=== PATIENT | male | born 1940 | race Caucasian/White ===

== ENCOUNTER 2016-03-06 11:02 | Observation (INO) | payer OTHER ==
[~2016-03-06] VITALS: Ht 193 cm; Wt 113.8 kg
[2016-03-06] VITALS (11 sets, daily range): BP systolic 66–171; BP diastolic 49–82; PULSE 57–63; TEMP 36.3–37; O2SAT 92–100; Ht 193 cm; Wt 113.8 kg
[2016-03-06] MEDS: CEFAZOLIN IV 1,000 MG in DEXTROSE 5% 50ML IV SCH ×2 (06:00→16:06)
[~2016-03-06 11:02] MED LIST: AMIO200T PO; ASPI1TAB83 PO; CARV12.52 PO; CRS10 PO; FURO40TA3 PO; INSDGIPEN SC; LACTATED RINGER'S 1000ML IV SCH; LOSA50TA54 PO; POTA10CA28 PO; SITA100T3 PO
[2016-03-06] MEDS ORDERED: NovoLIN-R INSULIN PER UNIT CHARGE ONE (12:09)
[2016-03-06] MEDS ORDERED: NURSING VERBAL MED ORDER ONE (12:15)
[2016-03-06] MEDS ORDERED: LIDOCAINE HCL 1% 20 ML VIAL ONE (12:35)
[2016-03-06] MEDS ORDERED: BACITRACIN 50000 UNIT VIAL ONE (12:35)
[2016-03-06] MEDS ORDERED: BACITRACIN OINT 0.9 GM PKT ONE (12:35)
[2016-03-06] MEDS ORDERED: FENTANYL CITRATE INJ 50 MCG/1 ML 2 ML VIAL ONE (12:56)
[2016-03-06] MEDS ORDERED: MIDAZOLAM HCL 5 MG/ML 1 ML VIAL ONE (12:57)
--- NOTE | 2016-03-06 13:32 | History & Physical Bridge Note ---
H&P Re-Evaluation Bridge Note: I have examined the patient, reviewed the History & Physical and in the interval since the performance of the History & Physical I have noted the following changes of clinical significance: No changes noted. I discussed the indications, procedure, risks and alternatives of ICD implantation with him and his and they understand and he agrees to proceed. Consent obtained.
--- NOTE | 2016-03-06 13:39 | Procedure Note ---
Pre-Mod Sedation Assessment General Date of Moderate Sedation: Mar 06, 2016. Vital Signs: Vital Signs Past 12 Hours Date Time Temp Pulse Resp B/P Pulse Ox O2 Delivery O2 Flow Rate FiO2 03/06/16 11:35 37 57 20 171/73 92 Room Air Review Cardiovascular: regular rate, rhythm Abdomen: normal bowel sounds Lungs: lungs clear Pre-Sedation Airway Assessment Oral Cavity: WNL Smoking Status: Never Smoker Procedure Planning Contraindications-for Mod Sed: None Yes Notes The planned sedation has been discussed with the patient and consent obtained. I have identified the patient, determined the appropriateness of sedation and have assessed the patient immediately prior to the procedure. All medicine(s) and interventions are by my order.
--- NOTE | 2016-03-06 15:43 | Procedure Note ---
Post-Mod Sedation Assessment General Date of Moderate Sedation Mar 06, 2016. Vital Signs: Vital Signs Past 12 Hours Date Time Temp Pulse Resp B/P Pulse Ox O2 Delivery O2 Flow Rate FiO2 03/06/16 11:35 37 57 20 171/73 92 Room Air Review - Discharge Criteria Vital Signs Stable: Yes Alert/Oriented/Conversant: Yes Returned to Baseline Mental St: Yes Nausea Absent/Minimal: Yes Pain/Discomfort/Absent/Minimal: Yes Normal/Baseline Respirations: Yes Active Bleeding?: No
--- NOTE | 2016-03-06 15:46 | Cardiology Procedure Brief Nt ---
Preliminary Cardiology Note Procedure Date Mar 06, 2016. Pre-Procedure Diagnosis ischemic cardiomyopathy Post-Procedure Diagnosis same Procedure(s) Performed Ventricular ICD lead implantation Atrial lead implantation Coronary sinus angiography Left ventricular lead implantation Biventricular ICD implantation Insurance Claims Examiner Dr. Valle [employer](s) none Estimated Blood Loss 50 cc Preliminary Findings Good lead position, excellent measurements Recommendations Monitor overnight Specimens None Anesthesia local with sedation Complication(s) None Disposition PCU
[2016-03-06] MEDS ORDERED: IV FLUIDS COMPLETED PRN (16:00)
[2016-03-06] MEDS ORDERED: ACETAMINOPHEN 325 MG TAB PO PRN (16:00)
[2016-03-06] MEDS ORDERED: KETOROLAC TROMETHAMINE 10 MG TAB PO PRN (16:00)
[2016-03-06] MEDS ORDERED: GLUCOSE 10 TABS/TUBE PO PRN (16:15)
[2016-03-06] MEDS ORDERED: DEXTROSE 50% 50 ML SYR IV PRN (16:15)
[2016-03-06] MEDS ORDERED: GLUCOSE 40% GEL 15 GM TUBE PO PRN (16:15)
[2016-03-06] MEDS ORDERED: GLUCAGON FOR INJ 1 MG VIAL SQ PRN (16:15)
[2016-03-06] MEDS: CEFAZOLIN IV 1,000 MG in DEXTROSE 5% 50ML 50 ML IV SCH (17:05)
--- NOTE | 2016-03-06 17:12 | OPERATIVE REPORT ---
DATE OF OPERATION: 03/06/2016 AMBULATORY OPERATIVE REPORT PREOPERATIVE DIAGNOSES: 1. Ischemic cardiomyopathy. 2. Congestive heart failure. 3. Left bundle branch block. POSTOPERATIVE DIAGNOSES: Same. PROCEDURES: 1. Atrial and ventricular ICD lead implantation. 2. Coronary sinus angiography. 3. Left ventricular lead implantation. 4. Biventricular ICD implantation. SURGEON: Saul Valle MD ANESTHESIA: Local with sedation. HISTORY: This is a 75-year-old male who has a history of coronary artery disease and cardiomyopathy. He has had an ejection fraction of 20%-25%, he has significant difficulty with exertion and has class 3 [place] [employer] heart failure symptoms. He also has a left bundle branch block with a QRS duration of around 200 milliseconds. He is on medical therapy, but has relative bradycardia, which might be contributing to his difficulty with exertion, but is on 12.5 mg b.i.d. of carvedilol. He is brought to the laboratory for ICD implantation for primary prevention of sudden cardiac as well as biventricular pacing to try to improve his functional status. DESCRIPTION OF PROCEDURE: After obtaining informed consent for the procedure, he was brought to the laboratory on the afternoon of 03/06/2016 being n.p.o. after midnight. He was identified in the laboratory, prepped and draped in standard sterile manner for a left-sided ICD implantation. The left prepectoral region was anesthetized with 1% lidocaine local anesthetic and left subclavian venipuncture was performed by percutaneous technique and a guidewire placed through the left subclavian vein into the superior vena cava. The area was further infiltrated with 1% lidocaine local anesthetic and a 6-cm incision was made parallel to the left clavicle and 3 cm below it and carried down to the anterior pectoralis fascia. An ICD pocket was formed by blunt dissection anterior to the pectoralis fascia and a bacitracin-soaked sponge (50,000 units in 50 mL normal saline solution) was placed in the pocket. A 10-1/2-Slovenian Medtronic lead introducer was placed over the guidewire into the left subclavian vein, the dilator and guidewire were removed and a bipolar active fixation steroid-tipped dual coil defibrillator lead was advanced through the introducer into the superior vena cava. The guidewire was placed through the introducer and introducer stripped away from lead and guidewire. An 8-Slovenian introducer was placed over the guidewire, the dilator and guidewire were removed and a bipolar active fixation steroid-tipped atrial lead was advanced through introducer into the superior vena cava. The guidewire was placed through the introducer and introducer stripped away from lead and guidewire. Using a curved stylette, the ventricular lead was advanced through the right ventricular outflow tract and then using a straight stylette, was positioned in the right ventricular apex. Once in position, the ventricular pacing threshold was evaluated in bipolar configuration at a pulse width of 0.5 milliseconds. Final ventricular pacing threshold was 0.5 volts with a current of 0.5 milliamp, 5-volt lead impedance was 703 ohms and R-waves were sensed at 3.2 millivolts. Diaphragmatic pacing was not present with a 10-volt bipolar output. The atrial lead was positioned in the region of the atrial appendage and a screw extended fixing the lead in position. Atrial pacing threshold was evaluated in bipolar configuration and a pulse width of 0.5 milliseconds. Final atrial pacing threshold was 0.8 volts with a current of 1.0 milliamp, 5-volt lead impedance was 777 ohms and P-waves were sensed at 1.2 millivolts. Diaphragmatic pacing was not present with a 10 volt bipolar output. Once leads were in position, they were attached to the anterior pectoralis fascia using 1 suture of 2-0 silk around each lead collar. The short guidewire was exchanged for a long wire using an 8-Slovenian dilator, a Scot coronary sinus sheath was advanced to position at the right atrium. This did not directly engage the coronary sinus os, therefore a right angle guiding sheath was advanced through the [place] catheter and using dye injection, the coronary sinus os was identified and a guidewire placed into the coronary sinus. The sheath system was advanced into the coronary sinus. Using the right angle guide, the coronary sinus branches were subselected and an angiography was performed in various projections. There were several good posterolateral vessels. One was chosen and a quadripolar left ventricular lead was advanced through the sheath into this vessel. Using a stylet, the lead could not be advanced into good distal position; therefore, the stylet was exchanged for a Whisper wire and the lead was positioned in good distal position. Once in position, the left ventricular pacing threshold was evaluated with the configuration of tip to L2 and in this configuration at a pulse width of 0.5 milliseconds, the threshold was 0.9 volts, current was 1.0 milliamp and 5-volt lead impedance was 982 ohms. R-waves were sensed at 7 millivolts. This is a good threshold and there was no diaphragmatic pacing with a 10-volt output. Once this lead was in position, it was attached to the anterior pectoralis fascia using 2 sutures of 2-0 silk around the lead collar. An additional suture of 2-0 silk was placed about on the atrial and ventricular lead collars. Hemostasis was obtained. The bacitracin-soaked sponge was removed from the pocket and the biventricular ICD was connected to the leads. The ICD was placed in the pocket with the leads coiled beneath it. The incision was closed with a running double subcutaneous closure of 3-0 Vicryl followed by running subcuticular skin closure of 4-0 Vicryl. Bacitracin ointment was placed on incision and a pressure dressing applied. The patient tolerated the procedure well, there were no complications and estimated blood loss was 50 mL. The patient was transferred to the telemetry unit for monitoring. The atrial lead is a Medtronic, model #5076, serial #[id number] and is a bipolar active fixation steroid-tipped MRI compatible lead. The right ventricular ICD lead is a Medtronic, model #6947M, serial #[id number] and is a dual-coil active fixation steroid-tipped lead. The left ventricular lead is a Medtronic, model #4598, serial #[id number] and is a quadripolar coronary sinus lead, MRI compatible. The ICD is a Medtronic, Amplia MRI Quad CRTD SureScan, model #KUAM7NL, serial #[id number]. The ICD was reprogrammed in the laboratory to final settings. [facility]
[2016-03-06] MEDS: CARVEDILOL 12.5 MG TAB PO SCH (20:12)
[2016-03-06] MEDS ORDERED: ROSUVASTATIN CALCIUM 20 MG TAB PO SCH (21:00)
[2016-03-07] VITALS: BP 118/67; PULSE 61; TEMP 36.5; O2SAT 96
[2016-03-07] MEDS: CEFAZOLIN IV 1,000 MG in DEXTROSE 5% 50ML 50 ML IV SCH ×2 (00:47→07:44)
[2016-03-07 03:52] VITALS: BP 135/86; PULSE 68; TEMP 36.7; O2SAT 98
[2016-03-07 04:00] VITALS: O2SAT 98
[2016-03-07 04:58] LABS: BUN/CREATININE RATIO 21.8 (10-20); CALCIUM 8.8 mg/dl (8.5-10.1); CREATININE 1.3 mg/dl (0.60-1.40); POTASSIUM 3.8 mmol/L (3.5-5.1)
--- NOTE | 2016-03-07 07:21 | DIAGNOSTIC IMAGING REPORT ---
TWO VIEW CHEST CLINICAL HISTORY: Pacemaker implantation. FINDINGS: PA and lateral chest radiographs are compared to study dated 02/07/2016. Correlation is made with PET/CT dated 06/05/2010. A 3-lead cardiac AICD has been placed. This partially obscures the left upper chest. Leads project over the right atrial appendage, the right ventricle, and the coronary sinus. The heart is enlarged and there is atherosclerotic calcification of the thoracic aorta. The pulmonary vasculature is noncongested. Chronic interstitial thickening is similar to previous. No airspace consolidation or pleural effusion is identified. There is no pneumothorax. The skeletal structures are osteopenic. Degenerative change is seen throughout the thoracic spine. IMPRESSION: 1. A 3-lead cardiac AICD has been placed as detailed above. No pneumothorax is identified post procedure. 2. Cardiomegaly without radiographic evidence of congestive failure. 3. No airspace consolidation or pleural effusion is identified. Electronically signed by: Taj Garcia M.D. 03/07/2016 7:19 AM Dictated Date/Time: 03/07/2016 7:17 AM
[2016-03-07 07:32] VITALS: BP 131/81; PULSE 62; TEMP 36.6; O2SAT 95
[2016-03-07] MEDS: CARVEDILOL 12.5 MG TAB PO SCH (07:46)
[2016-03-07 08:00] VITALS: BP 131/81; PULSE 62; TEMP 36.6; O2SAT 98
--- NOTE | 2016-03-07 08:51 | Discharge Instructions ---
Discharge Instructions Admission Ischemic cardiomyopathy Discharge Discharge Diagnosis / Problem: Status post biventricular ICD implantation Discharge Goals Goal(s): Improve disease control Activity Recommendations Activity Limitations: as noted below ACTIVITY RECOMMENDATIONS: * Do not raise affected arm over head for 2 weeks. SPECIAL CARE INSTRUCTIONS: * If bleeding occurs, apply direct pressure to area for 5 minutes. * Call your doctor if you have severe pain, fever, drainage or bleeding at site. * Keep dressing on and dry for 48 hours then remove. * Keep any scheduled doctor's appointment. * Implant Card - hand held device with website information given. SKIN IRRITATION: * You may experience some redness and/or swelling in the area where radiation was administered. If any skin irritation occurs, please contact your family physician. FOLLOW UP VISIT: 03/09/16 @ 9:00 am for incision check . Current Hospital Diet Patient's current hospital diet: AHA Diet (Heart Healthy), Diabetes Type 2 Diet Discharge Diet Recommended Diet: AHA Diet (Heart Healthy) Pending Studies Studies pending at discharge: no Laboratory Results Hemoglobin A1c Test 02/08/16 06:50 Range/Units Estimated Average Glucose 177 mg/dl Hemoglobin A1c 7.8 H 4.5-5.6 % Medical Emergencies . Who to Call and When: Medical Emergencies: If at any time you feel your situation is an emergency, please call 911 immediately. . Non-Emergent Contact Non-Emergency issues call your: Final Inspector . . "Provider Documentation" section prepared by Katlin Dean. VTE Core Measure Inpt VTE Proph given/why not?: Treatment not indicated
[2016-03-07] MEDS ORDERED: POTASSIUM CHLORIDE 10 MEQ TABCR PO SCH (09:00)
[2016-03-07] MEDS ORDERED: SITAGLIPTIN 100 MG TAB PO SCH (09:00)
[2016-03-07] MEDS ORDERED: INSULIN GLARGINE SOLOSTAR 100 UNITS/ML 3 ML PEN SC SCH (09:00)
[2016-03-07] MEDS ORDERED: AMIODARONE 200 MG TAB PO SCH (09:00)
[2016-03-07] MEDS ORDERED: FUROSEMIDE 40 MG TAB PO SCH (09:00)
[2016-03-07] MEDS ORDERED: LOSARTAN POTASSIUM 50 MG TAB PO SCH (09:00)
--- NOTE | 2016-03-07 09:18 | Cardiology Follow-Up ---
Subjective Date of Service: Mar 07, 2016. Pt evaluation today including: conversation w/ patient, physical exam, chart review, review of studies, review of inpatient medication list, conversation w/ attending History of Present Illness Patient currently resting comfortably in bed. He denies any chest pain, shortness of breath, palpitations, or lightheadedness. Social History Smoking Status: Never Smoker History of Alcohol Use: No Objective Vital Signs Past 12 Hours Date Time Temp Pulse Resp B/P Pulse Ox O2 Delivery O2 Flow Rate FiO2 03/07/16 08:00 98 Nasal Cannula 2.0 03/07/16 07:32 36.6 62 20 131/81 95 Room Air 03/07/16 04:00 98 Nasal Cannula 2.0 03/07/16 03:52 36.7 68 19 135/86 98 Nasal Cannula 2.0 03/07/16 00:00 36.5 61 19 118/67 96 Nasal Cannula 2.0 03/06/16 23:59 96 Nasal Cannula 2.0 Last Recorded Weight-Kilograms: 113.800 Intake & Output 8-Hour Column 03/06/16 03/07/16 03/07/16 16:00 00:00 08:00 Intake Total 400 ml 406 ml Output Total 300 ml Balance 100 ml 406 ml 24-Hour Column 03/07/16 08:00 Intake Total 806 ml Output Total 300 ml Balance 506 ml Physical Exam Constitutional: Level of Distress: NAD Lungs: Auscultation: breath sounds normal Cardiovascular: Heart Auscultation: RRR, normal S1, normal S2, no murmurs Extremities: no edema Data Laboratory Results: Last 24 Hours Test 03/06/16 11:33 03/06/16 12:53 03/06/16 16:31 03/06/16 20:27 Bedside Glucose 320 mg/dl 291 mg/dl 258 mg/dl 284 mg/dl Test 03/07/16 03:52 03/07/16 06:45 Sodium Level 137 mmol/L Potassium Level 3.8 mmol/L Chloride Level 99 mmol/L Carbon Dioxide Level 31 mmol/L Anion Gap 7.0 mmol/L Blood Urea Nitrogen 28 mg/dl Creatinine 1.30 mg/dl Est Creatinine Clear Calc Drug Dose 68.9 ml/min Estimated GFR () 62.3 Estimated GFR (Non- 53.8 BUN/Creatinine Ratio 21.8 Random Glucose 206 mg/dl Calcium Level 8.8 mg/dl Bedside Glucose 212 mg/dl CXR: 1. A 3-lead cardiac AICD has been placed as detailed above. No pneumothorax is identified post procedure. 2. Cardiomegaly without radiographic evidence of congestive failure. 3. No airspace consolidation or pleural effusion is identified. EKG: AV dual paced rhythm. 68 bpm. Assessment and Plan Patient feeling well post-op. Device check showed excellent sensing and pacing characteristics. He is stable for discharge home. He will have a follow-up appointment in 2 days for incision check and in 1 month for device check.
--- NOTE | 2016-03-07 09:24 | Discharge Summary ---
Discharge Summary Admission Date: Mar 06, 2016 at 15:53 Discharge Date: Mar 07, 2016 Discharge Disposition: Home Primary Diagnosis: Ischemic cardiomyopathy Secondary Diagnoses/Problems: Medical Problems: (1) COPD with acute exacerbation Status: Acute (2) Pneumonia Status: Acute (3) Respiratory failure Status: Acute Procedures: Ventricular ICD lead implantation Atrial lead implantation Coronary sinus angiography Left ventricular lead implantation Biventricular ICD implantation Discharge Instructions Last Recorded Wt (Kilograms): 113.800 Allergies: Coded Allergies: No Known Allergies (Verified , 03/06/16) Additional Instructions: ACTIVITY RECOMMENDATIONS: * Do not raise affected arm over head for 2 weeks. SPECIAL CARE INSTRUCTIONS: * If bleeding occurs, apply direct pressure to area for 5 minutes. * Call your doctor if you have severe pain, fever, drainage or bleeding at site. * Keep dressing on and dry for 48 hours then remove. * Keep any scheduled doctor's appointment. * Implant Card - hand held device with website information given. SKIN IRRITATION: * You may experience some redness and/or swelling in the area where radiation was administered. If any skin irritation occurs, please contact your family physician. FOLLOW UP VISIT: Keep any scheduled doctor appointments. Special Care: Call your doctor if: * Temperature above 101 degrees * Pain not relieved by pain medicine ordered * There is increased drainage or redness from any incision * You have any unanswered questions or concerns. Avoid all tobacco products. If you need help to stop smoking, call [place]'s FREE QUITLINE at . This is a free call. Admission HPI This is a 75-year-old male who has a history of coronary artery disease and cardiomyopathy. He has had an ejection fraction of 20%-25%, he has significant difficulty with exertion and has class 3 [place] [employer] heart failure symptoms. He also has a left bundle branch block with a QRS duration of around 200 milliseconds. He is on medical therapy, but has relative bradycardia, which might be contributing to his difficulty with exertion, but is on 12.5 mg b.i.d. of carvedilol. He is brought to the laboratory for ICD implantation for primary prevention of sudden cardiac as well as biventricular pacing to try to improve his functional status. Admission Physical Exam Additional Comments: In general this is a well-developed well-nourished white male in no acute distress.HEENT exam is negative. Neck reveals normal carotid upstrokes without bruits. Jugular venous pressure is flat at 90. There is no thyromegaly. Cardiovascular exam reveals a regular rhythm with a normal S1 and S2. An S3 gallop is noted. No obvious murmurs. Lungs are clear without rales, rhonchi, or wheezes. Abdomen is soft without bruits. Extremities reveal intact radial artery pulses bilaterally. There is no peripheral edema. Hospital Course Patient with ischemic cardiomyopathy and class III NYHA heart failure symptoms underwent biventricular ICD implantation on 03/06/[address] Valle. He tolerated the procedure well. Device check the following day showed excellent sensing and pacing characteristics. CXR showed good lead placement and no pneumothorax. He was deemed stable for discharge home. He will have a follow-up appointment in 2 days for wound check and in 1 month for a device check. Total time spent on discharge = This includes examination of the patient, discharge planning, medication reconciliation, and communication with other providers.
== END 2016-03-07 10:31 | disposition home or self-care (01) ==
LOC: C.ACU 11:02 → C.2E 15:53
PROVIDERS: ADMIT Internal Medicine Cardiovascular Disease; ATTEND Internal Medicine Cardiovascular Disease
DX: I25.5 Ischemic cardiomyopathy (principal); I50.42 Chronic combined systolic (congestive) and diastolic (congestive) heart failure; I44.7 Left bundle-branch block, unspecified; I25.10 Atherosclerotic heart disease of native coronary artery without angina pectoris; I10 Essential (primary) hypertension; J44.9 Chronic obstructive pulmonary disease, unspecified; I48.0 Paroxysmal atrial fibrillation; E11.9 Type 2 diabetes mellitus without complications; E78.00 Pure hypercholesterolemia, unspecified; Z79.899 Other long term (current) drug therapy; Z79.82 Long term (current) use of aspirin; Z79.4 Long term (current) use of insulin; Z87.01 Personal history of pneumonia (recurrent); Z82.49 Family history of ischemic heart disease and other diseases of the circulatory system; Z83.3 Family history of diabetes mellitus; Z82.61 Family history of arthritis

== ENCOUNTER → 2016-04-12 | Outpatient (CLI) | payer OTHER ==
[~2016-04-12] MED LIST changes: -LACTATED RINGER'S 1000ML IV SCH
== END | disposition home or self-care (01) ==
LOC: C.LABSPEC 12:18
PROVIDERS: ATTEND Internal Medicine
DX: R19.7 Diarrhea, unspecified (principal)

== ENCOUNTER → 2016-06-14 | Outpatient (CLI) | payer OTHER ==
[2016-06-14 12:20] LABS: HEMATOCRIT 39.4 % (42-52); MEAN CELL VOLUME 89.1 fL (80-100); MEAN CORPUSCULAR HEMOGLOBIN 28.7 pg (25-34); MEAN CORPUSCULAR HGB CONC 32.2 g/dl (32-36); MEAN PLATELET VOLUME 10.6 fL (7.4-10.4); PLATELET COUNT 187 K/uL (130-400); RED BLOOD COUNT 4.42 M/uL (4.7-6.1)
[2016-06-14 12:33] LABS: PROTHROMBIN TIME (PATIENT) 10.7 SECONDS (9.0-12.0)
[2016-06-14 12:44] LABS: PARTIAL THROMBOPLASTIN RATIO 0.9
[2016-06-14 12:53] LABS: ESTIMATED AVERAGE GLUCOSE 186 mg/dl; HA1C FLAG Normal (Normal)
[2016-06-14 13:17] LABS: ALT/SGPT 32 U/L (12-78); AST/SGOT 23 U/L (15-37); BLOOD UREA NITROGEN 27 mg/dl (7-18); BUN/CREATININE RATIO 20.8 (10-20); CALCIUM 9.2 mg/dl (8.5-10.1); CARBON DIOXIDE 31 mmol/L (21-32); CHLORIDE 106 mmol/L (98-107); CHOLESTEROL 163 mg/dl (0-200); GLUCOSE 147 mg/dl (70-99); POTASSIUM 4.5 mmol/L (3.5-5.1); SODIUM 141 mmol/L (136-145)
[2016-06-14 13:20] LABS: ALB/GLOB RATIO 1.2 (0.9-2); ALKALINE PHOSPHATASE 54 U/L (45-117); CHOLESTEROL/HDL RATIO 3.7; HDL CHOLESTEROL 44 mg/dl; LDL CHOLESTEROL CALCULATED 63 mg/dl; TRIGLYCERIDES 280 mg/dl (0-150); VERY LOW DENSITY LIPOPROT CALC 56 mg/dl
== END | disposition home or self-care (01) ==
LOC: C.LABBFT 10:52
PROVIDERS: ATTEND Internal Medicine
DX: Z01.818 Encounter for other preprocedural examination (principal); I10 Essential (primary) hypertension; E11.29 Type 2 diabetes mellitus with other diabetic kidney complication

== ENCOUNTER → 2016-06-15 | Outpatient (CLI) | payer OTHER ==
[2016-06-15 13:21] LABS: RATIO 22.4 mcg/mg (0-30.0)
== END | disposition home or self-care (01) ==
LOC: C.LABSPEC 12:18
PROVIDERS: ATTEND Internal Medicine
DX: E11.29 Type 2 diabetes mellitus with other diabetic kidney complication (principal)

== ENCOUNTER 2017-05-27 10:17 | Inpatient (IN) | payer OTHER ==
[~2017-05-27] VITALS: Ht 193 cm; Wt 121.9 kg
[2017-05-27] MEDS ORDERED: ALUMINUM/MAGNESIUM SUSP 30 ML UDC PO STA (10:27)
[2017-05-27] MEDS ORDERED: ACETAMINOPHEN 500 MG TAB PO STA (10:27)
[2017-05-27] MEDS ORDERED: ASPIRIN 81 MG CHEW PO STA (10:27)
--- NOTE | 2017-05-27 11:00 | DIAGNOSTIC IMAGING REPORT ---
CHEST ONE VIEW PORTABLE CLINICAL HISTORY: 76 years-old Male presenting with ABDOMINAL PAIN/GI, chest discomfort. TECHNIQUE: Portable upright AP view of the chest was obtained. COMPARISON: 03/07/2016. FINDINGS: Left subclavian implanted cardiac defibrillator with leads to the right atrium, right ventricular apex, and coronary sinus. Atherosclerosis of the aortic arch. Cardiac silhouette moderately enlarged, unchanged. Mild pulmonary prominence, unchanged. No focal opacity. No large effusion or pneumothorax. Osseous structures normal. IMPRESSION: 1. Cardiomegaly. Otherwise no acute cardiopulmonary disease. Electronically signed by: Erick Martinez M.D. 05/27/2017 10:59 AM Dictated Date/Time: 05/27/2017 10:58 AM
--- NOTE | 2017-05-27 11:00 | DIAGNOSTIC IMAGING REPORT ---
KUB CLINICAL HISTORY: Abdominal pain COMPARISON STUDY: No previous studies for comparison. FINDINGS: There are gas-filled nondilated small bowel loops. There is no pathologic bowel dilatation. There are no transition zones indicate bowel obstruction. Pelvic basin calcifications are likely vascular. IMPRESSION: No evidence of pathologic bowel dilatation. Electronically signed by: Maik Aaron M.D. 05/27/2017 10:59 AM Dictated Date/Time: 05/27/2017 10:58 AM
[2017-05-27 11:06] LABS: PTT PATIENT 23.9 SECONDS (21.0-31.0)
[2017-05-27] MEDS ORDERED: INSU1.2I SC (11:07)
[2017-05-27] MEDS ORDERED: ROSU40TA PO (11:07)
[2017-05-27] MEDS ORDERED: CRD200 PO (11:07)
[2017-05-27 11:12] LABS: ALBUMIN 3.6 gm/dl (3.4-5.0); ALT/SGPT 32 U/L (12-78); AST/SGOT 20 U/L (15-37); BLOOD UREA NITROGEN 26 mg/dl (7-18); CARBON DIOXIDE 29 mmol/L (21-32); CREATININE 1.28 mg/dl (0.60-1.40); GLUCOSE 171 mg/dl (70-99); LIPASE 89 U/L (73-393); POTASSIUM 4.2 mmol/L (3.5-5.1); SODIUM 137 mmol/L (136-145)
--- NOTE | 2017-05-27 11:13 | EMERGENCY ROOM VISIT NOTE ---
History Report prepared by Shadi: Yoselin Tyler Under the Supervision of: Dr. Phillip Buitrago D.O. First contact with patient: 10:19 Chief Complaint: CHEST PAIN Stated Complaint: UNCOMFORTABLE IN CHEST AND BELLY History of Present Illness The patient is a 76 year old male who presents to the Emergency Room with complaints of constant chest pain beginning around 4pm yesterday evening. He was sitting down and relaxing when his pain began. He states that the pain worsens with a deep breath. He states that he has a "full feeling" across his upper abdomen and into his chest and neck. He has never experienced symptoms like this before. The patient rates his current pain as an 8/10 in severity. He reports a history of CHF. He also has a pacemaker and stents in place. The patient denies nausea and shortness of breath. Source of History: patient Onset: yesterday evening Position: chest Symptom Intensity: 8/10 Quality: other (full) Timing: constant Modifying Factors (Worsening): breathing Associated Symptoms: + neck pain, + abdominal pain, No SOB, No nausea Review of Systems See HPI for pertinent positives & negatives. A total of 10 systems reviewed and were otherwise negative. Past Medical & Surgical Medical Problems: (1) Acute respiratory failure with hypercapnia (2) Diabetes mellitus (3) Hyperlipidemia (4) Ischemic cardiomyopathy Family History Cancer Diabetes mellitus Heart disease Hypertension Social History Smoking Status: Never Smoker Alcohol Use: none Drug Use: none Marital Status: Housing Status: lives with family Occupation Status: retired Current/Historical Medications Scheduled Amiodarone HCl (Amiodarone HCl), 200 MG PO DAILY Aspirin (Aspirin), 81 MG PO 3XWK Carvedilol (Coreg), 12.5 MG PO BID Furosemide (Lasix), 40 MG PO DAILY Insulin Glargine (Toujeo Solostar), 40 UNITS SC BID Losartan Potassium (Cozaar), 100 MG PO DAILY Potassium Chloride (Micro-K Ext Rel), 10 MEQ PO DAILY Rosuvastatin Calcium (Crestor), 40 MG PO PM Sitagliptin Phosphate (Januvia), 100 MG PO DAILY Allergies Coded Allergies: No Known Allergies (Verified , 05/27/17) Physical Exam Vital Signs Date Time Temp Pulse Resp B/P (MAP) Pulse Ox O2 Delivery O2 Flow Rate FiO2 05/27/17 14:00 72 118/67 96 Room Air 05/27/17 13:30 61 109/69 96 Room Air 05/27/17 13:11 60 05/27/17 13:03 61 116/65 95 Room Air 05/27/17 12:29 120/67 05/27/17 12:04 84/58 05/27/17 11:52 107/67 05/27/17 11:47 60 93/61 94 Room Air 05/27/17 10:35 66 05/27/17 10:34 96 Room Air 05/27/17 10:33 Room Air 05/27/17 10:27 37.0 70 18 144/85 95 Room Air Physical Exam GENERAL: Patient is awake, alert, and in no acute distress. Patient is resting comfortably and showing no signs of anxiety EYES: The conjunctivae are clear. The pupils are round and reactive. EARS, NOSE, MOUTH AND THROAT: The nose is without any evidence of any deformity. Mucous membranes are moist tongue is midline NECK: The neck is nontender and supple. RESPIRATORY: Normal respiratory effort is noted there is no evidence of wheezing rhonchi or rales CARDIOVASCULAR: Regular rate and rhythm noted there no murmurs rubs or gallops normal S1 normal S2 GASTROINTESTINAL: The abdomen is soft. Bowel sounds are present in all quadrants. Abdomen is nontender MUSCULOSKELETAL/EXTREMITIES: There is no evidence of gross deformity full range of motion is noted in the hips and shoulders SKIN: There was trace pedal edema bilaterally. There is no obvious evidence of any rash. There are no petechiae, pallor or cyanosis noted. NEUROLOGIC: Patient is awake alert and oriented x3 Medical Decision & Procedures ER Provider Diagnostic Interpretation: Radiology results as stated below per my review and radiologist interpretation: KUB CLINICAL HISTORY: Abdominal pain COMPARISON STUDY: No previous studies for comparison. FINDINGS: There are gas-filled nondilated small bowel loops. There is no pathologic bowel dilatation. There are no transition zones indicate bowel obstruction. Pelvic basin calcifications are likely vascular. IMPRESSION: No evidence of pathologic bowel dilatation. Electronically signed by: Maik Aaron M.D. 05/27/2017 10:59 AM Dictated Date/Time: 05/27/2017 10:58 AM CHEST ONE VIEW PORTABLE CLINICAL HISTORY: 76 years-old Male presenting with ABDOMINAL PAIN/GI, chest discomfort. TECHNIQUE: Portable upright AP view of the chest was obtained. COMPARISON: 03/07/2016. FINDINGS: Left subclavian implanted cardiac defibrillator with leads to the right atrium, right ventricular apex, and coronary sinus. Atherosclerosis of the aortic arch. Cardiac silhouette moderately enlarged, unchanged. Mild pulmonary prominence, unchanged. No focal opacity. No large effusion or pneumothorax. Osseous structures normal. IMPRESSION: 1. Cardiomegaly. Otherwise no acute cardiopulmonary disease. Electronically signed by: Erick Martinez M.D. 05/27/2017 10:59 AM Dictated Date/Time: 05/27/2017 10:58 AM ABD/PELVIS IV CONTRAST ONLY CLINICAL HISTORY: 76 years-old Male presenting with upper abd pain. TECHNIQUE: Multidetector CT of the abdomen and pelvis was performed after the administration of intravenous contrast. IV contrast: 92 mL of Optiray 320. A dose lowering technique was used consistent with the principles of ALARA (as low as reasonably achievable). COMPARISON: PET/CT from 06/05/2010. CT DOSE (mGy.cm): The estimated cumulative dose is 1624.47 mGy.cm. 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 Cardiomegaly. Lung bases: Significant subpleural dependent groundglass and reticular opacities accompanied by bronchial wall thickening and minimal subsegmental bronchial debris in the lower lobes. Multichamber enlargement of the heart. Coronary artery and aortic valve calcification. No pericardial or pleural effusion. Liver: Normal morphology. No liver lesion. Patent hepatic vasculature. Biliary: No intrahepatic or extrahepatic biliary ductal dilatation. Gallbladder contains gallstones. Pancreas: Moderate parenchymal atrophy. Spleen: Normal. Adrenal glands: Normal. Kidneys and ureters: Mild nonspecific perinephric fat stranding. Well-defined hypodensity in the left upper pole likely simple cyst. No hydronephrosis. No nephrolithiasis. Ureters normal. Bladder: Normal. Pelvic organs: Prostate enlargement likely secondary to benign prostatic hyperplasia. Bowel: Diverticulosis of the sigmoid colon without pericolonic fat stranding. The appendix is normal. No bowel obstruction. Peritoneal cavity: No free fluid or intraperitoneal gas. Lymph nodes: No enlarged lymph nodes in the abdomen or pelvis. Vasculature: Atherosclerosis of the normal caliber abdominal aorta. IVC patent. Abdominal wall: Bilateral small fat-containing inguinal hernias. Nonspecific subcutaneous edema in the lumbar region. Musculoskeletal: Degenerative changes of the spine. Degenerative changes of the sacroiliac joints. IMPRESSION: 1. No acute intra-abdominal pathology. 2. Diverticulosis without evidence of diverticulitis. 3. Cholelithiasis. 4. Cardiomegaly. 5. Dependent opacities in the lungs with accompanying wall thickening and minimal subsegmental bronchial debris could suggest chronic aspiration. Electronically signed by: Erick Martinez M.D. 05/27/2017 12:35 PM Dictated Date/Time: 05/27/2017 12:27 PM Laboratory Results 05/27/17 11:16 Red Blood Count 4.34, Mean Corpuscular Volume 87.8, Mean Corpuscular Hemoglobin 30.0, Mean Corpuscular Hemoglobin Concent 34.1, Mean Platelet Volume 10.3, Neutrophils (%) (Auto) 67.4, Lymphocytes (%) (Auto) 18.4, Monocytes (%) (Auto) 10.7, Eosinophils (%) (Auto) 2.7, Basophils (%) (Auto) 0.4, Neutrophils # (Auto ) 5.43, Lymphocytes # (Auto) 1.48, Monocytes # (Auto) 0.86, Eosinophils # (Auto ) 0.22, Basophils # (Auto) 0.03 05/27/17 10:38 Test 05/27/17 10:38 05/27/17 11:00 05/27/17 11:16 Prothrombin Time 10.0 SECONDS (9.0-12.0) Prothromb Time International Ratio 1.0 (0.9-1.1) Activated Partial Thromboplast Time 23.9 SECONDS (21.0-31.0) Partial Thromboplastin Ratio 0.9 Anion Gap 5.0 mmol/L (3-11) Est Creatinine Clear Calc Drug Dose 44.9 ml/min Estimated GFR () 63.0 Estimated GFR (Non- 54.4 BUN/Creatinine Ratio 20.3 (10-20) Calcium Level 9.0 mg/dl (8.5-10.1) Magnesium Level 2.4 mg/dl (1.8-2.4) Total Bilirubin 0.7 mg/dl (0.2-1) Direct Bilirubin 0.2 mg/dl (0-0.2) Aspartate Amino Transf (AST/SGOT) 20 U/L (15-37) Alanine Aminotransferase (ALT/SGPT) 32 U/L (12-78) Alkaline Phosphatase 69 U/L (45-117) Total Creatine Kinase 183 U/L (39-308) Creatine Kinase MB 3.0 ng/ml (0.5-3.6) Creatine Kinase MB Ratio 1.6 (0-3.0) Troponin I < 0.015 ng/ml (0-0.045) Total Protein 7.4 gm/dl (6.4-8.2) Albumin 3.6 gm/dl (3.4-5.0) Lipase 89 U/L (73-393) Urine Color YELLOW Urine Appearance CLEAR (CLEAR) Urine pH 5.5 (4.5-7.5) Urine Specific [place] 1.009 (1.000-1.030) Urine Protein NEG (NEG) Urine Glucose (UA) NEG (NEG) Urine Ketones NEG (NEG) Urine Occult Blood NEG (NEG) Urine Nitrite NEG (NEG) Urine Bilirubin NEG (NEG) Urine Urobilinogen NEG (NEG) Urine Leukocyte Esterase NEG (NEG) White Blood Count 8.05 K/uL (4.8-10.8) Red Blood Count 4.34 M/uL (4.7-6.1) Hemoglobin 13.0 g/dL (14.0-18.0) Hematocrit 38.1 % (42-52) Mean Corpuscular Volume 87.8 fL (80-100) Mean Corpuscular Hemoglobin 30.0 pg (25-34) Mean Corpuscular Hemoglobin Concent 34.1 g/dl (32-36) Platelet Count 145 K/uL (130-400) Mean Platelet Volume 10.3 fL (7.4-10.4) Neutrophils (%) (Auto) 67.4 % Lymphocytes (%) (Auto) 18.4 % Monocytes (%) (Auto) 10.7 % Eosinophils (%) (Auto) 2.7 % Basophils (%) (Auto) 0.4 % Neutrophils # (Auto) 5.43 K/uL (1.4-6.5) Lymphocytes # (Auto) 1.48 K/uL (1.2-3.4) Monocytes # (Auto) 0.86 K/uL (0.11-0.59) Eosinophils # (Auto) 0.22 K/uL (0-0.5) Basophils # (Auto) 0.03 K/uL (0-0.2) RDW Standard Deviation 45.4 fL (36.4-46.3) RDW Coefficient of Variation 14.1 % (11.5-14.5) Immature Granulocyte % (Auto) 0.4 % Immature Granulocyte # (Auto) 0.03 K/uL (0.00-0.02) Platelet Estimate NORMAL Laboratory results per my review. Medications Administered Medications (Trade) Dose Ordered Sig/Jennifer Route Start Time Stop Time Status Last Admin Dose Admin Acetaminophen (Tylenol Tab) 1,000 mg NOW STAT PO 05/27/17 10:27 05/27/17 10:29 DC 05/27/17 10:39 1,000 MG Al Hydroxide/Mg Hydroxide (Maalox Susp) 30 ml NOW STAT PO 05/27/17 10:27 05/27/17 10:29 DC 05/27/17 10:38 30 ML Aspirin (Aspirin Chew) 324 mg NOW STAT PO 05/27/17 10:27 05/27/17 10:29 DC 05/27/17 10:38 324 MG Sodium Chloride 1,000 ml @ 999 mls/hr Q1H1M STAT IV 05/27/17 12:04 05/27/17 13:04 DC 05/27/17 12:07 999 MLS/HR ECG Per My Interpretation Indication: chest pain Rate (beats per minute): 86 Rhythm: other (AV dual paced) Findings: RBBB, other (no [place] beats noted) Comparison ECG Date: 03/06/16 Change: no significant change ED Course 1019: The patient was evaluated in room C6. A complete history and physical examination were performed. 1027: Aspirin 324 mg PO, Maalox 30 ml PO, Tylenol 1000 mg PO 1159: I updated the patient on his results. He is doing well. 1204: NSS 1000 ml @ 999 mls/hr IV 1344: I reassessed the patient at this time. His chest pain is starting to return. I discussed the results and treatment plan with the patient. I answered all pertaining questions that he had. He expressed understanding and verbalized agreement. 1356: I spoke with STEPHAN Earl. We discussed the patient's case. The patient will be evaluated by the [facility] for further management. Medical Decision Differential diagnosis: Etiologies such as cardiac ischemia, aortic dissection, pulmonary embolism, pneumonia, pneumothorax, musculoskeletal, infections, pericarditis, myocarditis , esophageal rupture, gastrointestinal, as well as others were entertained. Nursing notes reviewed. The patient is a 76-year-old male who presented to the emergency department for epigastric discomfort. The patient has a cardiac history and has a history of stents in the past. He states that he had discomfort which was in his epigastric region and radiated into his chest. He was not initially concerned about this. His pain started to radiate into his neck. He became very concerned that this could be cardiac discomfort. The patient presented to the emergency department with family members. The patient has a pacemaker so his EKG was not helpful in an evaluation for ischemia. His initial troponin was negative. I discussed patient's laboratory and radiographic studies with him. I also discussed the limitations of the emergency department workup for chest pain with him. On subsequent reevaluation he was somewhat improved. He was found to have an episode of hypotension. For this reason a CT of the abdomen was obtained to ensure there was no abnormal finding in the upper abdomen which would be causing his hypotension. Given the patient's condition past medical history I also discussed this case with the on-call [facility] hospitalist group. They have agreed to evaluate the patient in the emergency department for further management and disposition. Medication Reconcilliation Current Medication List: was personally reviewed by me Blood Pressure Screening Patient's blood pressure: Normal blood pressure Consults Time Called: 1351 Consulting Physician: STEPHAN Earl Returned Call: 1356 I spoke with STEPHAN Earl. We discussed the patient's case. The patient will be evaluated by the [facility] for further management. Impression Primary Impression: Chest pain Additional Impressions: Hypotension Epigastric abdominal pain Scribe Attestation The scribe's documentation has been prepared under my direction and personally reviewed by me in its entirety. I confirm that the note above accurately reflects all work, treatment, procedures, and medical decision making performed by me. Departure Information Dispostion Being Evaluated By Hospitalist Referrals Dick Antoine M.D. (PCP) Patient Instructions My [facility] Health Problem Qualifiers Primary Impression: Chest pain Chest pain type: unspecified Qualified Codes: R07.9 - Chest pain, unspecified Additional Impressions: Hypotension Hypotension type: unspecified hypotension type Qualified Codes: I95.9 - Hypotension, unspecified
[2017-05-27 11:15] LABS: ALKALINE PHOSPHATASE 69 U/L (45-117); TOTAL PROTEIN 7.4 gm/dl (6.4-8.2)
[2017-05-27 11:57] LABS: HEMATOCRIT 38.1 % (42-52); MEAN CELL VOLUME 87.8 fL (80-100); MEAN CORPUSCULAR HGB CONC 34.1 g/dl (32-36); MEAN PLATELET VOLUME 10.3 fL (7.4-10.4); PLATELET COUNT 145 K/uL (130-400); RED CELL DISTRIBUTION WIDTH CV 14.1 % (11.5-14.5); RED CELL DISTRIBUTION WIDTH SD 45.4 fL (36.4-46.3); WHITE BLOOD COUNT 8.05 K/uL (4.8-10.8)
[2017-05-27 11:58] LABS: BASO % 0.4 %; BASO ABS # 0.03 K/uL (0-0.2); EOS % 2.7 %; EOS ABS # 0.22 K/uL (0-0.5); IG# 0.03 K/uL (0.00-0.02); LYMPH % 18.4 %; LYMPH ABS # 1.48 K/uL (1.2-3.4); MONO % 10.7 %; MONO ABS # 0.86 K/uL (0.11-0.59); NEUT % 67.4 %; NEUT ABS # 5.43 K/uL (1.4-6.5)
[2017-05-27] MEDS ORDERED: SODIUM CHLORIDE 0.9% 1000ML 1,000 ML IV STA (12:04)
[2017-05-27] MEDS ORDERED: OPTIRAY 320 IV PRN (12:15)
--- NOTE | 2017-05-27 12:36 | DIAGNOSTIC IMAGING REPORT ---
ABD/PELVIS IV CONTRAST ONLY CLINICAL HISTORY: 76 years-old Male presenting with upper abd pain. TECHNIQUE: Multidetector CT of the abdomen and pelvis was performed after the administration of intravenous contrast. IV contrast: 92 mL of Optiray 320. A dose lowering technique was used consistent with the principles of ALARA (as low as reasonably achievable). COMPARISON: PET/CT from 06/05/2010. CT DOSE (mGy.cm): The estimated cumulative dose is 1624.47 mGy.cm. 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 Cardiomegaly. Lung bases: Significant subpleural dependent groundglass and reticular opacities accompanied by bronchial wall thickening and minimal subsegmental bronchial debris in the lower lobes. Multichamber enlargement of the heart. Coronary artery and aortic valve calcification. No pericardial or pleural effusion. Liver: Normal morphology. No liver lesion. Patent hepatic vasculature. Biliary: No intrahepatic or extrahepatic biliary ductal dilatation. Gallbladder contains gallstones. Pancreas: Moderate parenchymal atrophy. Spleen: Normal. Adrenal glands: Normal. Kidneys and ureters: Mild nonspecific perinephric fat stranding. Well-defined hypodensity in the left upper pole likely simple cyst. No hydronephrosis. No nephrolithiasis. Ureters normal. Bladder: Normal. Pelvic organs: Prostate enlargement likely secondary to benign prostatic hyperplasia. Bowel: Diverticulosis of the sigmoid colon without pericolonic fat stranding. The appendix is normal. No bowel obstruction. Peritoneal cavity: No free fluid or intraperitoneal gas. Lymph nodes: No enlarged lymph nodes in the abdomen or pelvis. Vasculature: Atherosclerosis of the normal caliber abdominal aorta. IVC patent. Abdominal wall: Bilateral small fat-containing inguinal hernias. Nonspecific subcutaneous edema in the lumbar region. Musculoskeletal: Degenerative changes of the spine. Degenerative changes of the sacroiliac joints. IMPRESSION: 1. No acute intra-abdominal pathology. 2. Diverticulosis without evidence of diverticulitis. 3. Cholelithiasis. 4. Cardiomegaly. 5. Dependent opacities in the lungs with accompanying wall thickening and minimal subsegmental bronchial debris could suggest chronic aspiration. Electronically signed by: Erick Martinez M.D. 05/27/2017 12:35 PM Dictated Date/Time: 05/27/2017 12:27 PM
[2017-05-27] MEDS ORDERED: ONDANSETRON INJ 2 MG/ML 2 ML VIAL IV PRN (15:45)
[2017-05-27] MEDS ORDERED: ALUMINUM/MAGNESIUM/SIMETH (MAALOX MAX) 30 ML UDC PO PRN (15:45)
[2017-05-27] MEDS ORDERED: NITROGLYCERIN 0.4 MG SL PER TAB CHARGE SL PRN (15:45)
[2017-05-27] MEDS ORDERED: ACETAMINOPHEN 325 MG TAB PO PRN (15:45)
--- NOTE | 2017-05-27 16:11 | History and Physical ---
History & Physical Date & Time of Service: May 27, 2017 at 15:06 Chief Complaint: Uncomfortable In Chest And Belly Primary Care Physician: Dick Antoine M.D. History of Present Illness Source: patient, clinic records Mr. Hu is no longer having much pain now. He has a history for years with difficulty swallowing and he had a couple of servings of broccoli yesterday which is at times problematic. He began having pain yesterday starting upper abdomen to chest after bending to take off shoes. He took a baby aspirin and a tylenol and slept through the night but when he awoke he had worse pain. Pain is worst with deep inspiration at the sternum. It did not get worse with exertion. 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 No shortness of breath. He did recently have a mild sore throat. He has never been evaluated for swallowing evaluation. He has never had aspiration pneumonia. He has been treated in the past for GERD but has not needed treatment for quite some time. He sees Dr. Peres for cardiology. He does have a pacemaker which he thinks transmits if he has an event and a light went on on the monitor last night while he was having this pain. Pmhx of combined systolic and diastolic CHF, dilated cardiomyopathy with EF of 25-30% per Echo in December, CAD with stents placed 2002, biventricular pacer/ ICD placed February 2016, paroxysmal afib without anticoagulation due to life threatening GI bleed in 2006, ROS Constitutional: no chills, aches, sweats or fever Respiratory: no sob,cough, sputum, or wheezing Cardiac: no palpitations, edema, orthopnea or lightheadedness GI: no nausea, vomiting, diarrhea or constipation : no dysuria or hesitancy Extremities: no joint pain or weakness Skin: no rash All other systems reviewed and negative Past Medical/Surgical History Medical Problems: (1) Acute respiratory failure (2) Acute respiratory failure with hypercapnia (3) CHF (congestive heart failure) (4) COPD with acute exacerbation (5) Diabetes mellitus (6) Hyperlipidemia (7) Hypoxemia (8) Ischemic cardiomyopathy (9) LBBB (left bundle branch block) (10) Pneumonia (11) Pulmonary edema (12) Respiratory failure (13) SOB (shortness of breath) Family History Cancer Diabetes mellitus Heart disease Hypertension Mother at age 94 and had DMII and of esophaeal cancer Father of heart attack at 59 and had a heart attack at 42 Social History Smoking Status: Never Smoker Smokeless Tobacco Use: No Alcohol Use: occasionally (beer) Drug Use: none Marital Status: Housing status: lives with significant other 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) Immunizations History of Influenza Vaccine: Yes History of Tetanus Vaccine?: Unknown History of Pneumococcal: Yes History of Hepatitis B Vaccine: Unknown Allergies Coded Allergies: No Known Allergies (Verified , 05/27/17) Home Medications Scheduled Amiodarone HCl (Amiodarone HCl), 200 MG PO DAILY Aspirin (Aspirin), 81 MG PO 3XWK Carvedilol (Coreg), 12.5 MG PO BID Furosemide (Lasix), 40 MG PO DAILY Insulin Glargine (Toujeo Solostar), 40 UNITS SC BID Losartan Potassium (Cozaar), 100 MG PO DAILY Potassium Chloride (Micro-K Ext Rel), 10 MEQ PO DAILY Rosuvastatin Calcium (Crestor), 40 MG PO PM Sitagliptin Phosphate (Januvia), 100 MG PO DAILY Physical Exam Vital Signs Date Time Temp Pulse Resp B/P (MAP) Pulse Ox O2 Delivery O2 Flow Rate FiO2 05/27/17 14:00 72 118/67 96 Room Air 05/27/17 13:30 61 109/69 96 Room Air 05/27/17 13:11 60 05/27/17 13:03 61 116/65 95 Room Air 05/27/17 12:29 120/67 05/27/17 12:04 84/58 05/27/17 11:52 107/67 05/27/17 11:47 60 93/61 94 Room Air 05/27/17 10:35 66 05/27/17 10:34 96 Room Air 05/27/17 10:33 Room Air 05/27/17 10:27 37.0 70 18 144/85 95 Room Air General: no distress Eyes: normal inspection, PERLL Respiratory: chest non tender, very fine crackles in bases otherwise clear to auscultation bilaterally, no respiratory distress, no accessory muscle use Cardiac: regular rate and rhythm, no rub or gallop, no murmur, no edema, no jvd GI/: active bowel sounds, no abd pain or tenderness, soft, non distended Extremities: normal range of motion, normal strength, non tender Neuro/Psych: alert and oriented x 3, normal mood and affect Skin: normal color, dry Diagnostics Laboratory Results Results Past 24 Hours Test 05/27/17 10:38 05/27/17 11:00 05/27/17 11:16 Range/Units Prothrombin Time 10.0 9.0-12.0 SECONDS Prothromb Time International Ratio 1.0 0.9-1.1 Activated Partial Thromboplast Time 23.9 21.0-31.0 SECONDS Partial Thromboplastin Ratio 0.9 Sodium Level 137 136-145 mmol/L Potassium Level 4.2 3.5-5.1 mmol/L Chloride Level 103 98-107 mmol/L Carbon Dioxide Level 29 21-32 mmol/L Anion Gap 5.0 3-11 mmol/L Blood Urea Nitrogen 26 7-18 mg/dl Creatinine 1.28 0.60-1.40 mg/dl Est Creatinine Clear Calc Drug Dose 44.9 ml/min Estimated GFR () 63.0 Estimated GFR (Non- 54.4 BUN/Creatinine Ratio 20.3 10-20 Random Glucose 171 70-99 mg/dl Calcium Level 9.0 8.5-10.1 mg/dl Magnesium Level 2.4 1.8-2.4 mg/dl Total Bilirubin 0.7 0.2-1 mg/dl Direct Bilirubin 0.2 0-0.2 mg/dl Aspartate Amino Transf (AST/SGOT) 20 15-37 U/L Alanine Aminotransferase (ALT/SGPT) 32 12-78 U/L Alkaline Phosphatase 69 45-117 U/L Total Creatine Kinase 183 39-308 U/L Creatine Kinase MB 3.0 0.5-3.6 ng/ml Creatine Kinase MB Ratio 1.6 0-3.0 Troponin I < 0.015 0-0.045 ng/ml Total Protein 7.4 6.4-8.2 gm/dl Albumin 3.6 3.4-5.0 gm/dl Lipase 89 73-393 U/L Urine Color YELLOW Urine Appearance CLEAR CLEAR Urine pH 5.5 4.5-7.5 Urine Specific [place] 1.009 1.000-1.030 Urine Protein NEG NEG Urine Glucose (UA) NEG NEG Urine Ketones NEG NEG Urine Occult Blood NEG NEG Urine Nitrite NEG NEG Urine Bilirubin NEG NEG Urine Urobilinogen NEG NEG Urine Leukocyte Esterase NEG NEG White Blood Count 8.05 4.8-10.8 K/uL Red Blood Count 4.34 4.7-6.1 M/uL Hemoglobin 13.0 14.0-18.0 g/dL Hematocrit 38.1 42-52 % Mean Corpuscular Volume 87.8 80-100 fL Mean Corpuscular Hemoglobin 30.0 25-34 pg Mean Corpuscular Hemoglobin Concent 34.1 32-36 g/dl Platelet Count 145 130-400 K/uL Mean Platelet Volume 10.3 7.4-10.4 fL Neutrophils (%) (Auto) 67.4 % Lymphocytes (%) (Auto) 18.4 % Monocytes (%) (Auto) 10.7 % Eosinophils (%) (Auto) 2.7 % Basophils (%) (Auto) 0.4 % Neutrophils # (Auto) 5.43 1.4-6.5 K/uL Lymphocytes # (Auto) 1.48 1.2-3.4 K/uL Monocytes # (Auto) 0.86 0.11-0.59 K/uL Eosinophils # (Auto) 0.22 0-0.5 K/uL Basophils # (Auto) 0.03 0-0.2 K/uL RDW Standard Deviation 45.4 36.4-46.3 fL RDW Coefficient of Variation 14.1 11.5-14.5 % Immature Granulocyte % (Auto) 0.4 % Immature Granulocyte # (Auto) 0.03 0.00-0.02 K/uL Platelet Estimate NORMAL Diagnostic Radiology ABD/PELVIS IV CONTRAST ONLY CLINICAL HISTORY: 76 years-old Male presenting with upper abd pain. TECHNIQUE: Multidetector CT of the abdomen and pelvis was performed after the administration of intravenous contrast. IV contrast: 92 mL of Optiray 320. A dose lowering technique was used consistent with the principles of ALARA (as low as reasonably achievable). COMPARISON: PET/CT from 06/05/2010. CT DOSE (mGy.cm): The estimated cumulative dose is 1624.47 mGy.cm. FINDINGS: Psychiatry Resident topogram: Partially visualized implanted cardiac defibrillator leads to the right atrium, right ventricular apex, and coronary sinus. Cardiomegaly. Lung bases: Significant subpleural dependent groundglass and reticular opacities accompanied by bronchial wall thickening and minimal subsegmental bronchial debris in the lower lobes. Multichamber enlargement of the heart. Coronary artery and aortic valve calcification. No pericardial or pleural effusion. Liver: Normal morphology. No liver lesion. Patent hepatic vasculature. Biliary: No intrahepatic or extrahepatic biliary ductal dilatation. Gallbladder contains gallstones. Pancreas: Moderate parenchymal atrophy. Spleen: Normal. Adrenal glands: Normal. Kidneys and ureters: Mild nonspecific perinephric fat stranding. Well-defined hypodensity in the left upper pole likely simple cyst. No hydronephrosis. No nephrolithiasis. Ureters normal. Bladder: Normal. Pelvic organs: Prostate enlargement likely secondary to benign prostatic hyperplasia. Bowel: Diverticulosis of the sigmoid colon without pericolonic fat stranding. The appendix is normal. No bowel obstruction. Peritoneal cavity: No free fluid or intraperitoneal gas. Lymph nodes: No enlarged lymph nodes in the abdomen or pelvis. Vasculature: Atherosclerosis of the normal caliber abdominal aorta. IVC patent. Abdominal wall: Bilateral small fat-containing inguinal hernias. Nonspecific subcutaneous edema in the lumbar region. Musculoskeletal: Degenerative changes of the spine. Degenerative changes of the sacroiliac joints. IMPRESSION: 1. No acute intra-abdominal pathology. 2. Diverticulosis without evidence of diverticulitis. 3. Cholelithiasis. 4. Cardiomegaly. 5. Dependent opacities in the lungs with accompanying wall thickening and minimal subsegmental bronchial debris could suggest chronic aspiration. Electronically signed by: Erick Martinez M.D. 05/27/2017 12:35 PM CHEST ONE VIEW PORTABLE CLINICAL HISTORY: 76 years-old Male presenting with ABDOMINAL PAIN/GI, chest discomfort. TECHNIQUE: Portable upright AP view of the chest was obtained. COMPARISON: 03/07/2016. FINDINGS: Left subclavian implanted cardiac defibrillator with leads to the right atrium, right ventricular apex, and coronary sinus. Atherosclerosis of the aortic arch. Cardiac silhouette moderately enlarged, unchanged. Mild pulmonary prominence, unchanged. No focal opacity. No large effusion or pneumothorax. Osseous structures normal. IMPRESSION: 1. Cardiomegaly. Otherwise no acute cardiopulmonary disease. Electronically signed by: Erick Martinez M.D. 05/27/2017 10:59 AM KUB CLINICAL HISTORY: Abdominal pain COMPARISON STUDY: No previous studies for comparison. FINDINGS: There are gas-filled nondilated small bowel loops. There is no pathologic bowel dilatation. There are no transition zones indicate bowel obstruction. Pelvic basin calcifications are likely vascular. IMPRESSION: No evidence of pathologic bowel dilatation. Electronically signed by: Maik Aaron M.D. 05/27/2017 10:59 AM EKG AV dual-paced rhythm Biventricular pacemaker detected Abnormal ECG When compared with ECG of 06-MAR-2016 17:21, Vent. rate has increased BY 18 BPM Impression Assessment and Plan Mr. Hu is a 76 year old man who presents for chest pain. R/o CAD/CP vs aspiration pneumonitis and GERD - admit tele obs - EKG daily and with chest pain, initial EKG showed paced rhythm - sl nitro prn chest pain - trend troponins, initial troponin wnl - Echo - A1c in December was 7.6, will repeat, lipids from December showed tryglyceridemia of 203 mg/dl but otherwise unremarkeable - consult cardiology - patient sees Dr. Peres - protonix, maalox - consult speech therapy to assess for aspiration - CT showed dependent opacities in the lungs with accompanying wall thickening and minimal subsegmental bronchial debris could suggest chronic aspiration. Patient is afebrile, no cough, no white count, no overt adventitious breath sounds or hypoxia to indicate aspiration pneumonia at this point. - npo after midnight until seen by cardiology Hypotension - patient had hypotensive episode while in ED with bp as low as 84/58, asymptomatic, resolved with liter bolus - continue to monitor, no further intervention at this time as blood pressures are now wnl. Ischemic cardiomypathy, combined chronic systolic and diastolic CHF - continue home coreg, losartan - continue daily po lasix - daily weights - strict Is&Os History of paroxysmal afib - no anticoagulation due to history of life threatening GI bleed - continue amiodarone - continue asa DMII - continue home dose Toujeo and sitagliptin - bsg ac and hs Full code heparin subq Advanced Directives Existing Living Will: Yes Existing Power of Product Management Specialist: Yes () Resuscitation Status Full code - no resident care manager rn life support VTE Prophylaxis Will order VTE Prophylaxis: Yes Reviewed: Pt Seen/Exam by Me History Pt with chest pain that starts in his epigastric region and moves into sternal notch. Worse with food. Improved with maalox. No prior hx of similar sx. Recent issues with swallowing dry foods. No real issues with liquids. Agree with HPI/ROS as noted by [employer] General Appearance: WD/WN, no apparent distress Eye Exam: bilateral eye normal inspection, bilateral eye other (nml sclera) Respiratory: normal breath sounds, no respiratory distress Cardiovascular: normal peripheral pulses, regular rate, rhythm Gastrointestinal: non tender, soft Extremities: non-tender, no pedal edema Neurologic/Psychiatric: alert, normal mood/affect, oriented x 3 Skin Characteristics: normal color, warm/dry Assessment/Plan Agree with plan as outlined above Chest pain, likely GERD vs PUD Onset is with food and resolved with maalox GI cocktail PRN Trops trending Cards c/s given heart hx Issues with swallowing, speech eval Requests tylenol PM as he takes at home, ambian ordered
[2017-05-27] MEDS ORDERED: IV FLUIDS COMPLETED PRN (16:15)
[2017-05-27 18:39] VITALS: BP 152/84; PULSE 60; TEMP 36.6; O2SAT 94; Ht 193 cm; Wt 121.9 kg
[2017-05-27] MEDS ORDERED: GLUCOSE 40% GEL 15 GM TUBE PO PRN (18:45)
[2017-05-27] MEDS ORDERED: GLUCOSE 10 TABS/TUBE PO PRN (18:45)
[2017-05-27] MEDS ORDERED: DEXTROSE 50% 50 ML SYR IV PRN (18:45)
[2017-05-27] MEDS ORDERED: GLUCAGON FOR INJ 1 MG VIAL SQ PRN (18:45)
[2017-05-27] MEDS ORDERED: ZOLPIDEM TARTRATE 5 MG TAB PO PRN (19:00)
[2017-05-27] MEDS ORDERED: GI COCKTAIL PO PRN (19:00)
[2017-05-27] MEDS ORDERED: ALUMINUM/MAGNESIUM SUSP 72 ML, LIDOCAINE HCL 2% VISCOUS SOLN 24 ML, BARCODE IDENTIFIER ... PO PRN ×2 (19:15)
[2017-05-27] MEDS: CARVEDILOL 12.5 MG TAB PO SCH (20:42)
[2017-05-27] MEDS: ROSUVASTATIN CALCIUM 20 MG TAB PO SCH ×2 (20:42→22:08)
[2017-05-27] MEDS: HEPARIN SOD 5000 UNIT/0.5 ML CARP SQ SCH (20:46)
[2017-05-27] MEDS ORDERED: INSULIN GLARGINE SOLOSTAR 100 UNITS/ML 3 ML PEN SC ONE (21:00)
[2017-05-27] MEDS ORDERED: ALUMINUM/MAGNESIUM SUSP 72 ML, LIDOCAINE HCL 2% VISCOUS SOLN 24 ML, BARCODE IDENTIFIER ... PO STA ×2 (22:43)
[2017-05-27] MEDS ORDERED: NURSING VERBAL MED ORDER ONE (22:45)
[2017-05-28] VITALS (7 sets, daily range): BP systolic 102–140; BP diastolic 57–75; PULSE 60–88; TEMP 36.5–37; O2SAT 90–99
[2017-05-28] MEDS ORDERED: NURSING VERBAL MED ORDER ONE (00:30)
[2017-05-28] MEDS ORDERED: MoRPHine SULFATE 2 MG/ML CARP IV STA (00:47)
[2017-05-28] MEDS ORDERED: MoRPHine SULFATE 2 MG/ML CARP IV PRN ×2 (01:00→05:30)
[2017-05-28 04:13] LABS: HEMATOCRIT 35.7 % (42-52); MEAN CELL VOLUME 87.7 fL (80-100); MEAN CORPUSCULAR HEMOGLOBIN 29.5 pg (25-34); MEAN CORPUSCULAR HGB CONC 33.6 g/dl (32-36); PLATELET COUNT 143 K/uL (130-400); RED CELL DISTRIBUTION WIDTH CV 14.2 % (11.5-14.5); RED CELL DISTRIBUTION WIDTH SD 45.8 fL (36.4-46.3); WHITE BLOOD COUNT 7.54 K/uL (4.8-10.8)
[2017-05-28 04:32] LABS: BLOOD UREA NITROGEN 21 mg/dl (7-18); CALCIUM 8.6 mg/dl (8.5-10.1); CARBON DIOXIDE 30 mmol/L (21-32); CREATININE 1.15 mg/dl (0.60-1.40); GLUCOSE 121 mg/dl (70-99); SODIUM 137 mmol/L (136-145)
--- NOTE | 2017-05-28 08:21 | Hospitalist Progress Note ---
Hospitalist Progress Note Date of Service May 28, 2017. (Clemencia Kowalski PA-C) Subjective Pt evaluation today including: conversation w/ patient, conversation w/ family , physical exam, chart review, lab review, review of studies Pain: Rated 2/10 abdominal pain PO Intake: NPO Voiding: no voiding problems The patient was seen and examined this morning. Pt main complaint is abdominal pain and not being allowed any food yet today. Pt reports having abdominal pain in the RUQ with movement like sitting up in bed , and attempting to turn over. He notes morphine helped relieve the pain this morning, last administered around 8am. He denies any chest pain, heaviness, palpitation or radiation of pain from the abdomen through to his back. The patient reports he had a bowel movement yesterday. Patient denies any nausea, vomiting or indigestion. He did have some complaints of indigestion yesterday however reports Maalox did not seem to make a difference in his pain. Patient was on Nexium over 20 years ago for indigestion however stopped taking this on his own. He does drink 3 tablespoons of vinegar in a cup of coffee every morning to "promote good health." Discussion regarding gallbladder U/S and results was held with the patient at bedside. We discussed ordering a HIDA scan this morning and all questions and concerns were addressed. He has never seen GI before, and has never had a colonoscopy/endoscopy. Additional Comments: Constitutional: No fever, sweats or chills Eyes: No diplopia, no worsening or blurred vision ENT: normal hearing, no trouble swallowing Respiratory: No cough, sputum, dyspnea at rest or on exertion Cardiovascular: No chest pain, tightness or palpitations Abdomen: See HPI. Musculoskeletal: No joint pain, calf pain, swelling Neurologic: No weakness, numbness/tingling, or balance problems Psychiatric: No anxiety or depression Skin: No rash or itch (Clemencia Kowalski PA-C) Objective Vital Signs Date Time Temp Pulse Resp B/P (MAP) Pulse Ox O2 Delivery O2 Flow Rate FiO2 05/28/17 04:00 Room Air 05/28/17 03:55 37.0 71 17 140/75 (96) 90 Room Air 05/28/17 00:17 37.0 67 18 131/70 (90) 90 Room Air 05/27/17 23:59 Room Air 05/27/17 20:00 Room Air 05/27/17 18:39 36.6 60 20 152/84 94 Room Air 05/27/17 18:12 60 111/61 94 05/27/17 16:30 60 121/63 96 Room Air 05/27/17 15:16 66 105/53 95 Room Air 05/27/17 14:00 72 118/67 96 Room Air 05/27/17 13:30 61 109/69 96 Room Air 05/27/17 13:11 60 05/27/17 13:03 61 116/65 95 Room Air 05/27/17 12:29 120/67 05/27/17 12:04 84/58 05/27/17 11:52 107/67 05/27/17 11:47 60 93/61 94 Room Air 05/27/17 10:35 66 05/27/17 10:34 96 Room Air 05/27/17 10:33 Room Air 05/27/17 10:27 37.0 70 18 144/85 95 Room Air (Clemencia Kowalski PA-C) Physical Exam Notes: General: awake, alert, no apparent distress, morbidly obese Head: Normocephalic, atraumatic ENT: PERRL, EOMI, no pharyngeal exudate, mucous membranes moist Chest: Clear to auscultation, on room air, no adventitious breath sounds Cardiac: Regular rate and rhythm, no murmur, no JVD, normal peripheral pulses, good capillary refill Abdominal: NABS x 4 quadrants, soft, minimally tender in the right upper quadrant with deep palpation, unable to elicit positive Juárez sign. Minimal guarding Extremities: Normal inspection, no peripheral edema or erythema, calfs nontender to palpation Psych: Normal mood and affect Neuro: AAO x 3, no motor deficits, speech is clear, no peripheral sensory deficits (Clemencia Kowalski, GENE-C) Laboratory Results Last 24 Hours Test 05/27/17 10:38 05/27/17 11:00 05/27/17 11:16 05/27/17 20:55 Prothrombin Time 10.0 SECONDS Prothromb Time International Ratio 1.0 Activated Partial Thromboplast Time 23.9 SECONDS Partial Thromboplastin Ratio 0.9 Sodium Level 137 mmol/L Potassium Level 4.2 mmol/L Chloride Level 103 mmol/L Carbon Dioxide Level 29 mmol/L Anion Gap 5.0 mmol/L Blood Urea Nitrogen 26 mg/dl Creatinine 1.28 mg/dl Est Creatinine Clear Calc Drug Dose 44.9 ml/min Estimated GFR () 63.0 Estimated GFR (Non- 54.4 BUN/Creatinine Ratio 20.3 Random Glucose 171 mg/dl Calcium Level 9.0 mg/dl Magnesium Level 2.4 mg/dl Total Bilirubin 0.7 mg/dl Direct Bilirubin 0.2 mg/dl Aspartate Amino Transf (AST/SGOT) 20 U/L Alanine Aminotransferase (ALT/SGPT) 32 U/L Alkaline Phosphatase 69 U/L Total Creatine Kinase 183 U/L Creatine Kinase MB 3.0 ng/ml Creatine Kinase MB Ratio 1.6 Troponin I < 0.015 ng/ml Total Protein 7.4 gm/dl Albumin 3.6 gm/dl Lipase 89 U/L Urine Color YELLOW Urine Appearance CLEAR Urine pH 5.5 Urine Specific [place] 1.009 Urine Protein NEG Urine Glucose (UA) NEG Urine Ketones NEG Urine Occult Blood NEG Urine Nitrite NEG Urine Bilirubin NEG Urine Urobilinogen NEG Urine Leukocyte Esterase NEG White Blood Count 8.05 K/uL Red Blood Count 4.34 M/uL Hemoglobin 13.0 g/dL Hematocrit 38.1 % Mean Corpuscular Volume 87.8 fL Mean Corpuscular Hemoglobin 30.0 pg Mean Corpuscular Hemoglobin Concent 34.1 g/dl Platelet Count 145 K/uL Mean Platelet Volume 10.3 fL Neutrophils (%) (Auto) 67.4 % Lymphocytes (%) (Auto) 18.4 % Monocytes (%) (Auto) 10.7 % Eosinophils (%) (Auto) 2.7 % Basophils (%) (Auto) 0.4 % Neutrophils # (Auto) 5.43 K/uL Lymphocytes # (Auto) 1.48 K/uL Monocytes # (Auto) 0.86 K/uL Eosinophils # (Auto) 0.22 K/uL Basophils # (Auto) 0.03 K/uL RDW Standard Deviation 45.4 fL RDW Coefficient of Variation 14.1 % Immature Granulocyte % (Auto) 0.4 % Immature Granulocyte # (Auto) 0.03 K/uL Platelet Estimate NORMAL Bedside Glucose 163 mg/dl Test 05/27/17 22:05 05/28/17 00:14 05/28/17 03:50 05/28/17 06:21 Troponin I < 0.015 ng/ml < 0.015 ng/ml Bedside Glucose 148 mg/dl 112 mg/dl White Blood Count 7.54 K/uL Red Blood Count 4.07 M/uL Hemoglobin 12.0 g/dL Hematocrit 35.7 % Mean Corpuscular Volume 87.7 fL Mean Corpuscular Hemoglobin 29.5 pg Mean Corpuscular Hemoglobin Concent 33.6 g/dl RDW Standard Deviation 45.8 fL RDW Coefficient of Variation 14.2 % Platelet Count 143 K/uL Mean Platelet Volume 10.0 fL Sodium Level 137 mmol/L Potassium Level 4.0 mmol/L Chloride Level 103 mmol/L Carbon Dioxide Level 30 mmol/L Anion Gap 4.0 mmol/L Blood Urea Nitrogen 21 mg/dl Creatinine 1.15 mg/dl Est Creatinine Clear Calc Drug Dose 80.3 ml/min Estimated GFR () 71.7 Estimated GFR (Non- 61.9 BUN/Creatinine Ratio 18.1 Random Glucose 121 mg/dl Estimated Average Glucose 183 mg/dl Hemoglobin A1c 8.0 % Calcium Level 8.6 mg/dl (Clemencia Kowalski, HERLINDA) Assessment and Plan 76 yo M with combined systolic and diastolic CHF, dilated cardiomyopathy with EF of 25-30% per Echo in December, CAD with stents placed 2002, biventricular pacer/ICD placed February 2016, paroxysmal afib without anticoagulation due to life threatening GI bleed in 2006, presenting with epigastric pain/chest pain. GERD, gallbladder sludge - US of RU completed 05/28 showing no acute signs of cholecystitis, sludge balls -will order a HIDA scan- Hold narcotics prior to HIDA - Consult GI, Dr. smith as he is on consult today. The patient has not seen GI before -has never had routine endoscopy/colonoscopy. -patient admits to a history of indigestion however denies any history of gastric ulcers. Hx of drinking 3 Tablespoons vinegar in coffee QAM. - Continue Protonix - Start Protonix 40 mg IV BID - Cont maalox R/o ACS - Initial EKG showed paced rhythm - Trop neg x 3 - Check echo - A1c=8.0, hypertriglyceridemia hx - consult cardiology - discussed with Dr. Peres and he does not feel at this time there is any cardiac involvement. ? Aspiration pna - consult speech therapy to assess for aspiration - CT showed dependent opacities in the lungs with accompanying wall thickening and minimal subsegmental bronchial debris could suggest chronic aspiration. - Pt is on RA, no coarse breath sounds, no WBC, afebrile. - Continue n.p.o. at this time for HIDA scan as above Hypotension - resolved - patient had hypotensive episode while in ED with bp as low as 84/58, asymptomatic, resolved with liter bolus - continue to monitor Ischemic cardiomyopathy, combined chronic systolic and diastolic CHF - Echo ordered - last showed significantly decreased EF of 25-30 % - continue home coreg, losartan - continue daily po lasix - daily weights, strict I&Os O History of paroxysmal afib - no anticoagulation due to history of life threatening GI bleed - continue amiodarone - continue asa DMII - Converted Toujeo to Lantus 40 units bid at time of admission -reduced by 50% today as patient remains n.p.o. - Continue sitagliptin 100 mg daily - ISS with accuchecks ac and hs Code: Full code DVT ppx: heparin subq Disposition: From home, lives with (Clemencia Kowalski, HERLINDA) Reviewed: Pt Seen/Exam by Me (Lauren Espitia DO) History Pt is s/p EGD and Schatzki's ring dilation. He is feeling better now. He had some LUQ pain when lying on his left for an ECHO s/p EGD, but not like prior. Tolerating PO without issue. Denies SOB. He has not had anything to eat yet today. Agree with HPI/ROS as noted by PA. (Lauren Espitia, ) Comments General Appearance: WD/WN, no apparent distress Eye Exam: bilateral eye normal inspection, bilateral eye other (nml sclera) Respiratory: normal breath sounds, no respiratory distress Cardiovascular: normal peripheral pulses, regular rate, rhythm Gastrointestinal: non tender, soft Extremities: non-tender, no pedal edema Neurologic/Psychiatric: alert, normal mood/affect, oriented x 3 Skin Characteristics: normal color, warm/dry (Lauren Espitia DO) Assessment/Plan Agree with plan as outlined above Chest pain/epigastric pain, unlikely cardiac Onset is with food and resolved with maalox GI cocktail PRN Trops neg, ECHO stable Possibly related to Schatzki's ring given swallowing issues, onset with food, and improvement s/p EGD with dilation Monitor sx RUQ US neg other than sludge, LFTs WNL Issues with swallowing, speech eval pending Requests tylenol PM as he takes at home, janette ordered (Lauren Espitia, DO)
[2017-05-28] MEDS: HEPARIN SOD 5000 UNIT/0.5 ML CARP SQ SCH ×2 (09:00→21:21)
--- NOTE | 2017-05-28 09:39 | DIAGNOSTIC IMAGING REPORT ---
ULTRASOUND RIGHT UPPER QUADRANT ABDOMEN CLINICAL HISTORY: Right upper quadrant abdominal pain. COMPARISON STUDY: Abdominal CT dated 05/27/2017. TECHNIQUE: Real-time, grayscale, and color flow sonography of the right upper quadrant of the abdomen was performed. Images are reviewed in the transverse and longitudinal planes. FINDINGS: Liver: The liver is enlarged measuring over 19 cm in length. The liver demonstrates heterogeneously increased echotexture consistent with hepatic steatosis. There is no intrahepatic biliary ductal dilatation. The main portal vein is patent. Gallbladder: Mobile sludge versus nonshadowing calculi are identified in the gallbladder lumen. There is no gallbladder wall thickening or pericholecystic fluid. A sonographic Juárez's sign is reportedly absent. The common bile duct measures up to 0.4 cm in diameter. Pancreas: Visualized portions of the pancreatic head and body are normal in appearance. The splenic vein is patent. Right kidney: Survey images of the right kidney demonstrate mild cortical atrophy. There is no hydronephrosis. Ascites: None. IMPRESSION: 1. There are small mobile sludge balls versus nonshadowing gallstones. There is no sonographic evidence of acute cholecystitis. 2. Hepatomegaly and hepatic steatosis. Electronically signed by: Taj Garcia M.D. 05/28/2017 9:37 AM Dictated Date/Time: 05/28/2017 9:36 AM
[2017-05-28] MEDS: ASPIRIN 81 MG ECTAB PO SCH (11:24)
[2017-05-28] MEDS: LOSARTAN POTASSIUM 50 MG TAB PO SCH (11:24)
[2017-05-28] MEDS: SITAGLIPTIN 100 MG TAB PO SCH (11:25)
[2017-05-28] MEDS: POTASSIUM CHLORIDE 10 MEQ TABCR PO SCH (11:25)
[2017-05-28] MEDS: FUROSEMIDE 40 MG TAB PO SCH (11:26)
[2017-05-28] MEDS: AMIODARONE 200 MG TAB PO SCH (11:26)
[2017-05-28] MEDS: CARVEDILOL 12.5 MG TAB PO SCH ×2 (11:26→21:16)
[2017-05-28] MEDS: INSULIN GLARGINE SOLOSTAR 100 UNITS/ML 3 ML PEN SC SCH ×2 (11:29→21:00)
--- NOTE | 2017-05-28 12:31 | Gastrointestinal Consultation ---
Gastrointestinal Consultation Date of Consultation: May 28, 2017 Attending Physician: Dr. Espitia Consulting Physician: Dr. Manning Reason for Consultation: RUQ pain History of Present Illness Patient is a 76 year old male with a hx of DM, COPD, CAD, CHF with ER 25 - 30%. He reports dysphagia x 2 years, who presented to the ED yesterday for upper abdomen pain. This morning the pain was more RUQ. During our interview, he indicated epigastric pain, that was worse with sitting up. GI is consulted for this pain. RUQ US with gallstones but no thickening or josef dil. No LFT elevation. He has been seen by cardiology and cleared for upper endoscopy. Past Medical/Surgical History Medical Problems: (1) Chest pain Status: Acute (2) COPD with acute exacerbation Status: Acute (3) Epigastric abdominal pain Status: Acute (4) Hypotension Status: Acute (5) Pneumonia Status: Acute (6) Respiratory failure Status: Acute Past Medical History: (1) Acute respiratory failure (2) Acute respiratory failure with hypercapnia (3) CHF (congestive heart failure) (4) COPD with acute exacerbation (5) Diabetes mellitus (6) Hyperlipidemia (7) Hypoxemia (8) Ischemic cardiomyopathy (9) LBBB (left bundle branch block) (10) Pneumonia (11) Pulmonary edema (12) Respiratory failure (13) SOB (shortness of breath) Family History Cancer Diabetes mellitus Heart disease Hypertension Social History Smoking Status: Never Smoker Alcohol Use: none Drug Use: none Marital Status: Housing Status: lives with family Occupation Status: employed (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[employer]) Allergies Coded Allergies: No Known Allergies (Verified , 05/27/17) Current Medications Home Meds and Scripts Medications Dose Route/Sig Max Daily Dose Days Date Category Dose Instructions Toujeo Solostar (Insulin Glargine) 300 Unit/Ml Inj 40 Units SC BID 05/27/17 Reported Crestor (Rosuvastatin Calcium) 40 Mg Tab 40 Mg PO PM 05/27/17 Reported Amiodarone HCl 200 Mg Tab 200 Mg PO DAILY 05/27/17 Reported Micro-K Ext Rel (Potassium Chloride) 10 Meq Capcr 10 Meq PO DAILY 02/08/16 Rx Lasix (Furosemide) 40 Mg Tab 40 Mg PO DAILY 02/08/16 Rx Januvia (Sitagliptin Phosphate) 100 Mg Tab 100 Mg PO DAILY 02/07/16 Reported Cozaar (Losartan Potassium) 50 Mg Tab 100 Mg PO DAILY 11/19/12 Reported Coreg (Carvedilol) 12.5 Mg Tab 12.5 Mg PO BID 11/19/12 Reported Aspirin 81 Mg Tab 81 Mg PO 3XWK 11/19/12 Reported take on MON,WED,FRI Review of Systems Constitutional: No fever, No chills, No sweats, No weight loss, No weakness Eyes: No eye pain, No redness ENT: No sore throat, No trouble swallowing, No pain on swallowing Respiratory: No cough, No wheezing, No shortness of breath, No dyspnea on exertion Cardiac: No chest pain, No edema, No palpitations Abdomen: + see HPI, + pain, + dysphagia, No nausea, No vomiting, No diarrhea, No constipation, No GI bleeding Neuro: No memory loss, No weakness, No numbness/tingling, No vertigo, No balance problems Psych: No depression symptoms, No anxiety, No insomnia Heme: No abnormal bleeding/bruising, No night sweats Endo: No excessive thirst, No excessive urination Skin: No rash, No itch, No new/changing skin lesions, No jaundice Physical Exam Date Time Temp Pulse Resp B/P (MAP) Pulse Ox O2 Delivery O2 Flow Rate FiO2 05/28/17 08:33 36.8 61 18 115/61 (79) 99 05/28/17 08:00 Room Air 05/28/17 04:00 Room Air 05/28/17 03:55 37.0 71 17 140/75 (96) 90 Room Air 05/28/17 00:17 37.0 67 18 131/70 (90) 90 Room Air 05/27/17 23:59 Room Air 05/27/17 20:00 Room Air 05/27/17 18:39 36.6 60 20 152/84 94 Room Air 05/27/17 18:12 60 111/61 94 05/27/17 16:30 60 121/63 96 Room Air 05/27/17 15:16 66 105/53 95 Room Air 05/27/17 14:00 72 118/67 96 Room Air 05/27/17 13:30 61 109/69 96 Room Air 05/27/17 13:11 60 05/27/17 13:03 61 116/65 95 Room Air 05/27/17 12:29 120/67 General Appearance: no apparent distress Eyes: normal inspection, EOMI Neck: supple, no adenopathy, thyroid normal Respiratory/Chest: chest non-tender, lungs clear, normal breath sounds, no accessory muscle use Cardiovascular: regular rate, rhythm, no JVD, no murmur Abdomen: normal bowel sounds, non tender, soft, no organomegaly, + pertinent finding (large, non tender ventral hernia) Extremities: normal inspection, no pedal edema, normal capillary refill Neurologic/Psych: alert, normal mood/affect, oriented x 3 Skin: normal color, no jaundice, warm/dry, no rash Laboratory Results Last 24 Hours Test 05/27/17 20:55 05/27/17 22:05 05/28/17 00:14 05/28/17 03:50 Bedside Glucose 163 mg/dl 148 mg/dl Troponin I < 0.015 ng/ml < 0.015 ng/ml White Blood Count 7.54 K/uL Red Blood Count 4.07 M/uL Hemoglobin 12.0 g/dL Hematocrit 35.7 % Mean Corpuscular Volume 87.7 fL Mean Corpuscular Hemoglobin 29.5 pg Mean Corpuscular Hemoglobin Concent 33.6 g/dl RDW Standard Deviation 45.8 fL RDW Coefficient of Variation 14.2 % Platelet Count 143 K/uL Mean Platelet Volume 10.0 fL Sodium Level 137 mmol/L Potassium Level 4.0 mmol/L Chloride Level 103 mmol/L Carbon Dioxide Level 30 mmol/L Anion Gap 4.0 mmol/L Blood Urea Nitrogen 21 mg/dl Creatinine 1.15 mg/dl Est Creatinine Clear Calc Drug Dose 80.3 ml/min Estimated GFR () 71.7 Estimated GFR (Non- 61.9 BUN/Creatinine Ratio 18.1 Random Glucose 121 mg/dl Estimated Average Glucose 183 mg/dl Hemoglobin A1c 8.0 % Calcium Level 8.6 mg/dl Test 05/28/17 06:21 05/28/17 09:29 Bedside Glucose 112 mg/dl Troponin I < 0.015 ng/ml Impression Patient is a 76 year old male with dysphagia and epigastric pain. Differentials considered include ulcer disease, gastritis, gallbladder disease. Plan 1. For EGD this afternoon. Per Dr. Peres - cleared for endoscopy. 2. Further recommendations to follow EGD. I have seen , examined and agree with the plan as outlined by STEPHAN Jack as above. -exam reveals soft abd -Pain in the epigastrium upon movement and in the area of a large ventral hernia. Pain is described as radiating up chest with little to no association with food. -Gallstones but no evidence of cholecystitis and not sure this is contributory -Case discussed with Cardiology and would like to proceed with EGD.
[2017-05-28] MEDS ORDERED: LIDOCAINE HCL 2% 2 ML VIAL (20MG/ML) ONE (12:36)
[2017-05-28] MEDS ORDERED: PROPOFOL IV EMULSION 10 MG/ML 20 ML VIAL IV ONE (12:36)
--- NOTE | 2017-05-28 13:20 | GI REPORT ---
Procedure Date: 05/28/2017 12:48 PM Procedure: Upper GI endoscopy Indications: Epigastric abdominal pain, Unexplained chest pain Medicines: Monitored Anesthesia Care Complications: No immediate complications. Estimated blood loss: None. Estimated Blood Loss: Estimated blood loss: none. Procedure: Pre-Anesthesia Assessment: - Pre-Anesthesia Assessment: - Prior to the procedure, a History and Physical was performed, and patient medications, allergies and sensitivities were reviewed. The patient's tolerance of previous anesthesia was reviewed. Please see [employer] for complete details. - The risks and benefits of the procedure and the sedation options and risks were discussed with the patient. All questions were answered and informed consent was obtained. - Patient identification and proposed procedure were verified prior to the procedure by the physician and the nurse. The procedure was verified in the pre-procedure area in the procedure room. After obtaining informed consent, the endoscope was passed carefully and meticuously under direct vision and only advanced when the lumen was clearly identified, C02 insuflation was utilized throughout the entirity of the procedure. Throughout the procedure, the patient's blood pressure, pulse, and oxygen saturations were monitored continuously. After obtaining informed consent, the endoscope was passed under direct vision. Throughout the procedure, the patient's blood pressure, pulse, and oxygen saturations were monitored continuously. The scope was introduced through the mouth, and advanced to the second part of duodenum. The upper GI endoscopy was accomplished without difficulty. The patient tolerated the procedure well. Findings: A mild Schatzki ring (acquired) was found at the gastroesophageal junction. A TTS dilator was passed through the scope. Dilation with a 15-16.5-18 mm balloon dilator was performed to 17 mm. The dilation site was examined and showed mild improvement in luminal narrowing. Biopsies were taken with a cold forceps for histology. The entire examined stomach was normal. The examined duodenum was normal. Impression: - Mild Schatzki ring. Dilated. Biopsied. - Normal stomach. - Normal examined duodenum. Recommendation: - Await pathology results. - [facility] patient [facility]. - Use Prilosec (omeprazole) 20 mg PO BID for 2 months. - Start diet as tolerated - Explore non-GI related causes of pain given pain upon movement including turning head - Work up Gallstone etiology if pain persists - Follow with Cardiology and recommendations Grady Manning MD 05/28/2017 1:20:16 PM This report has been signed electronically. Note Initiated On: 05/28/2017 12:48 PM I attest to the content of the Intraoperative Record and orders documented therein, exceptions below
--- NOTE | 2017-05-28 13:49 | Anesthesiology Progress Note ---
Anesthesia Post Op Note Date & Time May 28, 2017 at 13:49 Vital Signs Pain Intensity: 6.0 Vital Signs Past 12 Hours Date Time Temp Pulse Resp B/P (MAP) Pulse Ox O2 Delivery O2 Flow Rate FiO2 05/28/17 13:33 63 20 90/55 (67) 91 Room Air 05/28/17 13:18 65 20 104/56 (72) 92 Room Air 05/28/17 12:38 36.7 65 20 135/83 (100) 92 Room Air 05/28/17 12:00 36.5 88 16 134/69 (90) 95 05/28/17 08:33 36.8 61 18 115/61 (79) 99 05/28/17 08:00 Room Air 05/28/17 04:00 Room Air 05/28/17 03:55 37.0 71 17 140/75 (96) 90 Room Air Notes Mental Status: alert / awake / arousable, participated in evaluation Pt Amnestic to Procedure: Yes Nausea / Vomiting: adequately controlled Pain: adequately controlled Airway Patency, RR, SpO2: stable & adequate BP & HR: stable & adequate Hydration State: stable & adequate Anesthetic Complications: no major complications apparent
--- NOTE | 2017-05-28 14:52 | CARDIOLOGY CONSULTATION ---
DATE OF CONSULTATION: 05/28/2017 PERTINENT HISTORY: Mr. Lombardi is a 76-year-old male admitted yesterday with chest and abdominal pain syndrome. This consultation was ordered to assist in his management. The patient is well known to me from the outpatient setting. The patient's recent history began last , when he developed severe discomfort in the right shoulder "joint." This was severe enough that he called 911. By the time the paramedics arrived, the patient's symptoms had resolved. His vitals were stable and he did not proceed to the Emergency Room for further care. The patient was well until Saturday following the noontime meal. The patient had the gradual onset of discomfort across the entire upper abdomen. This occasionally radiated to the substernal area. His discomfort was persistent throughout the day Saturday, but he took Benadryl and Tylenol and was able to sleep. When he awoke on Saturday morning, the symptoms were still present. He proceeded to the Emergency Room for further care. On arrival here, his workup was unrevealing. His discomfort was severe enough to require intravenous morphine for control. The patient has been well compensated from a cardiovascular perspective. He is seen every 3 months in the outpatient setting. He follows daily weights, which have been stable at 271 pounds at home. He did have placement of a biventricular device in February 2009. Unfortunately, his left ventricular systolic function is not improved. His cardiac history began in February 2002 when he presented in congestive heart failure with atrial flutter and a rapid ventricular response. 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 He did undergo cardiac catheterization at [facility] soon thereafter, which revealed a 60% right coronary artery stenosis and 90% stenosis in a small obtuse marginal branch. He has been maintained on amiodarone since that time. He does not take long-term anticoagulation as he had a life-threatening GI bleed in November 2006. He did have a followup echocardiogram performed in 2008, which noted an ejection fraction up to 40%. Unfortunately, from April 2009, his ejection fraction has never been greater than 30%. 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 He was treated with CVP, Rituxan, and radiation therapy. As above, he did have a biventricular device placed in February 2016. There has been no improvement in the left ventricular systolic performance. An echocardiogram performed in December 2016 noted an ejection fraction of 25%-30% with a dilated left ventricle and moderate to severe global hypokinesis. The patient has not had recent exertional chest pain or limiting dyspnea. He further denies syncope, presyncope, PND, orthopnea, palpitations, lower extremity edema, and claudication. The patient is resting comfortably in bed without complaints. PAST MEDICAL HISTORY: 1. Coronary artery disease - February 2002 -- see above. 2. 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 3. Chronic systolic congestive heart failure. 4. Mild mitral regurgitation. 5. Paroxysmal atrial fibrillation/flutter -- no anticoagulation due to life-threatening GI bleed in November 2006. 6. Hypertension. 7. Hypercholesterolemia. 8. Diabetes mellitus. 9. 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 10. GERD. 11. Generalized polyneuropathy. 12. Right lower extremity trauma - November 2006. 13. Bilateral patellar tendon repair. 14. Inguinal hernia repair. MEDICATIONS: 1. Carvedilol 12.5 mg b.i.d. 2. Losartan 100 mg daily. 3. Lasix 40 mg per day and p.r.n. 4. Potassium 10 mEq per day and p.r.n. 5. Amiodarone 200 mg daily. 6. Aspirin 81 mg per day. 7. Crestor 40 mg at bedtime. 8. Protonix 40 mg IV b.i.d. 9. Januvia 100 mg daily. 10. Lantus insulin 40 units b.i.d. 11. Heparin 5000 units subQ q. 12 hours. 12. Morphine 2 mg IV q. 2 hours p.r.n. SOCIAL HISTORY: The patient is and lives with his . 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 Does not use tobacco or alcohol. FAMILY HISTORY: Mother at age 94 from an esophageal carcinoma. Father at age 59 from an [place]. REVIEW OF SYSTEMS: A 10-point review of systems was negative except for that described above. PHYSICAL EXAMINATION: GENERAL: This is a mildly obese white male, lying supine in bed without complaints. VITAL SIGNS: Blood pressure is 135/80 with a regular pulse of 65. Respiratory rate is 20. The patient is afebrile at 36.7 degrees Celsius. Saturation is 92% on room air. HEENT: Negative. NECK: Supple with full carotid upstrokes. There are no carotid bruits. Jugular venous pressure is flat at 90 degrees. There is no thyromegaly. CARDIOVASCULAR: Reveals a regular rhythm with normal S1 and S2. Heart sounds are distant. No obvious murmurs. No S3. LUNGS: Clear without rales, rhonchi, or wheeze. ABDOMEN: Obese without bruits. EXTREMITIES: Reveal intact radial artery pulses bilaterally. Trace pretibial edema is noted. LABORATORY DATA: CBC notes a hemoglobin of 12.0, hematocrit 35.7, white count 7.5, and platelet count 143,000. Electrolytes note a sodium of 137, potassium 4.0, chloride 103, bicarbonate 30, BUN 21, creatinine 1.15, and glucose 121. Four troponin I levels are undetectable at less than 0.015. CK is 183 with MB fraction of 3.0. AST is 20 with an ALT of 32. Lipase is normal at 89. INR is normal at 1.0. EKG notes AV pacemaking and evidence of a biventricular pacer. Echocardiogram performed in December 2016 noted a dilated left ventricle with global hypokinesis and ejection fraction of 25%-30%. Device interrogations since February 2016 had failed to show an atrial dysrhythmia. IMPRESSION: Mr. Lombardi was admitted with abdominal discomfort, occasionally radiating to the chest. He has 4 separate undetectable troponin I levels despite prolonged symptoms. This would suggest a noncardiac etiology to his complaints. The patient has been well compensated from a cardiac perspective. He is in an acceptable cardiac risk to undergo upper endoscopy later today. PLAN: 1. Continue usual outpatient cardiac medications. 2. Acceptable cardiac risk for GI procedures. 3. Further recommendations depending on his clinical course.
[2017-05-28] MEDS ORDERED: PERFLUTREN LIPID MICROSPHERE (DEFINITY) IV ONE (15:51)
--- NOTE | 2017-05-28 16:40 | ECHOCARDIOGRAM REPORT ---
*NOTICE TO RECEIVING [employer] This information is strictly Confidential and protected under [place] law. [place] law prohibits you from making any further disclosure of this information unless further disclosure is expressly permitted by the written consent of the person to whom it pertains or is authorized by law. A general authorization for the release of medical or other information is not sufficient for this purpose. Hospital accepts no responsibility if the information is made available to any other person, INCLUDING THE PATIENT. Interpretation Summary * Name: PAULA CHAMBERS Study Date: 05/28/2017 03:25 PM BP: 105/53 mmHg * Patient Location: .2E\S\E211\S\1 HR: 66 * : 1940 (M/d/yyyy) Gender: Male Height: 76 in * Age: 76 yrs Ethnicity: ND Weight: 276 lb * Ordering Physician: Bobbi Guzman * Referring Physician: Self, Referred * Performed By: Yanna Wong RDCS * * Reason For Study: Chest pain * BSA: 2.5 m2 * -- Conclusions -- * Left ventricular systolic function is severely reduced. * There is severe global hypokinesis of the left ventricle. * Ejection Fraction = 25-30%. * There is mild mitral regurgitation. Procedure Details * A complete two-dimensional transthoracic echocardiogram was performed (2D, M-mode, Doppler and color flow Doppler). * A contrast injection of Definity was performed to improve assessment of LV function. * Contrast was injected into an intravenous site in the left arm. * One vial of Definity ultrasound contrast was diluted in normal saline to a total volume of 10 ml. A total of '2' ml of solution was administered during imaging. * Lot # [id number] of Definity utilized for procedure. * Expiration date JUN 13. * The attending nurse who injected the contrast agent was Tavares Grimm RN. Left Ventricle * The left ventricle is moderately dilated. * There is borderline concentric left ventricular hypertrophy. * Ejection Fraction = 25-30%. * Left ventricular systolic function is severely reduced. * There is severe global hypokinesis of the left ventricle. Right Ventricle * The right ventricle is not well visualized. * There is a pacemaker lead in the right ventricle. * The right ventricular systolic function is normal as assessed by tricuspid annular plane systolic excursion (TAPSE) (normal >1.5 cm). Atria * The left atrium is mildly dilated. * Right atrium not well visualized. * There is no evidence of atrial septal defect, but resolution does not allow assessment for a patent foramen ovale. Mitral Valve * The mitral valve is grossly normal. * There is no mitral valve stenosis. * There is mild mitral regurgitation. Tricuspid Valve * The tricuspid valve is not well visualized, but is grossly normal. * There is no tricuspid stenosis. * Significant tricuspid regurgitation is absent. Aortic Valve * The aortic valve is not well visualized. * The aortic valve opens well. * No hemodynamically significant valvular aortic stenosis. * There is no significant aortic regurgitation. Pulmonic Valve * The pulmonic valve is not well visualized. Great Vessels * The aortic root is normal size. * The pulmonary is not well visualized. Pericardium/Pleural * There is no pericardial effusion. Great Vessels * Normal inferior vena cava size and collapsability with sniff indicates a normal right atrial pressure of 3 mmHg Left Ventricular Diastolic Function * Grade I diastolic dysfunction, (abnormal relaxation pattern). MMode 2D Measurements and Calculations IVSd 0.93 cm LVIDd 5.9 cm LVIDs 5.2 cm LVPWd 1.0 cm IVS/LVPW 0.92 FS 12.5 % EDV(Teich) 173.9 ml ESV(Teich) 127.9 ml EF(Teich) 26.4 % EDV(cubed) 206.5 ml ESV(cubed) 138.4 ml EF(cubed) 33.0 % LV mass(C)d 232.2 grams LV mass(C)dI 91.4 grams/m\S\2 SV(Teich) 46.0 ml SI(Teich) 18.1 ml/m\S\2 SV(cubed) 68.0 ml SI(cubed) 26.8 ml/m\S\2 Ao root diam 3.2 cm Ao root area 8.1 cm\S\2 ACS 2.2 cm LA dimension 3.9 cm asc Aorta Diam 3.1 cm LA/Ao 1.2 LVOT diam 2.0 cm LVOT area 3.1 cm\S\2 LVAd ap4 60.3 cm\S\2 LVLd ap4 10.2 cm EDV(MOD-sp4) 293.0 ml EDV(sp4-el) 302.2 ml LVAs ap4 47.5 cm\S\2 LVLs ap4 9.1 cm ESV(MOD-sp4) 206.3 ml ESV(sp4-el) 210.3 ml EF(MOD-sp4) 29.6 % EF(sp4-el) 30.4 % LVAd ap2 52.3 cm\S\2 LVLd ap2 9.4 cm EDV(MOD-sp2) 243.1 ml EDV(sp2-el) 245.5 ml LVAs ap2 44.8 cm\S\2 LVLs ap2 9.6 cm ESV(MOD-sp2) 176.6 ml ESV(sp2-el) 178.0 ml EF(MOD-sp2) 27.4 % EF(sp2-el) 27.5 % LVLd %diff -8.23 % EDV(MOD-bp) 278.5 ml LVLs %diff 4.8 % ESV(MOD-bp) 195.3 ml EF(MOD-bp) 29.9 % SV(MOD-sp4) 86.7 ml SI(MOD-sp4) 34.1 ml/m\S\2 SV(MOD-sp2) 66.5 ml SI(MOD-sp2) 26.2 ml/m\S\2 SV(MOD-bp) 83.2 ml SI(MOD-bp) 32.8 ml/m\S\2 SV(sp4-el) 91.9 ml SI(sp4-el) 36.2 ml/m\S\2 SV(sp2-el) 67.5 ml SI(sp2-el) 26.6 ml/m\S\2 Doppler Measurements and Calculations MV E max tiffany 72.3 cm/sec MV A max tiffany 63.1 cm/sec MV E/A 1.1 MV dec time 0.20 sec Ao V2 max 126.2 cm/sec Ao max PG 6.4 mmHg Ao max PG (full) 4.8 mmHg CATARINO(V,A) 1.6 cm\S\2 CATARINO(V,D) 1.6 cm\S\2 LV V1 max PG 1.6 mmHg LV V1 max 63.5 cm/sec PA V2 max 80.1 cm/sec PA max PG 2.6 mmHg PA acc slope 339.1 cm/sec\S\2 PA acc time 0.14 sec PI end-d tiffany 100.4 cm/sec TR max tiffany 222.6 cm/sec PA pr(Accel) 17.2 mmHg
[2017-05-28] MEDS ORDERED: PANTOprazole INJ 40 MG in SYRINGE 0 ML IV SCH (21:00)
--- NOTE | 2017-05-29 00:02 | Progress Note ---
Progress Note Date of Service May 29, 2017. Progress Note Page by nurse regarding pt's Lantus dose. Pt is NPO at midnight. Last 3 sugars were in the 70s-90s from the afternoon. Pt received 20mg Lantus this AM. Advised to hold night lantus dose and changed the Lantus dosing to 20mg BID. Per med rec pt is on 40mg BID of lantus at home. HBA1C was 8.0 measured yesterday. Resident Involvement: Resident Care Provided Care Provided: Adult [facility]
[2017-05-29 03:55] VITALS: BP 115/73; PULSE 66; TEMP 37; O2SAT 94
[2017-05-29 06:08] LABS: HEMATOCRIT 37.7 % (42-52); HEMOGLOBIN 12.5 g/dL (14.0-18.0); MEAN CELL VOLUME 88.1 fL (80-100); MEAN CORPUSCULAR HEMOGLOBIN 29.2 pg (25-34); MEAN CORPUSCULAR HGB CONC 33.2 g/dl (32-36); MEAN PLATELET VOLUME 10.1 fL (7.4-10.4); PLATELET COUNT 136 K/uL (130-400); RED CELL DISTRIBUTION WIDTH CV 14.1 % (11.5-14.5); RED CELL DISTRIBUTION WIDTH SD 45.7 fL (36.4-46.3); WHITE BLOOD COUNT 6.97 K/uL (4.8-10.8)
[2017-05-29 06:48] LABS: CALCIUM 8.9 mg/dl (8.5-10.1); CREATININE 1.06 mg/dl (0.60-1.40); POTASSIUM 3.9 mmol/L (3.5-5.1)
[2017-05-29 06:51] LABS: TOTAL PROTEIN 6.7 gm/dl (6.4-8.2)
[2017-05-29 08:11] VITALS: BP 105/55; PULSE 84; TEMP 37; O2SAT 96
--- NOTE | 2017-05-29 08:32 | Hospitalist Progress Note ---
Hospitalist Progress Note Date of Service May 29, 2017. (Clemencia Kowalski PA-C) Subjective Pt evaluation today including: conversation w/ patient, physical exam, chart review, lab review, review of studies Pain: None PO Intake: Tolerated full liquids Voiding: no voiding problems The patient was seen and examined this morning. Pt reports doing very well. He has no abdominal pain at all this morning, no nausea, vomiting. Pt is passing some gas, but has not had a BM in 2 days due to limited oral intake. Last night he tolerated full liquids for dinner without any difficulty. He was supposed to be NPO this morning however did eat a full liquid breakfast. Discussion was held regarding getting HIDA scan today, and the pt is agreeable. Discussed with nursing as well and will plan on this for 2 pm today. Additional Comments: Constitutional: No fever, sweats or chills Eyes: No diplopia, no worsening or blurred vision ENT: normal hearing, no trouble swallowing Respiratory: No cough, sputum, dyspnea at rest or on exertion Cardiovascular: No chest pain, tightness or palpitations Abdomen: See HPI. Musculoskeletal: No joint pain, calf pain, swelling Neurologic: No weakness, numbness/tingling, or balance problems (Clemencia Kowalski PA-C) Objective Vital Signs Date Time Temp Pulse Resp B/P (MAP) Pulse Ox O2 Delivery O2 Flow Rate FiO2 05/29/17 08:11 37.0 84 18 105/55 (72) 96 05/29/17 04:00 Room Air 05/29/17 03:55 37.0 66 19 115/73 (87) 94 Room Air 05/28/17 23:59 Room Air 05/28/17 23:58 36.7 63 19 122/74 (90) 91 Room Air 05/28/17 20:00 Room Air 05/28/17 19:27 36.9 60 18 102/57 (72) 92 Room Air 05/28/17 16:06 36.7 61 18 113/63 (80) 94 Room Air 05/28/17 16:00 Room Air 05/28/17 13:47 60 20 104/59 (74) 92 Room Air 05/28/17 13:33 63 20 90/55 (67) 91 Room Air 05/28/17 13:18 65 20 104/56 (72) 92 Room Air 05/28/17 12:38 36.7 65 20 135/83 (100) 92 Room Air 05/28/17 12:00 Room Air 05/28/17 12:00 36.5 88 16 134/69 (90) 95 05/28/17 08:33 36.8 61 18 115/61 (79) 99 (Clemencia Kowalski PA-C) Physical Exam Notes: General: awake, alert, no apparent distress, morbidly obese Head: Normocephalic, atraumatic ENT: PERRL, EOMI, no pharyngeal exudate, mucous membranes moist Chest: Clear to auscultation, on room air, no adventitious breath sounds Cardiac: Regular rate and rhythm, no murmur, no JVD, normal peripheral pulses, good capillary refill Abdominal: NABS x 4 quadrants, soft, nontender in the right upper quadrant with deep palpation, unable to elicit positive Juárez sign. No guarding Extremities: Normal inspection, no peripheral edema or erythema, calfs nontender to palpation Psych: Normal mood and affect Neuro: AAO x 3, no motor deficits, speech is clear, no peripheral sensory deficits (Clemencia Kowalski PA-C) Laboratory Results Last 24 Hours Test 05/28/17 09:29 05/28/17 15:41 05/28/17 16:23 05/28/17 20:35 Troponin I < 0.015 ng/ml < 0.015 ng/ml Bedside Glucose 90 mg/dl 80 mg/dl Test 05/28/17 21:07 05/29/17 05:55 05/29/17 07:06 Bedside Glucose 77 mg/dl 97 mg/dl White Blood Count 6.97 K/uL Red Blood Count 4.28 M/uL Hemoglobin 12.5 g/dL Hematocrit 37.7 % Mean Corpuscular Volume 88.1 fL Mean Corpuscular Hemoglobin 29.2 pg Mean Corpuscular Hemoglobin Concent 33.2 g/dl RDW Standard Deviation 45.7 fL RDW Coefficient of Variation 14.1 % Platelet Count 136 K/uL Mean Platelet Volume 10.1 fL Sodium Level 136 mmol/L Potassium Level 3.9 mmol/L Chloride Level 102 mmol/L Carbon Dioxide Level 29 mmol/L Anion Gap 5.0 mmol/L Blood Urea Nitrogen 21 mg/dl Creatinine 1.06 mg/dl Est Creatinine Clear Calc Drug Dose 87.1 ml/min Estimated GFR () 79.2 Estimated GFR (Non- 68.3 BUN/Creatinine Ratio 20.0 Random Glucose 87 mg/dl Calcium Level 8.9 mg/dl Total Bilirubin 0.9 mg/dl Direct Bilirubin 0.2 mg/dl Aspartate Amino Transf (AST/SGOT) 13 U/L Alanine Aminotransferase (ALT/SGPT) 21 U/L Alkaline Phosphatase 58 U/L Total Protein 6.7 gm/dl Albumin 3.0 gm/dl (Clemencia Kowalski, HERLINDA) Assessment and Plan 76 yo M with combined systolic and diastolic CHF, dilated cardiomyopathy with EF of 25-30% per Echo in December, CAD with stents placed 2002, biventricular pacer/ICD placed February 2016, paroxysmal afib without anticoagulation due to life threatening GI bleed in 2006, presenting with epigastric pain/chest pain. GERD, gallbladder sludge - US of RUQ completed 05/28 showing no acute signs of cholecystitis, sludge balls -will order a HIDA scan- Hold narcotics prior to HIDA - Consult GI, Dr. smith as he is on consult today. The patient has not seen GI before -has never had routine endoscopy/colonoscopy. -patient admits to a history of indigestion however denies any history of gastric ulcers. Hx of drinking 3 Tablespoons vinegar in coffee QAM. - Endoscopy completed and showed Schatzki ring and was dilated, no ulcer dz. - Plan for HIDA scan today at 2pm - Protonix 40 mg BID - can change to PO today - Cont maalox prn R/o ACS - Initial EKG showed paced rhythm - Trop neg x 3 - Echo complete * Left ventricular systolic function is severely reduced. * There is severe global hypokinesis of the left ventricle. * Ejection Fraction = 25-30%. * There is mild mitral regurgitation. - A1c=8.0, hypertriglyceridemia hx - consult cardiology - discussed with Dr. Peres on 05/28 and he does not feel at this time there is any cardiac involvement. ? Aspiration pna - consult speech therapy to assess for aspiration - CT showed dependent opacities in the lungs with accompanying wall thickening and minimal subsegmental bronchial debris could suggest chronic aspiration. - Speech therapy consulted on 05/27 - await recs - Pt is on RA, no coarse breath sounds, no WBC, afebrile. - Continue n.p.o. at this time for HIDA scan as above Hypotension - resolved - patient had hypotensive episode while in ED with bp as low as 84/58, asymptomatic, resolved with liter bolus - continue to monitor Ischemic cardiomyopathy, combined chronic systolic and diastolic CHF - Echo ordered - continues to have decreased EF of 25-30 % - continue home coreg, losartan - continue daily po lasix - daily weights, strict I&Os O History of paroxysmal afib - no anticoagulation due to history of life threatening GI bleed - continue amiodarone - continue asa DMII - Converted Toujeo to Lantus 40 units bid at time of admission -reduced by 50% again this evening while n.p.o. - go up on full dose tomorrow morning if allowed diet ( this is pending HIDA results and possible need for Gen surg) - Continue sitagliptin 100 mg daily - ISS with accuchecks ac and hs Code: Full code DVT ppx: heparin subq Disposition: From home, lives with (PaulineClemencia rebollar, PALaceyC) Attending Attestation - Pt seen/examined, chart reviewed, care plan d/w GENE Kowalski. I agree w/ the obrien components of her documentation. Denies abd pain, nausea, emesis, back pain, diarrhea, constipation feels good today tolerated meals today VSS no fever gen - nad neck - no JVD heart - RRR lungs - CTA b/l abd - soft, NT, ND, BS+ ext - no edema A/P: abdominal pain at admission that radiated to lower chest and ultimately his neck /back - extensive work-up to date has only revealed Schatsky's ring on EGD and gallstones/sludge on RUQ u/s HIDA scan neg for acute cholecystitis but may indicate chronic cholecystitis gen surg has seen - outpatient f/u recommended to determine if lap sebastien should be done diet resumed watch overnight anticipate d/c tomorrow no evidence of any cardiac cause for his presenting symptoms Estrella MULLER MD (Abelino Muller MD)
[2017-05-29] MEDS: PANTOprazole SOD 40 MG TAB PO SCH ×2 (09:00→21:06)
[2017-05-29] MEDS: CARVEDILOL 12.5 MG TAB PO SCH ×2 (09:09→21:00)
[2017-05-29] MEDS: LOSARTAN POTASSIUM 50 MG TAB PO SCH (09:09)
[2017-05-29] MEDS: SITAGLIPTIN 100 MG TAB PO SCH (09:10)
[2017-05-29] MEDS: AMIODARONE 200 MG TAB PO SCH (09:10)
[2017-05-29] MEDS: FUROSEMIDE 40 MG TAB PO SCH (09:10)
[2017-05-29] MEDS: POTASSIUM CHLORIDE 10 MEQ TABCR PO SCH (09:10)
[2017-05-29] MEDS: ASPIRIN 81 MG ECTAB PO SCH (09:11)
[2017-05-29] MEDS: INSULIN GLARGINE SOLOSTAR 100 UNITS/ML 3 ML PEN SC SCH ×2 (09:23→21:20)
[2017-05-29] MEDS: HEPARIN SOD 5000 UNIT/0.5 ML CARP SQ SCH ×2 (09:24→21:19)
--- NOTE | 2017-05-29 13:56 | DIAGNOSTIC IMAGING REPORT ---
HEPATOBILIARY HIDA IMAGING CLINICAL HISTORY: 76 years-old Male presenting with Assess gallbladder sludge. TECHNIQUE: Immediately following the intravenous administration of 4.7 mCi Tc-99m Choletec, dynamic anterior abdominal imaging was performed. COMPARISON: Ultrasound from 05/28/2017. FINDINGS: Uniform hepatic tracer accumulation is shown. Prompt intrahepatic biliary excretion is seen. The gallbladder and common duct are visualized at 11-15 minutes. However, at 60 minutes, bowel is not visualized. Delayed imaging at 90 minutes demonstrates excretion of radiotracer into small bowel. IMPRESSION: 1. No evidence for acute cholecystitis or cystic duct obstruction. However, nonvisualization of the gallbladder at 1 hour could suggest chronic cholecystitis. Electronically signed by: Erick Martinez M.D. 05/29/2017 1:54 PM Dictated Date/Time: 05/29/2017 1:50 PM
--- NOTE | 2017-05-29 14:07 | CARDIOLOGY PROGRESS NOTE ---
DATE: 05/29/2017 SUBJECTIVE: Mr. Lombardi is resting comfortably in bed without complaints of chest pain or dyspnea. Results of his EGD discussed in detail. The patient's chest discomfort has resolved. OBJECTIVE: VITAL SIGNS: Blood pressure is 105/55 with a regular pulse of 84. Respiratory is 18. The patient is afebrile at 37.0 degrees Celsius. Saturation is 96% on room air. NECK: Supple with full carotid upstrokes. There are no carotid bruits. Jugular venous pressure is flat at 90 degrees. There is no thyromegaly. CARDIOVASCULAR: Reveals a regular rhythm with normal S1 and S2. No S3, S4, or murmurs are noted. LUNGS: Clear without rales, rhonchi, or wheeze. ABDOMEN: Obese without bruits. EXTREMITIES: Reveal intact radial artery pulses bilaterally. Trace pedal edema is noted. LABORATORY DATA: CBC notes a hemoglobin of 12.5, hematocrit 37.7, white count 6.97 and platelets count of 136,000. Electrolytes note a sodium of 136, potassium 3.9, chloride 102, bicarbonate 29, BUN 21, creatinine 1.06, and glucose 87. photolithographic stripper, appropriate pacing. IMPRESSION AND PLAN: 1. Chest/abdominal discomfort -- has resolved since the dilatation of his Schatzki's ring. HIDA scan is pending. 2. Coronary artery disease -- 60% RCA and 90% obtuse marginal branch stenosis on catheterization done in February 2002. 3. Nonischemic dilated cardiomyopathy -- ejection fraction of 25%-30%. Continue medical management. 4. Chronic systolic congestive heart failure -- compensated at this time. 5. Biventricular ICD - February 2016. 6. Paroxysmal atrial fibrillation/flutter. No anticoagulation due to life threatening GI bleed in November 2006. No dysrhythmia identified since time of device implantation in February 2016. 7. Hypertension -- controlled. 8. Hypercholesterolemia -- continue statin.
[2017-05-29 15:49] VITALS: BP 92/52; PULSE 65; TEMP 36.9; O2SAT 92
[2017-05-29 16:00] VITALS: O2SAT 92
--- NOTE | 2017-05-29 16:24 | Medical Consult ---
Consultation Date of Consultation: May 29, 2017. Attending Physician: Abelino Muller MD Reason for Consultation: Chronic Cholecystitis History of Present Illness Mr. Lombardi is a 76-year-old male with PMH significant for GERD, systolic and diastolic CHF, dilated cardiomyopathy EF 25-30%, CAD s/p stent placement in 2002 , biventricular pacer/ICD placement (Feb, 2016), paroxysmal AFib without anti- coagulation due to life-threatening GI bleed in 2006, (patient is followed by Dr. Peres, Cardiology) who presented to [facility] ED on 05/27/2017 for evaluation of chest/abdominal pain. Patient reports that pain, on admission, radiated across upper abdomen and up into sternum- felt different than previous acid reflux symptoms. Reports that he had broccoli earlier in the day- states that he knows that broccoli will typically give him indigestion- tries to avoid it. Denies nausea or vomiting. Denies constipation or diarrhea. Reports normal bowel movements at home. Denies fever or chills at home. Reports positive family history of gallbladder issues. 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 Labs- Total Bili- 0.9; WBC within normal limits; AST 13; Alk Phos 58; ALT 21. Hospital course thus far- HIDA- No evidence for acute cholecystitis or cystic duct obstruction. However, nonvisualization of the gallbladder at 1 hour could suggest chronic cholecystitis. GB ultrasound shows small mobile sludge balls versus non-shadowing gallstones. There is no sonographic evidence of acute cholecystitis. Patient has been seen by GI- ordered EGD- Mild Schatzki ring. Dilated. Biopsied. Normal stomach. Normal examined duodenum. Previous umbilical hernia repair by Dr. Villavicencio several years ago. Currently, patient denies abdominal pain, is resting comfortably. Tolerating liquid diet. 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) Allergies Coded Allergies: No Known Allergies (Verified , 05/27/17) Current Inpatient Medications Current Inpatient Medications Medications (Trade) Dose Ordered Sig/Jennifer Route Start Time Stop Time Status Last Admin Dose Admin Ioversol (Optiray 320) 100 ml UD PRN IV 05/27/17 12:15 05/31/17 12:14 Acetaminophen (Tylenol Tab) 650 mg Q4H PRN PO 05/27/17 15:45 06/26/17 15:44 Al Hydrox/Mg Hydrox/Simethicone (Maalox Max Susp) 15 ml Q4H PRN PO 05/27/17 15:45 06/26/17 15:44 Ondansetron HCl (Zofran Inj) 4 mg Q6H PRN IV 05/27/17 15:45 06/26/17 15:44 Nitroglycerin (Nitrostat Tab) 0.4 mg UD PRN SL 05/27/17 15:45 06/26/17 15:44 05/27/17 22:33 0.4 MG Heparin Sodium (Porcine) (Heparin Sq 5000 Unit/0.5ml) 5,000 unit Q12 SQ 05/27/17 21:00 06/26/17 20:59 05/29/17 09:24 5,000 UNIT Amiodarone HCl (Cordarone Tab) 200 mg DAILY PO 05/28/17 09:00 06/27/17 08:59 05/29/17 09:10 200 MG Aspirin (Ecotrin Tab) 81 mg DAILY PO 05/28/17 09:00 06/27/17 08:59 05/29/17 09:11 81 MG Carvedilol (Coreg Tab) 12.5 mg BID PO 05/27/17 21:00 06/26/17 20:59 05/29/17 09:09 12.5 MG Furosemide (Lasix Tab) 40 mg DAILY PO 05/28/17 09:00 06/27/17 08:59 05/29/17 09:10 40 MG Losartan Potassium (coZAAR TAB) 100 mg DAILY PO 05/28/17 09:00 06/27/17 08:59 05/29/17 09:09 100 MG Potassium Chloride (Klor-Con M10) 10 meq DAILY PO 4/3/18 09:00 06/27/17 08:59 05/29/17 09:10 10 MEQ Rosuvastatin Calcium (Crestor Tab) 40 mg PM PO 05/27/17 21:00 06/26/17 20:59 05/27/17 22:08 40 MG Sitagliptin Phosphate (Januvia Tab) 100 mg DAILY PO 05/28/17 09:00 06/27/17 08:59 05/29/17 09:10 100 MG Miscellaneous (Iv Fluids Completed) 1 ea PRN PRN N/A 05/27/17 16:15 05/27/18 16:14 Glucose (Glucose 40% Gel) 15-30 GRAMS 15 GRAMS... UD PRN PO 05/27/17 18:45 06/26/17 18:44 Glucose (Glucose Chew Tab) 4-8 Tablets 4 Tabl... UD PRN PO 05/27/17 18:45 06/26/17 18:44 Dextrose (Dextrose 50% 50ML Syringe) 25-50ML OF 50% DW IV FOR... UD PRN IV 05/27/17 18:45 06/26/17 18:44 Glucagon (Glucagon Inj) 1 mg UD PRN SQ 05/27/17 18:45 06/26/17 18:44 Zolpidem Tartrate (Ambien Tab) 5 mg HS PRN PO 05/27/17 19:00 06/26/17 18:59 Al Hydroxide/Mg Hydroxide/ Lidocaine HCl/ Barcode Q6H PRN PO 05/27/17 19:15 06/26/17 19:14 05/27/17 19:43 30 ML Insulin Glargine (Lantus Solostar Pen) 20 units BID SC 05/29/17 09:00 06/27/17 08:59 05/29/17 09:23 20 UNITS Pantoprazole Sodium (Protonix Tab) 40 mg BID PO 05/29/17 09:00 06/28/17 08:59 Review of Systems Constitutional: No fever, No chills Abdomen: No pain, No nausea, No vomiting, No diarrhea, No constipation Physical Exam Date Time Temp Pulse Resp B/P (MAP) Pulse Ox O2 Delivery O2 Flow Rate FiO2 05/29/17 12:00 Room Air 05/29/17 08:11 37.0 84 18 105/55 (72) 96 05/29/17 08:00 Room Air 05/29/17 04:00 Room Air 05/29/17 03:55 37.0 66 19 115/73 (87) 94 Room Air 05/28/17 23:59 Room Air 05/28/17 23:58 36.7 63 19 122/74 (90) 91 Room Air 05/28/17 20:00 Room Air 05/28/17 19:27 36.9 60 18 102/57 (72) 92 Room Air 05/28/17 16:06 36.7 61 18 113/63 (80) 94 Room Air 05/28/17 16:00 Room Air General Appearance: WD/WN, no apparent distress Head: normocephalic, atraumatic Abdomen/GI: normal bowel sounds, non tender, soft, + pertinent finding (benign abdominal examination) Skin: normal color, warm/dry, no rash Laboratory Results Last 24 Hours Test 05/28/17 15:41 05/28/17 16:23 05/28/17 20:35 05/28/17 21:07 Troponin I < 0.015 ng/ml Bedside Glucose 90 mg/dl 80 mg/dl 77 mg/dl Test 05/29/17 05:55 05/29/17 07:06 05/29/17 11:30 White Blood Count 6.97 K/uL Red Blood Count 4.28 M/uL Hemoglobin 12.5 g/dL Hematocrit 37.7 % Mean Corpuscular Volume 88.1 fL Mean Corpuscular Hemoglobin 29.2 pg Mean Corpuscular Hemoglobin Concent 33.2 g/dl RDW Standard Deviation 45.7 fL RDW Coefficient of Variation 14.1 % Platelet Count 136 K/uL Mean Platelet Volume 10.1 fL Sodium Level 136 mmol/L Potassium Level 3.9 mmol/L Chloride Level 102 mmol/L Carbon Dioxide Level 29 mmol/L Anion Gap 5.0 mmol/L Blood Urea Nitrogen 21 mg/dl Creatinine 1.06 mg/dl Est Creatinine Clear Calc Drug Dose 87.1 ml/min Estimated GFR () 79.2 Estimated GFR (Non- 68.3 BUN/Creatinine Ratio 20.0 Random Glucose 87 mg/dl Calcium Level 8.9 mg/dl Total Bilirubin 0.9 mg/dl Direct Bilirubin 0.2 mg/dl Aspartate Amino Transf (AST/SGOT) 13 U/L Alanine Aminotransferase (ALT/SGPT) 21 U/L Alkaline Phosphatase 58 U/L Total Protein 6.7 gm/dl Albumin 3.0 gm/dl Bedside Glucose 97 mg/dl 135 mg/dl Assessment & Plan 76-year-old male- General Surgery consulted for chronic cholecystitis. Benign abdominal exam- patient resting comfortably, abdominal pain on admission resolved. Patient has extensive cardiac history- followed by Dr. Peres. Reviewed gallbladder surgery with patient; reviewed risks of surgery with patient. Patient seems to be leaning towards discharge home with outpatient follow up. Discussed with Dr. Gray- reasonable to hold off on surgery for now- patient can follow-up in general surgery clinic as outpatient.
[2017-05-29 20:00] VITALS: BP 96/59; PULSE 66; TEMP 36.7; O2SAT 91
[2017-05-29] MEDS: ROSUVASTATIN CALCIUM 20 MG TAB PO SCH (21:07)
[2017-05-29 23:54] VITALS: BP 105/59; PULSE 66; TEMP 36.8; O2SAT 92
[2017-05-30] VITALS (13 sets, daily range): BP systolic 101–138; BP diastolic 59–80; PULSE 60–63; TEMP 36.3–37.1; O2SAT 91–96
[2017-05-30 05:52] LABS: HEMATOCRIT 37.3 % (42-52); HEMOGLOBIN 12.6 g/dL (14.0-18.0); MEAN CELL VOLUME 87.4 fL (80-100); MEAN CORPUSCULAR HEMOGLOBIN 29.5 pg (25-34); MEAN CORPUSCULAR HGB CONC 33.8 g/dl (32-36); PLATELET COUNT 167 K/uL (130-400); RED CELL DISTRIBUTION WIDTH CV 13.9 % (11.5-14.5); RED CELL DISTRIBUTION WIDTH SD 44.4 fL (36.4-46.3); WHITE BLOOD COUNT 7.09 K/uL (4.8-10.8)
[2017-05-30 06:22] LABS: CALCIUM 8.7 mg/dl (8.5-10.1); CREATININE 1.63 mg/dl (0.60-1.40); POTASSIUM 3.9 mmol/L (3.5-5.1)
--- NOTE | 2017-05-30 07:18 | Surgery Progress Note ---
Surgery Progress Note Date of Service May 30, 2017. Subjective + feeling well, + pain controlled, + diet (NPO), No nausea, No vomiting Objective Vital Signs: Date Time Temp Pulse Resp B/P (MAP) Pulse Ox O2 Delivery O2 Flow Rate FiO2 05/30/17 04:05 Room Air 05/30/17 03:34 37.1 62 18 101/64 (76) 92 Room Air 05/30/17 00:05 Room Air 05/30/17 00:05 Room Air 05/29/17 23:54 36.8 66 105/59 (74) 92 Room Air 05/29/17 20:00 Room Air 05/29/17 20:00 36.7 66 18 96/59 (71) 91 Room Air 05/29/17 16:00 92 Room Air 05/29/17 15:49 36.9 65 18 92/52 (65) 92 Room Air 05/29/17 12:00 Room Air 05/29/17 08:11 37.0 84 18 105/55 (72) 96 05/29/17 08:00 Room Air General Appearance: WD/WN, no apparent distress Head: normocephalic, atraumatic Respiratory/Chest: no respiratory distress, no accessory muscle use Abdomen: soft, no organomegaly, no pulsatile mass, + distended (mild), + tenderness (Mild RUQ) Laboratory Results: Results Past 24 Hours Test 05/29/17 11:30 05/29/17 16:18 05/29/17 20:06 05/30/17 05:39 Range/Units Bedside Glucose 135 180 180 70-99 mg/dl White Blood Count 7.09 4.8-10.8 K/uL Red Blood Count 4.27 4.7-6.1 M/uL Hemoglobin 12.6 14.0-18.0 g/dL Hematocrit 37.3 42-52 % Mean Corpuscular Volume 87.4 80-100 fL Mean Corpuscular Hemoglobin 29.5 25-34 pg Mean Corpuscular Hemoglobin Concent 33.8 32-36 g/dl RDW Standard Deviation 44.4 36.4-46.3 fL RDW Coefficient of Variation 13.9 11.5-14.5 % Platelet Count 167 130-400 K/uL Mean Platelet Volume 10.0 7.4-10.4 fL Sodium Level 134 136-145 mmol/L Potassium Level 3.9 3.5-5.1 mmol/L Chloride Level 101 98-107 mmol/L Carbon Dioxide Level 28 21-32 mmol/L Anion Gap 5.0 3-11 mmol/L Blood Urea Nitrogen 31 7-18 mg/dl Creatinine 1.63 0.60-1.40 mg/dl Est Creatinine Clear Calc Drug Dose 56.6 ml/min Estimated GFR () 47.1 Estimated GFR (Non- 40.6 BUN/Creatinine Ratio 19.2 10-20 Random Glucose 131 70-99 mg/dl Calcium Level 8.7 8.5-10.1 mg/dl Assessment & Plan chronic cholecystitis Dr. Gray in to see and examine patient. Pain controlled, abdomen soft, mild tenderness and distention. Discussed options with patient - will plan for laparoscopic cholecystectomy with intraoperative cholangiogram, possible open with Dr. Gray in the OR today. NPO except meds, IV fluids. Will contact cardiology prior to procedure to ensure he is healthy enough to undergo surgery from their standpoint. Risks, benefits, alternatives to the procedure were discussed - questions answered. OR notified. Please contact with questions or concerns.
[2017-05-30] MEDS: ASPIRIN 81 MG ECTAB PO SCH (07:44)
[2017-05-30] MEDS: PANTOprazole SOD 40 MG TAB PO SCH ×2 (07:44→21:48)
[2017-05-30] MEDS: CARVEDILOL 12.5 MG TAB PO SCH ×2 (07:45→21:49)
[2017-05-30] MEDS: FUROSEMIDE 40 MG TAB PO SCH (07:45)
[2017-05-30] MEDS: LOSARTAN POTASSIUM 50 MG TAB PO SCH (07:45)
[2017-05-30] MEDS: AMIODARONE 200 MG TAB PO SCH (07:45)
[2017-05-30] MEDS: POTASSIUM CHLORIDE 10 MEQ TABCR PO SCH (07:46)
[2017-05-30] MEDS: SITAGLIPTIN 100 MG TAB PO SCH (07:46)
[2017-05-30] MEDS: HEPARIN SOD 5000 UNIT/0.5 ML CARP SQ SCH ×2 (07:49→21:47)
[2017-05-30] MEDS: INSULIN GLARGINE SOLOSTAR 100 UNITS/ML 3 ML PEN SC SCH ×2 (07:49→21:46)
[2017-05-30] MEDS ORDERED: LACTATED RINGER'S 1000ML 1,000 ML IV SCH (08:00)
--- NOTE | 2017-05-30 08:04 | PROGRESS NOTE ---
DATE: 05/28/2017 TIME: Approximately 7:00. Full dictation by Estelita Alonso PA-C. The patient was evaluated. This morning he is resting comfortably. His main concern he does not want to have the pain that he had what brought him into the hospital which was excruciating in the right upper quadrant epigastric, going up to the neck associated after eating ham and broccoli. He does have a longstanding history when he eats brussel sprouts and broccoli he certainly has the same kind of pain. This morning his abdomen is completely benign. There is no right upper quadrant tenderness. The labs and images were identified including the EGD evaluation. At this point, I would recommend the patient undergo laparoscopic cholecystectomy, intraoperative cholangiogram. We will plan for it later today. Risk and complications of surgery were explained occasional bleeding, infection and he would like to proceed accordingly.
--- NOTE | 2017-05-30 08:33 | Hospitalist Progress Note ---
Hospitalist Progress Note Date of Service May 30, 2017. (Clemencia Kowalski PA-C) Subjective Pt evaluation today including: conversation w/ patient, conversation w/ family , physical exam, chart review, lab review, review of studies Pain: None PO Intake: NPO Voiding: no voiding problems The patient was seen and examined this morning. Pt reports doing well today. His , Kylah is present at bedside. He is anticipating lap sebastien today. Pt denies fever, chills and sweats overnight. He tolerated food last evening and has been maintained NPO this morning. He is passing gas and last BM was yesterday. Discussion was held with and the patient regarding elevated Cr. to 1.6 I spoke with nursing in the OR, who reviewed with Dr. Gray regarding elevated level and they are going to proceed with surgery today. Constitutional: No fever, No chills, No sweats Eyes: No redness, No diplopia ENT: No nasal symptoms, No trouble swallowing Respiratory: No cough, No wheezing, No shortness of breath Cardiovascular: No chest pain, No edema, No palpitations Abdomen: No pain, No nausea, No vomiting, No diarrhea, No constipation, No GI bleeding Musculoskeletal: No joint pain, No swelling Endo: No fatigue (Clemencia Kowalski, HERLINDA) Objective Vital Signs Date Time Temp Pulse Resp B/P (MAP) Pulse Ox O2 Delivery O2 Flow Rate FiO2 05/30/17 07:42 61 127/77 (94) 05/30/17 07:25 36.4 63 18 125/78 (94) 93 Room Air 05/30/17 04:05 Room Air 05/30/17 03:34 37.1 62 18 101/64 (76) 92 Room Air 05/30/17 00:05 Room Air 05/30/17 00:05 Room Air 05/29/17 23:54 36.8 66 105/59 (74) 92 Room Air 05/29/17 20:00 Room Air 05/29/17 20:00 36.7 66 18 96/59 (71) 91 Room Air 05/29/17 16:00 92 Room Air 05/29/17 15:49 36.9 65 18 92/52 (65) 92 Room Air 05/29/17 12:00 Room Air (Clemencia Kowalski PA-C) Physical Exam Notes: General: awake, alert, no apparent distress, morbidly obese Head: Normocephalic, atraumatic ENT: PERRL, EOMI, no pharyngeal exudate, mucous membranes moist Chest: Clear to auscultation, on room air, no adventitious breath sounds Cardiac: Regular rate and rhythm, no murmur, no JVD, normal peripheral pulses, good capillary refill Abdominal: NABS x 4 quadrants, soft, nontender in the right upper quadrant with deep palpation, unable to elicit positive Juárez sign. No guarding Extremities: Normal inspection, no peripheral edema or erythema, calfs nontender to palpation Psych: Normal mood and affect Neuro: AAO x 3, no motor deficits, speech is clear, no peripheral sensory deficits (Clemencia Kowalski PA-C) Laboratory Results Last 24 Hours Test 05/29/17 11:30 05/29/17 16:18 05/29/17 20:06 05/30/17 05:39 Bedside Glucose 135 mg/dl 180 mg/dl 180 mg/dl White Blood Count 7.09 K/uL Red Blood Count 4.27 M/uL Hemoglobin 12.6 g/dL Hematocrit 37.3 % Mean Corpuscular Volume 87.4 fL Mean Corpuscular Hemoglobin 29.5 pg Mean Corpuscular Hemoglobin Concent 33.8 g/dl RDW Standard Deviation 44.4 fL RDW Coefficient of Variation 13.9 % Platelet Count 167 K/uL Mean Platelet Volume 10.0 fL Sodium Level 134 mmol/L Potassium Level 3.9 mmol/L Chloride Level 101 mmol/L Carbon Dioxide Level 28 mmol/L Anion Gap 5.0 mmol/L Blood Urea Nitrogen 31 mg/dl Creatinine 1.63 mg/dl Est Creatinine Clear Calc Drug Dose 56.6 ml/min Estimated GFR () 47.1 Estimated GFR (Non- 40.6 BUN/Creatinine Ratio 19.2 Random Glucose 131 mg/dl Calcium Level 8.7 mg/dl Test 05/30/17 07:32 Bedside Glucose 124 mg/dl (Clemencia Kowalski PA-C) Assessment and Plan 76 yo M with combined systolic and diastolic CHF, dilated cardiomyopathy with EF of 25-30% per Echo in December, CAD with stents placed 2002, biventricular pacer/ICD placed February 2016, paroxysmal afib without anticoagulation due to life threatening GI bleed in 2006, presenting with epigastric pain/chest pain. GERD, gallbladder sludge - US of RUQ completed 05/28 showing no acute signs of cholecystitis, sludge balls - GI on board, pt s/p EGD on 05/28 which showed Schatzki's ring and was dilated. - HIDA on 05/29 showed possible chronic cholecystitis, gen surg consulted - Dr. Gray to perform lap sebastien today. - Protonix 40 mg BID - can change to PO today - Cont maalox prn SHUKRI - Cr bumped acutely to 1.6 - lasix ordered to be held/discussed with nurse at 8: 15 but am meds administered prior to my call. - Continue LR at 125 mL/hr for now , follow PRP - Discussed with OR nursing who relayed information to Dr. Gray - proceed with surgery today. R/o ACS - Initial EKG showed paced rhythm - Trop neg x 3 - Echo complete * Left ventricular systolic function is severely reduced. * There is severe global hypokinesis of the left ventricle. * Ejection Fraction = 25-30%. * There is mild mitral regurgitation. - A1c=8.0, hypertriglyceridemia hx - consult cardiology - discussed with Dr. Peres on 05/28 and he does not feel at this time there is any cardiac involvement.- appreciate recs ? Aspiration pna - unlikely - consult speech therapy to assess for aspiration - CT showed dependent opacities in the lungs with accompanying wall thickening and minimal subsegmental bronchial debris could suggest chronic aspiration. - Speech therapy completed consultation - no occult dysphagia - likely would need video swallow to r/o aspiration. Likely was reflux related - Pt is on RA, no coarse breath sounds, no WBC, afebrile. Hypotension - resolved - patient had hypotensive episode while in ED with bp as low as 84/58, asymptomatic, resolved with liter bolus - continue to monitor Ischemic cardiomyopathy, combined chronic systolic and diastolic CHF - Echo ordered - continues to have decreased EF of 25-30 % - continue home coreg - HOLD losartan and po lasix with SHUKRI as above - daily weights, strict I&Os O History of paroxysmal afib - no anticoagulation due to history of life threatening GI bleed - continue amiodarone - continue asa DMII - Converted Toujeo to Lantus 40 units bid at time of admission -reduced by 50% again this evening while n.p.o. - resume full dose this evening after surgery if allowed diet. - Continue sitagliptin 100 mg daily - ISS with accuchecks ac and hs - A1C 8.0 as above Code: Full code DVT ppx: heparin subq Disposition: From home, lives with , salbador crowe today (Clemencia Kowalski, PAChaparro) Attending Attestation - Pt seen/examined, chart reviewed, care plan d/w GENE Kowalski. I agree w/ the obrien components of her documentation. I saw the patient post-op on the tele unit. He was resting comfortably. Tele was stable overnight. He c/o mild abdominal soreness but no dyspnea. VSS no fever gen - nad neck - no JVD heart - RRR lungs - extensive rales b/l abd - distended, BS+ but decreased, incisions intact, incisional tenderness present ext - no edema A/P: abdominal pain at admission that radiated to lower chest and ultimately his neck /back - extensive work-up to date has only revealed Schatsky's ring on EGD and gallstones/sludge on RUQ u/s HIDA scan neg for acute cholecystitis indicated possible chronic cholecystitis - s/p lap sebastien today by Dr. Gray. acute kidney injury - due to recent IV contrast?? recheck BMP now, then again in am. u/a today w/o casts. FeNa >1. received gentle hydration today but would hold overnight due to depressed EF. chronic systolic CHF - ?decompensation post-op - check cxr now; if pulm edema then lasix tonight; otherwise stop his fluids updated Estrella MULLER MD (Abelino Muller MD)
--- NOTE | 2017-05-30 09:55 | CARDIOLOGY PROGRESS NOTE ---
DATE: 05/30/2017 SUBJECTIVE: Mr. Lombardi is resting comfortably in bed without complaints of chest pain or dyspnea. He is scheduled to undergo a cholecystectomy with Dr. Gray later this morning. OBJECTIVE: VITAL SIGNS: Blood pressure is 127/77 with a regular pulse of 60. Respiratory is 18. The patient is afebrile at 36.4 degrees centigrade. Saturation 93% on room air. NECK: Supple with full carotid upstrokes. There are no carotid bruits. Jugular venous pressure is flat at 90 degrees. There is no thyromegaly. CARDIOVASCULAR: Reveals a regular rhythm with normal S1 and S2. No S3, S4, or murmurs are noted. LUNGS: Clear without rales, rhonchi, or wheeze. ABDOMEN: Obese without bruits. EXTREMITIES: Reveal intact radial artery pulses bilaterally. Trace pretibial edema is noted. DATA: CBC notes hemoglobin of 12.6, hematocrit 37.30. White count 7.9, platelet count 167,000. Electrolytes note a sodium of 134, potassium 3.90, chloride 101, bicarbonate 20, BUN 31, creatinine 1.63, glucose 131. awake overnight monitor notes appropriate pacing. IMPRESSION AND PLAN: 1. Coronary artery disease -- cardiac catheterization February 2002 noted a 60% RCA and a 90% OM branch stenosis. Has been quiescent on medical management. 2. Nonischemic dilated cardiomyopathy -- ejection fraction of 25-30%. Continue medical management. 3. Chronic systolic congestive heart failure -- compensated at this time. 4. Biventricular ICD -- 02/2016. 5. Paroxysmal atrial fibrillation/flutter -- no anticoagulation due to life threatening GI bleed in November 2006. Has not had any dysrhythmia identified since his device was implanted in February 2016. 6. Hypertension -- controlled. 7. Hypercholesterolemia. 8. Operative risk -- acceptable cardiac risk for laparoscopic cholecystectomy.
[2017-05-30 10:10] LABS: CREATININE RANDOM URINE 45.4 mg/dl
[2017-05-30] MEDS ORDERED: FENTANYL CITRATE INJ 50 MCG/1 ML 2 ML VIAL ONE ×2 (10:51→12:08)
[2017-05-30] MEDS ORDERED: ACETAMINOPHEN 1000 MG/100 ML IV IV ONE (10:53)
[2017-05-30] MEDS ORDERED: LABETALOL HCL IV 5 MG/ML 20ML IV PRN (11:15)
[2017-05-30] MEDS ORDERED: MEPERIDINE HCL 25 MG/ML CARP IV PRN (11:15)
[2017-05-30] MEDS ORDERED: EpHEDrine SULFATE INJ 50 MG/ML AMP IV PRN (11:15)
[2017-05-30] MEDS ORDERED: HYDROmorphone INJ 2 MG/ML SYR/VIAL IV PRN (11:15)
[2017-05-30] MEDS ORDERED: ATROPINE SULFATE 0.1 MG/ML 5ML SYR IV PRN (11:15)
[2017-05-30] MEDS ORDERED: ONDANSETRON INJ 2 MG/ML 2 ML VIAL IV PRN (11:15)
[2017-05-30] MEDS ORDERED: FENTANYL CITRATE INJ 50 MCG/1 ML 2 ML VIAL IV PRN (11:15)
[2017-05-30] MEDS ORDERED: CONRAY 60% 50 ML VIAL ONE (11:32)
[2017-05-30] MEDS ORDERED: LIDOCAINE/EPINEPHRINE 1% 20 ML VIAL ONE (11:32)
[2017-05-30] MEDS ORDERED: OXYC-57 PO (11:42)
[2017-05-30] MEDS ORDERED: ALBUMIN HUMAN 5% 12.5 GM/250 ML VIAL IV ONE (11:56)
[2017-05-30] MEDS ORDERED: LIDOCAINE HCL 2% 2 ML VIAL (20MG/ML) ONE (12:07)
[2017-05-30] MEDS ORDERED: LARYING-O-JET KIT (LTA) ONE (12:07)
[2017-05-30] MEDS ORDERED: PROPOFOL IV EMULSION 10 MG/ML 20 ML VIAL IV ONE (12:07)
--- NOTE | 2017-05-30 12:36 | [facility] Post Operative Brief Note ---
Immediate Operative Summary Operative Date May 30, 2017. Pre-Operative Diagnosis Right upper quadrant paincc Post-Operative Diagnosis Same Procedure(s) Performed Laparoscopic Cholecystectomy with Cholangiogram Surgeon Dr Gray Engineering Consultant Surgeon(s) Rupesh Macias PA-C Estimated Blood Loss 5ML Findings See Below ccc Specimens A. Gallbladder Anesthesia Type General
--- NOTE | 2017-05-30 12:44 | DIAGNOSTIC IMAGING REPORT ---
CHOLANGIOGRAM O.R. CLINICAL HISTORY: Intraoperative cholangiogram. COMPARISON STUDY: Right upper quadrant ultrasound May 28, 2017. FLUOROSCOPY TIME: 3 seconds. FINDINGS: 3 intraoperative fluoroscopic images of the right upper quadrant were obtained during intraoperative cholangiogram. Contrast within the duodenum is noted. There is no biliary ductal dilatation. No filling defects are identified. IMPRESSION: No evidence for choledocholithiasis. Electronically signed by: Laron Cazares M.D. 05/30/2017 12:43 PM Dictated Date/Time: 05/30/2017 12:42 PM
[2017-05-30] MEDS ORDERED: MoRPHine SULFATE 4 MG/ML 1 ML CARP\\VIAL IV PRN (12:45)
[2017-05-30] MEDS ORDERED: OXYCODONE/ACETAMINOPHEN 5-325 TAB PO PRN (12:45)
[2017-05-30] MEDS ORDERED: ONDANSETRON INJ 2 MG/ML 2 ML VIAL ONE (13:06)
[2017-05-30] MEDS ORDERED: DEXAMETHASONE SOD INJ 4 MG/ML VIAL ONE (13:06)
[2017-05-30] MEDS ORDERED: GLYCOPYRROLATE INJ 0.2 MG/ML VIAL ONE (13:08)
[2017-05-30] MEDS ORDERED: ROCURONIUM BROMIDE 10 MG/ML 5 ML VIAL IV ONE (13:08)
[2017-05-30] MEDS ORDERED: NEOSTIGMINE METHYLSULFATE 5 MG/5 ML SYR ONE (13:08)
--- NOTE | 2017-05-30 14:00 | Anesthesiology Progress Note ---
Anesthesia Post Op Note Date & Time May 30, 2017 at 14:00 Vital Signs Pain Intensity: 0 Vital Signs Past 12 Hours Date Time Temp Pulse Resp B/P (MAP) Pulse Ox O2 Delivery O2 Flow Rate FiO2 05/30/17 13:45 36.3 60 19 118/76 95 Nasal Cannula 4 05/30/17 13:35 60 14 121/80 93 Oxymask 4 05/30/17 13:25 36.1 60 15 125/72 94 Oxymask 10 05/30/17 13:15 60 16 115/75 91 Oxymask 10 05/30/17 13:05 62 20 91/79 94 Oxymask 10 05/30/17 12:55 35.9 68 31 132/80 92 Oxymask 10 05/30/17 08:00 Room Air 05/30/17 07:42 61 127/77 (94) 05/30/17 07:25 36.4 63 18 125/78 (94) 93 Room Air 05/30/17 04:05 Room Air 05/30/17 03:34 37.1 62 18 101/64 (76) 92 Room Air Notes Mental Status: alert / awake / arousable, participated in evaluation Pt Amnestic to Procedure: Yes Nausea / Vomiting: adequately controlled Pain: adequately controlled Airway Patency, RR, SpO2: stable & adequate BP & HR: stable & adequate Hydration State: stable & adequate Anesthetic Complications: no major complications apparent
[2017-05-30] MEDS ORDERED: DEXTROSE 50% 50 ML SYR IV PRN (15:30)
[2017-05-30] MEDS ORDERED: GLUCOSE 10 TABS/TUBE PO PRN (15:30)
[2017-05-30] MEDS ORDERED: GLUCAGON FOR INJ 1 MG VIAL SQ PRN (15:30)
[2017-05-30] MEDS ORDERED: GLUCOSE 40% GEL 15 GM TUBE PO PRN (15:30)
[2017-05-30 16:27] LABS: CALCIUM 8.9 mg/dl (8.5-10.1); CREATININE 1.75 mg/dl (0.60-1.40); POTASSIUM 4.5 mmol/L (3.5-5.1)
[2017-05-30] MEDS: INSULIN ASPART 100 UNITS/ML 3 ML PEN SC SCH ×2 (17:35→21:46)
--- NOTE | 2017-05-30 18:14 | OPERATIVE REPORT ---
DATE OF OPERATION: 05/30/2017 SURGEON: Dr. Gray. CLOUD SYSTEMS ADMINISTRATOR: Nathaniel Macias PA-C. PREOPERATIVE DIAGNOSES: Chronic cholecystitis, cholelithiasis. POSTOPERATIVE DIAGNOSES: Same. OPERATIVE PROCEDURE: Laparoscopic cholecystectomy, intraoperative cholangiogram. SUMMARY: After induction of general endotracheal anesthesia, the abdomen was prepped with Betadine scrubbing solution and properly draped. We made a small incision linearly about an inch and a half above the previous transverse incision that the patient had in the supraumbilical area from a hernia repair. Once we made a small incision enough to accommodate a 5 mm trocar, we elevated the abdominal wall which was very lax, easily got into the abdomen. We used 0 Vicryl stay suture, placed under direct visualization a 5 mm trocar, followed by CO2. We used the stay sutures to hold the pneumoperitoneum. We insufflated the abdomen which was very lax, with about 12 mmHg. Under direct visualization, we placed an epigastric 5 mm and 2 subcostal ports. Of note, the epigastric trocar was put in proper position, was to the right of the xiphoid process high. Again, the patient had very little abdominal wall tissue. The gallbladder was visualized. We placed it under traction. We were able then to dissect down toward the triangle of Calot, some fatty tissue. We initially thought that we would use a fan retractor, but with this elevation, we were able to get down on the operative field of the triangle and visualize the structures well. We first identified the artery coming anteriorly. We doubly clipped and divided, and the cystic duct we took it off right at the takeoff and clipped it. Small opening in the cystic duct was made. A #4 urethral catheter transversed the abdominal wall and a 14 Angiocath was positioned in the cystic duct. Serial x-rays were taken which showed free flow into the duodenum, very long cystic duct, but there was no evidence of common bile duct obstruction and we could see the proximal hepatic radicle. At this point, we choked on the cystic duct and doubly clipped and divided. Then, the gallbladder was taken out in the antegrade fashion using electrocautery, leaving the posterior peritoneum as much as possible. While we were elevating this, we could see some biliary sludge material coming out of the cystic duct clip that we had placed when we were elevating the gallbladder. We controlled this again with a couple more cystic duct clips so we would not spill any more bowel from the gallbladder or any contents. Once this was completed taken off the liver, placed in an Endopouch and taken out intact through the epigastric port. Subhepatic and suprahepatic area was then checked. Hemostasis appeared satisfactory. There was no debris. We irrigated copiously. Bleeding was controlled excellently even though the patient was on heparin. We placed a camera in subcostal ports to visualize the umbilical opening, no adhesion in that area was identified. As we took out individual trocar under direct visualization, there was no bleeding identified, last the umbilical trocar. We closed the supraumbilical incision trocar tying the stay sutures and also placed another [id number] 0 Vicryl, 4-0 Monocryl, Steri-Strips applied. The procedure was tolerated well by the patient. Minimal blood loss. The patient was taken to recovery room in good condition. I attest to the content of the Intraoperative Record and any orders documented therein. Any exception s are noted below.
--- NOTE | 2017-05-30 18:47 | DIAGNOSTIC IMAGING REPORT ---
CHEST ONE VIEW PORTABLE CLINICAL HISTORY: 76 years-old Male presenting with bibasilar rales, ?edema?. TECHNIQUE: Portable upright AP view of the chest was obtained. COMPARISON: 05/27/2017. FINDINGS: Left subclavian implanted cardiac defibrillator with leads in the right atrium, right ventricular apex, and coronary sinus unchanged. Numerous external leads overlie the thorax degrade image quality. Atherosclerosis of the aortic arch. Cardiac silhouette moderately enlarged, unchanged. Pulmonary vascular prominence. Mildly low lung volumes with hypoventilatory changes. Apparent decreased aeration of the left lung base. No large effusion or pneumothorax. Degenerative changes of the right glenohumeral joint and spine. IMPRESSION: 1. Cardiomegaly with possible volume overload. 2. Decreased aeration of the left lung base likely indicates new atelectasis or, less likely, developing infiltrate with infection or aspiration not excluded. Electronically signed by: Erick Martinez M.D. 05/30/2017 6:45 PM Dictated Date/Time: 05/30/2017 6:44 PM
[2017-05-30] MEDS: ROSUVASTATIN CALCIUM 20 MG TAB PO SCH (21:49)
[2017-05-31 04:52] VITALS: BP 126/69; PULSE 64; TEMP 36.3; O2SAT 95
[2017-05-31 05:33] LABS: HEMATOCRIT 37.6 % (42-52); HEMOGLOBIN 12.9 g/dL (14.0-18.0); MEAN CELL VOLUME 86.4 fL (80-100); MEAN CORPUSCULAR HEMOGLOBIN 29.7 pg (25-34); MEAN CORPUSCULAR HGB CONC 34.3 g/dl (32-36); MEAN PLATELET VOLUME 10.1 fL (7.4-10.4); PLATELET COUNT 192 K/uL (130-400); RED CELL DISTRIBUTION WIDTH CV 13.6 % (11.5-14.5); RED CELL DISTRIBUTION WIDTH SD 43.4 fL (36.4-46.3)
[2017-05-31 05:58] LABS: CALCIUM 9.1 mg/dl (8.5-10.1); CREATININE 1.3 mg/dl (0.60-1.40); POTASSIUM 4.5 mmol/L (3.5-5.1)
--- NOTE | 2017-05-31 07:02 | Surgery Progress Note ---
Surgery Progress Note Date of Service May 31, 2017. Subjective Post OP Day: 1 + feeling well, + pain controlled, + diet (Tolerating regular diet), No complaints, No nausea, No vomiting Objective Vital Signs: Date Time Temp Pulse Resp B/P (MAP) Pulse Ox O2 Delivery O2 Flow Rate FiO2 05/31/17 05:03 Nasal Cannula 2.0 05/31/17 04:52 36.3 64 20 126/69 (88) 95 Nasal Cannula 2.0 05/31/17 00:05 Nasal Cannula 2.0 05/30/17 23:13 62 18 138/77 (97) 93 Room Air 05/30/17 20:20 36.3 05/30/17 20:00 Nasal Cannula 2.0 05/30/17 19:48 60 18 113/70 (84) 91 Room Air 05/30/17 17:45 61 108/59 (75) 92 Nasal Cannula 2.0 05/30/17 16:31 61 18 114/73 (87) 95 Nasal Cannula 3.0 05/30/17 16:00 Nasal Cannula 3.0 05/30/17 15:37 60 18 116/74 (88) 96 Nasal Cannula 4.0 05/30/17 15:03 60 18 116/80 (92) 95 Nasal Cannula 4.0 05/30/17 14:38 36.3 61 18 118/78 (91) 93 Nasal Cannula 4.0 05/30/17 14:20 36.4 61 16 122/73 (89) 96 Nasal Cannula 4.0 05/30/17 14:10 Room Air 05/30/17 14:05 36.3 60 18 124/77 (93) 95 Nasal Cannula 4.0 05/30/17 13:55 60 18 123/75 96 Nasal Cannula 4 05/30/17 13:45 36.3 60 19 118/76 95 Nasal Cannula 4 05/30/17 13:35 60 14 121/80 93 Oxymask 4 05/30/17 13:25 36.1 60 15 125/72 94 Oxymask 10 05/30/17 13:15 60 16 115/75 91 Oxymask 10 05/30/17 13:05 62 20 91/79 94 Oxymask 10 05/30/17 12:55 35.9 68 31 132/80 92 Oxymask 10 05/30/17 08:00 Room Air 05/30/17 07:42 61 127/77 (94) 05/30/17 07:25 36.4 63 18 125/78 (94) 93 Room Air General Appearance: WD/WN, no apparent distress Head: normocephalic, atraumatic Respiratory/Chest: no respiratory distress, no accessory muscle use Abdomen: non distended, soft, no organomegaly, no pulsatile mass, + tenderness (Mild incisional tenderness) Incision(s): clean, dry, intact, no erythema, no drainage Laboratory Results: Results Past 24 Hours Test 05/30/17 07:32 05/30/17 09:30 05/30/17 12:57 05/30/17 15:45 Range/Units Bedside Glucose 124 170 70-99 mg/dl Urine Color YELLOW Urine Appearance CLEAR CLEAR Urine pH 6.0 4.5-7.5 Urine Specific [place] 1.011 1.000-1.030 Urine Protein NEG NEG Urine Glucose (UA) NEG NEG Urine Ketones NEG NEG Urine Occult Blood NEG NEG Urine Nitrite NEG NEG Urine Bilirubin NEG NEG Urine Urobilinogen NEG NEG Urine Leukocyte Esterase NEG NEG Urine Random Creatinine 45.4 mg/dl Urine Random Sodium 67 mEq/L Sodium Level 135 136-145 mmol/L Potassium Level 4.5 3.5-5.1 mmol/L Chloride Level 99 98-107 mmol/L Carbon Dioxide Level 30 21-32 mmol/L Anion Gap 6.0 3-11 mmol/L Blood Urea Nitrogen 29 7-18 mg/dl Creatinine 1.75 0.60-1.40 mg/dl Est Creatinine Clear Calc Drug Dose 52.8 ml/min Estimated GFR () 43.2 Estimated GFR (Non- 37.3 BUN/Creatinine Ratio 16.5 10-20 Random Glucose 190 70-99 mg/dl Calcium Level 8.9 8.5-10.1 mg/dl Test 05/30/17 16:30 05/30/17 20:30 05/31/17 05:04 Range/Units Bedside Glucose 203 240 70-99 mg/dl White Blood Count 9.40 4.8-10.8 K/uL Red Blood Count 4.35 4.7-6.1 M/uL Hemoglobin 12.9 14.0-18.0 g/dL Hematocrit 37.6 42-52 % Mean Corpuscular Volume 86.4 80-100 fL Mean Corpuscular Hemoglobin 29.7 25-34 pg Mean Corpuscular Hemoglobin Concent 34.3 32-36 g/dl RDW Standard Deviation 43.4 36.4-46.3 fL RDW Coefficient of Variation 13.6 11.5-14.5 % Platelet Count 192 130-400 K/uL Mean Platelet Volume 10.1 7.4-10.4 fL Sodium Level 134 136-145 mmol/L Potassium Level 4.5 3.5-5.1 mmol/L Chloride Level 100 98-107 mmol/L Carbon Dioxide Level 29 21-32 mmol/L Anion Gap 5.0 3-11 mmol/L Blood Urea Nitrogen 30 7-18 mg/dl Creatinine 1.30 0.60-1.40 mg/dl Est Creatinine Clear Calc Drug Dose 70.4 ml/min Estimated GFR () 61.9 Estimated GFR (Non- 53.4 BUN/Creatinine Ratio 22.9 10-20 Random Glucose 187 70-99 mg/dl Calcium Level 9.1 8.5-10.1 mg/dl Assessment & Plan POD #1 s/p lap sebastien w/ IOC Doing well, abdomen soft, non-distended with mild incisional tenderness. Pain controlled. Tolerating regular diet, No N/V. Urinating without issue. okay to d/c today from surgical standpoint. Follow-up with Dr. Gray in 1 week. Will discuss findings with Dr. Gray. Please contact with questions or concerns. chronic cholecystitis Dr. Gray in to see and examine patient. Pain controlled, abdomen soft, mild tenderness and distention. Discussed options with patient - will plan for laparoscopic cholecystectomy with intraoperative cholangiogram, possible open with Dr. Gray in the OR today. NPO except meds, IV fluids. Will contact cardiology prior to procedure to ensure he is healthy enough to undergo surgery from their standpoint. Risks, benefits, alternatives to the procedure were discussed - questions answered. OR notified. Please contact with questions or concerns.
[2017-05-31 07:21] VITALS: BP 137/76; PULSE 61; TEMP 36.6; O2SAT 94
[2017-05-31 07:55] VITALS: BP 126/69; PULSE 65
[2017-05-31] MEDS: ASPIRIN 81 MG ECTAB PO SCH (07:56)
[2017-05-31] MEDS: POTASSIUM CHLORIDE 10 MEQ TABCR PO SCH (07:57)
[2017-05-31] MEDS: SITAGLIPTIN 100 MG TAB PO SCH (07:57)
[2017-05-31] MEDS: CARVEDILOL 12.5 MG TAB PO SCH (07:57)
[2017-05-31] MEDS: PANTOprazole SOD 40 MG TAB PO SCH (07:57)
[2017-05-31] MEDS: HEPARIN SOD 5000 UNIT/0.5 ML CARP SQ SCH (08:17)
[2017-05-31] MEDS: INSULIN ASPART 100 UNITS/ML 3 ML PEN SC SCH ×2 (08:18→13:03)
[2017-05-31] MEDS: INSULIN GLARGINE SOLOSTAR 100 UNITS/ML 3 ML PEN SC SCH (08:18)
--- NOTE | 2017-05-31 08:20 | Anesthesiology Progress Note ---
Anesthesia Post Op Note Date & Time May 31, 2017 at 08:19 Vital Signs Pain Intensity: 0.0 Vital Signs Past 12 Hours Date Time Temp Pulse Resp B/P (MAP) Pulse Ox O2 Delivery O2 Flow Rate FiO2 05/31/17 07:55 65 126/69 (88) 05/31/17 07:21 36.6 61 18 137/76 (96) 94 Nasal Cannula 2.0 05/31/17 05:03 Nasal Cannula 2.0 05/31/17 04:52 36.3 64 20 126/69 (88) 95 Nasal Cannula 2.0 05/31/17 00:05 Nasal Cannula 2.0 05/30/17 23:13 62 18 138/77 (97) 93 Room Air 05/30/17 20:20 36.3 Notes Mental Status: alert / awake / arousable, participated in evaluation Pt Amnestic to Procedure: Yes Nausea / Vomiting: adequately controlled Pain: adequately controlled Airway Patency, RR, SpO2: stable & adequate BP & HR: stable & adequate Hydration State: stable & adequate Anesthetic Complications: no major complications apparent patient c/o sore throat and some hoarseness post intubation. Improving this am. Educated on ways to sooth soreness and that it should improve in a couple of days. pt verbalized understanding.
[2017-05-31] MEDS: AMIODARONE 200 MG TAB PO SCH (08:35)
[2017-05-31] MEDS ORDERED: BISACODYL 5 MG TABEC PO SCH (09:00)
[2017-05-31] MEDS ORDERED: FUROSEMIDE 40 MG TAB PO SCH (10:15)
[2017-05-31] MEDS ORDERED: NURSING VERBAL MED ORDER ONE (10:15)
--- NOTE | 2017-05-31 10:43 | SURGERY PROGRESS NOTE ---
DATE: 05/31/2017 The patient is first postoperative day status post laparoscopic cholecystectomy, intraoperative cholangiogram. Kobi is doing well. He is having no issues. Last vitals showed a temperature of 36.6, pulse 65, respirations 18, blood pressure 137/74, O2 sats 94 on 2 liters. I&O, he has had 300 mL of urine overnight. Laboratory krause hemoglobin is 12.9. The chemistries are improving. The BUN is 30, creatinine is 1.30. The abdomen is soft, distended as it was expected. Trocar sites are fine. From my point of view, the patient can be discharged today. We will see him back in the office in 1 week. Instructions were given regarding wound care, diet, activity and meds and followup.
[2017-05-31 10:58] VITALS: BP 127/69; PULSE 62; TEMP 36.7; O2SAT 91
--- NOTE | 2017-05-31 11:02 | Hospitalist Progress Note ---
Hospitalist Progress Note Date of Service May 31, 2017. (Clemencia Kowalski PA-C) Subjective Pt evaluation today including: conversation w/ patient, physical exam, chart review, lab review, review of studies, conversation w/ contaminated land consultant Pain: None PO Intake: Good Voiding: no voiding problems The patient was seen and examined this morning. Pt reports doing well today s/p lap sebastien. He has some abdominal distension but denies feeling uncomfortable. Pt last BM was 2 days ago and is requesting stool softener as he typically uses this at home. Pt is tolerating PO intake without difficulty. He denies any issues with breathing this morning, although is wearing 2 L. We discussed resuming lasix this morning as his kidney function has improved, and there are faint crackles in his R lung base. Pt is agreeable to walking more today. Additional Comments: Constitutional: No fever, No chills, No sweats Eyes: No redness, No diplopia ENT: No nasal symptoms, No trouble swallowing Respiratory: No cough, No wheezing, No shortness of breath Cardiovascular: No chest pain, No edema, No palpitations Abdomen: No pain, No nausea, No vomiting, No diarrhea, No constipation, No GI bleeding Musculoskeletal: No joint pain, No swelling Endo: No fatigue (Clemencia Kowalski PA-C) Objective Vital Signs Date Time Temp Pulse Resp B/P (MAP) Pulse Ox O2 Delivery O2 Flow Rate FiO2 05/31/17 08:00 Nasal Cannula 2.0 05/31/17 07:55 65 126/69 (88) 05/31/17 07:21 36.6 61 18 137/76 (96) 94 Nasal Cannula 2.0 05/31/17 05:03 Nasal Cannula 2.0 05/31/17 04:52 36.3 64 20 126/69 (88) 95 Nasal Cannula 2.0 05/31/17 00:05 Nasal Cannula 2.0 05/30/17 23:13 62 18 138/77 (97) 93 Room Air 05/30/17 20:20 36.3 05/30/17 20:00 Nasal Cannula 2.0 05/30/17 19:48 60 18 113/70 (84) 91 Room Air 05/30/17 17:45 61 108/59 (75) 92 Nasal Cannula 2.0 05/30/17 16:31 61 18 114/73 (87) 95 Nasal Cannula 3.0 05/30/17 16:00 Nasal Cannula 3.0 05/30/17 15:37 60 18 116/74 (88) 96 Nasal Cannula 4.0 05/30/17 15:03 60 18 116/80 (92) 95 Nasal Cannula 4.0 05/30/17 14:38 36.3 61 18 118/78 (91) 93 Nasal Cannula 4.0 05/30/17 14:20 36.4 61 16 122/73 (89) 96 Nasal Cannula 4.0 05/30/17 14:10 Room Air 05/30/17 14:05 36.3 60 18 124/77 (93) 95 Nasal Cannula 4.0 05/30/17 13:55 60 18 123/75 96 Nasal Cannula 4 05/30/17 13:45 36.3 60 19 118/76 95 Nasal Cannula 4 05/30/17 13:35 60 14 121/80 93 Oxymask 4 05/30/17 13:25 36.1 60 15 125/72 94 Oxymask 10 05/30/17 13:15 60 16 115/75 91 Oxymask 10 05/30/17 13:05 62 20 91/79 94 Oxymask 10 05/30/17 12:55 35.9 68 31 132/80 92 Oxymask 10 (Clemencia Kowalski PA-C) Physical Exam Notes: General: awake, alert, no apparent distress, morbidly obese Head: Normocephalic, atraumatic ENT: PERRL, EOMI, no pharyngeal exudate, mucous membranes moist Chest: On 2 L via NC, + crackles in the RLL, otherwise clear throughout. Cardiac: Regular rate and rhythm, no murmur, no JVD, normal peripheral pulses, good capillary refill Abdominal: NABS x 4 quadrants, + distended, +tympany to percussion, + incision sites intact, nontender. Extremities: Normal inspection, no peripheral edema or erythema, calfs nontender to palpation Psych: Normal mood and affect Neuro: AAO x 3, no motor deficits, speech is clear, no peripheral sensory deficits (Clemencia Kowalski PA-C) Laboratory Results Last 24 Hours Test 05/30/17 12:57 05/30/17 15:45 05/30/17 16:30 05/30/17 20:30 Bedside Glucose 170 mg/dl 203 mg/dl 240 mg/dl Sodium Level 135 mmol/L Potassium Level 4.5 mmol/L Chloride Level 99 mmol/L Carbon Dioxide Level 30 mmol/L Anion Gap 6.0 mmol/L Blood Urea Nitrogen 29 mg/dl Creatinine 1.75 mg/dl Est Creatinine Clear Calc Drug Dose 52.8 ml/min Estimated GFR () 43.2 Estimated GFR (Non- 37.3 BUN/Creatinine Ratio 16.5 Random Glucose 190 mg/dl Calcium Level 8.9 mg/dl Test 05/31/17 05:04 05/31/17 07:22 White Blood Count 9.40 K/uL Red Blood Count 4.35 M/uL Hemoglobin 12.9 g/dL Hematocrit 37.6 % Mean Corpuscular Volume 86.4 fL Mean Corpuscular Hemoglobin 29.7 pg Mean Corpuscular Hemoglobin Concent 34.3 g/dl RDW Standard Deviation 43.4 fL RDW Coefficient of Variation 13.6 % Platelet Count 192 K/uL Mean Platelet Volume 10.1 fL Sodium Level 134 mmol/L Potassium Level 4.5 mmol/L Chloride Level 100 mmol/L Carbon Dioxide Level 29 mmol/L Anion Gap 5.0 mmol/L Blood Urea Nitrogen 30 mg/dl Creatinine 1.30 mg/dl Est Creatinine Clear Calc Drug Dose 70.4 ml/min Estimated GFR () 61.9 Estimated GFR (Non- 53.4 BUN/Creatinine Ratio 22.9 Random Glucose 187 mg/dl Calcium Level 9.1 mg/dl Bedside Glucose 179 mg/dl (Clemencia Kowalski, PA-C) Assessment and Plan 76 yo M with combined systolic and diastolic CHF, dilated cardiomyopathy with EF of 25-30% per Echo in December, CAD with stents placed 2002, biventricular pacer/ICD placed February 2016, paroxysmal afib without anticoagulation due to life threatening GI bleed in 2006, presenting with epigastric pain/chest pain. GERD, gallbladder sludge POD #1 laproscopic cholecystectomy - US of RUQ completed 05/28 showing no acute signs of cholecystitis, sludge balls - GI on board, pt s/p EGD on 05/28 which showed Schatzki's ring and was dilated. - HIDA on 05/29 showed possible chronic cholecystitis, gen surg consulted - Dr. Gray - lap sebastien 05/30 - Protonix 40 mg BID - Cont maalox prn SHUKRI - improving - Cr bumped acutely to 1.6 on 05/30 - Administered LR at 125 mL/hr prior to surgery and now fluids off d/t increased crackles in bases post surg on 05/30.- Cr improved to 1.3 so will resume lasix today. - Monitor PRP Crackles in RLL - incentive spirometry, flutter, encourage ambulation - likely atelectasis and slight volume overload with holding diuretic and fluids presurg. - Resume lasix 40 mg PO daily today as kidney function improved as above. - Follow to make sure not aspiration related as this was considered at time of admission ? Aspiration pna - ruled out - consult speech therapy to assess for aspiration - CT showed dependent opacities in the lungs with accompanying wall thickening and minimal subsegmental bronchial debris could suggest chronic aspiration. - Speech therapy completed consultation - no occult dysphagia - likely would need video swallow to r/o aspiration. Likely was reflux related - Pt is on RA, no coarse breath sounds, no WBC, afebrile. R/o ACS - Initial EKG showed paced rhythm - Trop neg x 3 - Echo complete * Left ventricular systolic function is severely reduced. * There is severe global hypokinesis of the left ventricle. * Ejection Fraction = 25-30%. * There is mild mitral regurgitation. - A1c=8.0, hypertriglyceridemia hx - consult cardiology - discussed with Dr. Peres on 05/28 and he does not feel at this time there is any cardiac involvement.- appreciate recs Hypotension - resolved - patient had hypotensive episode while in ED with bp as low as 84/58, asymptomatic, resolved with fluid resuscitation - continue to monitor Ischemic cardiomyopathy, combined chronic systolic and diastolic CHF - Echo ordered - continues to have decreased EF of 25-30 % - continue home coreg - HOLD losartan - likely can restart tomorrow morning. - Reume po lasix today - daily weights, strict I&Os O History of paroxysmal afib - no anticoagulation due to history of life threatening GI bleed - continue amiodarone - continue asa DMII - Converted Toujeo to Lantus 40 units bid at time of admission - Continue sitagliptin 100 mg daily - ISS with accuchecks ac and hs - A1C 8.0 as above Code: Full code DVT ppx: heparin subq Disposition: From home, lives with , POD #1 lap sebastien, possible dc in 1 day. (Clemencia Kowalski, PA-C) Attending Attestation - Pt seen/examined, chart reviewed, care plan d/w GENE Kowalski. I agree w/ the obrien components of her documentation. Please see my separate note contained in today's d/c summary for more info. Estrella MULLER MD (Abelino Muller MD)
--- NOTE | 2017-05-31 12:17 | Clinical Documentation Query ---
CLINICAL DOCUMENTATION QUERY Dr. HYLTON, In your clinical opinion is this patient being managed for: ( ) Acute on chronic combined systolic and diastolic CHF ( x ) Not Agree ( ) Other explanation of clinical findings (Please Explain) ( ) Unable to determine (Please Define) ( ) Need to Discuss The medical record reflects the following clinical findings, treatment, and risk factors. Clinical Indicators: 76 yo male presenting with chronic cholecystitis. Postoperatively developed faint crackles R lung base and wearing O2 2L. Documentation includes likely atelectasis and slight volume overload. CXR on 05/30 postoperatively showed possible volume overload. +fluid balance preoperatively Treatment: resume lasix, daily wts, I/O, IV fluids discontinued Risk Factors: + fluid balance, hx CHF, A fib and COPD, Please clarify and document your clinical opinion in the progress notes and discharge summary. Terms such as "probable", "suspected", "likely", "questionable", "possible", or "still to be ruled out" are acceptable. IF IN AGREEMENT, YOU MUST DOCUMENT ABOVE DIAGNOSTIC STATEMENT IN DAILY PROGRESS NOTES AND DISCHARGE SUMMARY. This document is not part of the patient's record. Thank You, Melany Oshea, RN [phone]
--- NOTE | 2017-05-31 13:30 | CARDIOLOGY PROGRESS NOTE ---
DATE: 05/31/2017 SUBJECTIVE: Mr. Lombardi is resting comfortably in bed without complaints of chest pain, dyspnea, or postoperative pain. He tolerated the laparoscopic cholecystectomy yesterday without difficulty. He is anxious for hospital discharge. OBJECTIVE: VITAL SIGNS: Blood pressure 127/69 with a regular pulse of 62. Respiratory rate is 18. The patient is afebrile at 36.7 degrees Celsius. Saturation 91% on 2 liters nasal cannula. NECK: Supple with full carotid upstrokes. There are no obvious bruits. Jugular venous pressure is difficult to assess. CARDIOVASCULAR: Reveals a regular rhythm with normal S1 and S2. No S3, S4, or murmurs are noted. LUNGS: Clear without rales, rhonchi, or wheezes. ABDOMEN: Obese without bruits. Incisions are intact. EXTREMITIES: Reveal intact radial artery pulses bilaterally. Trace pretibial edema is noted. DATA: CBC notes hemoglobin of 12.9, hematocrit 37.6, white count 9.4, and platelet count 192,000. Electrolytes note a sodium of 134, potassium 4.5, chloride 100, bicarbonate 29, BUN 30, creatinine 1.3, and glucose 187. hospital monitor notes appropriate pacing. IMPRESSION AND PLAN: 1. Coronary artery disease -- cardiac catheterization in February 2002, noted a 60% right coronary artery and a 30% obtuse marginal branch stenosis. Has been quiescent on current medical regimen. 2. Nonischemic dilated cardiomyopathy -- ejection fraction 25-30%. Continue medical management. 3. Chronic systolic congestive heart failure -- compensated at this time. 4. Biventricular implantable cardioverter defibrillator -- February 2016. 5. Paroxysmal atrial fibrillation/flutter. No anticoagulation due to his life threatening gastrointestinal bleed in November 2006. Has not had a dysrhythmia identified since his device was implanted in February 2016. 6. Hypertension -- controlled. 7. Hypercholesterolemia. 8. Disposition -- stable for hospital discharge.
[2017-05-31 13:53] VITALS: O2SAT 91
--- NOTE | 2017-05-31 14:40 | Discharge Instructions ---
Discharge Instructions Date of Service May 31, 2017. Admission Reason for Admission: Ruq Abdominal Pain, Sludge In Gallbladder Discharge Discharge Diagnosis / Problem: Chronic cholecystitis, cholecystectomy Discharge Goals Goal(s): Decrease discomfort, Improve function, Increase independence, Improve disease control Activity Recommendations Activity Limitations: resume your previous activity Lifting Limitations: no more than 25 pounds, gradually increase as tolerated Exercise/Sports Limitations: rest today, gradually increase as tolerated May Resume Sexual Activity: when tolerated Shower/Bathe: no limitations Driving or Machine Use: No limitations as long as not taking narcotic pain medication for at least 24 hours. . Instructions / Follow-Up Instructions / Follow-Up You were admitted to [facility] with epigastric pain and abdominal complaints and diagnosed with chronic cholecystitis- your gallbladder was removed. During your stay here you were treated with supportive care, pain medication, oxygen as needed, etc. You were evaluated by Gastroenterology and an ultrasound of the abdomen was completed which showed sludge in the gallbladder, you were then referred for a HIDA scan which suggested chronic cholecystitis. General surgery was consulted and your gallbladder was removed. You pain resolved and you were stable for discharge home. Medications: Continue taking your medications as prescribed. Appointments: Follow up with PCP within 1 week. Follow up with Dr. Gray, general surgery within 1-2 weeks. Current Hospital Diet Patient's current hospital diet: Low Sodium Diet (2gm Na), Low Fat Diet Discharge Diet Recommended Diet: Low Sodium Diet (2gm Na), Low Fat Diet Procedures Procedures Performed: Laparoscopic Cholecystectomy with Cholangiogram Pending Studies Studies pending at discharge: no Laboratory Results Hemoglobin A1c Test 05/28/17 03:50 Range/Units Estimated Average Glucose 183 mg/dl Hemoglobin A1c 8.0 H 4.5-5.6 % Medical Emergencies . Who to Call and When: Medical Emergencies: If at any time you feel your situation is an emergency, please call 911 immediately. . Non-Emergent Contact Non-Emergency issues call your: Primary Care Provider, Surgeon Call Non-Emergent contact if: you have a fever, temperature is above 100.5, your pain is not controlled, your pain is worsening, your pain is unusual for you, your pain is concerning you, you have any medication questions other concerns with your health. Call 911 or go directly to the Emergency Department if you experience any of the following: Chest pain, chest tightness, shortness of breath, abdominal pain , lightheadedness, dizziness, gastrointestinal bleeding, or have any other concerns regarding your health. . Past History Medical & Surgical History: (1) Chronic cholecystitis (2) S/P laparoscopic cholecystectomy (3) RUQ abdominal pain (4) Epigastric abdominal pain (5) Sludge in gallbladder (6) CHF (congestive heart failure) (7) Diabetes mellitus . "Provider Documentation" section prepared by Sara Kowalski. . [place] Drug Monitoring Program Search Results: no issues identified
[2017-05-31] MEDS ORDERED: PRT40 PO (14:43)
--- NOTE | 2017-05-31 15:08 | Discharge Summary ---
Discharge Summary Date of Service May 31, 2017. Discharge Summary Admission Date: May 28, 2017 at 11:57 Discharge Date: May 31, 2017 Discharge Disposition: Home Principal Diagnosis: Chronic cholecystitis s/p lap cholecystectomy Problems/Secondary Diagnoses: Medical Problems: (1) CAD (2) Paroxysmal a. 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 Dilated. Biopsied. - Normal stomach. - Normal examined duodenum. CHEST ONE VIEW PORTABLE 05/27/17 IMPRESSION: 1. Cardiomegaly. Otherwise no acute cardiopulmonary disease. ABD/PELVIS IV CONTRAST ONLY 05/27/17 IMPRESSION: 1. No acute intra-abdominal pathology. 2. Diverticulosis without evidence of diverticulitis. 3. Cholelithiasis. 4. Cardiomegaly. 5. Dependent opacities in the lungs with accompanying wall thickening and minimal subsegmental bronchial debris could suggest chronic aspiration. ULTRASOUND RIGHT UPPER QUADRANT ABDOMEN 05/28/17 IMPRESSION: 1. There are small mobile sludge balls versus nonshadowing gallstones. There is no sonographic evidence of acute cholecystitis. 2. Hepatomegaly and hepatic steatosis. HEPATOBILIARY HIDA IMAGING 05/29/17 IMPRESSION: 1. No evidence for acute cholecystitis or cystic duct obstruction. However, nonvisualization of the gallbladder at 1 hour could suggest chronic cholecystitis. CHOLANGIOGRAM O.R. 05/30/17 IMPRESSION: No evidence for choledocholithiasis. CHEST ONE VIEW PORTABLE 05/30/17 IMPRESSION: 1. Cardiomegaly with possible volume overload. 2. Decreased aeration of the left lung base likely indicates new atelectasis or, less likely, developing infiltrate with infection or aspiration not excluded. ECHOCARDIOGRAM: * -- Conclusions -- * Left ventricular systolic function is severely reduced. * There is severe global hypokinesis of the left ventricle. * Ejection Fraction = 25-30%. * There is mild mitral regurgitation. * grade 1 diastolic dysfunction Consultations: General Surgery Gastroenterology Cardiology Medication Reconciliation New Medications: Oxycodone/Acetaminophen 5MG/325MG (Percocet 5MG/325MG) Tab 1-2 TABLETS PO Q4H PRN for Pain, #15 TAB Pantoprazole (Pantoprazole Sodium) 40 Mg Tab 40 MG PO BID for 30 Days, #60 TAB Continued Medications: Amiodarone HCl (Amiodarone HCl) 200 Mg Tab 200 MG PO DAILY, TAB Aspirin (Aspirin) 81 Mg Tab 81 MG PO 3XWK take on MON,WED,FRI Carvedilol (Coreg) 12.5 Mg Tab 12.5 MG PO BID, TAB Furosemide (Lasix) 40 Mg Tab 40 MG PO DAILY, #90 TAB 3 Refills Insulin Glargine (Toujeo Solostar) 300 Unit/Ml Inj 40 UNITS SC BID Losartan Potassium (Cozaar) 50 Mg Tab 100 MG PO DAILY, TAB Potassium Chloride (Micro-K Ext Rel) 10 Meq Capcr 10 MEQ PO DAILY, #30 CAP 3 Refills Rosuvastatin Calcium (Crestor) 40 Mg Tab 40 MG PO PM, TAB Sitagliptin Phosphate (Januvia) 100 Mg Tab 100 MG PO DAILY, TAB Referrals At Discharge Follow up Referrals: Surgery Referral - Within 1 Week with Fantasma Gray M.D. Discharge Exam Pt evaluation today including: conversation w/ patient, physical exam, chart review, lab review, review of studies, conversation w/ sap treasury consultant Pain: None PO Intake: Good Voiding: no voiding problems The patient was seen and examined this morning. Pt reports doing well today s/p lap sebastien. He has some abdominal distension but denies feeling uncomfortable. Pt last BM was 2 days ago and is requesting stool softener as he typically uses this at home. Pt is tolerating PO intake without difficulty. He denies any issues with breathing this morning, although is wearing 2 L. We discussed resuming lasix this morning as his kidney function has improved, and there are faint crackles in his R lung base. Pt is agreeable to walking more today. Additional Comments: Constitutional: No fever, No chills, No sweats Eyes: No redness, No diplopia ENT: No nasal symptoms, No trouble swallowing Respiratory: No cough, No wheezing, No shortness of breath Cardiovascular: No chest pain, No edema, No palpitations Abdomen: No pain, No nausea, No vomiting, No diarrhea, No constipation, No GI bleeding Musculoskeletal: No joint pain, No swelling Endo: No fatigue Hospital Course 76 yo M with combined systolic and diastolic CHF, dilated cardiomyopathy with EF of 25-30% per Echo in December, CAD with stents placed 2002, biventricular pacer/ICD placed February 2016, paroxysmal afib without anticoagulation due to life threatening GI bleed in 2006, presenting with epigastric pain/chest pain. GERD, gallbladder sludge POD #1 s/p laparoscopic cholecystectomy - US of RUQ completed 05/28 showing no acute signs of cholecystitis, sludge balls - GI on board, pt s/p EGD on 05/28 which showed Schatzki's ring and was dilated. - HIDA on 05/29 showed possible chronic cholecystitis, gen surg consulted - Dr. Gray - lap sebastien on 05/30 - pain well controlled, tolerating diet, ordered dulcolax to assist with BM with pain medication. - Protonix 40 mg BID - Cont maalox prn SHUKRI - improving - Cr bumped acutely to 1.6 on 05/30 - Administered LR at 125 mL/hr prior to surgery and now fluids off d/t increased crackles in bases post surg on 05/30. - Cr improved to 1.3 so will resume lasix today. - Monitor PRP Crackles in RLL - Upon re-exam this afternoon crackles are improved - pt can continue incentive spirometry, flutter, encourage ambulation - likely atelectasis and slight volume overload with holding diuretic and fluids presurg. - Resume lasix 40 mg PO daily today as kidney function improved as above. ? Aspiration pna - ruled out. - consulted speech therapy to assess for aspiration - CT showed dependent opacities in the lungs with accompanying wall thickening and minimal subsegmental bronchial debris could suggest chronic aspiration. - Speech therapy completed consultation - no occult dysphagia - likely would need video swallow to r/o aspiration. Likely was reflux related - continue protonix as above - Pt is on RA, no coarse breath sounds, no WBC, afebrile. R/o ACS - Initial EKG showed paced rhythm - Trop neg x 3 - Echo complete * Left ventricular systolic function is severely reduced. * There is severe global hypokinesis of the left ventricle. * Ejection Fraction = 25-30%. * There is mild mitral regurgitation. - A1c=8.0, hypertriglyceridemia hx - consult cardiology - discussed with Dr. Peres on 05/28 and he does not feel at this time there is any cardiac involvement.- appreciate recs Hypotension - resolved - patient had hypotensive episode while in ED with bp as low as 84/58, asymptomatic, resolved with fluid resuscitation - continue to monitor Ischemic cardiomyopathy, combined chronic systolic and diastolic CHF - Echo ordered - continues to have decreased EF of 25-30 % - continue home coreg - HOLD losartan - resume upon discharge - Reume po lasix today - daily weights, strict I&Os O History of paroxysmal afib - no anticoagulation due to history of life threatening GI bleed - continue amiodarone - continue asa DMII - Converted Toujeo to Lantus 40 units bid at time of admission - Continue sitagliptin 100 mg daily - ISS with accuchecks ac and hs - A1C 8.0 as above Attending Attestation - Pt seen/examined, chart reviewed, discharge care plan d/w GENE Kowalski. I agree w/ the obrien components of her discharge summary. 76yo male with CAD and chronic systolic/diastolic CHF who presented with severe RUQ abdominal pain that radiated into the lower central chest area as well as the left shoulder region. Extensive work-up including CT abd/pelvis, RUQ u/s, HIDA scan, troponins, telemetry, echo, etc were negative/normal with the exception of his abdominal imaging showing gallstones/gall bladder sludge. Cardiology was consulted who felt his presenting symptoms were not due to a cardiac cause. EGD by Dr. Grady Manning showed no PUD or gastritis; a Schatzki ring was seen and dilated. PPI was recommended post-discharge. HIDA scan showed suspected chronic cholecystitis. General surgery was consulted who recommended elective lap sebastien in light of his symptoms. He underwent lap sebastien by Dr. Adrien Gray on 05/30/17. His surgery was uncomplicated. Post-op he did well with passage of flatus, tolerance to regular diet, and stable labs/vitals. His hospitalization was complicated by mild acute kidney injury. Exact etiology was uncertain but could have been due to an IV contrast injury. Fortunately his creatinine began to improve prior to discharge with creatinine of 1.3 on 05/31/17. His CHF remained compensated during his hospitalization. All other medical problems remained stable while here. Discharge exam - gen - nad neck - no JVD heart - RRR, s1, s2 lungs - minimal dry rales bases, no wheeze abd - mild distension, BS+, minimal incisional tenderness, no HSM ext - no edema skin - abdominal wall incisions clean/dry/steri-strips intact Patient will f/u with Dr. Gray, surgery, in 1 week post-discharge. He will also f/u with his PCP and sharepoint manager. Abelino Muller MD Total Time Spent: Greater than 30 minutes This includes examination of the patient, discharge planning, medication reconciliation, and communication with other providers. Discharge Instructions Please refer to the electronic Patient Visit Report (Discharge Instructions) for additional information. Follow-Up 1. Soraya Monge PA-C on on June 06 at 3:00 pm. 2. [facility] with Dr. Gray on SaturdayJune 12 at 2:10 pm. 3. [facility] Cardiology Office with Dr. Peres's law office assistant, Lorenzo Max PA-C, on SaturdayJune 12 at 3:30 pm. Additional Copies To Grady Manning MD; Fantasma Gray M.D.; Dick Antoine M.D.
[2017-05-31 15:37] VITALS: BP 127/69; PULSE 62; TEMP 36.7; O2SAT 91
== END 2017-05-31 16:19 | disposition home or self-care (01) | DRG 418 ==
LOC: C.EDC 10:19 → C.2E 16:00 → ENRESERV 16:46 → OBSVTOIN 05-28 11:57 → C.MED 05-30 00:32
PROVIDERS: ADMIT Family Medicine; ATTEND Internal Medicine
PROC: 0DJ08ZZ Inspection of Upper Intestinal Tract, Via Natural or Artificial Opening Endoscopic (ICD-10-PCS; principal; 2017-05-28 12:30)
PROC: 0FT44ZZ Resection of Gallbladder, Percutaneous Endoscopic Approach (ICD-10-PCS; 2017-05-30)
DX: K81.1 Chronic cholecystitis (principal); I50.42 Chronic combined systolic (congestive) and diastolic (congestive) heart failure; I42.0 Dilated cardiomyopathy; N17.9 Acute kidney failure, unspecified; I48.92 Unspecified atrial flutter; I11.0 Hypertensive heart disease with heart failure; I48.0 Paroxysmal atrial fibrillation; E11.9 Type 2 diabetes mellitus without complications; E78.5 Hyperlipidemia, unspecified; I25.5 Ischemic cardiomyopathy; K22.2 Esophageal obstruction; I95.9 Hypotension, unspecified; I44.7 Left bundle-branch block, unspecified; K21.9 Gastro-esophageal reflux disease without esophagitis; I25.10 Atherosclerotic heart disease of native coronary artery without angina pectoris; E78.00 Pure hypercholesterolemia, unspecified; Z79.4 Long term (current) use of insulin; Z79.82 Long term (current) use of aspirin; Z83.3 Family history of diabetes mellitus; Z80.0 Family history of malignant neoplasm of digestive organs; Z82.49 Family history of ischemic heart disease and other diseases of the circulatory system

== ENCOUNTER → 2017-10-04 | Outpatient (CLI) | payer OTHER ==
[~2017-10-04] MED LIST changes: -AMIO200T PO; +CRD200 PO; -CRS10 PO; -INSDGIPEN SC; +INSU1.2I SC; +OXYC-57 PO; +PANT1TAB4 PO; +ROSU40TA PO
[2017-10-04 15:39] LABS: HEMATOCRIT 39.8 % (42-52); HEMOGLOBIN 13.3 g/dL (14.0-18.0); MEAN CELL VOLUME 88.2 fL (80-100); MEAN CORPUSCULAR HEMOGLOBIN 29.5 pg (25-34); MEAN CORPUSCULAR HGB CONC 33.4 g/dl (32-36); MEAN PLATELET VOLUME 10.8 fL (7.4-10.4); PLATELET COUNT 173 K/uL (130-400); RED CELL DISTRIBUTION WIDTH CV 14.2 % (11.5-14.5); RED CELL DISTRIBUTION WIDTH SD 45.8 fL (36.4-46.3); WHITE BLOOD COUNT 7.29 K/uL (4.8-10.8)
[2017-10-04 16:19] LABS: ALBUMIN 3.6 gm/dl (3.4-5.0); ALKALINE PHOSPHATASE 74 U/L (45-117); ALT/SGPT 33 U/L (12-78); AST/SGOT 24 U/L (15-37); BLOOD UREA NITROGEN 22 mg/dl (7-18); CALCIUM 8.7 mg/dl (8.5-10.1); CARBON DIOXIDE 27 mmol/L (21-32); CREATININE 1.43 mg/dl (0.60-1.40); GLUCOSE 168 mg/dl (70-99); POTASSIUM 4.3 mmol/L (3.5-5.1); SODIUM 137 mmol/L (136-145); TOTAL PROTEIN 7.3 gm/dl (6.4-8.2)
== END | disposition home or self-care (01) ==
LOC: C.LAB1850 14:10
PROVIDERS: ATTEND Internal Medicine Cardiovascular Disease
DX: I48.91 Unspecified atrial fibrillation (principal); Z95.810 Presence of automatic (implantable) cardiac defibrillator; I10 Essential (primary) hypertension

== ENCOUNTER 2019-01-17 03:25 | Inpatient (IN) ==
[2019-01-17 04:06] LABS: Basophils # (auto) 0.08 K/uL (0-0.2); Basophils % (auto) 1.1 %; Eosinophils # (auto) 0.33 K/uL (0-0.5); Eosinophils % (auto) 4.4 %; Hematocrit (blood only) 42.2 % (42-52); Hemoglobin 14.2 g/dL (14.0-18.0); Immature Granulocytes # (auto) 0.05 K/uL (0.00-0.02); Immature Granulocytes % (auto) 0.7 %; Lymphocytes # (auto) 1.76 K/uL (1.2-3.4); Lymphocytes % (auto) 23.3 %; Mean Corpuscular Hemoglobin 30.5 pg (25-34); Mean Corpuscular Hgb Conc 33.6 g/dL (32-36); Mean Corpuscular Volume 90.6 fL (80-100); Mean Platelet Volume 10.2 fL (7.4-10.4); Monocytes # (auto) 0.83 K/uL (0.11-0.59); Neutrophils # (auto) 4.51 K/uL (1.4-6.5); Neutrophils % (auto) 59.5 %; Platelet Count 195 K/uL (130-400); RDW Coefficient of Variation 14.8 % (11.5-14.5); RDW Standard Deviation 49.4 fL (36.4-46.3); Red Blood Count 4.66 M/uL (4.7-6.1); White Blood Count 7.56 K/uL (4.8-10.8)
[2019-01-17 04:16] LABS: Partial Thromboplastin Ratio 0.9; Partial Thromboplastin Time 23.8 Seconds (21.0-31.0); Prothrombin Time 10.5 Seconds (9.0-12.0)
[2019-01-17 04:23] LABS: Alanine Aminotransferase 63 U/L (12-78); Albumin Level 3.6 gm/dl (3.4-5.0); Aspartate Aminotransferase 34 U/L (15-37); Blood Urea Nitrogen 40 mg/dl (7-18); Calcium 8.9 mg/dl (8.5-10.1); Carbon Dioxide 27 mmol/L (21-32); Chloride 107 mmol/L (98-107); Est GFR (African American) 42.3; Est GFR (Non-African American) 36.5; Glucose 197 mg/dl (70-99); Potassium 4.1 mmol/L (3.5-5.1); Sodium 139 mmol/L (136-145)
[2019-01-17 04:28] LABS: Albumin Globulin Ratio 0.9 (0.9-2); Alkaline Phosphatase 69 U/L (45-117); Bilirubin,Total 0.6 mg/dl (0.2-1); Globulin 3.8 gm/dl (2.5-4.0); NT Pro B Type Natriuretic Pept 645 pg/ml (0-1800); Total Protein 7.4 gm/dl (6.4-8.2); Troponin I 0.018 ng/ml (0-0.045)
[2019-01-17 04:58] LABS: Appearance Urine Clear (Clear); Bilirubin Urine Negative (Negative); Blood Urine Negative (Negative); Color Urine Yellow; Glucose Urine UA Negative (Negative); Ketones Urine Negative (Negative); Leukocyte Esterase Urine Negative (Negative); Nitrite Urine Negative (Negative); Protein Urine Negative (Negative); Specific Gravity Urine 1.019 (1.000-1.030); Urobilinogen Urine Negative (Negative)
--- NOTE | 2019-01-17 06:53 | History & Physical Report ---
Date of Service January 17, 2019 Assessment & Plan (1) Hypoxia: Patient with episode of exertional hypoxia, saturations to 85% after returning from the bathroom in the ER. He also endorses progressive exercise intolerance, shortness of breath/dyspnea on exertion, orthopnea and edema. Susp ect the volume overload/CHF is contributing to patient's respiratory complaints. Also with postnasal drip and significant upper airway mucosa Admit to medical floor, continuous pulse ox monitoring Supplemental O2 as needed -For postnasal drip will treat with Flonase, nasal saline Albuterol HFA as needed, continue home dose Present on Admission?: Yes (2) CHF (congestive heart failure): Suspect mild exacerbation of CHF is contributing to patient's hypoxia and respiratory complaints. Lasix 40 mg IV x1 Monitor I's and O's, daily weights, electrolytes. Use caution with diuresis as patient's BUN and creatinine are slightly above baseline We will continue patient's home medications losartan, carvedilol, aspirin and Crestor Present on Admission?: Yes (3) Ischemic cardiomyopathy: As above. Diuresis with Lasix 40 mg IV x1 dose. May need to re-dose later in the afternoon Continue home heart failure medications as above Present on Admission?: Yes (4) Diabetes: Chronic. Stable. Blood sugar slightly elevated today at 190. Continue Toujeo at home dose Insulin sliding scale Continue to monitor F/E/NLasix 40 mg IV, monitor I/os, goal for net -500, daily weights, BMP, consistent carb diet ProphylaxisLovenox for DVT prophylaxis Codefull per discussion with patient. Disposition admit to medical floor with continuous pulse oximetry History of Present Illness Chief Complaint: Shortness of breath Primary Care Provider: Dick Antoine MD Mr. Lombardi is a pleasant 78-year-old male with history of CHF, diabetes, non-ischemic dilated cardiomyopathy with EF of 25 to 30% presenting with shortness of breath. She reports that over the last month he has had some "thickness in his breathing" feels that he is experiencing postnasal drip, rhinorrhea. He was seen by his PCP for this issue on 11/17 and was prescribed Symbicort and albuterol for presumed bronchospasm. He has been taking these agents with minimal relief in symptoms. Last evening he went to bed around 12:00 and woke up at 130 with acute shortness of breath. He also complains of mild discomfort across his shoulder blades for the last 3 to 4 days and some "fatigue" across his neck. Patient denies weight gain. States that he has had increase in bilateral lower extremity edema, feeling of abdominal fullness and orthopnea. He denies abdominal pain, nausea, vomiting, diarrhea, constipation. Denies dysuria or urinary complaints On arrival to the ER he was found to be afebrile, hemodynamically stable. Had an episode of desaturation after walking back from the bathroom with sats in the mid 80s. Patient was placed on supplemental oxygen via nasal cannula and his symptoms improved. He presently feels quite well. States that his breathing status is much improved. Allergies Allergy/AdvReac Type Severity Reaction Status Date / Time No Known Allergies Allergy Verified 01/17/19 04:26 Home Medications Home Medications Medication Instructions Recorded Confirmed Type amiodarone 200 mg PO DAILY 06/13/18 01/17/19 History aspirin [Aspir-81] 81 mg PO 3XWK 06/13/18 01/17/19 History carvedilol 12.5 mg PO BID 06/13/18 01/17/19 History furosemide [Lasix] 40 mg PO DAILY 06/13/18 01/17/19 History insulin glargine U-300 conc 40 unit SUBCUT BID 06/13/18 01/17/19 History [Toujeo SoloStar U-300 Insulin] losartan 100 mg PO DAILY 06/13/18 01/17/19 History potassium chloride 10 meq PO DAILY 06/13/18 01/17/19 History rosuvastatin 40 mg PO Q OTHER DAY 06/13/18 01/17/19 History albuterol sulfate 90 mcg/actuation 2 puffs INH QID PRN #18 gm 11/17/18 01/17/19 Rx aerosol inhaler fluticasone furoate 100 1 puffs INH DAILY #28 ea 01/02/19 01/17/19 Rx mcg-vilanterol 25 mcg/dose inhalation powder Past Med/Surg History Medical History (Updated 01/17/19 @ 06:50 by Emilie Arcos DO) Acute respiratory failure (Acute) Acute respiratory failure with hypercapnia CHF (congestive heart failure) (Acute) Chronic cholecystitis Diabetes Hypoxemia (Acute) Ischemic cardiomyopathy LBBB (left bundle branch block) (Acute) No pertinent family history Pacemaker Pulmonary edema (Acute) RUQ abdominal pain Sludge in gallbladder SOB (shortness of breath) (Acute) Surgical History S/P laparoscopic cholecystectomy Family History (Updated 09/17/18 @ 16:16 by Edison Bell) Father Heart disease Mother Diabetes Brother Arthritis Other No pertinent family history Social History Preferred Language: [place] Communication Ability: Effective Visual Impairment: No Limitations Hearing Ability: Normal Feels Safe at Home: Yes Smoking Status: Never smoker Review of Systems Review of Systems: All systems reviewed & are unremarkable except as noted in HPI & below Physical Exam Physical Exam: General: patient resting comfortably, NAD, non-toxic in appearance, AA&O x 4 Skin: warm, dry, intact, no rashes or lesions HEENT: NC/AT, PERRL, EOMI, anicteric sclera, conjunctiva without injection, e xternal ear normal to inspection and nontender, nares patent, moist mucus membranes, + postnasal drip in posterior pharynx with mucosal cobblestoning, dentition intact, no oropharyngeal lesions, neck supple, trachea midline, no LAD, no thyromegaly, no JVD Heart: +S1/S2, regular, with occasional ectopy, no m/r/g Lungs: equal air entry bilaterally, + crackles in the left lung field, no rhonchi/wheezes Abd: +BS, soft, NT/ND, no masses/organomegaly/ascites Ext: warm, 2+ pulses in UE/LE bilaterally, no clubbing/cyanosis, 2+ pitting edema bilateral lower extremities Neuro: nonfocal, patient AA&O x 4, speech intact, no facial droop, moving all extremities on command with equal strength 5/5 Results & Data Vital Signs (Past 12 Hours) Vital Signs Temp Pulse Resp BP Pulse Ox 01/17/19 06:00 61 16 123/80 98 01/17/19 05:30 62 18 135/78 98 01/17/19 05:01 60 18 97 01/17/19 05:00 60 17 137/84 98 01/17/19 04:30 60 15 122/63 96 01/17/19 04:20 60 23 114/66 95 01/17/19 04:00 60 17 95 01/17/19 03:50 94 01/17/19 03:35 64 18 176/108 H 89 L 01/17/19 03:26 36.5 C 71 24 163/92 H 88 L Laboratory Results Lab Results 01/17/19 01/17/19 01/17/19 Range/Units 03:52 03:52 03:52 WBC 7.56 (4.8-10.8) K/uL RBC 4.66 L (4.7-6.1) M/uL Hgb 14.2 (14.0-18.0) g/dL Hct 42.2 (42-52) % MCV 90.6 (80-100) fL MCH 30.5 (25-34) pg MCHC 33.6 (32-36) g/dL RDW Std Deviation 49.4 H (36.4-46.3) fL RDW Coeff of Pastor 14.8 H (11.5-14.5) % Plt Count 195 (130-400) K/uL MPV 10.2 (7.4-10.4) fL Immature Gran % (Auto) 0.7 % Neut % (Auto) 59.5 % Lymph % (Auto) 23.3 % [place] % (Auto) 11.0 % Eos % (Auto) 4.4 % Baso % (Auto) 1.1 % Immature Gran # (Auto) 0.05 H (0.00-0.02) K/uL Neut # (Auto) 4.51 (1.4-6.5) K/uL Lymph # (Auto) 1.76 (1.2-3.4) K/uL Letcher # (Auto) 0.83 H (0.11-0.59) K/uL Eos # (Auto) 0.33 (0-0.5) K/uL Baso # (Auto) 0.08 (0-0.2) K/uL PT 10.5 (9.0-12.0) Seconds INR 1.0 (0.9-1.1) APTT 23.8 (21.0-31.0) Seconds PTT Ratio 0.9 Sodium 139 (136-145) mmol/L Potassium 4.1 (3.5-5.1) mmol/L Chloride 107 (98-107) mmol/L Carbon Dioxide 27 (21-32) mmol/L Anion Gap 5.0 (3-11) BUN 40 H (7-18) mg/dl Creatinine 1.76 H (0.6-1.4) mg/dl Est Cr Clr Drug Dosing Not Reportable Est GFR ( Amer) 42.3 Est GFR (Non-Af Amer) 36.5 BUN/Creatinine Ratio 23.0 H (10-20) Glucose 197 H (70-99) mg/dl Calcium 8.9 (8.5-10.1) mg/dl Total Bilirubin 0.6 (0.2-1) mg/dl AST 34 (15-37) U/L ALT 63 (12-78) U/L Alkaline Phosphatase 69 (45-117) U/L Troponin I 0.018 (0-0.045) ng/ml NT-Pro-B Natriuret Pep 645 (0-1800) pg/ml Total Protein 7.4 (6.4-8.2) gm/dl Albumin 3.6 (3.4-5.0) gm/dl Globulin 3.8 (2.5-4.0) gm/dl Albumin/Globulin Ratio 0.9 (0.9-2) Urine Color Urine Appearance (Clear) Urine pH (4.5-7.5) Ur Specific [place] (1.000-1.030) Urine Protein (Negative) Urine Glucose (UA) (Negative) Urine Ketones (Negative) Urine Blood (Negative) Urine Nitrite (Negative) Urine Bilirubin (Negative) Urine Urobilinogen (Negative) Ur Leukocyte Esterase (Negative) 01/17/19 Range/Units 04:49 WBC (4.8-10.8) K/uL RBC (4.7-6.1) M/uL Hgb (14.0-18.0) g/dL Hct (42-52) % MCV (80-100) fL MCH (25-34) pg MCHC (32-36) g/dL RDW Std Deviation (36.4-46.3) fL RDW Coeff of Pastor (11.5-14.5) % Plt Count (130-400) K/uL MPV (7.4-10.4) fL Immature Gran % (Auto) % Neut % (Auto) % Lymph % (Auto) % Letcher % (Auto) % Eos % (Auto) % Baso % (Auto) % Immature Gran # (Auto) (0.00-0.02) K/uL Neut # (Auto) (1.4-6.5) K/uL Lymph # (Auto) (1.2-3.4) K/uL Letcher # (Auto) (0.11-0.59) K/uL Eos # (Auto) (0-0.5) K/uL Baso # (Auto) (0-0.2) K/uL PT (9.0-12.0) Seconds INR (0.9-1.1) APTT (21.0-31.0) Seconds PTT Ratio Sodium (136-145) mmol/L Potassium (3.5-5.1) mmol/L Chloride (98-107) mmol/L Carbon Dioxide (21-32) mmol/L Anion Gap (3-11) BUN (7-18) mg/dl Creatinine (0.6-1.4) mg/dl Est Cr Clr Drug Dosing Est GFR ( Amer) Est GFR (Non-Af Amer) BUN/Creatinine Ratio (10-20) Glucose (70-99) mg/dl Calcium (8.5-10.1) mg/dl Total Bilirubin (0.2-1) mg/dl AST (15-37) U/L ALT (12-78) U/L Alkaline Phosphatase (45-117) U/L Troponin I (0-0.045) ng/ml NT-Pro-B Natriuret Pep (0-1800) pg/ml Total Protein (6.4-8.2) gm/dl Albumin (3.4-5.0) gm/dl Globulin (2.5-4.0) gm/dl Albumin/Globulin Ratio (0.9-2) Urine Color Yellow Urine Appearance Clear (Clear) Urine pH 5.0 (4.5-7.5) Ur Specific [place] 1.019 (1.000-1.030) Urine Protein Negative (Negative) Urine Glucose (UA) Negative (Negative) Urine Ketones Negative (Negative) Urine Blood Negative (Negative) Urine Nitrite Negative (Negative) Urine Bilirubin Negative (Negative) Urine Urobilinogen Negative (Negative) Ur Leukocyte Esterase Negative (Negative) Diagnostic Findings Chest x-ray appears to have cardiomegaly with pulmonary venous congestion. Appears quite similar to prior study ECG Additional Comments: EKG shows paced rhythm with PVC x1, no acute ischemic changes Code Status & VTE Plan Code Status Full code VTE Prophylaxis Plan VTE Prophylaxis will be ordered: Yes PG Care Time/CCT Total # of Minutes Spent Total Time Spent with Patient: Total time spent is greater than 50% in coordination of care (as documented) at patient's floor/unit and/or counseling patient: (1) CHF (congestive heart failure) Heart failure chronicity: chronic Heart failure type: unspecified Qualified Code(s): I50.9 - Heart failure, unspecified (2) Diabetes Diabetes mellitus type: type 2 Diabetes mellitus superintendent container terminal insulin use: with assisted use Diabetes mellitus complication status: without complication Qualified Code(s): E11.9 - Type 2 diabetes mellitus without complications; Z79.4 - 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
--- NOTE | 2019-01-17 07:21 | Emergency Department Note ---
Entered by Sabrina Cooney acting as a scribe for Jennifer Solares DO History of Present Illness General Chief complaint: Chest Pain Stated complaint: SOB, CHEST PAIN, TIREDNESS Time Seen by Provider: 01/17/19 03:33 Source: patient History of Present Illness Onset (ago): hour(s) 3 (3.5) Location: mouth (shortness of breath) Pain Consistency: + other (worsening) Relieved By: + none Associated symptoms: + denies other symptoms (abdominal pain and leg swelling) and + other (abdominal fullness); no chest pain and no loss of appetite The patient is a 78 year old M who presents to the Emergency Room with c omplaints of worsening shortness of breath that started 3.5 hours ago. He notes that he has a history of CHF. He adds that he is prescribed Lasix for his CHF. He states that he took 40 mg of Lasix earlier in the day but adds that he took an extra 40 mg of Lasix before he went to sleep. He notes that he has not urinated since. He adds that he had intermittent shortness of breath last week. He notes that he has a pacemaker in place. He denies being on oxygen at home. He also denies being on steroid medication previously. He states that in addition to his shortness of breath, he is currently ex periencing abdominal fullness. He denies that he is currently experiencing chest pain, trouble with appetite, abdominal pain, and leg swelling. He also denies a history of smoking and heart attacks. He notes that he has an appointment with Dr. Peres, Cardiology, in July. Home Medications Home Medications Medication Instructions Recorded Confirmed Type amiodarone 200 mg PO DAILY 06/13/18 01/17/19 History aspirin [Aspir-81] 81 mg PO 3XWK 06/13/18 01/17/19 History carvedilol 12.5 mg PO BID 06/13/18 01/17/19 History furosemide [Lasix] 40 mg PO DAILY 06/13/18 01/17/19 History insulin glargine U-300 conc 40 unit SUBCUT BID 06/13/18 01/17/19 History [Toujeo SoloStar U-300 Insulin] losartan 100 mg PO DAILY 06/13/18 01/17/19 History potassium chloride 10 meq PO DAILY 06/13/18 01/17/19 History rosuvastatin 40 mg PO Q OTHER DAY 06/13/18 01/17/19 History albuterol sulfate 90 mcg/actuation 2 puffs INH QID PRN #18 gm 11/17/18 01/17/19 Rx aerosol inhaler fluticasone furoate 100 1 puffs INH DAILY #28 ea 01/02/19 01/17/19 Rx mcg-vilanterol 25 mcg/dose inhalation powder Allergies Allergy/AdvReac Type Severity Reaction Status Date / Time No Known Allergies Allergy Verified 01/17/19 04:26 Past Med/Surg History Medical History (Updated 01/17/19 @ 06:50 by Emilie Arcos DO) Acute respiratory failure (Acute) Acute respiratory failure with hypercapnia CHF (congestive heart failure) (Acute) Chronic cholecystitis Diabetes Hypoxemia (Acute) Ischemic cardiomyopathy LBBB (left bundle branch block) (Acute) No pertinent family history Pacemaker Pulmonary edema (Acute) RUQ abdominal pain Sludge in gallbladder SOB (shortness of breath) (Acute) Surgical History S/P laparoscopic cholecystectomy Family History (Updated 09/17/18 @ 16:16 by Edison Bell) Father Heart disease Mother Diabetes Brother Arthritis Other No pertinent family history Social History Preferred Language: Yakut Communication Ability: Effective Visual Impairment: No Limitations Hearing Ability: Normal Installation And Repair Technician Required: No Beliefs That Will Affect Care: None Current Living Situation: Spouse Other Information That Helps Us Care for You: No Feels Safe at Home: Yes Safety Concerns: Feels Safe At This Time Smoking Status: Never smoker Do You Dip or Chew Tobacco: No ; Second Hand Exposure: No ; Tobacco Cessation Education Requested by Patient: No Hx Alcohol Use: No Hx Substance Use: No Review of Systems See HPI for pertinent positives & negatives. and A total of 10 systems reviewed and were otherwise negative Physical Exam Vital Signs Vital Signs - 24 hr 01/17/19 03:26 01/17/19 03:35 01/17/19 03:48 Temperature 36.5 C Temperature Source Oral Pulse Rate 71 64 Pulse Rate from SpO2 Sensor 64 Respiratory Rate 24 18 Respiratory Effort / Characteristics Respiratory Depth Blood Pressure 163/92 H 176/108 H Blood Pressure Mean 115 141 Pulse Oximetry 88 L 89 L Oxygen Delivery Method Room Air Nasal Cannula Oxygen Flow Rate 5 Sepsis Action Taken by Nursing No Action Required 01/17/19 03:50 01/17/19 03:57 01/17/19 04:00 Temperature Temperature Source Pulse Rate 60 Pulse Rate from SpO2 Sensor 60 Respiratory Rate 17 Respiratory Effort / Characteristics Labored Pursed Lip Short of Breath SOB on Exertion Respiratory Depth Deep Blood Pressure Blood Pressure Mean Pulse Oximetry 94 95 Oxygen Delivery Method Nasal Cannula Nasal Cannula Oxygen Flow Rate 5 5 Sepsis Action Taken by Nursing 01/17/19 04:20 01/17/19 04:30 01/17/19 05:00 Temperature Temperature Source Pulse Rate 60 60 60 Pulse Rate from SpO2 Sensor 60 60 61 Respiratory Rate 23 15 17 Respiratory Effort / Characteristics Respiratory Depth Blood Pressure 114/66 122/63 137/84 Blood Pressure Mean 92 79 99 Pulse Oximetry 95 96 98 Oxygen Delivery Method Oxygen Flow Rate Sepsis Action Taken by Nursing 01/17/19 05:01 01/17/19 05:30 01/17/19 06:00 Temperature Temperature Source Pulse Rate 60 62 61 Pulse Rate from SpO2 Sensor 60 62 61 Respiratory Rate 18 18 16 Respiratory Effort / Characteristics Respiratory Depth Blood Pressure 135/78 123/80 Blood Pressure Mean 108 105 Pulse Oximetry 97 98 98 Oxygen Delivery Method Oxygen Flow Rate Sepsis Action Taken by Nursing HEENT: Head - normocephalic and atraumatic Pupils are equal, round, and reactive to light. Extraocular eye muscles are intact, and sclera are anicteric. Nose - moist nasal mucosa without discharge. Mouth - moist buccal mucosa. Oropharynx is nonerythematous and there is no tonsillar exudate or edema noted. Neck: Supple; no JVD, nuchal rigidity, cervical lymphadenopathy. Heart: Regular rate and rhythm. There is a normal S1 and S2 with no murmurs, clicks, or gallops appreciated. Lungs: Minimal air exchange with rales at bases. Abdomen: Soft, completely nontender, nondistended, with good bowel sounds. There are no palpable pulsatile masses or hepatosplenomegaly. There is no guarding, rigidity, or rebound noted. Extremities: No evidence of cyanosis or clubbing. 2+ bilateral edema. There are easily palpable peripheral pulses. Skin: warm and dry with good turgor and no rashes. Course Course 0339: The patient was evaluated in room B6. A complete history and physical exam was performed. The patient was observed on the house worker general and pulse oximeter. He is in a paced rhythm. His vitals are stable. Labs are drawn as above. The patient will have a chest x-ray. 0455: The patient is back from the bathroom and is 85% spO2. The patient is still short of breath. I am paging Dr. Arcos for admission of the patient. 0500: I reviewed the patient's case with Dr. Emilie Arcos, [facility] Hospitalist. He will evaluate the patient for further management. Medical Decision Making Differential Diagnosis Differential diagnosis includes: CHF, PNA, hypoxia, STEMI Medical Records Attestation: I reviewed the patient's medical records. Home Medications Current Medication List: was personally reviewed by me Laboratory Data Attestation: I reviewed the patient's lab results. Result diagrams: 01/17/19 03:52 01/17/19 03:52 Lab Results 01/17/19 01/17/19 01/17/19 Range/Units 03:52 03:52 03:52 WBC 7.56 (4.8-10.8) K/uL RBC 4.66 L (4.7-6.1) M/uL Hgb 14.2 (14.0-18.0) g/dL Hct 42.2 (42-52) % MCV 90.6 (80-100) fL MCH 30.5 (25-34) pg MCHC 33.6 (32-36) g/dL RDW Std Deviation 49.4 H (36.4-46.3) fL RDW Coeff of Pastor 14.8 H (11.5-14.5) % Plt Count 195 (130-400) K/uL MPV 10.2 (7.4-10.4) fL Immature Gran % (Auto) 0.7 % Neut % (Auto) 59.5 % Lymph % (Auto) 23.3 % [place] % (Auto) 11.0 % Eos % (Auto) 4.4 % Baso % (Auto) 1.1 % Immature Gran # (Auto) 0.05 H (0.00-0.02) K/uL Neut # (Auto) 4.51 (1.4-6.5) K/uL Lymph # (Auto) 1.76 (1.2-3.4) K/uL [place] # (Auto) 0.83 H (0.11-0.59) K/uL Eos # (Auto) 0.33 (0-0.5) K/uL Baso # (Auto) 0.08 (0-0.2) K/uL PT 10.5 (9.0-12.0) Seconds INR 1.0 (0.9-1.1) APTT 23.8 (21.0-31.0) Seconds PTT Ratio 0.9 Sodium 139 (136-145) mmol/L Potassium 4.1 (3.5-5.1) mmol/L Chloride 107 (98-107) mmol/L Carbon Dioxide 27 (21-32) mmol/L Anion Gap 5.0 (3-11) BUN 40 H (7-18) mg/dl Creatinine 1.76 H (0.6-1.4) mg/dl Est Cr Clr Drug Dosing Not Reportable Est GFR ( Amer) 42.3 Est GFR (Non-Af Amer) 36.5 BUN/Creatinine Ratio 23.0 H (10-20) Glucose 197 H (70-99) mg/dl Calcium 8.9 (8.5-10.1) mg/dl Total Bilirubin 0.6 (0.2-1) mg/dl AST 34 (15-37) U/L ALT 63 (12-78) U/L Alkaline Phosphatase 69 (45-117) U/L Troponin I 0.018 (0-0.045) ng/ml NT-Pro-B Natriuret Pep 645 (0-1800) pg/ml Total Protein 7.4 (6.4-8.2) gm/dl Albumin 3.6 (3.4-5.0) gm/dl Globulin 3.8 (2.5-4.0) gm/dl Albumin/Globulin Ratio 0.9 (0.9-2) Urine Color Urine Appearance (Clear) Urine pH (4.5-7.5) Ur Specific [place] (1.000-1.030) Urine Protein (Negative) Urine Glucose (UA) (Negative) Urine Ketones (Negative) Urine Blood (Negative) Urine Nitrite (Negative) Urine Bilirubin (Negative) Urine Urobilinogen (Negative) Ur Leukocyte Esterase (Negative) 01/17/19 Range/Units 04:49 WBC (4.8-10.8) K/uL RBC (4.7-6.1) M/uL Hgb (14.0-18.0) g/dL Hct (42-52) % MCV (80-100) fL MCH (25-34) pg MCHC (32-36) g/dL RDW Std Deviation (36.4-46.3) fL RDW Coeff of Pastor (11.5-14.5) % Plt Count (130-400) K/uL MPV (7.4-10.4) fL Immature Gran % (Auto) % Neut % (Auto) % Lymph % (Auto) % [place] % (Auto) % Eos % (Auto) % Baso % (Auto) % Immature Gran # (Auto) (0.00-0.02) K/uL Neut # (Auto) (1.4-6.5) K/uL Lymph # (Auto) (1.2-3.4) K/uL [place] # (Auto) (0.11-0.59) K/uL Eos # (Auto) (0-0.5) K/uL Baso # (Auto) (0-0.2) K/uL PT (9.0-12.0) Seconds INR (0.9-1.1) APTT (21.0-31.0) Seconds PTT Ratio Sodium (136-145) mmol/L Potassium (3.5-5.1) mmol/L Chloride (98-107) mmol/L Carbon Dioxide (21-32) mmol/L Anion Gap (3-11) BUN (7-18) mg/dl Creatinine (0.6-1.4) mg/dl Est Cr Clr Drug Dosing Est GFR ( Amer) Est GFR (Non-Af Amer) BUN/Creatinine Ratio (10-20) Glucose (70-99) mg/dl Calcium (8.5-10.1) mg/dl Total Bilirubin (0.2-1) mg/dl AST (15-37) U/L ALT (12-78) U/L Alkaline Phosphatase (45-117) U/L Troponin I (0-0.045) ng/ml NT-Pro-B Natriuret Pep (0-1800) pg/ml Total Protein (6.4-8.2) gm/dl Albumin (3.4-5.0) gm/dl Globulin (2.5-4.0) gm/dl Albumin/Globulin Ratio (0.9-2) Urine Color Yellow Urine Appearance Clear (Clear) Urine pH 5.0 (4.5-7.5) Ur Specific [place] 1.019 (1.000-1.030) Urine Protein Negative (Negative) Urine Glucose (UA) Negative (Negative) Urine Ketones Negative (Negative) Urine Blood Negative (Negative) Urine Nitrite Negative (Negative) Urine Bilirubin Negative (Negative) Urine Urobilinogen Negative (Negative) Ur Leukocyte Esterase Negative (Negative) Imaging Data Attestation: I personally reviewed and interpreted this imaging study as follows: My Impression: XR chest 1V: compared to 05/2018, there is cardiomegaly, pacemaker present, moderate pulmonary vascular congestion ECG Data Indication: + SOB/dyspnea Rate (beats per minute): 75 Rhythm: + other (paced biventricular rhythm) ECG ST segments: no ST depression and no ST elevation ECG Findings: no PVCs Blood Pressure Blood Pressure Findings: Elevated blood pressure Blood Pressure Disposition: elevated BP felt to be situational MDM Narrative The patient is a 78 year old M who presents to the Emergency Room with complai nts of worsening shortness of breath that started 3.5 hours ago. The patient had increasing exertional shortness of breath. He has significant upper respiratory congestion and postnasal drip. There is no significant wheezing noted on physical exam. He does have some rales. Chest x-ray shows pulmonary vascular congestion but BNP was negative. After some time here in the emergency department, the patient seemed to be less short of breath but once he was up to the bathroom again, he was hypoxic again. I discussed the case with the [facility] Hospitalist and they will evaluate for further management. Impression & Plan CHF (congestive heart failure), Hypoxia Discharge Plan Visit Data Chief Complaint: Chest Pain Stated Complaint: SOB, CHEST PAIN, TIREDNESS ED Provider: Jennifer Solares Discharge Problem: CHF (congestive heart failure), Hypoxia Patient Disposition: Admitted As Inpatient Discharge Problem: CHF (congestive heart failure) Qualifiers: Heart failure type: unspecified Heart failure chronicity: chronic Qualified Code(s): I50.9 - Heart failure, unspecified The scribe's documentation has been prepared under my direction and personally reviewed by me in its entirety. I confirm that the note above accurately reflects all work, treatment, procedures, and medical decision making performed by me.
[2019-01-17] MEDS ORDERED: DEXTROSE 50% 50 ML SYRINGE IV PRN (08:18)
[2019-01-17] MEDS ORDERED: SODIUM CHLORIDE 0.65% NA SOLN 45 ML (OCEAN) PRN (08:18)
[2019-01-17] MEDS ORDERED: ALBUTEROL HFA 8 GM INHALER INH PRN (08:18)
[2019-01-17] MEDS ORDERED: GLUCOSE 10 TABS/TUBE PO PRN (08:18)
[2019-01-17] MEDS ORDERED: GLUCOSE 40% GEL 15 GM TUBE PO PRN (08:18)
[2019-01-17] MEDS ORDERED: FUROSEMIDE 40 MG/4 ML VIAL IV STA (08:18)
[2019-01-17] MEDS ORDERED: GLUCAGON FOR INJ 1 MG VIAL SQ PRN (08:18)
[2019-01-17] MEDS ORDERED: CARBOHYDRATES FOR HYPOGLYCEMIA PO PRN (08:18)
[2019-01-17] MEDS ORDERED: FUROSEMIDE 40 MG in SYRINGE 0 ML IV SCH (08:45)
[2019-01-17] MEDS ORDERED: INSULIN GLARGINE SOLOSTAR 100 UNITS/ML 3 ML PEN SC SCH (09:00)
[2019-01-17] MEDS ORDERED: POTASSIUM CHLORIDE 10 MEQ TABCR PO SCH ×2 (09:00)
[2019-01-17] MEDS ORDERED: LOSARTAN POTASSIUM 50 MG TAB PO SCH ×2 (09:00)
[2019-01-17 09:04] LABS: Magnesium 2.4 mg/dl (1.8-2.4); Phosphorus 3.6 mg/dl (2.5-4.9)
[2019-01-17] MEDS: INSULIN ASPART 100 UNITS/ML 3 ML PEN SC SCH ×4 (10:00→20:30)
[2019-01-17] MEDS: ENOXAPARIN INJ 40 MG/0.4 ML SYR SQ SCH (10:08)
[2019-01-17] MEDS: AMIODARONE 200 MG TAB PO SCH (10:08)
[2019-01-17] MEDS: guaiFENesin 600 MG TABCR PO SCH ×2 (10:08→20:29)
[2019-01-17] MEDS: carvediloL 12.5 MG TAB PO SCH ×2 (10:08→20:28)
[2019-01-17] MEDS: FLUTICASONE PROPIONATE NA SPR 16 GM BTL SCH (10:10)
--- NOTE | 2019-01-17 12:34 | XRay Report ---
SINGLE VIEW CHEST CLINICAL HISTORY: Dyspnea. FINDINGS: 2 AP, portable, upright chest radiographs are compared to study dated 06/13/2018. The examin ation is degraded by portable technique and patient rotation. A 3-lead cardiac AICD is unchanged in position and partially obscures the left upper chest. The heart is enlarged noting atherosclerotic ca lcification of the thoracic aorta. There is pulmonary vascular congestion and mild interstitial edema . Bibasilar airspace opacities likely represent atelectasis. No large pleural effusion or pneumothora x is seen. The skeletal structures are osteopenic. The bony thorax is grossly intact. Bony irregulari ty is again seen along the inferior aspect of the right glenoid. IMPRESSION: 1. Cardiomegaly and AICD. There is evidence of congestive failure and mild interstitial edema. 2. Bibasilar opacities likely represent atelectasis. Clinical correlation will be required. 3. No large pleural effusion is seen. Electronically signed by: Taj Garcia M.D. 01/17/2019 12:32 PM
--- NOTE | 2019-01-17 13:34 | Cardiology Consultation ---
Date of Consultation January 17, 2019 Assessment & Plan (1) CHF (congestive heart failure): His decompensation is mild at best. He demonstrates a normal BNP. He has responded to intravenous Lasix. Quit consider repeat dose of intravenous Lasix later today. Losartan currently on hold due to his renal insufficiency. Could consider a change to Entresto as an outpatient. He does understand the concept of daily weights and sliding scale diuretics at home. (2) Cardiomyopathy: He has a dilated nonischemic cardiomyopathy. Most recent ejection fraction was 25-30%. (3) CAD (coronary artery disease): Cardiac catheterization in February 2002 as part of his workup noted nonobstructive disease (60% RCA and a 30% OM2 stenosis). (4) Biventricular ICD (implantable cardioverter-defibrillator) in place: The patient had a biventricular device placed in February 2016. He did have an episode asymptomatic ventricular tachycardia causing syncope and requiring defibrillation back in September 2017. No dysrhythmias identified during his interrogation in May 2018. (5) PAF (paroxysmal atrial fibrillation): The patient does not take long-term anticoagulation as he had a life- threatening GI bleed in November 2006. History of Present Illness Attending Physician: Cherie Wilkins MD History of Present Illness Mr. Lombardi is a 78-year-old male admitted earlier today with acute on chronic systolic CHF. This consisted was ordered to assistance management. Of note, the patient is well known to me from the outpatient setting. The patient was in his usual state of health until approximately 3-4 weeks ago when he began to note sinus congestion with postnasal drip. He was seen by his primary care physician who started him on several inhalers. The patient did note minor improvement in his symptoms. Over the last 3-4 days, patient has been noticing an increase in his exertional dyspnea and nasal congestion. This morning at 1:00 a.m., the patient took 40 mg of Lasix because of his difficulty breathing. He presented to the emergency room for further care. Of note, a receive 40 mg of intravenous Lasix on arrival. The patient has noticed a gradual increase in his weight since September. His dry weight at home has been 280 lb. He typically administers 20-40 mg Lasix daily. He does skip an occasional day if he is traveling. The patient has not experienced any exertional chest pain. He further denies syncope, presyncope, lower extremity edema, and claudication. He does occasionally sleep at night in his reclining chair for comfort. The patient's cardiac history began in February 2002 when he presented in decompensated CHF. Cardiac catheterization performed at that time noted a 60% RCA and a 30% OM2 stenosis. He was diagnosed with a nonischemic dilated cardiomyopathy at that time. His ejection fraction has varied from 25 to 40%. Currently, patient resting comfortably in bed without complaints. Past medical and surgical history 1. Coronary artery disease-see above 2. Nonischemic dilated cardiomyopathy 3. Chronic systolic CHF 4. Biventricular ICD-February 2016 5. Symptomatic ventricular tachycardia-September 2017 6. Paroxysmal atrial fibrillation-no anticoagulation due to life-threatening GI bleed November 2006 7. Hypertension next 8. Hypercholesterolemia 9. COPD 10. Diabetes mellitus 11. GERD 12. 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 Cholecystectomy 15. 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 Family history Noncontributory Review of systems A 10 point review of systems was negative except for that described above. Allergies Allergy/AdvReac Type Severity Reaction Status Date / Time No Known Allergies Allergy Verified 01/17/19 04:26 Home Medications Home Medications Medication Instructions Recorded Confirmed Type amiodarone 200 mg PO DAILY 06/13/18 01/17/19 History aspirin [Aspir-81] 81 mg PO 3XWK 06/13/18 01/17/19 History carvedilol 12.5 mg PO BID 06/13/18 01/17/19 History insulin glargine U-300 conc 40 unit SUBCUT BID 06/13/18 01/17/19 History [Toujeo SoloStar U-300 Insulin] rosuvastatin 40 mg PO Q OTHER DAY 06/13/18 01/17/19 History albuterol sulfate 90 mcg/actuation 2 puffs INH QID PRN #18 gm 11/17/18 01/17/19 Rx aerosol inhaler fluticasone furoate 100 1 puffs INH DAILY #28 ea 01/02/19 01/17/19 Rx mcg-vilanterol 25 mcg/dose inhalation powder Patient History Medical History (Updated 01/17/19 @ 13:43 by Phillip Peres MD) Acute respiratory failure (Acute) Acute respiratory failure with hypercapnia CHF (congestive heart failure) (Acute) Chronic cholecystitis Diabetes Hypoxemia (Acute) Ischemic cardiomyopathy LBBB (left bundle branch block) (Acute) No pertinent family history Pacemaker Pulmonary edema (Acute) RUQ abdominal pain Sludge in gallbladder SOB (shortness of breath) (Acute) Surgical History S/P laparoscopic cholecystectomy Family History (Updated 09/17/18 @ 16:16 by Edison Bell) Father Heart disease Mother Diabetes Brother Arthritis Other No pertinent family history Social History Preferred Language: Slovak Communication Ability: Effective Visual Impairment: No Limitations Hearing Ability: Normal Dermatology Technician Required: No Beliefs That Will Affect Care: None Current Living Situation: Spouse Other Information That Helps Us Care for You: No Feels Safe at Home: Yes Safety Concerns: Feels Safe At This Time Smoking Status: Never smoker Do You Dip or Chew Tobacco: No ; Second Hand Exposure: No ; Tobacco Cessation Education Requested by Patient: No Hx Alcohol Use: No Hx Substance Use: No Physical Exam Physical Exam: In general this is an obese white male in no acute distress. HEENT exam is negative. Neck is supple with full carotid upstrokes. There are no carotid bruits. Jugular venous pressure is flat at 90. There is no thyromegaly. Cardiovascular exam reveals a regular rhythm with distant heart sounds. No obvious murmurs. No S3. Lungs are clear without rales, rhonchi, or wheezes. Abdomen is soft and nontender without bruits. Extremities reveal intact radial artery and posterior tibial pulses bilaterally. There is 1+ pretibial edema. Results & Data Vital Signs (Past 12 Hours) Vital Signs Temp Pulse Resp BP BP Pulse Ox 01/17/19 10:00 92 01/17/19 09:11 36.4 C L 142/87 H 93 01/17/19 06:00 61 16 123/80 98 01/17/19 05:30 62 18 135/78 98 01/17/19 05:01 60 18 97 01/17/19 05:00 60 17 137/84 98 01/17/19 04:30 60 15 122/63 96 01/17/19 04:20 60 23 114/66 95 01/17/19 04:00 60 17 95 01/17/19 03:50 94 01/17/19 03:35 64 18 176/108 H 89 L 01/17/19 03:26 36.5 C 71 24 163/92 H 88 L Laboratory Results CBC notes a hemoglobin of 14.2, hematocrit 42.2, white count 7.5, an output, 195,000. Electrolytes note a sodium of 139, potassium 4.1, chloride 107, bicarb 27, BUN 40, creatinine 1.76, glucose of 197. Magnesium level normal at 2.4. Initial troponin normal at 0.018. BNP is normal at 645 (0-1800). Diagnostic Findings EKG notes AV pacing and evidence of a biventricular device. Chest x-ray notes cardiomegaly a left-sided ICD, and congestive changes. PG Care Time/CCT Total # of Minutes Spent Total Time Spent with Patient: Total time spent is greater than 50% in coordination of care (as documented) at patient's floor/unit and/or counseling patient: (1) CHF (congestive heart failure) Heart failure chronicity: chronic Heart failure type: unspecified Qualified Code(s): I50.9 - Heart failure, unspecified
[2019-01-17] MEDS: BREO ~ ORDER AWAITING ACTION SCH ×2 (16:54→23:31)
--- NOTE | 2019-01-17 18:30 | History & Physical Bridge Note ---
Date of Service January 17, 2019 History & Physical Bridge Note I have examined the patient, reviewed the History & Physical and in the interval since the performance of the History & Physical I have noted the following changes of clinical significance: A/P 1) Acute on Chronic Systolic CHF * Patient appears to be up ~5lb from dry weight. States he takes lasix as needed at home but admits to a diet high in salt/fat. Given additional lasix with generous diuresis. Patient 95% on 5L via NC and currently 94% on RA. * Troponin 0.018 with trend up to 0.045 with repeat, although minimal, trending back down at 0.044 * Creatinine elevated at 1.76 -- will hold off on SINTIA for now. Repeat labs in AM. * Cardiology consult-- appreciate rec-- possible benefit from Entresto given reduced EF. Will defer to cardiology. * However, BNP without signs of overt CHF. Supervising Physician Co-Signing Physician Notes PA Supervision Note: I did not personally see or examine the patient today, but I verified all obrien points of GENE Sanchez's assessment and plan with the following exceptions/additions: None
[2019-01-17] MEDS: INSULIN GLARGINE SOLOSTAR 100 UNITS/ML 3 ML PEN SC SCH (20:31)
[2019-01-17] MEDS: POLYETHYLENE (MIRALAX) 17 GM PACK PO SCH (23:29)
[2019-01-18 06:35] LABS: Basophils # (auto) 0.04 K/uL (0-0.2); Basophils % (auto) 0.5 %; Eosinophils # (auto) 0.15 K/uL (0-0.5); Hematocrit (blood only) 39.9 % (42-52); Hemoglobin 13.4 g/dL (14.0-18.0); Immature Granulocytes # (auto) 0.05 K/uL (0.00-0.02); Immature Granulocytes % (auto) 0.7 %; Lymphocytes # (auto) 2.04 K/uL (1.2-3.4); Lymphocytes % (auto) 26.7 %; Mean Corpuscular Hemoglobin 30.2 pg (25-34); Mean Corpuscular Hgb Conc 33.6 g/dL (32-36); Mean Corpuscular Volume 90.1 fL (80-100); Monocytes # (auto) 0.75 K/uL (0.11-0.59); Monocytes % (auto) 9.8 %; Neutrophils # (auto) 4.62 K/uL (1.4-6.5); Neutrophils % (auto) 60.3 %; Platelet Count 158 K/uL (130-400); RDW Coefficient of Variation 14.5 % (11.5-14.5); Red Blood Count 4.43 M/uL (4.7-6.1); White Blood Count 7.65 K/uL (4.8-10.8)
[2019-01-18 07:08] LABS: Calcium 9.1 mg/dl (8.5-10.1); Creatinine Clr Calc Pharmacy 67.1 ml/min; Est GFR (African American) 56.8; Potassium 3.8 mmol/L (3.5-5.1)
[2019-01-18] MEDS ORDERED: POTASSIUM CHLORIDE 20 MEQ TABCR PO ONE (07:39)
[2019-01-18] MEDS: BREO ~ ORDER AWAITING ACTION SCH (07:46)
[2019-01-18] MEDS: ENOXAPARIN INJ 40 MG/0.4 ML SYR SQ SCH (07:47)
[2019-01-18] MEDS: INSULIN GLARGINE SOLOSTAR 100 UNITS/ML 3 ML PEN SC SCH (07:48)
[2019-01-18] MEDS: carvediloL 12.5 MG TAB PO SCH (07:49)
[2019-01-18] MEDS: guaiFENesin 600 MG TABCR PO SCH (07:49)
[2019-01-18] MEDS: FLUTICASONE PROPIONATE NA SPR 16 GM BTL SCH (07:49)
[2019-01-18] MEDS: AMIODARONE 200 MG TAB PO SCH (07:50)
[2019-01-18] MEDS: POLYETHYLENE (MIRALAX) 17 GM PACK PO SCH (07:56)
[2019-01-18] MEDS ORDERED: ROSUVASTATIN CALCIUM 20 MG TAB PO SCH (09:00)
[2019-01-18] MEDS: INSULIN ASPART 100 UNITS/ML 3 ML PEN SC SCH ×2 (09:15→13:14)
--- NOTE | 2019-01-18 12:11 | Cardiology Progress Note ---
Date of Service January 18, 2019 Assessment & Plan (1) CHF (congestive heart failure): The patient is well compensated at this time. Have instructed him to use tomorrow morning's weight as his dry weight. Could consider a change to Entresto from losartan. (2) Cardiomyopathy: He has a dilated nonischemic cardiomyopathy. Ejection fraction was 25-30% on an echocardiogram in May 2017. (3) CAD (coronary artery disease): Cardiac catheterization in February 2002 as part of his workup noted non- obstructive disease (60% RCA and a 30% OM2 stenosis). (4) Biventricular ICD (implantable cardioverter-defibrillator) in place: The patient had a biventricular device placed in February 2016. He did have an episode symptomatic ventricular tachycardia causing syncope and requiring defibrillationin September 2017. No dysrhythmias identified during his interrogation in May 2018. (5) PAF (paroxysmal atrial fibrillation): The patient does not take long-term anticoagulation as he experienced a life-threatening GI bleed in November 2006. Subjective The patient is resting comfortably in the bedside chair without complaints of chest pain or dyspnea. He feels as well today as he has in approximately 10 years. He is anxious for hospital discharge. Physical Exam Physical Exam: In general this is an obese white male in no acute distress. HEENT exam is negative. Neck is supple with full carotid upstrokes. There are no carotid bruits. Jugular venous pressure is flat at 90. There is no thyromegaly. Cardiovascular exam reveals a regular rhythm with distant heart sounds. No obvious murmurs. No S3. Lungs are clear without rales, rhonchi, or wheezes. Abdomen is soft and nontender without bruits. Extremities reveal intact radial artery and posterior tibial pulses bilaterally. There is 1+ pretibial edema. Results & Data Vital Signs (Past 12 Hours) Vital Signs Temp Pulse Pulse Resp BP Pulse Ox 01/18/19 09:31 72 01/18/19 08:07 36.5 C 67 22 146/77 H 96 01/18/19 04:00 36.4 C L 60 20 118/69 94 PG Care Time/CCT Total # of Minutes Spent Total Time Spent with Patient: Total time spent is greater than 50% in coordination of care (as documented) at patient's floor/unit and/or counseling patient: (1) CHF (congestive heart failure) Heart failure chronicity: chronic Heart failure type: unspecified Qualified Code(s): I50.9 - Heart failure, unspecified
[2019-01-18] MEDS ORDERED: FUROSEMIDE 20 MG TAB PO ONE (13:02)
--- NOTE | 2019-01-18 13:02 | Discharge Summary ---
Date of Service January 18, 2019 Admission HPI Per Admitting Provider Mr. Lombardi is a pleasant 78-year-old male with history of CHF, diabetes, non-ischemic dilated cardiomyopathy with EF of 25 to 30% presenting with shortness of breath. She reports that over the last month he has had some "thickness in his breathing" feels that he is experiencing postnasal drip, rhinorrhea. He was seen by his PCP for this issue on 11/17 and was prescribed Symbicort and albuterol for presumed bronchospasm. He has been taking these agents with minimal relief in symptoms. Last evening he went to bed around 12:00 and woke up at 130 with acute shortness of breath. He also complains of mild discomfort across his shoulder blades for the last 3 to 4 days and some "fatigue" across his neck. Patient denies weight gain. States that he has had increase in bilateral lower extremity edema, feeling of abdominal fullness and orthopnea. He denies abdominal pain, nausea, vomiting, diarrhea, constipation. Denies dysuria or urinary complaints On arrival to the ER he was found to be afebrile, hemodynamically stable. Had an episode of desaturation after walking back from the bathroom with sats in the mid 80s. Patient was placed on supplemental oxygen via nasal cannula and his symptoms improved. He presently feels quite well. States that his breathing status is much improved. Admission Exam Per Admitting Provider General: patient resting comfortably, NAD, non-toxic in appearance, AA&O x 4 Skin: warm, dry, intact, no rashes or lesions HEENT: NC/AT, PERRL, EOMI, anicteric sclera, conjunctiva without injection, external ear normal to inspection and nontender, nares patent, moist mucus membranes, + postnasal drip in posterior pharynx with mucosal cobblestoning, dentition intact, no oropharyngeal lesions, neck supple, trachea midline, no LAD, no thyromegaly, no JVD Heart: +S1/S2, regular, with occasional ectopy, no m/r/g Lungs: equal air entry bilaterally, + crackles in the left lung field, no rhonchi/wheezes Abd: +BS, soft, NT/ND, no masses/organomegaly/ascites Ext: warm, 2+ pulses in UE/LE bilaterally, no clubbing/cyanosis, 2+ pitting edema bilateral lower extremities Neuro: nonfocal, patient AA&O x 4, speech intact, no facial droop, moving all extremities on command with equal strength 5/5 Principal Diagnosis Acute on chronic systolic Congestive Heart Failure, Acute respiratory failure with Hypoxia Discharge Exam Constitutional well developed, well nourished and + obese; no acute distress Neck trachea midline, no thyromegaly Respiratory normal respiratory effort; no respiratory distress and no labored breathing Auscultation: lungs clear to auscultation bilaterally Cardiovascular Rate/Rhythm: + irregularly irregular Vessels: no JVD Extremities: + edema (trace b/l LE) Gastrointestinal (Abdomen) normal bowel sounds, soft, nontender, no hepatosplenomegaly Musculoskeletal no cyanosis or clubbing, extremities motor strength 5/5 Skin no rashes, warm and dry Neurologic PERRL, EOMI, accommodation nl, no face palsy, no dysarthria Psychiatric A+Ox3, euthymic affect Lymphatic no cervical or axillary lymphadenopathy Discharge Data Allergies Allergy/AdvReac Type Severity Reaction Status Date / Time No Known Allergies Allergy Verified 01/17/19 04:26 Consultations 01/17/19 05:00 ED Decision to Admit Stat 01/17/19 08:18 Consult Cardiology Routine Ordered Studies CXR Hospital Course (1) Hypoxia: Patient presented with exertional hypoxia, saturations to 85% after returning from the bathroom in the ER. He also endorses progressive exercise intolerance, shortness of breath/dyspnea on exertion, orthopnea and edema. Morales spect the volume overload/acute CHF is contributing to patient's respiratory complaints. Also with postnasal drip and significant upper airway mucosa. Patient was admitted to telemetry. Remained paced in the 60s on telemetry. Initially requiring 5L via NC, with diuresis ~3600cc after 40mg Lasix IV with net I&O of -2650ml and 94% on RA at time of discharge. Patient will need close follow-up with cardiology this week and daily weight starting tomorrow to determine "dry weight". Patient with increased salt in food choices-- will need education reinforced regarding salt intake. (2) CHF (congestive heart failure): * Acute on chronic systolic CHF is contributing to patient's hypoxia and respiratory complaints. BNP without significant elevation, however after diuresis with IV lasix, patient without oxygen requirement and reports feeling the best he has in years. * Losartan initially held d/t bump in creat, but improved after lasix. Restarted 01/18 * Continued home losartan, carvedilol, ASA, and crestor * Patient to follow up with cardiology this week -- could benefit from Entreso given low EF on most recent ECHO-consider transitioning to this as an outpt * daily weights at home, low soduim diet (3) Ischemic cardiomyopathy: * As above. * Diuresis with Lasix 40 mg IV x1 dose. Net output -2650mL * Continued home heart failure medications as above (4) Diabetes: * Chronic. Stable. ISS while inpatient * Continue Toujeo at home dose upon discharge (5) DVT prophylaxis: SQ Lovenox given Dispo-stable for dc to home Total Time Total Time Spent Total Time Spent (In Minutes): 45 Discharge Plan Discharge Items Patient Disposition: Home - Self-Care Reason For Visit: HYPOXIA Discharge Diagnosis: Congestive Heart Failure, Hypoxia Condition on Discharge: Good Activity: Resume your previous activity Non-emergency contact: Primary Care Provider and Blower Mechanic Call non-emergency contact if: you have any medication questions, your symptoms worsen and you have a fever Follow-up/Referrals: Phillip Peres MD [Physician] - (Please call to schedule a hospital follow up visit within 1 week. ) Dick Antoine III, MD [Primary Care Provider] - Diet: Carb Consistent or DM2, Heart Healthy and Low Sodium (2gm) Fluids: 1800ml (7 cups) Addtl Attending Provider Instructions: As discussed, please weigh yourself tomorrow morning. You should weigh yourself daily (IN THE MORNING, at the same time) and should take 40mg of lasix (furosemide) daily. You should take an extra 20mg tablet in the afternoon for weight gain >3lb and call Dr. Peres. --A prescription has been sent to your pharmacy for 20mg tablets as well. You should keep your follow up appointment with Dr. Peres this week to check on your volume status. At that visit, you may want to further discuss initiating Entresto for blood pressure control as well as for your congestive heart failure. It is also important to follow up for a sleep study to determine if you have sleep apnea and would benefit from a CPAP at night. This is extremely important, as it can contribute to high blood pressure as well as increased daytime sleepiness as well as other complications. Call 911 and go to the Emergency Room if: * You have tightness or pain in your chest that does not go away with rest or Nitroglycerin * You are very short of breath even with rest Call your doctor if any of the following symptoms or problems start or get worse: * Shortness of breath or difficulty breathing * Wake up at night short of breath * Chest pain * Cough * Swelling of your hands, fee, or legs * More fatigued or tired with your normal activity * Palpitations - sudden fast heart beats WEIGHT * Weigh yourself every morning after using the bathroom AT THE SAME TIME each day. * Use the same scale. * Wear the same amount of clothing. * Write your weight down on your chart. * Call your doctor if you gain more than 3 pounds overnight. --> You may take additional 20mg furosemide (LASIX) for weight gain >3lb. MEDICATIONS * Use this discharge instruction sheet for instructions. * Take your medications at the time your doctor ordered. * Do not skip a dose of your medicines. * If you miss a dose of medicine, take as soon as possible, but DO NOT DOUBLE A DOSE. * Read your medicine information when you get home. * Know all of the side effects of your medicine. * Call your doctor's office if you have any side effects. * Be sure all of your doctors know what medicine and herbs you take (including cold, flu, and herbal medicine). * Pain Medicine: If you do not get relief from your pain, please call your doctor for help. Take the following with you to your follow-up doctor appointments: * Weight Chart * Medication List * List of questions Do not drink excessive alcohol, beer or wine. It is advised that you adhere to a low salt diet (less than 2,000mg) daily. As discussed, boxed/prepared food has excess sodium and it is important to look at all food labels. You should avoid salting food and would benefit from no-salt substitute. You should be seen by your primary care provider within the next 5-7 days following discharge. Please report to the closest emergency room if you develop worsening shortness of breath, chest pain, or for any other symptoms that are concerning for you. It has been a pleasure being a part of the team taking care of you during this admission. Take care! Pending Studies at Discharge: No Stand-Alone Forms: Call Back Authorization, My [facility] Medications and DC Order Prescriptions: New furosemide 20 mg tablet 20 mg PO DAILY PRN (Reason: weight gain, shortness of breath) Qty: 30 RF: 0 Continued Breo Ellipta 100-25 mcg/dose blister with device 1 puffs INH DAILY Qty: 28 RF: 5 albuterol sulfate [Proventil HFA] 90 mcg/actuation HFA aerosol inhaler 2 puffs INH QID PRN (Reason: shortness of breath or wheezing) Qty: 18 RF: 5 carvedilol 12.5 mg Tablet 12.5 mg PO BID RF: 0 amiodarone 200 mg Tablet 200 mg PO DAILY RF: 0 aspirin [Aspir-81] 81 mg Tablet,Delayed Release (Dr/Ec) 81 mg PO 3XWK RF: 0 rosuvastatin 40 mg Tablet 40 mg PO Q OTHER DAY RF: 0 Toujeo SoloStar U-300 Insulin 300 unit/mL (1.5 mL) Insulin Pen 40 unit SUBCUT BID RF: 0 losartan 100 mg Tablet 100 mg PO DAILY RF: 0 potassium chloride 10 MEQ RF: 0 Changed furosemide 40 mg Tablet 40 mg PO DAILY Qty: 0 RF: 0 Discontinued furosemide 40 mg Tablet PO PRN (Reason: Weight Gain) RF: 0 Discharge Orders: Discharge Order (Routine); Ordered 01/18/19 Ordered By: Cherie Wilkins Admission Data Admit Date/Time: 01/17/19 06:40 Attending Provider: Cherie Wilkins Admit Provider: Emilie Arcos Primary Care Provider: Dick Antoine III Other Providers: Emilie Arcos ; Phillip Peres Other Interventions: Discharge Summary Assessment (RN) Last Done: 01/18/19 13:56 DC Date/Time DO NOT enter until pt leaves facility: 01/18/19 15:11 Supervising Physician Co-Signing Physician Notes PA Supervision Note: I personally saw and examined the patient. I verified all obrien points and agree with GENE Sanchez with the following exceptions and/or additions: Pt feeling excellent after a large amount of diuresis with only 2 doses of IV lasix. Still has some pitting edema on day of discharge but n longer hypoxic and not dyspneic. His reports they eat "a lot" of duarte, ham at home. VSS RRR no mgr CTAB no wcr Ext 1+ pitting edema to mid tibia Abd soft NT ND Stable for dc to home on daily lasix 40mg and add 20mg po qPM prn weight gain
[2019-01-19] MEDS ORDERED: ASPIRIN 81 MG ECTAB PO SCH (09:00)
== END 2019-01-18 15:11 | disposition home or self-care (01) | DRG 205 ==
LOC: ED 03:25 → SUATTDRO 06:40 → 2W 06:40 → 2N 01-18 00:32

== ENCOUNTER 2022-04-08 04:04 | Inpatient (IN) ==
[2022-04-08] MEDS ORDERED: FUROSEMIDE 40 MG/4 ML VIAL IV ONE (04:37)
[2022-04-08] MEDS ORDERED: cefTRIAXone SODIUM 2,000 MG/70 ML BAG IV STA (04:37)
[2022-04-08] MEDS ORDERED: AZITHROMYCIN 500 MG in DEXTROSE 5% 250 ML IV STA (04:37)
--- NOTE | 2022-04-08 04:43 | Emergency Department Note ---
History of Present Illness General Chief complaint: Shortness of Breath/Dyspnea Stated complaint: SOB Time Seen by Provider: 04/08/22 04:04 History of Present Illness 81-year-old male emergency department with a 1 month history of cough cold congestion and shortness of breath. Patient states that he is coughing green phlegm. Patient states his legs are swollen. Patient complains of dyspnea on exertion paroxysmal nocturnal dyspnea. Patient states he felt much improved when he left the house today. There are no other mitigating or alleviating factors Home Medications Medication Instructions Recorded Confirmed Type aspirin 81 mg tablet,delayed 81 mg PO 3XWK 06/13/18 02/06/22 History release (Aspir-) blood-glucose meter (OneTouch #1 ea 04/03/19 02/06/22 Rx Ultra2 Meter) OneTouch UltraSoft Lancets #100 ea 04/07/19 02/06/22 Rx (lancets) bismuth subsalicylate 262 mg/15 mL 524 mg PO QID PRN Gi Upset 01/06/20 02/06/22 History oral suspension (Pepto-Bismol) sitagliptin phosphate 100 mg 100 mg PO QAM 01/06/20 02/06/22 History tablet (Januvia) blood-glucose meter (OneTouch #1 ea 09/16/20 02/06/22 Rx Ultra2 Meter) fluticasone propionate 50 1 spray intranasal BID PRN allergy 06/19/21 02/06/22 Rx mcg/actuation nasal symptoms 30 days #3 BTLS spray,suspension (Flonase Allergy Relief) citalopram 20 mg tablet (Celexa) 20 mg PO QAM 08/09/21 02/06/22 History rosuvastatin 40 mg tablet 40 mg PO Q OTHER DAY 09/04/21 02/06/22 History pantoprazole 40 mg tablet,delayed 40 mg PO DAILY #90 tabs 09/13/21 02/06/22 Rx release furosemide 40 mg tablet 40 mg PO UD PRN Fluid Retention 10/17/21 02/06/22 Rx #270 tabs carvedilol 25 mg tablet 25 mg PO BID #180 tabs 12/18/21 02/06/22 Rx potassium chloride 10 mEq 10 meq PO QAM #90 caps 12/18/21 02/06/22 Rx capsule,extended release amiodarone 200 mg tablet 200 mg PO BID #180 tabs 01/11/22 02/06/22 Rx blood sugar diagnostic #300 ea 02/14/22 Rx insulin glargine U-300 conc 300 20 - 40 unit (0.0667 - 0.1333 mL) 02/20/22 Rx unit/mL (1.5 mL) subcutaneous pen subcut BID #16 syringes (Toujeo SoloStar U-300 Insulin) sacubitril 49 mg-valsartan 51 mg 1 tab PO BID #180 tabs 03/12/22 Rx tablet (Entresto) pen needle, diabetic 33 gauge x #100 ea 03/30/22 Rx 1/4" (Easy Comfort Pen [place]) Allergies Allergy/AdvReac Type Severity Reaction Status Date / Time rosuvastatin AdvReac Mild MADE ME Verified 02/06/22 07:00 MEAN Past Med/Surg History Medical History Acid reflux hx , not for quite awhile Arthritis Combined systolic and diastolic congestive heart failure Follows with Dr. 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) and pacemaker biventricular pacer/ICD, February 2016; Medtronic; last checked 2 days ago Trouble swallowing pt reports had endoscopy less than a year ago and told nothing was wrong Surgical History History of biopsy tongue History of cardiac catheterization - thinks he has 1 stent but not certain History of cataract surgery both History of endoscopy History of esophagogastroduodenoscopy (EGD) last 08/11/21 @ [facility] History of hernia repair History of knee surgery BL S/P laparoscopic cholecystectomy Family History Father Heart disease Mother Diabetes Brother Arthritis Son Asthma Other No family history of adverse response to anesthesia No family history of bleeding disorder No pertinent family history Denies family history of Prostate cancer Breast cancer Colorectal cancer Cancer Stroke Social History (Updated 02/06/22 @ 07:09 by FELTON Givens) Smoking Status: Never smoker Second Hand Exposure: No; Hx Alcohol Use: Yes Alcohol type: beer and wine Hx Substance Use: No Preferred Language: Jordanian Communication Ability: Effective Visual Impairment: No Limitations Hearing Ability: Normal 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 Beliefs That Will Affect Care: None marital status: Current Living Situation: Spouse current occupational status: employed current occupation: [employer] Feels Safe at Home: Yes Assistive Devices: Cane and Hearing Aid - Bilateral Review of Systems A total of 10 systems reviewed and were otherwise negative Constitutional: no fever Respiratory: + cough and + dyspnea Cardiovascular: no chest pain Physical Exam Vital Signs Vital Signs - 24 hr 04/08/22 04:10 04/08/22 04:04 04/08/22 04:04 Temperature 36.2 C L Temperature Source Temporal Artery Scan Pulse Rate 70 Pulse Rate [Apical] 73 Respiratory Rate 22 12 Respiratory Effort / Characteristics Short of Breath SOB on Exertion Non-Labored Spontaneous Respiratory Depth Normal Normal Blood Pressure 126/76 Blood Pressure [Right Arm] 128/69 Blood Pressure Mean 92 Blood Pressure Mean [Right Arm] 88 Pulse Oximetry 89 L 95 94 Oxygen Delivery Method Room Air Nasal Cannula Nasal Cannula Oxygen Flow Rate 2 2 Sepsis Recent Fever Within 48 Hours No Sepsis New/Unexplained Change in Mental Status No Sepsis Action Taken by Nursing No Action Required 04/08/22 04:09 Temperature Temperature Source Pulse Rate 62 Pulse Rate [Apical] Respiratory Rate 20 Respiratory Effort / Characteristics Respiratory Depth Blood Pressure Blood Pressure [Right Arm] Blood Pressure Mean Blood Pressure Mean [Right Arm] Pulse Oximetry 95 Oxygen Delivery Method Room Air Oxygen Flow Rate Sepsis Recent Fever Within 48 Hours Sepsis New/Unexplained Change in Mental Status Sepsis Action Taken by Nursing GENERAL: Patient is awake alert in no acute distress patient is resting comfortably and showing no signs of anxiety EYES: The conjunctivae are clear. The pupils are round and reactive. EARS, NOSE, MOUTH AND THROAT: The nose is without any evidence of any deformity. Mucous membranes are moist. Tongue is midline. NECK: The neck is nontender and supple. RESPIRATORY: Normal respiratory effort is noted; crackles noted bilaterally CARDIOVASCULAR: Regular rate and rhythm noted there no murmurs rubs or gallops normal S1 normal S2. GASTROINTESTINAL: The abdomen is soft. Abdomen is nontender. PELVIS: The Pelvis is stable. No tenderness to palpation is noted. BACK: No midline tenderness or or step-off noted range of motion in flexion extension as well as rotation no signs of muscle spasm noted MUSCULOSKELETAL/EXTREMITIES: There is no evidence of gross deformity full range of motion is noted in the hips and shoulders. Bilateral lower extremity pitting edema SKIN: There is no obvious evidence of any rash. There are no petechiae, pallor or cyanosis noted. NEUROLOGIC: Patient is awake alert and oriented x3 strength is symmetric Course Reevaluation(s) Reevaluation #1: Patient was started on oxygen, patient was given IV Lasix, patient was given empiric antibiotics. Patient will be admitted for CHF Time: 06:02 Consultations Consultation #1: Case was discussed with the [facility]ist for admission for CHF Time: 06:02 Administered Medications Azithromycin 500 mg/ Dextrose 255 mls @ 127.5 mls/hr IV NOW STA Stop: 04/08/22 06:36 Last Admin: 04/08/22 05:58 Dose: 127.5 mls/hr Documented By: AMITA Discontinued Medications Furosemide (Furosemide 40 Mg/4 Ml Vial) 40 mg IV ONE ONE Stop: 04/08/22 04:38 Last Admin: 04/08/22 05:11 Dose: 40 mg Documented By: AMITA Ceftriaxone Sodium (Rocephin) 2,000 mg in 70 mls @ 140 mls/hr IV NOW STA Stop: 04/08/22 05:06 Last Infusion: 04/08/22 05:59 Dose: 0 mls/hr Documented By: Admin: 04/08/22 05:23 Dose: 140 mls/hr Documented By: AMITA Medical Decision Making Medical Records Attestation: I reviewed the patient's medical records. Home Medications Current Medication List: was personally reviewed by me Laboratory Data Attestation: I reviewed the patient's lab results. Patient has a normal hemoglobin normal troponin normal creatinine 04/08/22 04:56 04/08/22 04:56 Lab Results 04/08/22 04/08/22 04/08/22 Range/Units 04:56 04:56 04:56 WBC 6.54 (4.8-10.8) K/ul RBC 4.20 L (4.70-6.10) M/uL Hgb 12.9 L (14.0-18.0) g/dl Hct 39.6 L (42.0-52.0) % MCV 94.3 (80.0-100.0) fL MCH 30.7 (25.0-34.0) pg MCHC 32.6 (32.0-36.0) g/dL RDW Std Deviation 53.9 H (36.4-46.3) fL RDW Coeff of Pastor 15.6 H (11.5-14.5) % Plt Count 136 (130-400) K/uL MPV 10.9 (9.4-12.4) fL Immature Gran % (Auto) 0.3 % Neut % (Auto) 65.0 % Lymph % (Auto) 17.4 % [place] % (Auto) 10.2 % Eos % (Auto) 5.7 % Baso % (Auto) 1.4 % Neut # (Auto) 4.25 (1.40-6.50) K/uL Lymph # (Auto) 1.14 L (1.2-3.4) K/uL [place] # (Auto) 0.67 H (0.11-0.59) K/uL Eos # (Auto) 0.37 (0-0.50) K/uL Baso # (Auto) 0.09 (0-0.2) K/uL Immature Gran # (Auto) 0.02 (0.01-0.20) K/uL PT 11.1 (9.0-12.0) Seconds INR 1.0 (0.9-1.1) APTT 25.6 (21.0-31.0) Seconds PTT Ratio 0.9 Sodium 139 (136-145) mmol/L Potassium 4.3 (3.5-5.1) mmol/L Chloride 105 (98-107) mmol/L Carbon Dioxide 30 (21-32) mmol/L Anion Gap 4 (3-11) BUN 27 H (6-23) mg/dl Creatinine 1.22 (0.6-1.4) mg/dl Est Cr Clr Drug Dosing 69.5 ml/min Est GFR ( Amer) 64.5 ml/min Est GFR (Non-Af Amer) 55.6 ml/min BUN/Creatinine Ratio 22.1 H (10-20) Glucose 120 H (70-99(Fasting)) mg/dl Calcium 8.5 (8.5-10.1) mg/dl Total Bilirubin 0.7 (0.2-1.0) mg/dl AST 33 (13-39) U/L ALT 25 (7-52) U/L Alkaline Phosphatase 93 (34-104) U/L Troponin I High Sens 12.4 (0-20) pg/ml Total Protein 6.5 (6.0-8.3) gm/dl Albumin 3.3 L (3.4-5.0) gm/dl Globulin 3.2 (2.5-4.0) gm/dl Albumin/Globulin Ratio 1.0 (0.9-2) SARS-CoV-2, RNA, NAAT (NEGATIVE) 04/08/22 Range/Units 04:56 WBC (4.8-10.8) K/ul RBC (4.70-6.10) M/uL Hgb (14.0-18.0) g/dl Hct (42.0-52.0) % MCV (80.0-100.0) fL MCH (25.0-34.0) pg MCHC (32.0-36.0) g/dL RDW Std Deviation (36.4-46.3) fL RDW Coeff of Pastor (11.5-14.5) % Plt Count (130-400) K/uL MPV (9.4-12.4) fL Immature Gran % (Auto) % Neut % (Auto) % Lymph % (Auto) % [place] % (Auto) % Eos % (Auto) % Baso % (Auto) % Neut # (Auto) (1.40-6.50) K/uL Lymph # (Auto) (1.2-3.4) K/uL [place] # (Auto) (0.11-0.59) K/uL Eos # (Auto) (0-0.50) K/uL Baso # (Auto) (0-0.2) K/uL Immature Gran # (Auto) (0.01-0.20) K/uL PT (9.0-12.0) Seconds INR (0.9-1.1) APTT (21.0-31.0) Seconds PTT Ratio Sodium (136-145) mmol/L Potassium (3.5-5.1) mmol/L Chloride (98-107) mmol/L Carbon Dioxide (21-32) mmol/L Anion Gap (3-11) BUN (6-23) mg/dl Creatinine (0.6-1.4) mg/dl Est Cr Clr Drug Dosing ml/min Est GFR ( Amer) ml/min Est GFR (Non-Af Amer) ml/min BUN/Creatinine Ratio (10-20) Glucose (70-99(Fasting)) mg/dl Calcium (8.5-10.1) mg/dl Total Bilirubin (0.2-1.0) mg/dl AST (13-39) U/L ALT (7-52) U/L Alkaline Phosphatase (34-104) U/L Troponin I High Sens (0-20) pg/ml Total Protein (6.0-8.3) gm/dl Albumin (3.4-5.0) gm/dl Globulin (2.5-4.0) gm/dl Albumin/Globulin Ratio (0.9-2) SARS-CoV-2, RNA, NAAT NEGATIVE (NEGATIVE) Imaging Data Attestation: I personally reviewed and interpreted this imaging study as follows: My Impression: Chest x-ray interpreted by me CHF cardiomegaly cannot exclude pneumonia pacemaker is present ECG Data Attestation: I personally reviewed and interpreted this ECG as follows: MDM Narrative Medical decision making differential diagnosis includes CHF, pneumonia, bronchitis, upper respiratory tract infection, COVID Plan is to check labs, EKG, chest x-ray, give Lasix, [place] antibiotic Prior records were reviewed by me Nursing notes were reviewed by me Patient has evidence clinically of CHF, will be given IV diuretic, admitted for mild hypoxia and CHF Impression & Plan Congestive heart failure, Hypoxia Discharge Plan Visit Data Chief Complaint: Shortness of Breath/Dyspnea Stated Complaint: SOB ED Provider: P[facility] Discharge Problem: Congestive heart failure, Hypoxia Patient Disposition: Admitted As Inpatient Forms Stand Alone Forms: My [facility] Prescriptions Prescriptions: No Action (DME) lancets [OneTouch UltraSoft Lancets] [facility] See Rx Instructions .ROUTE .MEDSUPPLY Qty: 100 3RF Rx Instructions: use to test three times daily (DME) blood-glucose meter [OneTouch Ultra2 Meter] Misc See Rx Instructions .ROUTE .MEDSUPPLY Qty: 1 0RF Rx Instructions: As directed fluticasone propionate [Flonase Allergy Relief] 50 mcg/actuation spray,suspension 1 spray intranasal BID PRN (Reason: allergy symptoms) 30 Days Qty: 3 4RF furosemide 40 mg tablet 40 mg PO UD PRN (Reason: Fluid Retention) Qty: 270 3RF Rx Instructions: Take 2 tabs PO qAM and 1 tab PO qPM ; potassium chloride 10 mEq capsule, extended release 10 meq PO QAM Qty: 90 3RF carvedilol 25 mg tablet 25 mg PO BID Qty: 180 3RF Rx Instructions: must administer with a meal/food amiodarone 200 mg tablet 200 mg PO BID Qty: 180 3RF (DME) blood sugar diagnostic Strip See Rx Instructions .ROUTE .MEDSUPPLY Qty: 300 3RF Rx Instructions: CHECK BLOOD SUGARS TID Toujeo SoloStar U-300 Insulin 300 unit/mL (1.5 mL) insulin pen 20 - 40 unit SUBCUT BID Qty: 16 3RF Entresto 49-51 mg tablet 1 tab PO BID Qty: 180 3RF Hold Instructions: Home Medication placed on hold at Doctor's office (DME) pen needle, diabetic [Easy Comfort Pen [place]] 33 gauge x 1/4" needle See Rx Instructions .Route Qty: 100 7RF Rx Instructions: As directed (DME) blood-glucose meter [OneTouch Ultra2 Meter] [facility] See Rx Instructions .ROUTE .MEDSUPPLY Qty: 1 0RF Rx Instructions: As directed aspirin [Aspir-81] 81 mg Tablet,Delayed Release (Dr/Ec) 81 mg PO 3XWK Rx Instructions: USUALLY TAKES MON, WED & FRI. bismuth subsalicylate [Pepto-Bismol] 262 mg/15 mL Suspension 524 mg PO QID PRN (Reason: Gi Upset) Januvia 100 mg tablet 100 mg PO QAM rosuvastatin 40 mg Tablet 40 mg PO Q OTHER DAY Label Comments: takes at hs pantoprazole 40 mg tablet,delayed release (DR/EC) 40 mg PO DAILY Qty: 90 5RF Rx Instructions: 1/2 hour prior to breakfast citalopram [Celexa] 20 mg tablet 20 mg PO QAM Referrals Referrals: Yaima Salazar CRNP [Primary Care Provider] -
[2022-04-08 05:19] LABS: Hematocrit (blood only) 39.6 % (42.0-52.0); Hemoglobin 12.9 g/dl (14.0-18.0); Mean Corpuscular Hemoglobin 30.7 pg (25.0-34.0); Mean Corpuscular Hgb Conc 32.6 g/dL (32.0-36.0); Mean Corpuscular Volume 94.3 fL (80.0-100.0); Mean Platelet Volume 10.9 fL (9.4-12.4); Platelet Count 136 K/uL (130-400); RDW Coefficient of Variation 15.6 % (11.5-14.5); RDW Standard Deviation 53.9 fL (36.4-46.3); White Blood Count 6.54 K/ul (4.8-10.8)
[2022-04-08 05:28] LABS: Albumin Level 3.3 gm/dl (3.4-5.0); BUN Creatinine Ratio 22.1 (10-20); Bilirubin,Total 0.7 mg/dl (0.2-1.0); Calcium 8.5 mg/dl (8.5-10.1); Creatinine Clr Calc Pharmacy 69.5 ml/min; Est GFR (African American) 64.5 ml/min; Est GFR (Non-African American) 55.6 ml/min; Globulin 3.2 gm/dl (2.5-4.0); Potassium 4.3 mmol/L (3.5-5.1); Total Protein 6.5 gm/dl (6.0-8.3)
[2022-04-08 05:33] LABS: Basophils # (auto) 0.09 K/uL (0-0.2); Basophils % (auto) 1.4 %; Eosinophils # (auto) 0.37 K/uL (0-0.50); Eosinophils % (auto) 5.7 %; Immature Granulocytes # (auto) 0.02 K/uL (0.01-0.20); Immature Granulocytes % (auto) 0.3 %; Lymphocytes # (auto) 1.14 K/uL (1.2-3.4); Lymphocytes % (auto) 17.4 %; Monocytes # (auto) 0.67 K/uL (0.11-0.59); Monocytes % (auto) 10.2 %; Neutrophils # (auto) 4.25 K/uL (1.40-6.50)
[2022-04-08 05:34] LABS: Troponin I High Sensitivity 12.4 pg/ml (0-20)
[2022-04-08 05:40] LABS: Partial Thromboplastin Ratio 0.9; Partial Thromboplastin Time 25.6 Seconds (21.0-31.0); Prothrombin Time 11.1 Seconds (9.0-12.0)
--- NOTE | 2022-04-08 06:31 | History & Physical Report ---
Date of Service April 08, 2022 Assessment & Plan (1) Congestive heart failure: Plan: 81yo male with history of HTN, HLP, DM, PAF and CHF presenting with episode of shortness of breath. CXR suggestive of pulmonary edema BNP pending -Admit to medical -Diurese with Lasix 40mg IV BID -Monitor I/Os, daily weights -BMP BID -Continue Carvedilol -Continue Entresto (2) PAF (paroxysmal atrial fibrillation): Plan: Rate controlled -Continue Carvedilol -Continue Amiodarone (3) Hypertension: Plan: Blood pressure well controlled -Continue Carvedilol -Continue Entresto (4) Uncontrolled diabetes mellitus with microalbuminuria: Plan: Lantus 20u BID -ISS -Glycemic management consultation History of Present Illness Chief Complaint: shortness of breath Primary Care Provider: STEPHAN Strong Koib Lombardi is a pleasant 81yo male with history of DM, HTN, PAF, ICM with BiV AICD in place presenting with shortness of breath. Patient reports developing some nasal congestion 3 weeks ago. He has some post-nasal drip. He has an occasional cough productive for nickerson/green sputum. Patient denies fever, chills, abdominal pain, nausea, vomiting, diarrhea or constipation, weight gain. He came today because he developed worsening shortness of breath last night after ambulating to the bathroom. He has progressive bilateral LE edema as well as orthopnea. No home O2, no home nebulizers. He has been taking Lasix 40mg po daily - no extra doses. Upon arrival to the ER patient hypoxic to 88% on room air. He was placed on supplemental O2 by IA with improvement. ER Course: Lasix 40mg IV Azithromycin Ceftriaxone Allergies Allergy/AdvReac Type Severity Reaction Status Date / Time rosuvastatin AdvReac Mild MADE ME Verified 02/06/22 07:00 MEAN Home Medications Medication Instructions Recorded Confirmed Type aspirin 81 mg tablet,delayed 81 mg PO 3XWK 06/13/18 02/06/22 History release (Aspir-) blood-glucose meter (OneTouch #1 ea 04/03/19 02/06/22 Rx Ultra2 Meter) OneTouch UltraSoft Lancets #100 ea 04/07/19 02/06/22 Rx (lancets) bismuth subsalicylate 262 mg/15 mL 524 mg PO QID PRN Gi Upset 01/06/20 02/06/22 History oral suspension (Pepto-Bismol) sitagliptin phosphate 100 mg 100 mg PO QAM 01/06/20 02/06/22 History tablet (Januvia) blood-glucose meter (OneTouch #1 ea 09/16/20 02/06/22 Rx Ultra2 Meter) fluticasone propionate 50 1 spray intranasal BID PRN allergy 06/19/21 02/06/22 Rx mcg/actuation nasal symptoms 30 days #3 BTLS spray,suspension (Flonase Allergy Relief) citalopram 20 mg tablet (Celexa) 20 mg PO QAM 08/09/21 02/06/22 History rosuvastatin 40 mg tablet 40 mg PO Q OTHER DAY 09/04/21 02/06/22 History pantoprazole 40 mg tablet,delayed 40 mg PO DAILY #90 tabs 09/13/21 02/06/22 Rx release furosemide 40 mg tablet 40 mg PO UD PRN Fluid Retention 10/17/21 02/06/22 Rx #270 tabs carvedilol 25 mg tablet 25 mg PO BID #180 tabs 12/18/21 02/06/22 Rx potassium chloride 10 mEq 10 meq PO QAM #90 caps 12/18/21 02/06/22 Rx capsule,extended release amiodarone 200 mg tablet 200 mg PO BID #180 tabs 01/11/22 02/06/22 Rx blood sugar diagnostic #300 ea 02/14/22 Rx insulin glargine U-300 conc 300 20 - 40 unit (0.0667 - 0.1333 mL) 02/20/22 Rx unit/mL (1.5 mL) subcutaneous pen subcut BID #16 syringes (Toujeo SoloStar U-300 Insulin) sacubitril 49 mg-valsartan 51 mg 1 tab PO BID #180 tabs 03/12/22 Rx tablet (Entresto) pen needle, diabetic 33 gauge x #100 ea 03/30/22 Rx 1/4" (Easy Comfort Pen [place]) Past Med/Surg History Medical History Acid reflux hx , not for quite awhile Arthritis Combined systolic and diastolic congestive heart failure Follows with Dr. Eaton DM type 2 (diabetes mellitus, type 2) IDDM H/O tongue cancer radiation/chemo 10 years ago Hearing deficit BL BOSCH HTN (hypertension) pt denies Hyperlipidemia pt denies Ischemic cardiomyopathy pt not sure LBBB (left bundle branch block) pt not sure Mitral regurgitation pt not sure Neuropathy Poor historian Presence of combination internal cardiac defibrillator (ICD) and pacemaker biventricular pacer/ICD, February 2016; Medtronic; last checked 2 days ago Trouble swallowing pt reports had endoscopy less than a year ago and told nothing was wrong Surgical History History of biopsy tongue History of cardiac catheterization - thinks he has 1 stent but not certain History of cataract surgery both History of endoscopy History of esophagogastroduodenoscopy (EGD) last 08/11/21 @ [facility] History of hernia repair History of knee surgery BL S/P laparoscopic cholecystectomy Family History Father Heart disease Mother Diabetes Brother Arthritis Son Asthma Other No family history of adverse response to anesthesia No family history of bleeding disorder No pertinent family history Denies family history of Prostate cancer Breast cancer Colorectal cancer Cancer Stroke Social History (Updated 02/06/22 @ 07:09 by FELTON Givens) Smoking Status: Never smoker Second Hand Exposure: No; Hx Alcohol Use: Yes Alcohol type: beer and wine Hx Substance Use: No Preferred Language: Czech Communication Ability: Effective Visual Impairment: No Limitations Hearing Ability: Normal 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 Beliefs That Will Affect Care: None marital status: Current Living Situation: Spouse current occupational status: employed current occupation: [employer] Feels Safe at Home: Yes Assistive Devices: Cane and Hearing Aid - Bilateral Review of Systems Review of Systems: All systems reviewed & are unremarkable except as noted in HPI & below Physical Exam Physical Exam: General: patient resting comfortably, NAD, non-toxic in appearance, AA&O x 4, NC in place Skin: warm, dry, intact, no rashes or lesions HEENT: NC/AT, PERRL, EOMI, anicteric sclera, conjunctiva without injection, external ear normal to inspection and nontender, nares patent, moist mucus membranes, dentition intact, no oropharyngeal lesions, neck supple, trachea midline, no LAD, no thyromegaly, no JVD, +post nasal drip Heart: +S1/S2, regular, no m/r/g Lungs: equal air entry bilaterally, crackles in bilateral lung bases Abd: +BS, soft, NT/ND, no masses/organomegaly/ascites Ext: warm, 2+ pulses in UE/LE bilaterally, no clubbing/cyanosis, 2+ pitting edema of bilateral LE Neuro: nonfocal, patient AA&O x 4, speech intact, no facial droop, moving all extremities on command with equal strength 5/5 Results & Data Results & Data ([facility]) Vital Signs (Past 12 Hours) Vital Signs Temp Pulse Pulse Resp BP BP Pulse Ox 04/08/22 06:04 63 22 133/84 95 04/08/22 04:09 62 20 95 04/08/22 04:04 73 12 128/69 94 04/08/22 04:04 95 04/08/22 04:10 36.2 C L 70 22 126/76 89 L O2 Del Method O2 Flow Rate 04/08/22 06:04 Nasal Cannula 3 04/08/22 04:09 Room Air 04/08/22 04:04 Nasal Cannula 2 04/08/22 04:04 Nasal Cannula 2 04/08/22 04:10 Room Air Laboratory Results Laboratory Results WBC 6.54 K/ul (4.8-10.8) 04/08/22 04:56 RBC 4.20 M/uL (4.70-6.10) L 04/08/22 04:56 Hgb 12.9 g/dl (14.0-18.0) L 04/08/22 04:56 Hct 39.6 % (42.0-52.0) L 04/08/22 04:56 MCV 94.3 fL (80.0-100.0) 04/08/22 04:56 MCH 30.7 pg (25.0-34.0) 04/08/22 04:56 MCHC 32.6 g/dL (32.0-36.0) 04/08/22 04:56 RDW Std Deviation 53.9 fL (36.4-46.3) H 04/08/22 04:56 RDW Coeff of Pastor 15.6 % (11.5-14.5) H 04/08/22 04:56 Plt Count 136 K/uL (130-400) 04/08/22 04:56 MPV 10.9 fL (9.4-12.4) 04/08/22 04:56 Immature Gran % (Auto) 0.3 % 04/08/22 04:56 Neut % (Auto) 65.0 % 04/08/22 04:56 Lymph % (Auto) 17.4 % 04/08/22 04:[address] [place] % (Auto) 10.2 % 04/08/22 04:56 Eos % (Auto) 5.7 % 04/08/22 04:56 Baso % (Auto) 1.4 % 04/08/22 04:56 Neut # (Auto) 4.25 K/uL (1.40-6.50) 04/08/22 04:56 Lymph # (Auto) 1.14 K/uL (1.2-3.4) L 04/08/22 04:56 [place] # (Auto) 0.67 K/uL (0.11-0.59) H 04/08/22 04:56 Eos # (Auto) 0.37 K/uL (0-0.50) 04/08/22 04:56 Baso # (Auto) 0.09 K/uL (0-0.2) 04/08/22 04:56 Immature Gran # (Auto) 0.02 K/uL (0.01-0.20) 04/08/22 04:56 PT 11.1 Seconds (9.0-12.0) 04/08/22 04:56 INR 1.0 (0.9-1.1) 04/08/22 04:56 APTT 25.6 Seconds (21.0-31.0) 04/08/22 04:56 PTT Ratio 0.9 04/08/22 04:56 Sodium 139 mmol/L (136-145) 04/08/22 04:56 Potassium 4.3 mmol/L (3.5-5.1) 04/08/22 04:56 Chloride 105 mmol/L (98-107) 04/08/22 04:56 Carbon Dioxide 30 mmol/L (21-32) 04/08/22 04:56 Anion Gap 4 (3-11) 04/08/22 04:56 BUN 27 mg/dl (6-23) H 04/08/22 04:56 Creatinine 1.22 mg/dl (0.6-1.4) 04/08/22 04:56 Est Cr Clr Drug Dosing 69.5 ml/min 04/08/22 04:56 Est GFR ( Amer) 64.5 ml/min 04/08/22 04:56 Est GFR (Non-Af Amer) 55.6 ml/min 04/08/22 04:56 BUN/Creatinine Ratio 22.1 (10-20) H 04/08/22 04:56 Glucose 120 mg/dl (70-99(Fasting)) H 04/08/22 04:56 Calcium 8.5 mg/dl (8.5-10.1) 04/08/22 04:56 Total Bilirubin 0.7 mg/dl (0.2-1.0) 04/08/22 04:56 AST 33 U/L (13-39) 04/08/22 04:56 ALT 25 U/L (7-52) 04/08/22 04:56 Alkaline Phosphatase 93 U/L (34-104) 04/08/22 04:56 Troponin I High Sens 12.4 pg/ml (0-20) 04/08/22 04:56 Total Protein 6.5 gm/dl (6.0-8.3) 04/08/22 04:56 Albumin 3.3 gm/dl (3.4-5.0) L 04/08/22 04:56 Globulin 3.2 gm/dl (2.5-4.0) 04/08/22 04:56 Albumin/Globulin Ratio 1.0 (0.9-2) 04/08/22 04:56 SARS-CoV-2, RNA, NAAT NEGATIVE (NEGATIVE) 04/08/22 04:56 Diagnostic Findings CXR appears to have pulmonary edema, evidence of CHF Code Status & VTE Plan VTE Prophylaxis Plan VTE Prophylaxis will be ordered: Yes PG Care Time/CCT Total # of Minutes Spent Total Time Spent with Patient: Total time spent is greater than 50% in coordination of care (as documented) at patient's floor/unit and/or counseling patient: Coding Level of Care Code 61439 INT INP/OBS CARE 2/55MIN Diagnoses Congestive heart failure I50.9 PAF (paroxysmal atrial fibrillation) I48.0 Hypertension I10 Uncontrolled diabetes mellitus with microalbuminuria E11.29; E11.65; R80.9
--- NOTE | 2022-04-08 07:07 | XRay Report ---
XR chest 1V portable HISTORY: Chest pain, nonspecific COMPARISON: Chest 01/17/2019. FINDINGS: No pneumothorax. The heart remains enlarged. Trace bilateral pleural effusions are suggeste d. There is a left-sided pacemaker/defibrillator. Diffuse interstitial thickening most pronounced on the right consistent with mild pulmonary edema. This is similar to the prior study. IMPRESSION: Cardiomegaly with mild interstitial pulmonary edema and trace bilateral pleural effusions. This is si milar to the prior study. ACT 112: Negative or not required by law. Electronically signed by: Marcelo River M.D. 04/08/2022 7:05 AM
[2022-04-08 07:36] LABS: Appearance Urine Clear (Clear); Bilirubin Urine Negative (Negative); Blood Urine Negative (Negative); Color Urine Yellow; Glucose Urine UA Negative (Negative); Ketones Urine Negative (Negative); Leukocyte Esterase Urine Negative (Negative); Nitrite Urine Negative (Negative); Protein Urine Negative (Negative); Specific Gravity Urine 1.007 (1.000-1.030); Urobilinogen Urine Negative (Negative); pH Urine 6.5 (4.5-7.5)
[2022-04-08] MEDS ORDERED: ONDANSETRON INJ 2 MG/ML 2 ML VIAL IV PRN (10:23)
[2022-04-08] MEDS ORDERED: ACETAMINOPHEN 325 MG TAB PO PRN (10:23)
[2022-04-08] MEDS ORDERED: GLUCOSE 40% GEL 15 GM TUBE PO PRN (10:23)
[2022-04-08] MEDS ORDERED: CARBOHYDRATES FOR HYPOGLYCEMIA PO PRN (10:23)
[2022-04-08] MEDS ORDERED: GLUCOSE 10 TAB/TUBE PO PRN (10:23)
[2022-04-08] MEDS ORDERED: PHARMACY GLYCEMIC MGMT CONSULT PRN (10:23)
[2022-04-08] MEDS ORDERED: POLYETHYLENE (MIRALAX) 17 GM PACK PO PRN (10:23)
[2022-04-08] MEDS ORDERED: SODIUM CHLORIDE 0.65% NA SOLN 45 ML (OCEAN) PRN (10:23)
[2022-04-08] MEDS ORDERED: DOCUSATE SODIUM 100 MG CAP PO PRN (10:23)
[2022-04-08] MEDS ORDERED: GLUCAGON FOR INJ 1 MG VIAL SQ PRN (10:23)
[2022-04-08] MEDS ORDERED: DEXTROSE 50% 50 ML SYRINGE IV PRN (10:23)
[2022-04-08 10:55] LABS: Magnesium 2.2 mg/dl (1.7-2.4)
--- NOTE | 2022-04-08 10:57 | Pharmacy Report ---
Pharmacy Glycemic Short Note 2 - Date of Service April 08, 2022 - Glycemic Short BSG Results (Last 24 hours): 04/08/22 04:56 Glucose 120 H OUTPATIENT ANTIDIABETIC REGIMEN: * Toujeo - U300 - 20-40 units BID * Januvia 100mg po daily ASSESSMENT: * 81yo male PMH of HTN, HLP, DM, PAF and CHF presenting with episode of shortness of breath. * Patient managed on basal insulin and Januvia as outpatient, will use basal bolus insulin and titrate to goal BSG. PLAN FOR INPATIENT GLYCEMIC CONTROL: * Hold outpatient oral diabetes medications * Basal insulin * Lantus 10-20 units SQ BID (10 units for BSG < 110mg/dl, 20 units for BSG 110mg/dl or greater) * Bolus insulin * NovoLog per scale ACHS or Q6hrs while NPO * Goal Range: Low 110 mg/dL - High 140 mg/dL * Correction Factor: 20 mg/dL/unit * Nutritional / Prandial insulin per carb ratio of 1 unit per 7 grams CHO consumed
[2022-04-08] MEDS: ENOXAPARIN INJ 40 MG/0.4 ML SYR SQ SCH (12:07)
[2022-04-08] MEDS: FUROSEMIDE 40 MG/4 ML VIAL IV SCH ×2 (12:07→21:24)
[2022-04-08] MEDS: AMIODARONE 200 MG TAB PO SCH ×2 (12:08→21:23)
[2022-04-08] MEDS: ROSUVASTATIN CALCIUM 20 MG TAB PO SCH (12:09)
[2022-04-08] MEDS: ASPIRIN 81 MG ECTAB PO SCH (12:09)
[2022-04-08] MEDS: carvediloL 25 MG TAB PO SCH ×2 (12:09→21:23)
[2022-04-08] MEDS: VALSARTAN/SACUBITRIL 51/49 MG TAB PO SCH ×2 (12:09→21:23)
[2022-04-08] MEDS: CITALOPRAM 20 MG TAB PO SCH (12:09)
[2022-04-08] MEDS: FLUTICASONE PROPIONATE NA SPR 16 GM BTL SCH ×2 (12:12→21:24)
[2022-04-08] MEDS: INSULIN ASPART PER UNIT SC SCH ×3 (13:04→21:10)
[2022-04-08 16:43] LABS: BUN Creatinine Ratio 18.7 (10-20); Calcium 8.7 mg/dl (8.5-10.1); Creatinine Clr Calc Pharmacy 64.2 ml/min; Est GFR (African American) 57.6 ml/min; Est GFR (Non-African American) 49.7 ml/min; Potassium 4.1 mmol/L (3.5-5.1)
--- NOTE | 2022-04-08 17:10 | History & Physical Bridge Note ---
Date of Service April 08, 2022 History & Physical Bridge Note I have examined the patient, reviewed the History & Physical and in the interval since the performance of the History & Physical I have noted the following changes of clinical significance: Pt putting out urine. RN reports no complaints since arrival to the floor. Continue diuresis BMP in afternoon reviewed
[2022-04-08] MEDS ORDERED: LANTUS PER UNIT CHARGE SQ SCH (21:00)
[2022-04-09 05:23] LABS: BUN Creatinine Ratio 17.1 (10-20); Calcium 8.5 mg/dl (8.5-10.1); Creatinine Clr Calc Pharmacy 58.9 ml/min; Est GFR (African American) 51.9 ml/min; Est GFR (Non-African American) 44.8 ml/min; Potassium 3.9 mmol/L (3.5-5.1)
[2022-04-09 05:26] LABS: Hematocrit (blood only) 38.3 % (42.0-52.0); Hemoglobin 12.4 g/dl (14.0-18.0); Mean Corpuscular Hemoglobin 30.2 pg (25.0-34.0); Mean Corpuscular Hgb Conc 32.4 g/dL (32.0-36.0); Mean Corpuscular Volume 93.4 fL (80.0-100.0); Mean Platelet Volume 10.7 fL (9.4-12.4); Platelet Count 135 K/uL (130-400); Platelet Estimate Decreased (Normal); RDW Coefficient of Variation 15.4 % (11.5-14.5); RDW Standard Deviation 53.5 fL (36.4-46.3); White Blood Count 7.08 K/ul (4.8-10.8)
--- NOTE | 2022-04-09 06:07 | Electrocardiogram Report ---
Test Reason : Blood Pressure : / mmHG Vent. Rate : 070 BPM Atrial Rate : 070 BPM P-R Int : 194 ms QRS Dur : 144 ms QT Int : 512 ms P-R-T Axes : 022 252 058 degrees QTc Int : 552 ms Poor data quality, interpretation may be adversely affected AV dual-paced rhythm Biventricular pacemaker detected Abnormal ECG When compared with ECG of 17-JAN-2019 03:32, Vent. rate has decreased BY 5 BPM Confirmed by Sage Salazar ([id number]) on 04/09/2022 6:06:38 AM Referred By: REFERRED SELF Confirmed By:Sage Salazar
[2022-04-09] MEDS ORDERED: SITagliptin PHOSPHATE 100 MG TAB PO SCH (09:00)
[2022-04-09] MEDS ORDERED: PANTOprazole 40 MG TAB PO SCH (09:00)
[2022-04-09] MEDS: INSULIN ASPART PER UNIT SC SCH ×2 (09:11→12:50)
[2022-04-09] MEDS: ASPIRIN 81 MG ECTAB PO SCH (10:13)
[2022-04-09] MEDS: carvediloL 25 MG TAB PO SCH (10:13)
[2022-04-09] MEDS: CITALOPRAM 20 MG TAB PO SCH (10:13)
[2022-04-09] MEDS: ROSUVASTATIN CALCIUM 20 MG TAB PO SCH (10:13)
[2022-04-09] MEDS: FLUTICASONE PROPIONATE NA SPR 16 GM BTL SCH (10:14)
[2022-04-09] MEDS: AMIODARONE 200 MG TAB PO SCH (11:34)
[2022-04-09] MEDS: ENOXAPARIN INJ 40 MG/0.4 ML SYR SQ SCH (11:34)
[2022-04-09] MEDS: VALSARTAN/SACUBITRIL 51/49 MG TAB PO SCH (11:34)
--- NOTE | 2022-04-09 13:01 | Discharge Summary ---
Date of Service April 09, 2022 Admission HPI Per Admitting Provider Kobi Lombardi is a pleasant 81yo male with history of DM, HTN, PAF, ICM with BiV AICD in place presenting with shortness of breath. Patient reports developing some nasal congestion 3 weeks ago. He has some post-nasal drip. He has an occasional cough productive for nickerson/green sputum. Patient denies fever, chills, abdominal pain, nausea, vomiting, diarrhea or constipation, weight gain. He came today because he developed worsening shortness of breath last night after ambulating to the bathroom. He has progressive bilateral LE edema as well as orthopnea. No home O2, no home nebulizers. He has been taking Lasix 40mg po daily - no extra doses. Upon arrival to the ER patient hypoxic to 88% on room air. He was placed on supplemental O2 by SC with improvement. ER Course: Lasix 40mg IV Azithromycin Ceftriaxone Principal Diagnosis Acute on chronic HFrEF Hypoxia-resolved Discharge Exam Constitutional WD/WN, vitals as above Respiratory normal respiratory effort; no cough Auscultation: + crackles (bibasilar); no rhonchi and no wheezes Cardiovascular Rate/Rhythm: regular rate and regular rhythm Heart Sounds: no murmur Extremities: + edema (2+ pitting edema legs to knees bilat,improved from previous) Gastrointestinal (Abdomen) normal bowel sounds, soft, nontender, no hepatosplenomegaly Neurologic PERRL, EOMI, accommodation nl, no face palsy, no dysarthria Psychiatric A+Ox3, euthymic affect Discharge Data Allergies Allergy/AdvReac Type Severity Reaction Status Date / Time rosuvastatin AdvReac Mild MADE ME Verified 02/06/22 07:00 MEAN Consultations 04/08/22 05:34 ED Decision to Admit Stat Hospital Course (1) Congestive heart failure: 81yo male with history of HTN, HLP, DM, PAF and CHF presenting with episode of shortness of breath attributed to acute on chronic HFrEF Last ECHO 2019 with EF 30%. on GDMT for HF, follows routinely with Cardiology, has ICD in place CXR suggestive of pulmonary edema BNP elevated Was admitted and duresed with IV lasix 40m bid x 3 doses had great improvement, not requiring O2, dyspnea improved Remains with peripheral edema but feels well enough to go home. 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), fluid restriction, daily weights [employer] [place] harleen slightly to 1.4 on day of discharge, follow BMP as outpt with CHF clinic refer back to CHF program dc to home on po lasix 40mg po bid -Continue Carvedilol -Continue Entresto -consider Jardiance as outpt with Cardiology (2) PAF (paroxysmal atrial fibrillation): Rate controlled, with pacer -Continue Carvedilol -Continue Amiodarone not on AC due to h/o GIB (3) Hypertension: Blood pressure well controlled -Continue Carvedilol -Continue Entresto continue lasix (4) Uncontrolled diabetes mellitus with microalbuminuria: restart home meds on discharge consider addition of Jardiance as above for CHF and DM Plan Dispo-stable for dc to home Total Time Total Time Spent Total Time Spent (In Minutes): 35 min Discussed care with Cardio PA, Ms. Diaz Discharge Plan Discharge Items Patient Disposition: Home - Self-Care Reason For Visit: SOB Discharge Diagnosis: CHF Exacerbation Activity: As commented below Bathing: No limitations Exercise/Sports: Gradually increase as tolerated Non-emergency contact: Primary Care Provider and Auto Transmission Technician Call non-emergency contact if: you have any medication questions and your symptoms worsen Follow-up/Referrals: Phillip Peres MD [Physician] - (Keep your scheduled follow up appointment on 04/16) Yaima Salazar CRNP [Primary Care Provider] - (Follow up within 1-2 weeks.) Diet: Heart Healthy and Low Sodium (2gm) Fluids: 1500ml (6 cups) Addtl Attending Provider Instructions: You were admitted for heart failure and fluid overload. This improved with IV furosemide but you still have some extra fluid that needs to be taken off. Your furosemide dose will be increased x 1 week to 40mg twice a day. After you follow up with Dr. Peres, he can tell you if you can go back to your once a day dose of furosemide. Please follow up with your Auto Transmission Technician as well as the CHF clinic with Ms. Joann Diaz. Please talk to your Auto Transmission Technician about starting a diabetes drug called Jardiance that can also be helpful with heart failure. Call your Primary Care doctor if any of the following symptoms or problems start or get worse: * Shortness of breath or difficulty breathing * Wake up at night short of breath * Chest pain * Cough * Swelling of your hands, feet, or legs * More fatigued or tired with your normal activity * Palpitations - sudden fast heart beats WEIGHT * Weigh yourself every morning after using the bathroom. * Use the same scale. * Wear the same amount of clothing. * Write your weight down on a chart. * Call your Primary Care doctor if you gain more than 2-3 pounds in 1-2 days. MEDICATIONS * Use this discharge instruction sheet for medication instructions. * Take your medications at the time your doctor ordered. * Do not skip a dose of your medicines. * If you miss a dose of medicine, take it as soon as possible, but DO NOT DOUBLE A DOSE. * Read your medicine information when you get home. * Know all of the side effects of your medicine. If in doubt, ask your pharmacist * Call your Primary Care doctor's office if you have any side effects. * Be sure all of your doctors know what medicine and herbs you take (including cold, flu, and herbal medicine). Take the following with you to your follow-up doctor appointments: * Weight Chart * Medication List * List of questions Do not drink excessive alcohol, beer or wine. Pending Studies at Discharge: No Stand-Alone Forms: My [facility] [email or web address], Smoking Cessation Medications and DC Order Prescriptions: Continued (DME) lancets [OneTouch UltraSoft Lancets] [facility] See Rx Instructions .ROUTE .MEDSUPPLY Qty: 100 3RF Rx Instructions: use to test three times daily (DME) blood-glucose meter [OneTouch Ultra2 Meter] [facility] See Rx Instructions .ROUTE .MEDSUPPLY Qty: 1 0RF Rx Instructions: As directed fluticasone propionate [Flonase Allergy Relief] 50 mcg/actuation spray,suspension 1 spray intranasal BID PRN (Reason: allergy symptoms) 30 Days Qty: 3 4RF potassium chloride 10 mEq capsule, extended release 10 meq PO QAM Qty: 90 3RF carvedilol 25 mg tablet 25 mg PO BID Qty: 180 3RF Rx Instructions: must administer with a meal/food amiodarone 200 mg tablet 200 mg PO BID Qty: 180 3RF (DME) blood sugar diagnostic Strip See Rx Instructions .ROUTE .MEDSUPPLY Qty: 300 3RF Rx Instructions: CHECK BLOOD SUGARS TID Roselyn Marshall U-300 Insulin 300 unit/mL (1.5 mL) insulin pen 20 - 40 unit SUBCUT BID Qty: 16 3RF Entresto 49-51 mg tablet 1 tab PO BID Qty: 180 3RF Hold Instructions: Home Medication placed on hold at Doctor's office (DME) pen needle, diabetic [Easy Comfort Pen [place]] 33 gauge x 1/4" needle See Rx Instructions .Route Qty: 100 7RF Rx Instructions: As directed (DME) blood-glucose meter [OneTouch Ultra2 Meter] Misc See Rx Instructions .ROUTE .MEDSUPPLY Qty: 1 0RF Rx Instructions: As directed aspirin [Aspir-81] 81 mg Tablet,Delayed Release (Dr/Ec) 81 mg PO 3XWK Rx Instructions: USUALLY TAKES MON, WED & FRI. bismuth subsalicylate [Pepto-Bismol] 262 mg/15 mL Suspension 524 mg PO QID PRN (Reason: Gi Upset) Januvia 100 mg tablet 100 mg PO QAM pantoprazole 40 mg tablet,delayed release (DR/EC) 40 mg PO DAILY Qty: 90 5RF Rx Instructions: 1/2 hour prior to breakfast citalopram [Celexa] 20 mg tablet 20 mg PO QAM Changed furosemide 40 mg tablet 40 mg PO BID Qty: 270 3RF Rx Instructions: Take 2 tabs PO qAM and 1 tab PO qPM ; Discontinued rosuvastatin 40 mg Tablet 40 mg PO Q OTHER DAY Label Comments: takes at hs Discharge Orders: Discharge Order- CHF (Routine); Ordered 04/09/22 Ordered By: Cherie Wilkins Admission Data Admit Date/Time: 04/08/22 06:30 Attending Provider: Cherie Wilkins Admit Provider: Emilie Arcos Primary Care Provider: Yaima Salazar Other Providers: Emilie Arcos Coding Level of Care Code HOSP INP/OBS DISCH >30 MIN Diagnoses Congestive heart failure I50.9 PAF (paroxysmal atrial fibrillation) I48.0 Hypertension I10 Uncontrolled diabetes mellitus with microalbuminuria E11.29; E11.65; R80.9
--- NOTE | 2022-04-09 13:06 | Heart Failure Progress Note ---
Date of Service April 09, 2022 Assessment & Plan (1) HFrEF (heart failure with reduced ejection fraction): Plan Met with patient briefly today to discuss the heart failure program. Patient was followed previously and has done well for several years. He is agreeable re- engaging to monitor volume status and optimize GDMT. He will follow up on 04/16/22 at 10:30. Admission and Anticipated Discharge Date Admission Date: April 08, 2022 Subjective Met with patient briefly today to discuss the heart failure program. Patient known to the program and previously followed after 2019 admission. Results & Data ([facility]) Vital Signs (Past 12 Hours) Vital Signs Temp Pulse Resp BP Pulse Ox O2 Del Method 04/09/22 10:20 106/68 04/09/22 08:35 97.9 F 61 19 90/56 L 94 Room Air PG Care Time/CCT Total # of Minutes Spent Total Time Spent with Patient: Total time spent is greater than 50% in coordination of care (as documented) at patient's floor/unit and/or counseling patient: Heart Failure Data/Metrics Heart Failure Type: HFrEf (EF < 40%) Ejection Fraction: 30% in 2020 Evidenced Based Beta David Therapy Beta David Therapy: Yes SINTIA/ARB/ARNI Therapy SINTIA/ARB/ARNI Therapy: Yes Coding Level of Care Code None Diagnoses HFrEF (heart failure with reduced ejection fraction) I50.20
== END 2022-04-09 14:56 | disposition home or self-care (01) | DRG 291 ==
LOC: ED 04:04 → SUATTDRO 06:30 → EDINP 06:30 → 3N 10:22

== ENCOUNTER 2023-08-21 11:09 | Inpatient (IN) ==
--- NOTE | 2023-08-21 11:41 | ED Triage Note ---
Date of Service August 21, 2023 Provider in Triage Author: Tavares Godinez. History of Present Illness This patient was briefly evaluated while in triage. An abbreviated physical exam was performed. This patient is a 82-year-old Male who presents to the ED for evaluation of referred by pcp for US of RLE to rule out DVT. Being treated for cellulitis with abx, symptoms about the same, erythema maybe a bit improved. Fell 1 wk ago and injured R hand. Physical Exam CONSTITUTIONAL: in no acute pain or distress, resting comfortably SKIN: pink, warm, dry. RESPIRATORY: in no respiratory distress MSK: right lower extremity with bandage in place, swelling noted lower leg. right base thumb tender. no scaphoid tenderness, no wrist pain with ROM or palpation Initial orders for labs and / or imaging were placed and patient was placed in the waiting area until a bed is available. Please see further documentation for the full ED course.
--- NOTE | 2023-08-21 12:21 | XRay Report ---
XR hand RT min 3V routine CLINICAL HISTORY: fall 1 wk ago, base thumb tender TECHNIQUE: 3 views of the right hand were obtained. Comparison: None available at the time of this dictation. FINDINGS: There is a minimally displaced fracture at the base of the first metacarpal. No definite articular in volvement is seen. Degenerative changes are seen in the joints. Soft tissue swelling is seen. IMPRESSION: Minimally displaced likely extra-articular fracture at the base of the first digit metacarpal. There is associated soft tissue swelling. ACT 112: Negative or not required by law. Electronically signed by: Abdiel Casas M.D. 08/21/2023 12:20 PM
--- NOTE | 2023-08-21 14:42 | Emergency Department Note ---
Impression & Plan Cellulitis of leg, right, Fracture of first metacarpal bone of right hand ED Provider Note NAME: PAULA CHAMBERS Jr AGE: 82 SEX: M : 1940 ARRIVES VIA: Walk-In INFORMANT: Patient, ED PROVIDER(S): Phillip Buitrago DO CHIEF COMPLAINT: Leg swelling HPI: The patient is an 82-year-old male who presented to the emergency department for an evaluation of lower extremity edema. 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 He went to see his family doctor. He has been on antibiotics,'s cefadroxil, without any significant relief of his symptoms. He now notices red and pain and swelling to the right lower extremity. He denies any fever nausea or vomiting. He denies having a chest pain. He was told to come to the emergency department for possible admission as well as possible DVT. ROS: See above HPI for pertinent positives & negatives. A total of 10 systems reviewed and were otherwise negative. PAST MEDICAL HISTORY: See Below PAST SURGICAL HISTORY: See Below FAMILY HISTORY: See Below SOCIAL HISTORY: See Below HOME MEDICATIONS: See Below ALLERGIES: See Below VITALS: See Below PHYSICAL EXAMINATION: GENERAL: Patient is awake alert in no acute distress patient is resting comfortably and showing no signs of anxiety EYES: The conjunctivae are clear. The pupils are round and reactive. EARS, NOSE, MOUTH AND THROAT: The nose is without any evidence of any deformity. NECK: The neck is nontender and supple. RESPIRATORY: Normal respiratory effort is noted there is no evidence of wheezing rhonchi or rales CARDIOVASCULAR: Regular rate and rhythm noted there no murmurs rubs or gallops normal S1 normal S2. GASTROINTESTINAL: The abdomen is soft. Abdomen is nontender. MUSCULOSKELETAL/EXTREMITIES: There is no evidence of gross deformity full range of motion is noted in the hips and shoulders. SKIN: There is symmetric swelling and redness over the right lower extremity. There is no discharge from the right middle toe. There were areas of ulceration on the right calf. NEUROLOGIC: Patient is awake alert and oriented x3 MEDICAL DECISION MAKING: The patient is an 82-year-old male who presented to the emergency department for right leg swelling. The patient had a small ulceration on his right middle toe. The patient was treated with an antibiotic. He was getting worse and at the request of his doctor he came to emergency department for further evaluation. Doppler does not appear to be consistent with venous thrombolic disease. Laboratory studies are reassuring but the patient has multiple medical problems. For this reason I do not feel that he would be a good candidate for outpatient management. I discussed his condition with the on-call [facility] hospitalist. They have agreed to evaluate the patient in the emergency department for further management and disposition. Triage Nursing notes reviewed. Prior medical records reviewed Vital Signs: reviewed and remarkable for no significant abnormalities Differential diagnosis: Cellulitis, abscess, MRSA infection, DVT, necrotizing fasciitis, dermatitis, drug eruption, allergic reaction, as well as other pathologies. ER treatment provided: See below Diagnostics interpreted by me: ECG: none Cardiac Monitoring: An order was placed for continuous cardiac monitoring. The monitor shows a rate of 72 bpm with sinus rhythm. Laboratory studies: As stated above and show below. Imaging studies: See below. Radiographic imaging was reviewed by myself Consultation(s): I discussed this case with Dr. Hightower who is on-call for the [facility]. 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) PAF (paroxysmal atrial fibrillation) Hypertension Hypercholesterolemia Benign hypertension with CKD (chronic kidney disease) stage III Peripheral neuropathy (Acute) Vertigo GERD (gastroesophageal reflux disease) Abdominal discomfort TMJ click Esophageal dysphagia Controlled type 2 diabetes mellitus with microalbuminuria Acquired deviated nasal septum Chronic rhinitis Silent aspiration Medical History Neuropathy Trouble swallowing pt reports had endoscopy less than a year ago and told nothing was wrong Presence of combination internal cardiac defibrillator (ICD) and pacemaker biventricular pacer/ICD, February 2016; [employer]; last checked 2 days ago Arthritis Acid reflux hx , not for quite awhile DM type 2 (diabetes mellitus, type 2) IDDM 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 Peres Mitral regurgitation pt not sure LBBB (left bundle branch block) pt not sure Ischemic cardiomyopathy pt not sure Surgical History History of esophagogastroduodenoscopy (EGD) last 08/11/21 @ [facility] History of endoscopy History of biopsy tongue History of cataract surgery both History of cardiac catheterization 1990s - thinks he has 1 stent but not certain History of hernia repair History of knee surgery BL S/P laparoscopic cholecystectomy Family History Father Heart disease Mother Diabetes Brother Arthritis Son Asthma Other No family history of adverse response to anesthesia No family history of bleeding disorder No pertinent family history Denies family history of Prostate cancer Breast cancer Colorectal cancer Cancer Stroke Social History Smoking Status: Never smoker Second Hand Exposure: No; Do You Dip or Chew Tobacco: No; Hx Alcohol Use: Yes Alcohol type: beer and wine Hx Substance Use: No Preferred Language: German Communication Ability: Effective Visual Impairment: No Limitations Hearing Ability: Normal Zigzag Stitcher Required: No Beliefs That Will Affect Care: None marital status: Current Living Situation: Spouse current occupational status: employed current occupation: [employer] Feels Safe at Home: Yes Diet: regular caffeine: Yes Dental Care, Regularly: No Seatbelt Use: always Assistive Devices: Cane, Glasses and Walker Allergies Allergies Allergy/AdvReac Type Severity Reaction Status Date / Time rosuvastatin AdvReac Intermediate MADE ME Verified 08/21/23 16:03 MEAN Home Meds Home Medications Medication Instructions Recorded Confirmed bismuth subsalicylate 262 mg/15 mL 524 mg PO QID PRN Gi Upset 01/06/20 08/21/23 oral suspension (Pepto-Bismol) citalopram 20 mg tablet (Celexa) 20 mg PO QAM 08/09/21 08/21/23 aspirin 81 mg tablet,delayed 81 mg PO 3XWK 08/21/23 08/21/23 release cephalexin 500 mg capsule 500 mg PO TID 08/21/23 08/21/23 pantoprazole 40 mg tablet,delayed 40 mg PO DAILYBB 08/21/23 08/21/23 release Previous Rx's Medication Instructions Recorded blood-glucose meter (OneTouch #1 ea 04/03/19 Ultra2 Meter) OneTouch UltraSoft Lancets #100 ea 04/07/19 (lancets) blood-glucose meter (OneTouch #1 ea 09/16/20 Ultra2 Meter) fluticasone propionate 50 1 spray intranasal BID PRN allergy 06/19/21 mcg/actuation nasal symptoms 30 days #3 BTLS spray,suspension (Flonase Allergy Relief) blood sugar diagnostic #300 ea 02/14/22 pen needle, diabetic 33 gauge x #200 ea 04/09/2202/28" (Easy Comfort Pen [place]) carvedilol 25 mg tablet 37.5 mg (1.5 x 25 mg) PO BID #270 12/28/22 tabs potassium chloride 10 mEq 10 meq PO QAM #90 caps 12/28/22 capsule,extended release amiodarone 200 mg tablet 200 mg PO BID #180 tabs 01/16/23 empagliflozin 10 mg tablet 10 mg PO QAM #90 tabs 04/02/23 (Jardiance) sacubitril 49 mg-valsartan 51 mg 1 tab PO BID #180 tabs 04/03/23 tablet (Entresto) insulin glargine U-300 conc 300 20 unit (0.0667 mL) subcut BID #16 04/05/23 unit/mL (1.5 mL) subcutaneous pen syringes (Toujeo SoloStar U-300 Insulin) rosuvastatin 40 mg tablet 40 mg PO Q OTHER DAY 90 days #45 04/09/23 tabs furosemide 40 mg tablet 40 mg PO DAILY #60 tabs 06/24/23 Results & Data (ED) Vital Signs Vital Signs - 24 hr 08/21/23 11:33 08/21/23 14:47 08/21/23 14:47 Temperature 36.4 C L Temperature Source Temporal Artery Scan Pulse Rate 62 Pulse Rate [Apical] 56 L Pulse Rhythm [Apical] Regular Pulse Strength [Apical] Normal Respiratory Rate 18 19 Respiratory Effort / Characteristics Non-Labored Spontaneous Non-Labored Spontaneous Respiratory Depth Normal Normal Respiratory Pattern Regular Regular Blood Pressure 96/61 L 116/70 Blood Pressure [Right Arm] 116/70 Blood Pressure Mean 72 97 Blood Pressure Mean [Right Arm] 85 Pulse Oximetry 93 95 Oxygen Delivery Method Room Air Room Air Sepsis Recent Fever Within 48 Hours No Sepsis New/Unexplained Change in Mental Status No Sepsis Action Taken by Nursing No Action Required 08/21/23 14:47 08/21/23 14:49 08/21/23 14:54 Temperature Temperature Source Pulse Rate 62 61 Pulse Rate [Apical] Pulse Rhythm [Apical] Pulse Strength [Apical] Respiratory Rate 24 Respiratory Effort / Characteristics Respiratory Depth Respiratory Pattern Blood Pressure 116/70 Blood Pressure [Right Arm] Blood Pressure Mean 97 Blood Pressure Mean [Right Arm] Pulse Oximetry Oxygen Delivery Method Sepsis Recent Fever Within 48 Hours Sepsis New/Unexplained Change in Mental Status Sepsis Action Taken by Nursing 08/21/23 14:57 08/21/23 15:00 08/21/23 15:00 Temperature Temperature Source Pulse Rate 62 Pulse Rate [Apical] Pulse Rhythm [Apical] Pulse Strength [Apical] Respiratory Rate 19 Respiratory Effort / Characteristics Respiratory Depth Respiratory Pattern Blood Pressure 115/66 115/66 Blood Pressure [Right Arm] Blood Pressure Mean 91 91 Blood Pressure Mean [Right Arm] Pulse Oximetry Oxygen Delivery Method Sepsis Recent Fever Within 48 Hours Sepsis New/Unexplained Change in Mental Status Sepsis Action Taken by Nursing 08/21/23 16:44 Temperature Temperature Source Pulse Rate Pulse Rate [Apical] 64 Pulse Rhythm [Apical] Pulse Strength [Apical] Respiratory Rate 18 Respiratory Effort / Characteristics Respiratory Depth Respiratory Pattern Blood Pressure Blood Pressure [Right Arm] 129/68 Blood Pressure Mean Blood Pressure Mean [Right Arm] 88 Pulse Oximetry 94 Oxygen Delivery Method Room Air Sepsis Recent Fever Within 48 Hours Sepsis New/Unexplained Change in Mental Status Sepsis Action Taken by Long Term Medications Current Medication List: was personally reviewed by me Laboratory Data Attestation: I reviewed the patient's lab results. 08/21/23 14:40 08/21/23 14:40 Lab Results 08/21/23 Range/Units 14:40 WBC 6.52 (4.8-10.8) K/ul RBC 4.78 (4.70-6.10) M/uL Hgb 14.6 (14.0-18.0) g/dl Hct 44.3 (42.0-52.0) % MCV 92.7 (80.0-100.0) fL MCH 30.5 (25.0-34.0) pg MCHC 33.0 (32.0-36.0) g/dL RDW Std Deviation 53.2 H (36.4-46.3) fL RDW Coeff of Pastor 15.6 H (11.5-14.5) % Plt Count 192 (130-400) K/uL MPV 10.7 (9.4-12.4) fL Immature Gran % (Auto) 0.6 % Neut % (Auto) 62.5 % Lymph % (Auto) 22.4 % [place] % (Auto) 11.7 % Eos % (Auto) 1.7 % Baso % (Auto) 1.1 % Neut # (Auto) 4.08 (1.40-6.50) K/uL Lymph # (Auto) 1.46 (1.20-3.40) K/uL [place] # (Auto) 0.76 H (0.11-0.59) K/uL Eos # (Auto) 0.11 (0.00-0.50) K/uL Baso # (Auto) 0.07 (0.00-0.20) K/uL Immature Gran # (Auto) 0.04 (0.01-0.20) K/uL PT 10.3 (9.0-12.0) Seconds INR 0.9 (0.9-1.1) APTT 27 (21-31) Seconds PTT Ratio 1.0 Sodium 139 (136-145) mmol/L Potassium 3.7 (3.5-5.1) mmol/L Chloride 102 (98-107) mmol/L Carbon Dioxide 30 (21-32) mmol/L Anion Gap 7 (3-11) BUN 25 H (6-23) mg/dl Creatinine 1.23 (0.6-1.4) mg/dl Est Cr Clr Drug Dosing 68.2 ml/min Est GFR ( Amer) 63.4 ml/min Est GFR (Non-Af Amer) 54.7 ml/min BUN/Creatinine Ratio 20.3 H (10-20) Glucose 131 H (70-99(Fasting)) mg/dl Calcium 8.8 (8.6-10.3) mg/dl Total Bilirubin 1.2 H (0.2-1.0) mg/dl AST 59 H (13-39) U/L ALT 43 (7-52) U/L Alkaline Phosphatase 170 H (34-104) U/L Troponin I High Sens 12.4 (0-20) pg/ml C-Reactive Protein 9.27 H (0-0.5) mg/dl Total Protein 7.3 (6.0-8.3) gm/dl Albumin 3.6 (3.4-5.0) gm/dl Globulin 3.7 (2.5-4.0) gm/dl Albumin/Globulin Ratio 1.0 (0.9-2) Procalcitonin 0.06 (0-0.5) ng/ml Administered Medications Daptomycin 400 mg/ Syringe 8 mls @ 4 mls/min IV Q24H [facility]; Protocol Stop: 08/28/23 17:59 Last Admin: 08/21/23 18:01 Dose: 4 mls/min Documented By: MARIA ISABEL Insulin Aspart (Insulin Aspart Per Unit Charge) 0 units SC ACHS CORDELIA; Protocol Stop: 09/20/23 17:59 Last Admin: 08/21/23 18:02 Dose: Not Given Documented By: MARIA ISABEL Co-signed By: ELISSA Discontinued Medications Sodium Chloride (Nss) 500 mls @ 999 mls/hr IV .Q31M ONE Stop: 08/21/23 15:01 Last Infusion: 08/21/23 16:13 Dose: Infused Documented By: MARIA ISABEL Admin: 08/21/23 14:50 Dose: 999 mls/hr Documented By: MARIA ISABEL Ceftriaxone Sodium (Rocephin) 2,000 mg in 50 mls @ 100 mls/hr IV NOW STA Stop: 08/21/23 16:22 Last Infusion: 08/21/23 17:29 Dose: Infused Documented By: MARIA ISABEL Admin: 08/21/23 16:31 Dose: 100 mls/hr Documented By: MARIA ISABEL Cefepime HCl (Maxipime) 20 mls @ 5 mls/min IV NOW STA Stop: 08/21/23 17:27 Last Admin: 08/21/23 17:50 Dose: 5 mls/min Documented By: MARIA ISABEL Imaging Data Attestation: I personally reviewed and interpreted this imaging study as follows: My Impression: X-ray of the right hand was obtained in the emergency department. My interpretation is fracture of the base of the first metacarpal, final report below. Radiologist's Impression: Hand X-Ray 08/21/23 11:35 XR hand RT min 3V routine CLINICAL HISTORY: fall 1 wk ago, base thumb tender TECHNIQUE: 3 views of the right hand were obtained. Comparison: None available at the time of this dictation. FINDINGS: There is a minimally displaced fracture at the base of the first metacarpal. No definite articular involvement is seen. Degenerative changes are seen in the joints. Soft tissue swelling is seen. IMPRESSION: Minimally displaced likely extra-articular fracture at the base of the first digit metacarpal. There is associated soft tissue swelling. ACT 112: Negative or not required by law. Electronically signed by: Abdiel Casas M.D. 08/21/2023 12:20 PM Venous Doppler Study 08/21/23 11:35 ULTRASOUND RIGHT LOWER EXTREMITY VENOUS CLINICAL HISTORY: Right leg swelling. COMPARISON STUDY: Bilateral lower extremity venous ultrasound dated 11/19/2012. TECHNIQUE: Real-time, grayscale, and color Doppler sonography of the deep veins of the right lower extremity was performed from the inguinal crease to the calf. Compression and augmentation were utilized. FINDINGS: There is no sonographic evidence of deep venous thrombosis identified in the right lower extremity. The common femoral, superficial femoral, and popliteal veins are patent and normally compressible. The greater saphenous vein and the profunda femoris vein at the junction with the common femoral vein are clear. The visualized calf veins are patent. Soft tissue edema is noted in the right calf. IMPRESSION: There is no sonographic evidence of deep venous thrombosis identified in the right lower extremity. ACT 112: Negative or not required by law. Electronically signed by: Taj Garcia M.D. 08/21/2023 4:20 PM Discharge Plan Visit Data Chief Complaint: Referred by Doctor Stated Complaint: CELLULITIS ED Provider: Phillip Buitrago Discharge Problem: Cellulitis of leg, right, Fracture of first metacarpal bone of right hand Patient Disposition: Admitted As Inpatient Discharge Instructions Interventions: ED Discharge Assessment Last Done: 08/21/23 18:05 Discharge Problem: Fracture of first metacarpal bone of right hand Qualifiers: Encounter type: initial encounter Fracture type: closed Metacarpal location: b ase Fracture morphology: unspecified fracture morphology Fracture alignment: n ondisplaced Qualified Code(s): S62.234A - Other nondisplaced fracture of base of first metacarpal bone, right hand, initial encounter for closed fracture
[2023-08-21] MEDS: SODIUM CHLORIDE 0.9% 500 ML IV ONE (14:50)
--- NOTE | 2023-08-21 15:01 | Electrocardiogram Report ---
Test Reason : Blood Pressure : / mmHG Vent. Rate : 062 BPM Atrial Rate : 070 BPM P-R Int : 148 ms QRS Dur : 182 ms QT Int : 588 ms P-R-T Axes : 000 239 065 degrees QTc Int : 596 ms AV dual-paced rhythm with occasional ventricular-paced complexes Biventricular pacemaker detected Abnormal ECG When compared with ECG of 08-APR-2022 04:27, Vent. rate has decreased BY 8 BPM Confirmed by Don Reyes ([id number]) on 08/21/2023 3:01:05 PM Referred By: Confirmed By:Don Reyes
[2023-08-21 15:24] LABS: Basophils # (auto) 0.07 K/uL (0.00-0.20); Basophils % (auto) 1.1 %; Eosinophils # (auto) 0.11 K/uL (0.00-0.50); Eosinophils % (auto) 1.7 %; Hematocrit (blood only) 44.3 % (42.0-52.0); Hemoglobin 14.6 g/dl (14.0-18.0); Immature Granulocytes # (auto) 0.04 K/uL (0.01-0.20); Immature Granulocytes % (auto) 0.6 %; Lymphocytes # (auto) 1.46 K/uL (1.20-3.40); Lymphocytes % (auto) 22.4 %; Mean Corpuscular Hemoglobin 30.5 pg (25.0-34.0); Mean Corpuscular Volume 92.7 fL (80.0-100.0); Mean Platelet Volume 10.7 fL (9.4-12.4); Monocytes # (auto) 0.76 K/uL (0.11-0.59); Monocytes % (auto) 11.7 %; Neutrophils # (auto) 4.08 K/uL (1.40-6.50); Neutrophils % (auto) 62.5 %; Platelet Count 192 K/uL (130-400); RDW Coefficient of Variation 15.6 % (11.5-14.5); RDW Standard Deviation 53.2 fL (36.4-46.3); Red Blood Count 4.78 M/uL (4.70-6.10); White Blood Count 6.52 K/ul (4.8-10.8)
[2023-08-21 15:26] LABS: Albumin Level 3.6 gm/dl (3.4-5.0); BUN Creatinine Ratio 20.3 (10-20); Bilirubin,Total 1.2 mg/dl (0.2-1.0); C Reactive Protein 9.27 mg/dl (0-0.5); Calcium 8.8 mg/dl (8.6-10.3); Creatinine Clr Calc Pharmacy 68.2 ml/min; Est GFR (African American) 63.4 ml/min; Est GFR (Non-African American) 54.7 ml/min; Globulin 3.7 gm/dl (2.5-4.0); Potassium 3.7 mmol/L (3.5-5.1); Total Protein 7.3 gm/dl (6.0-8.3)
[2023-08-21 15:30] LABS: INR 0.9 (0.9-1.1); Partial Thromboplastin Time 27 Seconds (21-31); Prothrombin Time 10.3 Seconds (9.0-12.0)
[2023-08-21 15:32] LABS: Troponin I High Sensitivity 12.4 pg/ml (0-20)
--- NOTE | 2023-08-21 16:21 | Ultrasound Report ---
ULTRASOUND RIGHT LOWER EXTREMITY VENOUS CLINICAL HISTORY: Right leg swelling. COMPARISON STUDY: Bilateral lower extremity venous ultrasound dated 11/19/2012. TECHNIQUE: Real-time, grayscale, and color Doppler sonography of the deep veins of the right lower ex tremity was performed from the inguinal crease to the calf. Compression and augmentation were utilize d. FINDINGS: There is no sonographic evidence of deep venous thrombosis identified in the right lower ex tremity. The common femoral, superficial femoral, and popliteal veins are patent and normally niurka sible. The greater saphenous vein and the profunda femoris vein at the junction with the common femor al vein are clear. The visualized calf veins are patent. Soft tissue edema is noted in the right calf . IMPRESSION: There is no sonographic evidence of deep venous thrombosis identified in the right lower extremity. ACT 112: Negative or not required by law. Electronically signed by: Taj Garcia M.D. 08/21/2023 4:20 PM
[2023-08-21] MEDS: cefTRIAXone SODIUM 2,000 MG/50 ML BAG IV STA (16:31)
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
[2023-08-21] MEDS ORDERED: CEFEPIME 2,000 MG in SYRINGE 0 ML IV STA (17:12)
[2023-08-21] MEDS ORDERED: CARBOHYDRATES FOR HYPOGLYCEMIA PO PRN (17:17)
[2023-08-21] MEDS ORDERED: PHARMACY GLYCEMIC MGMT CONSULT PRN (17:17)
[2023-08-21] MEDS ORDERED: GLUCOSE 10 TAB/TUBE PO PRN (17:17)
[2023-08-21] MEDS ORDERED: GLUCOSE 40% GEL 15 GM TUBE PO PRN (17:17)
[2023-08-21] MEDS ORDERED: GLUCAGON FOR INJ 1 MG VIAL SQ PRN (17:17)
[2023-08-21] MEDS ORDERED: DEXTROSE 50% 50 ML SYRINGE IV PRN (17:17)
[2023-08-21] MEDS: CEFEPIME 20 ML IV STA (17:50)
[2023-08-21] MEDS: DAPTOmycin 400 MG in SYRINGE 0 ML IV SCH (18:01)
[2023-08-21] MEDS: INSULIN ASPART PER UNIT CHARGE SC SCH (18:02)
--- NOTE | 2023-08-21 19:09 | XRay Report ---
RIGHT TIBIA AND FIBULA 2 VIEWS; RIGHT ANKLE 2 VIEWS CLINICAL HISTORY: Right leg infection. FINDINGS: AP and lateral views of the tibia and fibula AP and lateral views of the right ankle are ob tained. No prior studies are available for comparison at the time of dictation. The skeletal structur es are osteopenic. There is no radiographic evidence of right tibial or fibular fracture. No fracture is seen at the ankle joint. The ankle mortise is intact. Arthritic change is seen at the tibiotalar joint as well as the knee. A 1.8 cm osteochondroma arises from the medial aspect of the tibial platea u. No bony erosion or periostitis is seen. There are are large dorsal and plantar heel spurs. Soft ti ssue edema is noted throughout the right leg. No soft tissue gas or radiodense foreign body is identi fied. IMPRESSION: 1. Soft tissue edema with no acute bony abnormality identified involving the right tibia or fibula. 2. No acute bony abnormality is seen at the right ankle joint. 3. Large heel spurs. Electronically signed by: Taj Garcia M.D. 08/21/2023 7:08 PM
--- NOTE | 2023-08-21 19:11 | XRay Report ---
RIGHT FOOT 2 VIEWS CLINICAL HISTORY: Right foot infection. FINDINGS: AP and lateral views of the right foot are obtained. No prior studies are available for dung palmer at the time of dictation. The skeletal structures are osteopenic. No fracture is seen. There is a high arch. Hammertoe deformities are noted. Byqj-fi-zevkbhoi osteoarthritic changes seen through out the foot, greatest at the first tarsometatarsal and metatarsophalangeal joints. There are large d orsal and plantar heel spurs. There is no bony erosion or periostitis. Advanced atherosclerotic calci fication is noted in the regional arteries. No soft tissue gas or radiodense foreign body is seen. IMPRESSION: 1. Soft tissue edema with no acute bony abnormality identified. 2. Osteopenia with degenerative change and large heel spurs as above. Electronically signed by: Taj Garcia M.D. 08/21/2023 7:10 PM
--- NOTE | 2023-08-21 19:34 | Pharmacy Report ---
Pharmacy Glycemic Short Note 2 - Date of Service August 21, 2023 - Glycemic Short BSG Results (Last 24 hours): 08/21/23 08/21/23 14:40 18:00 Glucose 131 H POC Glucose 106 H OUTPATIENT ANTIDIABETIC REGIMEN: * Lantus 20 units SC BID * Jardiance 10 mg PO AM * HbA1c pending ASSESSMENT: * 82 yo M admitted on 08/21/23 secondary to cellulitis. Pharmacy has been consulted to assist with inpatient glycemic management. Patient is a Type 2 diabetic as an outpatient. Please refer to outpatient regimen and most recent HbA1c above. * BSG at dinner was 106 mg/dL. Started patient on Novolog based on weight/stress of 1-2 and previous admission data. Did take 20 units of insulin this AM as well as Jardiance. Jardiance is ordered inpatient as well. * Currently on Dapto and Cefepime. Ordered and tolerating T2DM diet. * Conservative with basal dosing given previous admission data as well as A1c from March 2023. May need to back off even further. PLAN FOR INPATIENT GLYCEMIC CONTROL: * Jardiance 10 mg PO AM * Basal insulin * Lantus 0-15 units SC BID (see EMR for more details) * Bolus insulin * NovoLog per scale ACHS or Q6hrs while NPO * Goal Range: Low 110 mg/dL - High 140 mg/dL * Correction Factor: 25 mg/dL/unit * Nutritional / Prandial insulin per carb ratio of 1 unit per 8 grams CHO consumed
[2023-08-21] MEDS: ENOXAPARIN INJ 40 MG/0.4 ML SYR SQ SCH (20:38)
[2023-08-21] MEDS: carvediloL 25 MG TAB PO SCH (20:38)
[2023-08-21] MEDS: AMIODARONE 200 MG TAB PO SCH (20:38)
[2023-08-21] MEDS: VALSARTAN/SACUBITRIL 51/49 MG TAB PO SCH (20:38)
[2023-08-21] MEDS: LANTUS PER UNIT CHARGE SQ SCH (23:10)
[2023-08-22] MEDS: CEFEPIME 2,000 MG in SYRINGE 0 ML IV SCH (01:21)
[2023-08-22] MEDS: PANTOprazole 40 MG TAB PO SCH (05:44)
[2023-08-22 06:51] LABS: Basophils # (auto) 0.08 K/uL (0.00-0.20); Basophils % (auto) 1.7 %; Eosinophils # (auto) 0.18 K/uL (0.00-0.50); Eosinophils % (auto) 3.8 %; Hematocrit (blood only) 38.9 % (42.0-52.0); Hemoglobin 12.6 g/dl (14.0-18.0); Immature Granulocytes # (auto) 0.03 K/uL (0.01-0.20); Immature Granulocytes % (auto) 0.6 %; Lymphocytes # (auto) 1.19 K/uL (1.20-3.40); Lymphocytes % (auto) 24.8 %; Mean Corpuscular Hemoglobin 30.2 pg (25.0-34.0); Mean Corpuscular Hgb Conc 32.4 g/dL (32.0-36.0); Mean Corpuscular Volume 93.3 fL (80.0-100.0); Mean Platelet Volume 10.7 fL (9.4-12.4); Monocytes # (auto) 0.71 K/uL (0.11-0.59); Monocytes % (auto) 14.8 %; Neutrophils % (auto) 54.3 %; Platelet Count 148 K/uL (130-400); RDW Coefficient of Variation 15.5 % (11.5-14.5); RDW Standard Deviation 53.5 fL (36.4-46.3); Red Blood Count 4.17 M/uL (4.70-6.10); White Blood Count 4.79 K/ul (4.8-10.8)
[2023-08-22 07:09] LABS: Albumin Level 2.9 gm/dl (3.4-5.0); BUN Creatinine Ratio 20.3 (10-20); Bilirubin,Total 0.8 mg/dl (0.2-1.0); Calcium 8.2 mg/dl (8.6-10.3); Creatinine Clr Calc Pharmacy 70.1 ml/min; Est GFR (African American) 66.7 ml/min; Est GFR (Non-African American) 57.5 ml/min; Magnesium 2.2 mg/dl (1.7-2.4); Potassium 3.6 mmol/L (3.5-5.1); Total Protein 5.9 gm/dl (6.0-8.3)
[2023-08-22 07:16] LABS: Prothrombin Time 10.8 Seconds (9.0-12.0)
[2023-08-22 07:57] LABS: Estimated Average Glucose 120 mg/dl; Hemoglobin A1C 5.8 % (4.5-5.6)
[2023-08-22] MEDS: FUROSEMIDE 40 MG TAB PO SCH (08:49)
[2023-08-22] MEDS: EMPAGLIFLOZIN 10 MG TAB PO SCH (08:49)
[2023-08-22] MEDS: CITALOPRAM 20 MG TAB PO SCH (08:49)
[2023-08-22] MEDS: POTASSIUM CHLORIDE 10 MEQ TABCR PO SCH (08:50)
[2023-08-22] MEDS: LANTUS PER UNIT CHARGE SQ SCH ×2 (08:52→21:24)
--- NOTE | 2023-08-22 09:53 | Ultrasound Report ---
ULTRASOUND RIGHT LOWER EXTREMITY ARTERIAL CLINICAL HISTORY: Right lower extremity cellulitis. Toe ulcer. Diabetes. COMPARISON STUDY: No priors. TECHNIQUE: Real-time grayscale and color Doppler sonography of the arteries of the right lower extrem ity is performed from the inguinal crease to the foot. Ankle brachial indices could not be assessed d ue to lower extremity edema and wounds. FINDINGS: Atherosclerotic plaque and irregularity is seen throughout the arteries of the right lower extremity. There are triphasic arterial waveforms in the common femoral artery with velocities measur ing up to 91 cm/s. The profunda femoris artery is patent with velocities measuring up to 49 cm/s. Tri phasic waveforms are seen throughout the superficial femoral and popliteal arteries. Velocities withi n the superficial femoral artery measure up to 127 cm/s, and velocities in the popliteal artery measu re up to 75 cm/s. There is at least two-vessel runoff to the foot. Portions of the calf vessels, incl uding majority of the peroneal artery is not well-visualized due to edema and overlying bandage mater ial. There are monophasic arterial waveforms in the calf vessels. Velocities within the anterior and posterior tibial arteries measure up to 140 cm/s. The dorsalis pedis artery is patent with velocities measured 96 cm/s. Soft tissue edema is noted in the calf. IMPRESSION: 1. The peroneal artery is not well-visualized due to edema and overlying bandage material. Patency is indeterminant. 2. The remaining arteries of the right lower extremity are patent, with no sonographic evidence of hi gh-grade stenosis or focal vessel occlusion. See above. Dictated: 08/22/2023 8:41 AM Transcribed: 08/22/2023 8:56 AM Rafy [id number] [email or web address] Electronically signed by: Taj Garcia M.D. 08/22/2023 9:52 AM
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
--- NOTE | 2023-08-22 12:29 | Pharmacy Report ---
Pharmacy Glycemic Short Note 2 - Date of Service August 22, 2023 - Glycemic Short BSG Results (Last 24 hours): 08/21/23 08/21/23 08/21/23 14:40 18:00 22:24 Glucose 131 H POC Glucose 106 H 112 H 08/22/23 08/22/23 08/22/23 06:17 07:37 11:44 Glucose 103 H POC Glucose 102 H 99 OUTPATIENT ANTIDIABETIC REGIMEN: * Lantus 20 units SC BID * Jardiance 10 mg PO AM * HbA1c pending ASSESSMENT: 08/21: * BSGs have been well controlled 210-487-021-99 mg/dL * Patient received 30 units of basal yesterday, fasting 102 mg/dL- aimed to split dose BID but patient refused dose this morning * Has refused novolog with meals, has jardiance ordered, will remove carb ratio for now and monitor * 08/20 * 82 yo M admitted on 08/21/23 secondary to cellulitis. Pharmacy has been c onsulted to assist with inpatient glycemic management. Patient is a Type 2 diabetic as an outpatient. Please refer to outpatient regimen and most recent HbA1c above. * BSG at dinner was 106 mg/dL. Started patient on Novolog based on weight/stress of 1-2 and previous admission data. Did take 20 units of insulin this AM as well as Jardiance. Jardiance is ordered inpatient as well. * Currently on Dapto and Cefepime. Ordered and tolerating T2DM diet. * Conservative with basal dosing given previous admission data as well as A1c from March 2023. May need to back off even further. PLAN FOR INPATIENT GLYCEMIC CONTROL: * Jardiance 10 mg PO AM * Basal insulin * Lantus 0-15 units SC BID (see EMR for more details) * Bolus insulin * NovoLog per scale ACHS or Q6hrs while NPO * Goal Range: Low 110 mg/dL - High 140 mg/dL * Correction Factor: 30 mg/dL/unit * Nutritional / Prandial insulin per carb ratio of 1 unit per -- grams CHO consumed
--- NOTE | 2023-08-22 15:24 | Orthopedic Consultation ---
Date of Service August 22, 2023 Assessment & Plan (1) Fracture of first metacarpal bone of right hand: - He is stable orthopedically at this time. No urgent orthopedic intervention indicated. -He should remain in the Ortho-Glass thumb spica splint. He should remain nonweightbearing right upper extremity. -Recommend a 2-week follow-up in our office for repeat x-rays and possible transition into a different brace. -Please reach out to orthopedics any questions or concerns. History of Present Illness Reason for Consultation: right hand fracture Requesting Physician: . Attending Physician: Mohsen Hubbardedel Peace is an 82-year-old male who is being consulted today for a right first metacarpal fracture that was found on x-ray yesterday. This is not the reason for his admission to the hospital, but was found as he stated he was having right hand pain for the last week. He states that he fell at home 1 week ago onto his right hand. He states that if it was not for his other medical issues as to why he is admitted to the hospital, he would not have sought medical treatment for his right hand. He was placed in a thumb spica Ortho-Glass splint in the emergency department. He denies any numbness or tingling right upper extremity. Denies any other questions or concerns today. Allergies Allergy/AdvReac Type Severity Reaction Status Date / Time rosuvastatin AdvReac Intermediate MADE ME Verified 08/21/23 16:03 MEAN Home Medications Medication Instructions Recorded Confirmed Type blood-glucose meter (OneTouch #1 ea 04/03/19 08/21/23 Rx Ultra2 Meter) OneTouch UltraSoft Lancets #100 ea 04/07/19 08/21/23 Rx (lancets) bismuth subsalicylate 262 mg/15 mL 524 mg PO QID PRN Gi Upset 01/06/20 08/21/23 History oral suspension (Pepto-Bismol) blood-glucose meter (OneTouch #1 ea 09/16/20 08/21/23 Rx Ultra2 Meter) fluticasone propionate 50 1 spray intranasal BID PRN allergy 06/19/21 08/21/23 Rx mcg/actuation nasal symptoms 30 days #3 BTLS spray,suspension (Flonase Allergy Relief) citalopram 20 mg tablet (Celexa) 20 mg PO QAM 08/09/21 08/21/23 History blood sugar diagnostic #300 ea 02/14/22 08/21/23 Rx pen needle, diabetic 33 gauge x #200 ea 04/09/22 08/21/23 Rx 1/4" (Easy Comfort Pen [place]) carvedilol 25 mg tablet 37.5 mg (1.5 x 25 mg) PO BID #270 12/28/22 08/21/23 Rx tabs potassium chloride 10 mEq 10 meq PO QAM #90 caps 12/28/22 08/21/23 Rx capsule,extended release amiodarone 200 mg tablet 200 mg PO BID #180 tabs 01/16/23 08/21/23 Rx empagliflozin 10 mg tablet 10 mg PO QAM #90 tabs 04/02/23 08/21/23 Rx (Jardiance) sacubitril 49 mg-valsartan 51 mg 1 tab PO BID #180 tabs 04/03/23 08/21/23 Rx tablet (Entresto) insulin glargine U-300 conc 300 20 unit (0.0667 mL) subcut BID #16 04/05/23 08/21/23 Rx unit/mL (1.5 mL) subcutaneous pen syringes (Toujeo SoloStar U-300 Insulin) rosuvastatin 40 mg tablet 40 mg PO Q OTHER DAY 90 days #45 04/09/23 08/21/23 Rx tabs furosemide 40 mg tablet 40 mg PO DAILY #60 tabs 06/24/23 08/21/23 Rx aspirin 81 mg tablet,delayed 81 mg PO 3XWK 08/21/23 08/21/23 History release cephalexin 500 mg capsule 500 mg PO TID 08/21/23 08/21/23 History pantoprazole 40 mg tablet,delayed 40 mg PO DAILYBB 08/21/23 08/21/23 History release Past Med/Surg History Problem List Sacral pressure ulcer Skin ulcer of third toe of right foot Fracture of first metacarpal bone of right hand (Acute) Cellulitis of leg, right (Acute) Skin lesion of left ear Ventricular tachycardia Hypersomnia Fatigue Dyspnea on exertion HFrEF (heart failure with reduced ejection fraction) Congestive heart failure (Acute) Esophageal dysphagia CAD (coronary artery disease) 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) PAF (paroxysmal atrial fibrillation) Hypertension Hypercholesterolemia Benign hypertension with CKD (chronic kidney disease) stage III Peripheral neuropathy (Acute) Vertigo GERD (gastroesophageal reflux disease) Abdominal discomfort TMJ click Esophageal dysphagia Controlled type 2 diabetes mellitus with microalbuminuria Acquired deviated nasal septum Chronic rhinitis Silent aspiration Medical History Neuropathy Trouble swallowing pt reports had endoscopy less than a year ago and told nothing was wrong Presence of combination internal cardiac defibrillator (ICD) and pacemaker biventricular pacer/ICD, February 2016; [employer]; last checked 2 days ago Arthritis Acid reflux hx , not for quite awhile DM type 2 (diabetes mellitus, type 2) IDDM 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 Peres Mitral regurgitation pt not sure LBBB (left bundle branch block) pt not sure Ischemic cardiomyopathy pt not sure Surgical History History of esophagogastroduodenoscopy (EGD) last 08/11/21 @ [facility] History of endoscopy History of biopsy tongue History of cataract surgery both History of cardiac catheterization 1990s - thinks he has 1 stent but not certain History of hernia repair History of knee surgery BL S/P laparoscopic cholecystectomy Family History Father Heart disease Mother Diabetes Brother Arthritis Son Asthma Other No family history of adverse response to anesthesia No family history of bleeding disorder No pertinent family history Denies family history of Prostate cancer Breast cancer Colorectal cancer Cancer Stroke Social History Smoking Status: Never smoker Second Hand Exposure: No; Do You Dip or Chew Tobacco: No; Hx Alcohol Use: No Hx Substance Use: No Preferred Language: [place]an Communication Ability: Effective Visual Impairment: No Limitations Hearing Ability: Normal 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 Physical Exam Patient resting in his hospital bed comfortably. He is in no acute distress. He is alert and oriented. Regarding his right hand: Right hand is in a thumb spica orthoglas splint. It was note removed. Sensation intact. Distal pulses palpated. Capillary fill less than 3 seconds on all fingers. Results & Data Results & Data Laboratory Results . Diagnostic Findings Did review x-ray images on 08/21/2023 from the emergency department. There is evidence of an acute right first metacarpal fracture at the base. It is slightly displaced. PG Care Time/CCT Total # of Minutes Spent Total Time Spent with Patient: Total time spent is greater than 50% in coordination of care (as documented) at patient's floor/unit and/or counseling patient: Coding Diagnoses Fracture of first metacarpal bone of right hand S62.234A Encounter type: initial encounter Fracture alignment: nondisplaced Fracture morphology: unspecified fracture morphology Fracture type: closed Metacarpal location: base (1) Fracture of first metacarpal bone of right hand Encounter type: initial encounter Fracture alignment: nondisplaced Fracture morphology: unspecified fracture morphology Fracture type: closed Metacarpal location: base Qualified Code(s): S62.234A - Other nondisplaced fracture of base of first metacarpal bone, right hand, initial encounter for closed fracture
[2023-08-22 18:52] VITALS: O2SAT 95
[2023-08-22] MEDS: ACETAMINOPHEN 325 MG TAB PO PRN (19:37)
[2023-08-23 07:11] LABS: Bilirubin,Total 0.8 mg/dl (0.2-1.0); Calcium 8.2 mg/dl (8.6-10.3); Magnesium 2.2 mg/dl (1.7-2.4); Potassium 3.8 mmol/L (3.5-5.1)
[2023-08-23 07:17] LABS: BUN Creatinine Ratio 18.3 (10-20); Creatinine Clr Calc Pharmacy 71.9 ml/min; Est GFR (African American) 68.8 ml/min; Est GFR (Non-African American) 59.4 ml/min; Globulin 3.1 gm/dl (2.5-4.0); Total Protein 6.1 gm/dl (6.0-8.3)
[2023-08-23 07:23] LABS: Hematocrit (blood only) 42.5 % (42.0-52.0); Hemoglobin 13.8 g/dl (14.0-18.0); Mean Corpuscular Hemoglobin 30.4 pg (25.0-34.0); Mean Corpuscular Hgb Conc 32.5 g/dL (32.0-36.0); Mean Corpuscular Volume 93.6 fL (80.0-100.0); Mean Platelet Volume 11.4 fL (9.4-12.4); Platelet Count 114 K/uL (130-400); RDW Coefficient of Variation 15.6 % (11.5-14.5); RDW Standard Deviation 53.5 fL (36.4-46.3); Red Blood Count 4.54 M/uL (4.70-6.10); White Blood Count 5.15 K/ul (4.8-10.8)
[2023-08-23 07:24] LABS: Platelet Estimate Decreased (Normal); RBC Morphology Unremarkable
[2023-08-23 07:25] LABS: Prothrombin Time 10.9 Seconds (9.0-12.0)
[2023-08-23 07:44] VITALS: BP 114/70; PULSE 65; RESP 18; TEMP 97.5
[2023-08-23 07:48] LABS: ALC (manual) 1.18 K/uL (1.2-3.4); ANC (manual) 3.19 K/uL (1.4-6.5); Basophils # (manual) 0.05 K/uL (0-0.2); Eosinophils # (manual) 0.21 K/uL (0-0.50); Lymphocytes # (manual) 1.13 K/uL (1.2-3.4); Monocytes # (manual) 0.52 K/uL (0.11-0.59); Neutrophils # (manual) 3.19 K/uL (1.40-6.50); Neutrophils % (manual) 62 %; Reactive Lymphocytes # (manual) 0.05 K/uL
--- NOTE | 2023-08-23 08:26 | Electrocardiogram Report ---
Test Reason : Blood Pressure : / mmHG Vent. Rate : 064 BPM Atrial Rate : 064 BPM P-R Int : 186 ms QRS Dur : 154 ms QT Int : 534 ms P-R-T Axes : 000 245 044 degrees QTc Int : 550 ms AV dual-paced rhythm with frequent ventricular-paced complexes Biventricular pacemaker detected Abnormal ECG When compared with ECG of 21-AUG-2023 14:46, Vent. rate has increased BY 2 BPM Confirmed by Don Reyes ([id number]) on 08/23/2023 8:26:08 AM Referred By: REFERRED SELF Confirmed By:Don Reyes
[2023-08-23] MEDS: ASPIRIN 81 MG ECTAB PO SCH (09:11)
--- NOTE | 2023-08-23 14:20 | Pharmacy Report ---
Pharmacy Glycemic Short Note 2 - Date of Service August 23, 2023 - Glycemic Short BSG Results (Last 24 hours): 08/22/23 08/22/23 08/23/23 16:12 20:23 06:05 Glucose 94 POC Glucose 97 124 H 08/23/23 08/23/23 07:44 11:45 Glucose POC Glucose 121 H 119 H OUTPATIENT ANTIDIABETIC REGIMEN: * Lantus 20 units SC BID * Jardiance 10 mg PO AM * HbA1c pending ASSESSMENT: 08/22: * BSGs 524-25-82-124 mg/dL yesterday with 0 units of novolog * Fasting this morning 121 mg/dL with 10 units of lantus last PM, patient refused AM lantus * Continue current Novolog parameters, schedule lantus with PM only 08/21: * BSGs have been well controlled 354-745-882-99 mg/dL * Patient received 30 units of basal yesterday, fasting 102 mg/dL- aimed to split dose BID but patient refused dose this morning * Has refused novolog with meals, has jardiance ordered, will remove carb ratio for now and monitor * 08/20 * 82 yo M admitted on 08/21/23 secondary to cellulitis. Pharmacy has been consulted to assist with inpatient glycemic management. Patient is a Type 2 diabetic as an outpatient. Please refer to outpatient regimen and most recent HbA1c above. * BSG at dinner was 106 mg/dL. Started patient on Novolog based on weight/stress of 1-2 and previous admission data. Did take 20 units of insulin this AM as well as Jardiance. Jardiance is ordered inpatient as well. * Currently on Dapto and Cefepime. Ordered and tolerating T2DM diet. * Conservative with basal dosing given previous admission data as well as A1c from March 2023. May need to back off even further. PLAN FOR INPATIENT GLYCEMIC CONTROL: * Jardiance 10 mg PO AM * Basal insulin * Lantus 0-15 units SC HS (see EMR for more details) * Bolus insulin * NovoLog per scale ACHS or Q6hrs while NPO * Goal Range: Low 110 mg/dL - High 140 mg/dL * Correction Factor: 30 mg/dL/unit * Nutritional / Prandial insulin per carb ratio of 1 unit per -- grams CHO consumed
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
[2023-08-23] MEDS ORDERED: LANTUS PER UNIT CHARGE SQ SCH (21:00)
== END 2023-08-23 17:21 | disposition home or self-care (01) | DRG 603 ==
LOC: ED 11:09 → SUATTDRO 17:31 → EDINP 17:31 → 3E 22:19

== ENCOUNTER 2024-04-20 11:59 | Inpatient (IN) ==
[2024-04-20 12:34] LABS: Appearance Urine Clear (Clear); Bilirubin Urine Negative (Negative); Blood Urine Negative (Negative); Color Urine Yellow; Glucose Urine UA 3+ (Negative); Ketones Urine Negative (Negative); Leukocyte Esterase Urine Negative (Negative); Nitrite Urine Negative (Negative); Protein Urine Negative (Negative); Specific Gravity Urine 1.015 (1.000-1.030); Urobilinogen Urine Negative (Negative)
--- NOTE | 2024-04-20 13:32 | XRay Report ---
XR hip RT 2V w pelvis CLINICAL HISTORY: fall/hip pain COMPARISON: None FINDINGS: There is an acute fracture at the right femoral neck with proximal migration of the distal fragment. No other fracture or dislocation seen. IMPRESSION: Acute mildly displaced fracture right femoral neck. ACT 112: Negative or not required by law. Electronically signed by: Papi Gunn M.D. 04/20/2024 1:31 PM
--- NOTE | 2024-04-20 13:33 | XRay Report ---
XR chest 1V not portable CLINICAL HISTORY: PRE OP COMPARISON STUDY: 04/08/2022 FINDINGS: Stable pacemaker. Stable cardiomegaly without pulmonary vascular congestion. No effusion, c onsolidation, or pneumothorax. IMPRESSION: No acute findings. ACT 112: Negative or not required by law. Electronically signed by: Papi Gunn M.D. 04/20/2024 1:32 PM
--- NOTE | 2024-04-20 13:41 | History & Physical Report ---
Date of Service April 20, 2024 Assessment & Plan (1) Right femoral fracture: (2) PAF (paroxysmal atrial fibrillation): (3) DM type 2 (diabetes mellitus, type 2): (4) HFrEF (heart failure with reduced ejection fraction): Betsy Peace is a pleasant 83-year-old male with PMH of HFrEF, CAD, biventricular ICD, PAF, T2DM, vertigo, and HTN. He presented on 04/20 after sustaining a ground- level fall onto his right hip at approximately 11:15 AM. No head strike. Patient reports that he has had "equilibrium" issues for an ongoing period of time, which may have caused him to fall. While he does endorse some dizziness prior to falling, he denies LOC. Not on blood thinners. #Right femoral neck fracture Hip and pelvic x-ray on arrival revealed an acute fracture at the right femoral neck with proximal migration Activity: Bedrest Revised cardiac risk index: 2 (H/o heart failure and insulin use) Orthopedic consult appreciated Will plan for OR on 04/21 N.p.o. at midnight IV pain control with acetaminophen and morphine as needed IV antiemetics as needed #T2DM Last A1c at 5.8% on 08/22/2023 Patient reports that he takes Lantus 20u as needed if elevated BSG Will place patient on Lantus 8u BID while inpatient SSI with target BSG range 110-140mg/dL, CF 40, carb ratio 13 T2DM diet BSG ACHS Adjust regimen as needed AM A1c #H/o PAF/V. tach Patient denies history of atrial fibrillation, may has reference to PAF and prior cardiology notes S/p pacemaker EKG ordered, pending Not currently on blood thinners; ?Due to h/o life-threatening GI bleed in 2006 Continue amiodarone #HFrEF Last echocardiogram on 04/26/2022 revealed LVEF at 25-30% Daily weights Strict I&O monitoring Continue Entresto, Jardiance, Lasix #CAD Continue aspirin 3xwk for history of heart stent Disposition: Admit to [facility] telemetry Full code T2DM diet; n.p.o. at midnight VTE PPx: SCDs; hold chemical DVT PPx in the setting of acute hip fracture History of Present Illness Chief Complaint: Right hip pain Primary Care Provider: Rupesh Villanueva DO Kobi is a pleasant 83-year-old male with PMH of HFrEF, CAD, biventricular ICD, PAF, T2DM, vertigo, and HTN. He presented on 04/20 after sustaining a ground- level fall onto his right hip at approximately 11:15 AM. No head strike. Patient reports that he has had equilibrium issues for an ongoing period of time, which may have caused him to fall. While he does endorse some dizziness prior to falling, he denies LOC. Not on blood thinners. He denies prior history of atrial fibrillation, but does report he takes baby aspirin daily for his history of CAD, heart stent, and pacemaker. He denies prior history of GA or stroke. He does take insulin daily for his T2DM; all short acting, he does not use Lantus. Patient does have a history of recurrent falls, but reports the last 1 was around 2 years ago. He ambulates with a walker and cane at baseline, and reports he was using his cane when he fell today. History of injuries to the right leg include tearing his ACL/MCL while slipping on ice. Patient did take his regular morning medicine today; no recent change in medications. He does endorse 6/10 right hip pain after receiving pain medicine the ED. Did not take pain medicine prior to coming into the ED. He was unable to bear weight on his right leg after the fall. No numbness or tingling in the right leg, but he does report that the pain does radiate up to his lower back. Patient denies smoking, tobacco use, or recent alcohol use. No CPAP at night. He reports that he has not had significant changes in weight recently, and we does watch his alie t intake. Patient's vitals are stable at time of admission. ED course: Morphine sulfate 4 mg IV Zofran 4 mg IV ROS: Patient endorses right hip pain. Patient denies fever, night sweats, chest pain, chest palpitations, SOB at rest, ZEPEDA, pleuritic CP, cough, abdominal pain, N/V/D, changes in urinary bowel habits, or numbness or tingling in the right leg. Allergies Allergy/AdvReac Type Severity Reaction Status Date / Time rosuvastatin AdvReac Intermediate MADE ME Verified 04/20/24 14:56 MEAN Home Medications Medication Instructions Recorded Confirmed Type OneTouch UltraSoft Lancets #100 ea 04/07/19 11/29/23 Rx (lancets) blood-glucose meter (OneTouch #1 ea 09/16/20 11/29/23 Rx Ultra2 Meter) blood sugar diagnostic #300 ea 02/14/22 11/29/23 Rx pen needle, diabetic 33 gauge x #200 ea 04/09/22 11/29/23 Rx 1/4" (Easy Comfort Pen [place]) sacubitril 49 mg-valsartan 51 mg 1 tab PO BID #180 tabs 04/03/23 04/20/24 Rx tablet (Entresto) aspirin 81 mg tablet,delayed 81 mg PO 3XWK 08/21/23 04/20/24 History release blood-glucose meter (OneTouch #1 ea 08/26/23 11/29/23 Rx Ultra2 Meter) carvedilol 25 mg tablet 37.5 mg (1.5 x 25 mg) PO BID #270 12/31/23 04/20/24 Rx tabs potassium chloride 10 mEq 10 meq PO QAM #90 caps 12/31/23 04/20/24 Rx capsule,extended release amiodarone 200 mg tablet 200 mg PO BID #180 tabs 01/02/24 04/20/24 Rx empagliflozin 10 mg tablet 10 mg PO QAM #90 tabs 03/17/24 04/20/24 Rx (Jardiance) insulin glargine U-300 conc 300 15 unit subcut UD 04/20/24 04/20/24 History unit/mL (1.5 mL) subcutaneous pen (Toujeo SoloStar U-300 Insulin) rosuvastatin 40 mg tablet 40 mg PO Q OTHER DAY 04/20/24 04/20/24 History Past Med/Surg History Problem List (Updated 04/20/24 @ 15:03 by Marcelo Pizano PA-C) DM type 2 (diabetes mellitus, type 2) IDDM Right femoral fracture ICD (implantable cardioverter-defibrillator) battery depletion Skin tear of right elbow without complication Urinary incontinence Diabetic neuropathy Sacral pressure ulcer Skin ulcer of third toe of right foot Fracture of first metacarpal bone of right hand (Acute) Skin lesion of left ear Ventricular tachycardia Hypersomnia Fatigue Dyspnea on exertion HFrEF (heart failure with reduced ejection fraction) Congestive heart failure (Acute) Esophageal dysphagia CAD (coronary artery disease) 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) PAF (paroxysmal atrial fibrillation) Hypertension Hypercholesterolemia Benign hypertension with CKD (chronic kidney disease) stage III Peripheral neuropathy (Acute) Vertigo GERD (gastroesophageal reflux disease) Abdominal discomfort TMJ click Esophageal dysphagia Controlled type 2 diabetes mellitus with microalbuminuria Acquired deviated nasal septum Chronic rhinitis Silent aspiration Medical History Neuropathy Trouble swallowing pt reports had endoscopy less than a year ago and told nothing was wrong Presence of combination internal cardiac defibrillator (ICD) and pacemaker biventricular pacer/ICD, February 2016; [employer]; last checked 2 days ago Arthritis Acid reflux hx , not for quite awhile DM type 2 (diabetes mellitus, type 2) IDDM 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 Peres Mitral regurgitation pt not sure LBBB (left bundle branch block) pt not sure Ischemic cardiomyopathy pt not sure Surgical History History of esophagogastroduodenoscopy (EGD) History of endoscopy History of biopsy History of cataract surgery History of cardiac catheterization History of hernia repair History of knee surgery S/P laparoscopic cholecystectomy Family History Father Heart disease Mother Diabetes Brother Arthritis Son Asthma Other No family history of adverse response to anesthesia No family history of bleeding disorder No pertinent family history Denies family history of Prostate cancer Breast cancer Colorectal cancer Cancer Stroke Social History Smoking Status: Never smoker Second Hand Exposure: No; Do You Dip or Chew Tobacco: No; Hx Alcohol Use: No Hx Substance Use: No Preferred Language: Luxembourgish Communication Ability: Effective Visual Impairment: No Limitations Hearing Ability: Normal 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 Beliefs That Will Affect Care: None marital status: Current Living Situation: Spouse current occupational status: employed current occupation: [employer] Feels Safe at Home: Yes Diet: regular caffeine: Yes Dental Care, Regularly: No Seatbelt Use: always Assistive Devices: Cane and Walker Review of Systems 2 Review of Systems: See HPI above Physical Exam Physical Exam: General: no acute distress; pleasant affect; daughter and at bedside; non- toxic appearing; cooperative; SpO2 94% on RA HEENT: normocephalic, atraumatic; no scleral icterus; PERRLA; vision and hearing grossly intact Neck: supple; no lymphadenopathy; trachea midline Skin: Facial discoloration; warm, dry without signs of tenting; no cyanosis; no rashes, bruising, lesions, or erythema noted CV: chest wall NTP; RRR; S1/S2 normal; no murmurs/rubs/gallops; pulses intact and symmetric at radial, DP, and PT Lungs: no acute respiratory distress; symmetrical chest wall expansion; clear breath sounds across all lung [place] w/o adventitious sounds; no wheezing ABD: Soft, NTP; BS present; no rebound/guarding; no distention MSK: no tics or fasciculations; +2 pitting edema noted in the LEs b/l, no nerythematous; patient demonstrates ability wiggle toes/plantarflex/dorsiflex bilaterally RLE: Patient's right leg is externally rotated and shortened; he does endorse mild TTP on the right hip and thigh; no signs of bruising or active bleeding on clinical exam LLE: Superficial skin tear noted on the medial aspect of the LLE Neuro: A&Ox3; normal mood and affect; fluent speech; no focal deficits; patient reports that sensation is increased in his right lower extremity when compared to the left; neurovascular intact assessed at PT and DP pulses Results & Data Results & Data Vital Signs (Past 12 Hours) Vital Signs Temp Pulse Resp BP Pulse Ox O2 Del Method 04/20/24 12:20 36 C L 72 18 104/67 94 Room Air Laboratory Results Abnormal lab results 04/20/24 Range/Units Unknown Urine Glucose (UA) 3+ H (Negative) Diagnostic Findings Hip/Pelvis X-Ray 04/20/24 12:23 XR hip RT 2V w pelvis CLINICAL HISTORY: fall/hip pain COMPARISON: None FINDINGS: There is an acute fracture at the right femoral neck with proximal migration of the distal fragment. No other fracture or dislocation seen. IMPRESSION: Acute mildly displaced fracture right femoral neck. ACT 112: Negative or not required by law. Electronically signed by: Papi Gunn M.D. 04/20/2024 1:31 PM Chest X-Ray 04/20/24 13:18 XR chest 1V not portable CLINICAL HISTORY: PRE OP COMPARISON STUDY: 04/08/2022 FINDINGS: Stable pacemaker. Stable cardiomegaly without pulmonary vascular congestion. No effusion, consolidation, or pneumothorax. IMPRESSION: No acute findings. ACT 112: Negative or not required by law. Electronically signed by: Papi Gunn M.D. 04/20/2024 1:32 PM ECG Additional Comments: ECG ordered, pending Code Status & VTE Plan Code Status Full code VTE Prophylaxis Plan VTE Prophylaxis will be ordered: Yes Supervising Physician Co-Signing Physician Notes I have personally seen, evaluated and examined the patient. I have also personally discussed the management of the patient with the resident physician/ALL and I agree with the exam findings documented in the history and physical examination and the documented assessment and plan unless otherwise stated below. Brief Exam: In general this is an 83-year-old male is alert oriented x 3, exam is accompanied by his and his daughter at time my examination. His only complaint is his right hip pain. HEENT: Normocephalic atraumatic. Heart: Regular rate and rhythm. No kat murmur Lungs: Diminished but clear anteriorly laterally. Abdomen: Obese soft nontender no appreciable organomegaly but exam is somewhat limited due to body habitus. Extremities: Intact. Right lower extremity is externally rotated and shortened. Neurovascularly the extremities are intact. Neurologically: Alert and oriented with no focal deficit. Assessment/plan: As discussed above. N.p.o. after midnight. We are awaiting preoperative labs as well as EKG. Unless there be something alarming in the studies, there will be no reason why the patient should not proceed to surgery tomorrow for ORIF of his right hip. With his age and chronic medical conditions he would be moderate risk. PG Care Time/CCT Total # of Minutes Spent Total Time Spent with Patient: Total time spent is greater than 50% in coordination of care (as documented) at patient's floor/unit and/or counseling patient: Coding [place] [address] INT INP/OBS CARE 3/75MIN Patient Type Established Medical Decision Making High Complexity Diagnoses Right femoral fracture S72.91XA PAF (paroxysmal atrial fibrillation) I48.0 DM type 2 (diabetes mellitus, type 2) E11.9 HFrEF (heart failure with reduced ejection fraction) I50.20
--- NOTE | 2024-04-20 13:42 | Emergency Department Note ---
Impression & Plan Fracture of right hip, Fall ED Provider Note NAME: PAULA CHAMBERS Jr AGE: 83 SEX: M : 1940 ARRIVES VIA: Walk-In INFORMANT: [Patient] ED PROVIDER(S): [Taj Ramos MD] CHIEF COMPLAINT: Fall, right hip pain HISTORY OF PRESENT ILLNESS: The patient is an 83-year-old male states that about 1.5 hours ago, he lost his footing and fell onto his right hip. He had immediate pain in the right hip. He has not been able to ambulate since. Any movement of the right leg causes right hip pain. He did not hit his head or lose consciousness. He has no neck pain, back pain, chest pain, upper extremity pain or abdominal pain. No increased numbness or tingling in the right lower extremity. The patient is not on strong blood thinning agents. PMHx/PSHx/Social Hx: See Below PHYSICAL EXAM: GENERAL: Patient is in no acute distress. HEENT: No acute trauma, normocephalic atraumatic, mucous membranes moist, no nasal congestion. NECK: No stridor, no adenopathy, nontender cervical spine, trachea is midline. LUNGS: Clear to auscultation bilaterally when listening anterior, no wheeze, no rhonchi, breath sounds equal. HEART: Without murmurs gallops or rubs, regular rate and rhythm. ABDOMEN: Soft, nontender, no peritonitis. EXTREMITIES: No cyanosis. He does have bilateral pedal edema. The right lower extremity is externally rotated and somewhat shortened. There is pain to palpate the right hip and to move the right hip joint. NEUROLOGIC: Oriented x 3, no acute motor or sensory deficits, no focal weakness. SKIN: No jaundice, no diaphoresis. DIFFERENTIAL DIAGNOSIS: Hip fracture, contusion, sprain, strain, dislocation, among others. EMERGENCY DEPARTMENT PROCEDURES: MEDICAL DECISION MAKING: There is no leukocytosis or concerning anemia. There is no coagulopathy. No renal failure or significant electrolyte abnormality. There were a few subtle liver enzyme elevations although, the bilirubin was normal. Urinalysis did not show infection. Chest x-ray showed some chronic change, no pneumonia. Pelvis and right hip films were performed, there was a right hip fracture, no pelvic fracture. The patient presents with right hip pain after falling. He does have a right hip fracture. He will require a hospital stay. The patient received IV morphine for pain, IV Zofran for nausea. I did speak with orthopedics. I spoke with case management and the on-call hospitalist. Fortunately, the patient only appears to have injured the right hip with his fall. Prior/Outside records/notes reviewed: None Imaging/x-ray results per my interpretation: Chest x-ray shows some chronic change, there is no pneumonia or CHF. Right hip and pelvis films shows a right hip fracture. Chronic Medical/Social conditions affecting care: Advanced age. Care/Management discussed with: Orthopedics-Dr. Pelletier. Case management, the on-call hospitalist. Level of care consideration(s): After review of the information above and other included data: --I believe the patient requires escalation of care to admission DISPOSITION: Admission Past Med/Surg History Problem List (Updated 04/20/24 @ 18:15 by Taj Ramos MD) Fall (Acute) Fracture of right hip (Acute) Obesity (BMI 30.0-34.9) Displaced fracture of right femoral neck DM type 2 (diabetes mellitus, type 2) IDDM Right femoral fracture ICD (implantable cardioverter-defibrillator) battery depletion Skin tear of right elbow without complication Urinary incontinence Diabetic neuropathy Sacral pressure ulcer Skin ulcer of third toe of right foot Fracture of first metacarpal bone of right hand (Acute) Skin lesion of left ear Ventricular tachycardia Hypersomnia Fatigue Dyspnea on exertion HFrEF (heart failure with reduced ejection fraction) Congestive heart failure (Acute) Esophageal dysphagia CAD (coronary artery disease) 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) PAF (paroxysmal atrial fibrillation) Hypertension Hypercholesterolemia Benign hypertension with CKD (chronic kidney disease) stage III Peripheral neuropathy (Acute) Vertigo GERD (gastroesophageal reflux disease) Abdominal discomfort TMJ click Esophageal dysphagia Controlled type 2 diabetes mellitus with microalbuminuria Acquired deviated nasal septum Chronic rhinitis Silent aspiration Medical History Neuropathy Trouble swallowing pt reports had endoscopy less than a year ago and told nothing was wrong Presence of combination internal cardiac defibrillator (ICD) and pacemaker biventricular pacer/ICD, February 2016; [employer]; last checked 2 days ago Arthritis Acid reflux hx , not for quite awhile 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 Peres Mitral regurgitation pt not sure LBBB (left bundle branch block) pt not sure Ischemic cardiomyopathy pt not sure Surgical History History of esophagogastroduodenoscopy (EGD) History of endoscopy History of biopsy History of cataract surgery History of cardiac catheterization History of hernia repair History of knee surgery S/P laparoscopic cholecystectomy Family History Father Heart disease Mother Diabetes Brother Arthritis Son Asthma Other No family history of adverse response to anesthesia No family history of bleeding disorder No pertinent family history Denies family history of Prostate cancer Breast cancer Colorectal cancer Cancer Stroke Social History Smoking Status: Never smoker Second Hand Exposure: No; Do You Dip or Chew Tobacco: No; Hx Alcohol Use: No Hx Substance Use: No Preferred Language: Palauan Communication Ability: Effective Visual Impairment: No Limitations Hearing Ability: Normal 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 Beliefs That Will Affect Care: None marital status: Current Living Situation: Spouse current occupational status: employed current occupation: [employer] Feels Safe at Home: Yes Diet: regular caffeine: Yes Dental Care, Regularly: No Seatbelt Use: always Assistive Devices: Cane and Walker Allergies Allergies Allergy/AdvReac Type Severity Reaction Status Date / Time rosuvastatin AdvReac Intermediate MADE ME Verified 04/20/24 14:56 MEAN Home Meds Home Medications Medication Instructions Recorded Confirmed aspirin 81 mg tablet,delayed 81 mg PO 3XWK 08/21/23 04/20/24 release insulin glargine U-300 conc 300 15 unit subcut UD 04/20/24 04/20/24 unit/mL (1.5 mL) subcutaneous pen (Toujeo SoloStar U-300 Insulin) rosuvastatin 40 mg tablet 40 mg PO Q OTHER DAY 04/20/24 04/20/24 Previous Rx's Medication Instructions Recorded OneTouch UltraSoft Lancets #100 ea 04/07/19 (lancets) blood-glucose meter (OneTouch #1 ea 09/16/20 Ultra2 Meter) blood sugar diagnostic #300 ea 02/14/22 pen needle, diabetic 33 gauge x #200 ea 04/09/22/" (Easy Comfort Pen [place]) sacubitril 49 mg-valsartan 51 mg 1 tab PO BID #180 tabs 04/03/23 tablet (Entresto) blood-glucose meter (OneTouch #1 ea 08/26/23 Ultra2 Meter) carvedilol 25 mg tablet 37.5 mg (1.5 x 25 mg) PO BID #270 12/31/23 tabs potassium chloride 10 mEq 10 meq PO QAM #90 caps 12/31/23 capsule,extended release amiodarone 200 mg tablet 200 mg PO BID #180 tabs 01/02/24 empagliflozin 10 mg tablet 10 mg PO QAM #90 tabs 03/17/24 (Jardiance) Results & Data (ED) Vital Signs Vital Signs - 24 hr 04/20/24 12:20 Temperature 36 C L Temperature Source Temporal Artery Scan Pulse Rate 72 Pulse Rhythm Regular Pulse Strength Normal Respiratory Rate 18 Respiratory Depth Normal Blood Pressure 104/67 Blood Pressure Mean 79 Blood Pressure Position Sitting Pulse Oximetry 94 Oxygen Delivery Method Room Air Sepsis Recent Fever Within 48 Hours No Sepsis New/Unexplained Change in Mental Status N/A Sepsis Action Taken by Nursing No Action Required Home Medications Current Medication List: was personally reviewed by me Laboratory Data Attestation: I reviewed the patient's lab results. 04/20/24 14:20 04/20/24 14:19 Lab Results 04/20/24 04/20/24 Range/Units 14:19 14:20 WBC 9.57 (4.8-10.8) K/ul RBC 4.69 L (4.70-6.10) M/uL Hgb 14.2 (14.0-18.0) g/dl Hct 44.3 (42.0-52.0) % MCV 94.5 (80.0-100.0) fL MCH 30.3 (25.0-34.0) pg MCHC 32.1 (32.0-36.0) g/dL RDW Std Deviation 53.6 H (36.4-46.3) fL RDW Coeff of Pastor 15.6 H (11.5-14.5) % Plt Count 161 (130-400) K/uL MPV 11.2 (9.4-12.4) fL PT 10.9 (9.0-12.0) Seconds INR 1.0 (0.9-1.1) APTT 27 (21-31) Seconds PTT Ratio 1.0 Sodium 137 (136-145) mmol/L Potassium 4.5 (3.5-5.1) mmol/L Chloride 102 (98-107) mmol/L Carbon Dioxide 32 (21-32) mmol/L Anion Gap 3 (3-11) BUN 27 H (6-23) mg/dl Creatinine 1.21 (0.6-1.4) mg/dl Est Cr Clr Drug Dosing 69.0 ml/min eGFR 59.78 BUN/Creatinine Ratio 22.3 H (10-20) Glucose 178 H (70-99(Fasting)) mg/dl Calcium 9.0 (8.6-10.3) mg/dl Magnesium 2.2 (1.7-2.4) mg/dl Total Bilirubin 0.8 (0.2-1.0) mg/dl AST 42 H (13-39) U/L ALT 34 (7-52) U/L Alkaline Phosphatase 110 H (34-104) U/L Total Protein 6.9 (6.0-8.3) gm/dl Albumin 3.7 (3.4-5.0) gm/dl Globulin 3.2 (2.5-4.0) gm/dl Albumin/Globulin Ratio 1.2 (0.9-2) Blood Type A Positive Antibody Screen NEGATIVE Administered Medications Insulin Aspart (Insulin Aspart Per Unit Charge) 0 units SC ACHS CORDELIA Stop: 05/20/24 16:29 Last Admin: 04/20/24 17:14 Dose: Not Given Documented By: SRL Discontinued Medications Hydromorphone HCl (Hydromorphone Inj 0.5 Mg/0.5 Ml Syr) 0.5 mg IV NOW STA Stop: 04/20/24 16:42 Last Admin: 04/20/24 17:10 Dose: 0.5 mg Documented By: TARA Morphine Sulfate (Morphine Sulfate 4 Mg/Ml 1 Ml Carp\\Vial) 4 mg IV NOW STA Stop: 04/20/24 13:36 Last Admin: 04/20/24 14:33 Dose: 4 mg Documented By: REID Ondansetron HCl (Ondansetron Inj 2 Mg/Ml 2 Ml Vial) 4 mg IV NOW STA Stop: 04/20/24 13:36 Last Admin: 04/20/24 14:33 Dose: 4 mg Documented By: REID Imaging Data Radiologist's Impression: Hip/Pelvis X-Ray 04/20/24 12:23 XR hip RT 2V w pelvis CLINICAL HISTORY: fall/hip pain COMPARISON: None FINDINGS: There is an acute fracture at the right femoral neck with proximal migration of the distal fragment. No other fracture or dislocation seen. IMPRESSION: Acute mildly displaced fracture right femoral neck. ACT 112: Negative or not required by law. Electronically signed by: Papi Gunn M.D. 04/20/2024 1:31 PM Chest X-Ray 04/20/24 13:18 XR chest 1V not portable CLINICAL HISTORY: PRE OP COMPARISON STUDY: 04/08/2022 FINDINGS: Stable pacemaker. Stable cardiomegaly without pulmonary vascular congestion. No effusion, consolidation, or pneumothorax. IMPRESSION: No acute findings. ACT 112: Negative or not required by law. Electronically signed by: Papi Gunn M.D. 04/20/2024 1:32 PM Discharge Plan Visit Data Chief Complaint: Hip Pain Stated Complaint: RT HIP PAIN, CAN'T MOVE LEG ED Provider: Taj Ramos Discharge Problem: Fracture of right hip, Fall Patient Disposition: Admitted As Inpatient Condition: Good Discharge Instructions Interventions: ED Discharge Assessment Last Done: 04/20/24 16:00 Discharge Problem: Fracture of right hip Qualifiers: Encounter type: initial encounter Fracture type: closed Qualified Code(s): S 72.001A - Fracture of unspecified part of neck of right femur, initial encounter for closed fracture Fall Qualifiers: Encounter type: initial encounter Qualified Code(s): W19.XXXA - Unspecified fall, initial encounter
[2024-04-20] MEDS: MoRPHine SULFATE 4 MG/ML 1 ML CARP\\VIAL IV STA (14:33)
[2024-04-20] MEDS: ONDANSETRON INJ 2 MG/ML 2 ML VIAL IV STA (14:33)
[2024-04-20 14:52] LABS: Albumin Globulin Ratio 1.2 (0.9-2); Albumin Level 3.7 gm/dl (3.4-5.0); BUN Creatinine Ratio 22.3 (10-20); Bilirubin,Total 0.8 mg/dl (0.2-1.0); Globulin 3.2 gm/dl (2.5-4.0); Magnesium 2.2 mg/dl (1.7-2.4); Potassium 4.5 mmol/L (3.5-5.1); Total Protein 6.9 gm/dl (6.0-8.3)
[2024-04-20 15:42] LABS: Partial Thromboplastin Time 27 Seconds (21-31); Prothrombin Time 10.9 Seconds (9.0-12.0)
--- NOTE | 2024-04-20 15:44 | Electrocardiogram Report ---
Test Reason : Blood Pressure : */* mmHG Vent. Rate : 62 BPM Atrial Rate : 75 BPM P-R Int : 146 ms QRS Dur : 186 ms QT Int : 566 ms P-R-T Axes : 151 243 60 degrees QTcB Int : 574 ms AV dual-paced rhythm with occasional ventricular-paced complexes Biventricular pacemaker detected Abnormal ECG When compared with ECG of 07-Feb-2024 10:13, Vent. rate has increased by 2 bpm Confirmed by Phillip Peres ([id number]) on 04/20/2024 3:44:24 PM Referred By: REFERRED SELF Confirmed By: Phillip Peres
[2024-04-20] MEDS ORDERED: ONDANSETRON INJ 2 MG/ML 2 ML VIAL IV PRN (16:00)
[2024-04-20] MEDS ORDERED: CARBOHYDRATES FOR HYPOGLYCEMIA PO PRN (16:00)
[2024-04-20] MEDS ORDERED: MoRPHine SULFATE 2 MG/ML CARP IV PRN (16:00)
[2024-04-20] MEDS ORDERED: GLUCOSE 40% GEL 15 GM TUBE PO PRN (16:00)
[2024-04-20] MEDS ORDERED: MoRPHine SULFATE 4 MG/ML 1 ML CARP\\VIAL IV PRN (16:00)
[2024-04-20] MEDS ORDERED: GLUCOSE 10 TAB/TUBE PO PRN (16:00)
[2024-04-20] MEDS ORDERED: DEXTROSE 50% 50 ML SYRINGE IV PRN (16:00)
[2024-04-20] MEDS ORDERED: GLUCAGON FOR INJ 1 MG VIAL SQ PRN (16:00)
[2024-04-20 16:48] LABS: Hematocrit (blood only) 44.3 % (42.0-52.0); Hemoglobin 14.2 g/dl (14.0-18.0); Mean Corpuscular Hemoglobin 30.3 pg (25.0-34.0); Mean Corpuscular Hgb Conc 32.1 g/dL (32.0-36.0); Mean Corpuscular Volume 94.5 fL (80.0-100.0); Mean Platelet Volume 11.2 fL (9.4-12.4); Platelet Count 161 K/uL (130-400); RDW Coefficient of Variation 15.6 % (11.5-14.5); RDW Standard Deviation 53.6 fL (36.4-46.3); Red Blood Count 4.69 M/uL (4.70-6.10); White Blood Count 9.57 K/ul (4.8-10.8)
[2024-04-20] MEDS: HYDROmorphone INJ 0.5 MG/0.5 ML SYR IV STA (17:10)
[2024-04-20] MEDS: INSULIN ASPART PER UNIT CHARGE SC SCH (17:14)
--- NOTE | 2024-04-20 17:23 | Orthopedic Consultation ---
Date of Consultation April 20, 2024 Assessment & Plan (1) Displaced fracture of right femoral neck: Discussed the diagnosis with the patient and his . Treatment options were discussed. Nonsurgical treatment would be bed rest and likely inability to walk. Surgical treatment would be a cemented hemiarthroplasty. He is at increased risk of surgical complications secondary to his age, altered gait, body mass index of 35, diabetes, coronary artery disease, and peripheral lymphedema. I reviewed the risks and benefits of the surgery, expected outcomes, and postoperative restrictions. After reviewing all of his options he elected to proceed with surgery. All questions were answered. Informed consent was signed. Patient will be admitted to the hospitalist service. He can eat today but should be n.p.o. after midnight tonight. Plan on doing a surgery tomorrow afternoon. Will need medical clearance. (2) DM type 2 (diabetes mellitus, type 2): (3) Obesity (BMI 30.0-34.9): History of Present Illness Attending Physician: Alcides Espitia, PhD, DO History of Present Illness Kobi is a pleasant 83-year-old male with PMH of HFrEF, CAD, biventricular ICD, PAF, T2DM, vertigo, and HTN. He presented on 04/20 after sustaining a ground- level fall onto his right hip at approximately 11:15 AM. No head strike. Patient reports that he has had equilibrium issues for an ongoing period of time, which may have caused him to fall. While he does endorse some dizziness prior to falling, he denies LOC. Not on blood thinners. He denies prior history of atrial fibrillation, but does report he takes baby aspirin daily for his history of CAD, heart stent, and pacemaker. He denies prior history of CT or stroke. He does take insulin daily for his T2DM; all short acting, he does not use Lantus. Patient does have a history of recurrent falls, but reports the last 1 was around 2 years ago. He ambulates with a walker and cane at baseline, and reports he was using his cane when he fell today. History of injuries to the right leg include tearing his ACL/MCL while slipping on ice. Patient did take his regular morning medicine today; no recent change in medications. He does endorse 6/10 right hip pain after receiving pain medicine the ED. Did not take pain medicine prior to coming into the ED. He was unable to bear weight on his right leg after the fall. No numbness or tingling in the right leg, but he does report that the pain does radiate up to his lower back. Patient denies smoking, tobacco use, or recent alcohol use. No CPAP at night. He reports that he has not had significant changes in weight recently, and we does watch his salt intake. Patient's vitals are stable at time of admission. X-rays were obtained in the emergency room demonstrating a displaced right femoral neck fracture. Orthopedics was consulted for evaluation and management of the femoral neck fracture. Patient was seen and examined the emergency room. He reports he was walking out to his greenhouse when this happened. He has a history of low back pain. He and his report that he walks hunched over because of his low back. He also has a history of bilateral quadriceps tendon ruptures that were surgically repaired several years ago. Denies any numbness or tingling down his leg. Denies any problems with his hip prior to this fall. Allergies Allergy/AdvReac Type Severity Reaction Status Date / Time rosuvastatin AdvReac Intermediate MADE ME Verified 04/20/24 14:56 MEAN Home Medications Medication Instructions Recorded Confirmed Type OneTouch UltraSoft Lancets #100 ea 04/07/19 11/29/23 Rx (lancets) blood-glucose meter (OneTouch #1 ea 09/16/20 11/29/23 Rx Ultra2 Meter) blood sugar diagnostic #300 ea 02/14/22 11/29/23 Rx pen needle, diabetic 33 gauge x #200 ea 04/09/22 11/29/23 Rx 1/4" (Easy Comfort Pen [place]) sacubitril 49 mg-valsartan 51 mg 1 tab PO BID #180 tabs 04/03/23 04/20/24 Rx tablet (Entresto) aspirin 81 mg tablet,delayed 81 mg PO 3XWK 08/21/23 04/20/24 History release blood-glucose meter (OneTouch #1 ea 08/26/23 11/29/23 Rx Ultra2 Meter) carvedilol 25 mg tablet 37.5 mg (1.5 x 25 mg) PO BID #270 12/31/23 04/20/24 Rx tabs potassium chloride 10 mEq 10 meq PO QAM #90 caps 12/31/23 04/20/24 Rx capsule,extended release amiodarone 200 mg tablet 200 mg PO BID #180 tabs 01/02/24 04/20/24 Rx empagliflozin 10 mg tablet 10 mg PO QAM #90 tabs 03/17/24 04/20/24 Rx (Jardiance) insulin glargine U-300 conc 300 15 unit subcut UD 04/20/24 04/20/24 History unit/mL (1.5 mL) subcutaneous pen ([employer] SoloStar U-300 Insulin) rosuvastatin 40 mg tablet 40 mg PO Q OTHER DAY 04/20/24 04/20/24 History Patient History Medical History Neuropathy Trouble swallowing pt reports had endoscopy less than a year ago and told nothing was wrong Presence of combination internal cardiac defibrillator (ICD) and pacemaker biventricular pacer/ICD, February 2016; [employer]; last checked 2 days ago Arthritis Acid reflux hx , not for quite awhile DM type 2 (diabetes mellitus, type 2) IDDM 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 Peres Mitral regurgitation pt not sure LBBB (left bundle branch block) pt not sure Ischemic cardiomyopathy pt not sure Surgical History History of esophagogastroduodenoscopy (EGD) History of endoscopy History of biopsy History of cataract surgery History of cardiac catheterization History of hernia repair History of knee surgery S/P laparoscopic cholecystectomy Family History Father Heart disease Mother Diabetes Brother Arthritis Son Asthma Other No family history of adverse response to anesthesia No family history of bleeding disorder No pertinent family history Denies family history of Prostate cancer Breast cancer Colorectal cancer Cancer Stroke Social History Smoking Status: Never smoker Second Hand Exposure: No; Do You Dip or Chew Tobacco: No; Hx Alcohol Use: No Hx Substance Use: No Preferred Language: Kazakh Communication Ability: Effective Visual Impairment: No Limitations Hearing Ability: Normal Local Announcer Required: No Beliefs That Will Affect Care: None marital status: Current Living Situation: Spouse current occupational status: employed current occupation: [employer] Feels Safe at Home: Yes Diet: regular caffeine: Yes Dental Care, Regularly: No Seatbelt Use: always Assistive Devices: Cane and Walker Physical Exam Physical Exam: Pleasant male in no acute distress, alert and oriented x 3. Bilateral lower extremity exam reveals well-healed midline incisions from his prior quadriceps tendon repairs. There is no defect in the tendon. Unable to assess his quadricep strength secondary to his hip fracture. He does have edema in the bilateral lower extremities 2+ pitting. He wears compression stockings. He is able to fire EHL FHL, tib ant and gastrocsoleus. Sensory intact to light touch over the dorsal and plantar aspects of the foot. Skin is intact over the lateral aspect of the right hip. Results & Data Vital Signs (Past 12 Hours) Vital Signs Temp Pulse Pulse Resp BP BP Pulse Ox 04/20/24 14:38 64 12 99/56 L 92 04/20/24 12:20 36 C L 72 18 104/67 94 O2 Del Method 04/20/24 14:38 Room Air 04/20/24 12:20 Room Air Diagnostic Findings X-rays done in the emergency room demonstrate displaced femoral neck fracture on the right, my independent interpretation. Bone quality is osteopenic.
[2024-04-20] MEDS: VALSARTAN/SACUBITRIL 51/49 MG TAB PO SCH (21:33)
[2024-04-20] MEDS: carvediloL 12.5 MG TAB PO SCH (21:33)
[2024-04-20] MEDS: AMIODARONE 200 MG TAB PO SCH (21:33)
[2024-04-20] MEDS: HYDROmorphone INJ 0.5 MG/0.5 ML SYR IV PRN (21:46)
[2024-04-21] MEDS: HYDROmorphone INJ 1 MG/ML SYRINGE IV PRN (03:02)
[2024-04-21 03:17] LABS: Hematocrit (blood only) 43.9 % (42.0-52.0); Hemoglobin 14.1 g/dl (14.0-18.0); Mean Corpuscular Hemoglobin 30.8 pg (25.0-34.0); Mean Corpuscular Hgb Conc 32.1 g/dL (32.0-36.0); Mean Corpuscular Volume 95.9 fL (80.0-100.0); Mean Platelet Volume 10.4 fL (9.4-12.4); Platelet Count 155 K/uL (130-400); RDW Coefficient of Variation 15.4 % (11.5-14.5); RDW Standard Deviation 54.6 fL (36.4-46.3); Red Blood Count 4.58 M/uL (4.70-6.10); White Blood Count 8.65 K/ul (4.8-10.8)
[2024-04-21 03:48] LABS: Anion Gap 2 (3-11); BUN Creatinine Ratio 19.5 (10-20); Blood Urea Nitrogen 24 mg/dl (6-23); Calcium 8.7 mg/dl (8.6-10.3); Carbon Dioxide 34 mmol/L (21-32); Chloride 101 mmol/L (98-107); Creatinine Clr Calc Pharmacy 67.9 ml/min; Glucose 140 mg/dl (70-99(Fasting)); Sodium 137 mmol/L (136-145)
[2024-04-21 08:45] LABS: Estimated Average Glucose 128 mg/dl; Hemoglobin A1C 6.1 % (4.5-5.6)
--- NOTE | 2024-04-21 09:39 | Orthopedic Progress Note ---
Date of Service April 21, 2024 Assessment & Plan (1) Displaced fracture of right femoral neck: Plan: Coordinated with hospitalist team. Patient is cleared for surgery this afternoon with Dr. Pelletier. He has been NPO since midnight. Remain NPO until after surgery. Hold any aspirin or blood thinners until after surgery. Offered to speak with his family members however he states they were present yesterday and understand the plan. Review Dr. Pelletier's instructions in operative report following surgery. Admission and Anticipated Discharge Date Admission Date: April 20, 2024 Supervising Physician Co-Signing Physician Notes I saw and examined patient in the pre-op area. Agree with above note. Proceed to OR this afternoon for cemented hemiarthroplasty. Subjective Kobi is seen in bed this morning in room C5. He reports his pain in the right hip is moderate. He has not had anything to eat or drink this morning. No new symptoms overnight, feeling fine otherwise. Has baseline decreased sensation in his feet but nothing new. He is prepared for surgery. Physical Exam Constitutional: Resting in hospital bed in no distress. Some discomfort appreciated in the right hip when trying to change positions. Musculoskeletal: Right lower extremity is externally rotated and shortened. Moves all toes. Strength 5/5 with right ankle plantarflexion/dorsiflexion. Skin: [place], warm, dry. Right toes are warm. Neurologic: No sensory deficits in right toes to light touch. Results & Data Vital Signs (Past 12 Hours) Vital Signs Temp Pulse Pulse Resp BP BP Pulse Ox 04/21/24 08:00 61 16 108/54 L 93 04/21/24 07:10 61 04/21/24 07:00 04/21/24 05:55 60 18 109/65 93 04/21/24 02:00 60 16 119/70 93 04/21/24 01:03 04/21/24 01:03 97.9 F 60 18 110/62 94 04/21/24 00:00 60 16 110/62 93 04/20/24 23:51 60 16 110/62 93 04/20/24 23:30 60 Pulse Ox O2 Del Method O2 Del Method O2 Flow Rate O2 Flow Rate 04/21/24 08:00 Nasal Cannula 2 04/21/24 07:10 04/21/24 07:00 96 Nasal Cannula 2 04/21/24 05:55 Nasal Cannula 2 04/21/24 02:00 Nasal Cannula 2 04/21/24 01:03 Nasal Cannula 2 04/21/24 01:03 Nasal Cannula 2 04/21/24 00:00 Nasal Cannula 2 04/20/24 23:51 Nasal Cannula 2 04/20/24 23:30 Laboratory Results 04/21/24 04/21/24 04/21/24 07:51 02:58 00:39 WBC 8.65 RBC 4.58 L Hgb 14.1 Hct 43.9 MCV 95.9 MCH 30.8 MCHC 32.1 RDW Std Deviation 54.6 H RDW Coeff of Pastor 15.4 H Plt Count 155 MPV 10.4 PT INR APTT PTT Ratio Sodium 137 Potassium TNP Chloride 101 Carbon Dioxide 34 H Anion Gap 2 L BUN 24 H Creatinine 1.23 Est Cr Clr Drug Dosing 67.9 eGFR 58.62 BUN/Creatinine Ratio 19.5 Glucose 140 H POC Glucose 120 H 151 H Estimat Average Glucose 128 Hemoglobin A1c 6.1 H Calcium 8.7 Magnesium Total Bilirubin AST ALT Alkaline Phosphatase Total Protein Albumin Globulin Albumin/Globulin Ratio Urine Color Urine Appearance Urine pH Ur Specific [place] Urine Protein Urine Glucose (UA) Urine Ketones Urine Blood Urine Nitrite Urine Bilirubin Urine Urobilinogen Ur Leukocyte Esterase Blood Type Antibody Screen 04/20/24 04/20/24 04/20/24 Unknown 21:37 17:13 WBC RBC Hgb Hct MCV MCH MCHC RDW Std Deviation RDW Coeff of Pastor Plt Count MPV PT INR APTT PTT Ratio Sodium Potassium Chloride Carbon Dioxide Anion Gap BUN Creatinine Est Cr Clr Drug Dosing eGFR BUN/Creatinine Ratio Glucose POC Glucose 126 H 96 Estimat Average Glucose Hemoglobin A1c Calcium Magnesium Total Bilirubin AST ALT Alkaline Phosphatase Total Protein Albumin Globulin Albumin/Globulin Ratio Urine Color Yellow Urine Appearance Clear Urine pH 5.0 Ur Specific [place] 1.015 Urine Protein Negative Urine Glucose (UA) 3+ H Urine Ketones Negative Urine Blood Negative Urine Nitrite Negative Urine Bilirubin Negative Urine Urobilinogen Negative Ur Leukocyte Esterase Negative Blood Type Antibody Screen 04/20/24 04/20/24 14:20 14:19 WBC 9.57 RBC 4.69 L Hgb 14.2 Hct 44.3 MCV 94.5 MCH 30.3 MCHC 32.1 RDW Std Deviation 53.6 H RDW Coeff of Pastor 15.6 H Plt Count 161 MPV 11.2 PT 10.9 INR 1.0 APTT 27 PTT Ratio 1.0 Sodium 137 Potassium 4.5 Chloride 102 Carbon Dioxide 32 Anion Gap 3 BUN 27 H Creatinine 1.21 Est Cr Clr Drug Dosing 69.0 eGFR 59.78 BUN/Creatinine Ratio 22.3 H Glucose 178 H POC Glucose Estimat Average Glucose Hemoglobin A1c Calcium 9.0 Magnesium 2.2 Total Bilirubin 0.8 AST 42 H ALT 34 Alkaline Phosphatase 110 H Total Protein 6.9 Albumin 3.7 Globulin 3.2 Albumin/Globulin Ratio 1.2 Urine Color Urine Appearance Urine pH Ur Specific [place] Urine Protein Urine Glucose (UA) Urine Ketones Urine Blood Urine Nitrite Urine Bilirubin Urine Urobilinogen Ur Leukocyte Esterase Blood Type A Positive Antibody Screen NEGATIVE Diagnostic Findings Hip/Pelvis X-Ray 04/20/24 12:23 XR hip RT 2V w pelvis CLINICAL HISTORY: fall/hip pain COMPARISON: None FINDINGS: There is an acute fracture at the right femoral neck with proximal migration of the distal fragment. No other fracture or dislocation seen. IMPRESSION: Acute mildly displaced fracture right femoral neck. ACT 112: Negative or not required by law. Electronically signed by: Papi Gunn M.D. 04/20/2024 1:31 PM Chest X-Ray 04/20/24 13:18 XR chest 1V not portable CLINICAL HISTORY: PRE OP COMPARISON STUDY: 04/08/2022 FINDINGS: Stable pacemaker. Stable cardiomegaly without pulmonary vascular congestion. No effusion, consolidation, or pneumothorax. IMPRESSION: No acute findings. ACT 112: Negative or not required by law. Electronically signed by: Papi Gunn M.D. 04/20/2024 1:32 PM
[2024-04-21] MEDS: ROSUVASTATIN CALCIUM 20 MG TAB PO SCH (09:58)
[2024-04-21] MEDS: EMPAGLIFLOZIN 10 MG TAB PO SCH (09:58)
[2024-04-21] MEDS: POTASSIUM CHLORIDE 10 MEQ TABCR PO SCH (09:58)
[2024-04-21] MEDS: LANTUS PER UNIT CHARGE SQ SCH (09:59)
--- NOTE | 2024-04-21 13:30 | Anesthesiology Consultation ---
Date of Service April 21, 2024 Assessment & Plan (1) Encounter for pre-operative examination: Chart Review Chart Review: Acceptable Risk for Surgery and Patient NOT seen in Pre Admission Testing Consults Requested none History Surgery Operation Date: 04/21/24 09:20 Proposed Procedures p Right Cemented Hip Hemiarthroplasty - Erick Pelletier MD Height/Weight Height: 6 ft 4 in Weight: 129 kg Allergies Allergy/AdvReac Type Severity Reaction Status Date / Time rosuvastatin AdvReac Intermediate MADE ME Verified 04/20/24 14:56 MEAN Medications Home Medications Medication Instructions Recorded Confirmed Last Taken OneTouch UltraSoft Lancets #100 ea 04/07/19 11/29/23 Unknown (lancets) blood-glucose meter (OneTouch #1 ea 09/16/20 11/29/23 Unknown Ultra2 Meter) blood sugar diagnostic #300 ea 02/14/22 11/29/23 Unknown pen needle, diabetic 33 gauge x #200 ea 04/09/22 11/29/23 Unknown 1/" (Easy Comfort Pen [place]) sacubitril 49 mg-valsartan 51 mg 1 tab PO BID #180 tabs 04/03/23 04/20/24 04/20/24 tablet (Entresto) aspirin 81 mg tablet,delayed 81 mg PO 3XWK 08/21/23 04/20/24 04/20/24 release blood-glucose meter (OneTouch #1 ea 08/26/23 11/29/23 Unknown Ultra2 Meter) carvedilol 25 mg tablet 37.5 mg (1.5 x 25 mg) PO BID #270 12/31/23 04/20/24 04/20/24 tabs potassium chloride 10 mEq 10 meq PO QAM #90 caps 12/31/23 04/20/24 04/20/24 capsule,extended release amiodarone 200 mg tablet 200 mg PO BID #180 tabs 01/02/24 04/20/24 04/20/24 empagliflozin 10 mg tablet 10 mg PO QAM #90 tabs 03/17/24 04/20/24 04/20/24 (Jardiance) insulin glargine U-300 conc 300 15 unit subcut UD 04/20/24 04/20/24 Unknown unit/mL (1.5 mL) subcutaneous pen ([employer] SoloStar U-300 Insulin) rosuvastatin 40 mg tablet 40 mg PO Q OTHER DAY 04/20/24 04/20/24 Unknown Active Medications Generic Name Dose Route Start Last Admin Trade Name Freq PRN Reason Stop Dose Admin Amiodarone HCl 200 mg 04/20/24 21:00 04/21/24 09:57 Amiodarone 200 Mg Tab PO 05/20/24 20:59 200 mg BID CORDELIA Administration Carvedilol 37.5 mg 04/20/24 21:00 04/21/24 09:58 Carvedilol 12.5 Mg Tab PO 05/20/24 20:59 37.5 mg BID CORDELIA Administration Empagliflozin 10 mg 04/21/24 09:00 04/21/24 09:58 Empagliflozin 10 Mg Tab PO 05/21/24 08:59 10 mg QAM CORDELIA Administration Hydromorphone HCl 0.5 mg 04/20/24 16:39 04/21/24 12:45 Hydromorphone Inj 0.5 Mg/0.5 Ml Syr IV 05/04/24 16:38 0.5 mg Q3H PRN Administration Moderate Pain (4,5,6,7) on NRS Hydromorphone HCl 1 mg 04/20/24 16:39 04/21/24 03:02 Hydromorphone Inj 1 Mg/Ml Syringe IV 05/04/24 16:38 1 mg Q3H PRN Administration Severe Pain (8,9,10) on NRS Insulin Aspart 0 units 04/20/24 16:30 04/21/24 12:45 Insulin Aspart Per Unit Charge SC 05/20/24 16:29 3 units ACHS CORDELIA Administration Insulin Glargine 8 units 04/21/24 09:00 04/21/24 09:59 Lantus Per Unit Charge SQ 05/21/24 08:59 8 units BID CORDELIA Administration Potassium Chloride 10 meq 04/21/24 09:00 04/21/24 09:58 Potassium Chloride 10 Meq Tabcr PO 05/21/24 08:59 10 meq QAM CORDELIA Administration Rosuvastatin Calcium 40 mg 04/21/24 09:00 04/21/24 09:58 Rosuvastatin Calcium 20 Mg Tab PO 05/21/24 08:59 40 mg Q48H CORDELIA Administration Sacubitril/Valsartan 1 tab 04/20/24 21:00 04/21/24 09:57 Valsartan/Sacubitril 51/49 Mg Tab PO 05/20/24 20:59 1 tab BID CORDELIA Administration Past Medical History Medical History (Updated 04/21/24 @ 13:58 by Ede Reddy MD) Encounter for pre-operative examination HFrEF (heart failure with reduced ejection fraction) Controlled type 2 diabetes mellitus with microalbuminuria Neuropathy Trouble swallowing pt reports had endoscopy less than a year ago and told nothing was wrong Presence of combination internal cardiac defibrillator (ICD) and pacemaker biventricular pacer/ICD, February 2016; [employer]; last checked 2 days ago Arthritis Acid reflux hx , not for quite awhile 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 Peres Mitral regurgitation pt not sure LBBB (left bundle branch block) pt not sure Ischemic cardiomyopathy pt not sure #H/o PAF/V. tach Patient denies history of atrial fibrillation, may has reference to PAF and prior cardiology notes S/p pacemaker EKG ordered, pending Not currently on blood thinners; ?Due to h/o life-threatening GI bleed in 2006 Past Family History Family History Father Heart disease Mother Diabetes Brother Arthritis Son Asthma Other No family history of adverse response to anesthesia No family history of bleeding disorder No pertinent family history Denies family history of Prostate cancer Breast cancer Colorectal cancer Cancer Stroke Past Surgical History Surgical History History of esophagogastroduodenoscopy (EGD) last 08/11/21 @ [facility] History of endoscopy History of biopsy tongue History of cataract surgery both History of cardiac catheterization 1990s - thinks he has 1 stent but not certain History of hernia repair History of knee surgery BL S/P laparoscopic cholecystectomy Social History Smoking Status: Never smoker Do You Dip or Chew Tobacco: No Hx Alcohol Use: No Alcohol type: beer and wine alcohol intake frequency: holidays/special occasions only Hx Substance Use: No substance use type: former substance user Physical Exam Vital Signs Last Vital Signs Temp 36.4 C L 04/21/24 12:39 Pulse 68 04/21/24 12:39 Resp 18 04/21/24 12:39 BP 117/70 04/21/24 12:39 Pulse Ox 93 04/21/24 12:39 O2 Del Method Nasal Cannula 04/21/24 12:39 O2 Flow Rate 2 04/21/24 12:39 Testing Laboratory Results 04/21/24 02:58 04/21/24 02:58 PT 10.9 Seconds (9.0-12.0) 04/20/24 14:19 INR 1.0 (0.9-1.1) 04/20/24 14:19 APTT 27 Seconds (21-31) 04/20/24 14:19 Hemoglobin A1c 6.1 % (4.5-5.6) H 04/21/24 02:58 Urine Color Yellow 04/20/24 Unknown Urine Appearance Clear (Clear) 04/20/24 Unknown Urine pH 5.0 (4.5-7.5) 04/20/24 Unknown Ur Specific [place] 1.015 (1.000-1.030) 04/20/24 Unknown Urine Protein Negative (Negative) 04/20/24 Unknown Urine Glucose (UA) 3+ (Negative) H 04/20/24 Unknown Urine Ketones Negative (Negative) 04/20/24 Unknown Urine Nitrite Negative (Negative) 04/20/24 Unknown Ur Leukocyte Esterase Negative (Negative) 04/20/24 Unknown Blood Type A Positive 04/20/24 14:19 Antibody Screen NEGATIVE 04/20/24 14:19 04/21/24 04/21/24 12:12 07:51 POC Glucose 223 H 120 H Electrocardiogram Date: 04/20/24 DICTATED BY: Phillip Peres MD Test Reason : Blood Pressure : */* mmHG Vent. Rate : 62 BPM Atrial Rate : 75 BPM P-R Int : 146 ms QRS Dur : 186 ms QT Int : 566 ms P-R-T Axes : 151 243 60 degrees QTcB Int : 574 ms AV dual-paced rhythm with occasional ventricular-paced complexes Biventricular pacemaker detected Abnormal ECG When compared with ECG of 07-Feb-2024 10:13, Vent. rate has increased by 2 bpm Confirmed by Phillip Peres ([id number]) on 04/20/2024 3:44:24 PM Chest X-Ray Date: 04/20/24 XR chest 1V not portable CLINICAL HISTORY: PRE OP COMPARISON STUDY: 04/08/2022 FINDINGS: Stable pacemaker. Stable cardiomegaly without pulmonary vascular congestion. No effusion, consolidation, or pneumothorax. IMPRESSION: No acute findings. Echocardiogram Date: 04/26/22 LV EF is moderate to severely decreased. Moderate to severe global hypokinesis of the LV Mild LVH EF 25-30% Compared with study of 08/20/2019, no significant change. Other Testing 03/14/24 PACER Normal battery parameters Atrial pacing-BiV pacing Triggered pacing DDDR
[2024-04-21] MEDS: LACTATED RINGER'S 1,000 ML IV SCH (14:08)
[2024-04-21] MEDS ORDERED: DEXAMETHASONE SOD INJ 4 MG/ML VIAL ONE (14:40)
[2024-04-21] MEDS ORDERED: PROPOFOL IV EMULSION 10 MG/ML 20 ML VIAL IV ONE (14:41)
[2024-04-21] MEDS ORDERED: ONDANSETRON INJ 2 MG/ML 2 ML VIAL ONE (14:41)
[2024-04-21] MEDS ORDERED: GLYCOPYRROLATE 0.2 MG/ML VIAL ONE (14:41)
[2024-04-21] MEDS ORDERED: MIDAZOLAM HCL 1 MG/ML 2ML VIAL ONE (14:41)
[2024-04-21] MEDS ORDERED: fentaNYL citrate PF 100 MCG/2 ML VIAL ONE (14:41)
[2024-04-21] MEDS ORDERED: LIDOCAINE 2% 2 ML VIAL/AMP(20MG/ML) INFIL ONE (14:41)
[2024-04-21] MEDS ORDERED: BUPIVACAINE/EPINEPHRINE 0.5% MPF 1:200,000 10 ML VIAL ONE (15:26)
[2024-04-21] MEDS: TRANEXAMIC ACID / 0.7% NACL 1,000 MG/100 ML BAG IV ONE (15:26)
[2024-04-21] MEDS ORDERED: ONDANSETRON INJ 2 MG/ML 2 ML VIAL IV PRN ×2 (15:27→18:43)
[2024-04-21] MEDS ORDERED: fentaNYL citrate PF 100 MCG/2 ML VIAL IV PRN (15:27)
[2024-04-21] MEDS ORDERED: ePHEDrine sulfate 50 MG/ML AMP IV PRN (15:27)
[2024-04-21] MEDS ORDERED: ATROPINE SULFATE 0.1 MG/ML 10ML SYR IV PRN (15:27)
[2024-04-21] MEDS ORDERED: KETAMINE HCL 10MG/ML SYR ONE (15:33)
[2024-04-21] MEDS: ceFAZolin 3000MG 3,000 MG/72.5 ML BAG IV SCH (15:45)
[2024-04-21] MEDS ORDERED: PHENYLEPHRINE HCL 10 MG/ML VIAL ONE (16:16)
[2024-04-21] MEDS: ORTHO JOINT ANESTHETIC ONE (16:38)
[2024-04-21] MEDS ORDERED: TRANEXAMIC ACID / 0.7% NACL 1000MG/100ML BAG IV ONE (16:49)
[2024-04-21] MEDS: TRANEXAMIC ACID / 0.7% NACL 1000MG/100ML BAG IV ONE (16:51)
[2024-04-21] MEDS: ROPIVACAINE 0.5% HCL/PF 246 MG, Ketorolac (*for OR use only*) 30 MG, EPINEPHrine 30MG/3... INFIL SCH (16:51)
--- NOTE | 2024-04-21 17:31 | Operative Report ---
Post Operative Report Pre & Post Diagnosis Operation Date: 04/21/24 09:20 Pre-Op Diagnosis: Displaced fracture of right femoral neck Post-Op Diagnosis: Displaced fracture of right femoral neck I identified the patient and participated in the time-out.: Yes Procedure Operation Date: 04/21/24 09:20 Actual Procedures p Right Cemented Hip Hemiarthroplasty(Right) - Erick Pelletier MD Surgeon Erick Pelletier MD Cafeteria Operator Aidan Bob PA-C. No resident or fellow was available to assist. Estimated Blood Loss 150 Findings Consistent with Post-Op Diagnosis Specimens Right femoral head Anesthesia Type Spinal MAC Complications none Disposition Disposition: Recovery Room Indications 83-year-old male, slipped and fell at home yesterday. Immediate onset of right hip pain and inability to walk. He was brought by ambulance to the emergency room yesterday afternoon. X-rays demonstrated displaced femoral neck fracture. I had a long discussion with the patient about his diagnosis and treatment options. Surgery was indicated to restore his ability to walk. After reviewing the risks and benefits of surgery, alternatives, and expected outcomes he elected to proceed. All questions were answered. Informed consent was signed. Description of Procedure Patient was identified in the preoperative holding area where his surgical site was marked. He was brought back to the operating room where he rolled onto his side and a spinal anesthetic was placed. He was then carefully moved onto the operating room table into the lateral decubitus position. Axillary roll was placed. All bony prominences were padded. Perioperative antibiotics and 1 g of IV tranexamic acid were administered. He was prepped and draped in the usual sterile fashion. Prior to incision a multidisciplinary timeout was called. All in the room were in agreement. I began by making a 10 cm long incision for a posterolateral approach to the hip. I dissected down to the subcutaneous tissues to the level of the fascia. He actually had a hematoma above the fascia and the subcutaneous layer that was evacuated. Fascia was incised in line with the incision. Charnley retractor was placed. Trochanteric bursa and associated fatty tissue was removed. Inspection of the gluteus medius revealed a full-thickness tear with chronic changes of the greater tuberosity at its posterior superior aspect. The anterior aspect of the gluteus medius tendon was intact however. The piriformis and short external rotators as well as the quadratus femoris were taken off the back of the femur subperiosteally. L-shaped capsulotomy was performed. Upon entering the hip joint fracture hematoma was encountered and was suctioned out. The leg was internally rotated to expose the fractured femoral neck. Angle cu tting guide was used to template our femoral neck cut. This was done with a saw. Acetabulum was then exposed. The femoral head was removed with a corkscrew. This was sized on the back table to a 55. Acetabulum was inspected. There was a small area of grade II chondromalacia in the posterior inferior acetabulum, however the labrum was intact and the remainder the acetabular cartilage was in good condition. Acetabulum's irrigated out. We trialed with a 55 trial and this had a nice suction fit in the acetabulum. Trial was removed and the femur was exposed. The box osteotome was used followed by the intramedullary guide and the lateralizing reamer. I then broached him up to a size 5 [place] stem. We then trialed with a high offset neck and a +5 head. His leg lengths were a little b it too long so I downsized him to a +1.5 head. Now his leg lengths were symmetric. He was stable in the sleeper position. Shuck test was normal. Stable in extension and external rotation. At 90 degrees of hip flexion he could be internally rotated 45 degrees before beginning to lever her out of the acetabulum. I was very happy with the stability exam. Therefore, the trial components were removed. A cement restrictor was placed down the femoral canal. The femoral canal was irrigated out and dried. Cement was mixed on the back table. Cement was then injected into the femoral canal and pressurized with my 2 thumbs. I then inserted a high offset [place] size 5 cemented stem. Stem was held in approximately 20 degrees of anteversion. Excess cement was removed. Once the cement had completely dried we then assembled the bipolar head on the back table and impacted this onto the trunnion. Acetabulum was cleaned and dried and inspected for any loose bodies which there were none. Hip was atraumatically reduced. Dilute Betadine solution was poured into the wound for its antiseptic properties. A periarticular injection was then administered. We then began to close. Piriformis and short external rotators and posterior capsular flaps were repaired using #2 Vicryl sutures through bone tunnels in the posterior aspect of the greater trochanter tied over a bony bridge. The hip abductor tendon was left alone. Fascia was run with a looped #1 PDS suture. #1 PDS was used in the subcutaneous layer. 2-0 Vicryl was run in the deep dermal layer. Zipline and Dermabond was used for the skin. Silverlon dressing was placed. He was then awoke from anesthesia and transferred to cover room in stable condition. Postoperative course: Patient will be readmitted to the internal medicine service. He will be weightbearing as tolerated with posterior hip precautions. Abduction pillow to be worn while sleeping for the next 6 weeks. Recommend aspirin for DVT prophylaxis. Tight glucose control recommended given the patient's diabetes. I attest to the content of the Intraoperative Record and any orders documented therein. Any exceptions are noted below.
--- NOTE | 2024-04-21 17:46 | Operative Report ---
Post Operative Report Pre & Post Diagnosis Operation Date: 04/21/24 09:20 Pre-Op Diagnosis: Displaced fracture of right femoral neck Post-Op Diagnosis: Displaced fracture of right femoral neck I identified the patient and participated in the time-out.: Yes Procedure Operation Date: 04/21/24 09:20 Actual Procedures p Right Cemented Hip Hemiarthroplasty(Right) - Erick Pelletier MD Surgeon Sahara Pelletier MD Antique Clock Repairer Aidan Bob PA-C. No resident or fellow was available to assist. Estimated Blood Loss 150 Findings Consistent with Post-Op Diagnosis See operative report Specimens See operative report Drains None Complications none Disposition Accompanied Patient To Recovery: Yes Indications This 83-year-old male presented through the ED, for evaluation of right hip pain after falling. He was found to have a right femoral neck fracture. He elected to proceed with surgical intervention after being educated about potential risks and outcomes. Preoperative imaging was obtained. Description of Procedure The patient was taken to the operating room where he was given a spinal anesthetic and then given sedation. He was prepped and draped in the usual sterile fashion. Please see Dr. Pelletier's operative report for specifics of the procedure. I was present for the entire case from initial patient positioning through final wound closure. Assistance was provided in tissue retraction, hemostasis, trial implant placement, final implant placement, and final wound closure. The patient was taken to the recovery room in satisfactory condition. I attest to the content of the Intraoperative Record and any orders documented therein. Any exceptions are noted below.
--- NOTE | 2024-04-21 17:55 | XRay Report ---
INDICATION: Postop evaluation. TECHNIQUE: 3 views total of the right hip/pelvis COMPARISON: Radiograph from the prior day. FINDINGS/IMPRESSION: Right hip hardware appears intact. No acute fracture or dislocation. Postoperative changes in the soft tissues. Electronically signed by Huber Jarerll 04-21-2024 5:54 PM
--- NOTE | 2024-04-21 18:01 | Anesthesia Procedure Note ---
Anesthesia Procedure Note Neuraxial Placement Note Date of procedure: 04/21/24 Consent: Risk / Benefits Reviewed With: PT / POA / Parent / Guardian, Accepts Plan, Informed Consent Obtained and All Questions Answered Monitors attached: Blood Pressure, CO2, EKG and Pulse Oximetry Oxygen delivery method: Mask Time out completed: Yes Prehydrate: Lactated ringers Premedication: Other (see anesthesia record) Position: Left lateral Surgical Prep: Hand hygeine: Alcohol based hand rub Equipment/Supplies: Cap, Mask, Sterile gloves and Sterile procedures used Skin prep: Duraprep Site: Level (L3-4, L2-3) Local medication: 1% Lidocaine (ml) (3) Neuraxial placement technique: SAB Needle: 22g x 3.5 inch Quincke Anesthetic used: 0.5% Bupivicaine (ml) (3) Parasthesias: No CSF: Yes Blood: Yes Attempts: Multiple Procedure Summary: Attempts made both midline and paramedian at L3-4 and midline and paramedian at L2-3. 2 different providers attempted. x4 attempts by Theresa Dumont and x2 attempts for Michael Eason. Ultimately CSF achieved at L2-3. Post-Procedure: Pt hemodynamically stable, Pt tolerates well and No complication
--- NOTE | 2024-04-21 18:06 | Anesthesiology Progress Note ---
Date of Service April 21, 2024 Anesthesia Post Procedure Vital Signs Vital Signs: Temp Pulse Pulse Pulse Resp BP BP 04/21/24 17:55 60 16 04/21/24 17:45 56 L 18 04/21/24 17:35 36.3 C L 60 16 04/21/24 13:49 36.8 C 61 20 110/59 L 04/21/24 13:01 60 04/21/24 13:00 04/21/24 12:39 36.4 C L 68 18 117/70 04/21/24 10:50 60 18 122/67 04/21/24 08:00 61 16 108/54 L 04/21/24 07:10 61 04/21/24 07:00 04/21/24 05:55 60 18 109/65 04/21/24 02:00 60 16 119/70 04/21/24 01:03 04/21/24 01:03 36.6 C 60 18 110/62 04/21/24 00:00 60 16 110/62 04/20/24 23:51 60 16 110/62 04/20/24 23:30 60 04/20/24 21:00 79 18 122/75 04/20/24 20:00 60 14 115/66 04/20/24 19:30 63 18 111/61 BP Pulse Ox Pulse Ox O2 Del Method O2 Del Method O2 Flow Rate O2 Flow Rate 04/21/24 17:55 91/62 L 94 Nasal Cannula 2 04/21/24 17:45 111/68 95 Oxymask 4 04/21/24 17:35 141/91 H 95 Oxymask 6 04/21/24 13:49 93 Nasal Cannula 2 04/21/24 13:01 04/21/24 13:00 Nasal Cannula 2 04/21/24 12:39 93 Nasal Cannula 2 04/21/24 10:50 93 Nasal Cannula 2 04/21/24 08:00 93 Nasal Cannula 2 04/21/24 07:10 04/21/24 07:00 96 Nasal Cannula 2 04/21/24 05:55 93 Nasal Cannula 2 04/21/24 02:00 93 Nasal Cannula 2 04/21/24 01:03 Nasal Cannula 2 04/21/24 01:03 94 Nasal Cannula 2 04/21/24 00:00 93 Nasal Cannula 2 04/20/24 23:51 93 Nasal Cannula 2 04/20/24 23:30 04/20/24 21:00 93 Nasal Cannula 2 04/20/24 20:00 94 Nasal Cannula 2 04/20/24 19:30 95 Nasal Cannula 2 Pain Intensity Right Hip: Pain Intensity: 9 Transfer of Care Handoff Completed per policy Notes Mental Status: alert / awake / arousable Patient Amnestic to Procedure: Yes Nausea / Vomiting: adequately controlled Pain: adequately controlled Airway Patency, RR, SpO2: stable & adequate BP & HR: stable & adequate Hydration State: stable & adequate Neuraxial Anesthesia: was administered and sensory block is resolving Anesthetic Complications: no major complications apparent and Pt Satisfied with anesthetic care
[2024-04-21] MEDS ORDERED: NALOXONE HCL 0.4 MG/1 ML VIAL/CARP IV PRN (18:43)
[2024-04-21] MEDS ORDERED: oxyCODONE HCL IR 5 MG TAB (IMMEDIATE RELEASE) PO PRN (18:43)
[2024-04-21] MEDS: KETOROLAC TROMETHAMINE 15 MG/ML VIAL IV SCH (20:26)
[2024-04-21] MEDS: DOCUSATE SODIUM 100 MG CAP PO SCH (20:27)
--- NOTE | 2024-04-21 21:10 | Hospitalist Progress Note ---
Date of Service April 21, 2024 Assessment & Plan (1) Right femoral fracture: (2) PAF (paroxysmal atrial fibrillation): (3) DM type 2 (diabetes mellitus, type 2): (4) HFrEF (heart failure with reduced ejection fraction): Plan Kobi is a pleasant 83-year-old male with PMH of HFrEF, CAD, biventricular ICD, PAF, T2DM, vertigo, and HTN. He presented on 04/20 after sustaining a ground- level fall onto his right hip; no head strike, no LOC, not on blood thinners. Patient reports that he has had "equilibrium" issues for an ongoing period of time, which may have caused him to fall. While he does endorse some dizziness prior to falling. Hip and pelvic x-ray on arrival revealed an acute fracture at the right femoral neck with proximal migration. #Right femoral neck fracture S/p right cemented hip hemiarthroplasty with Dr. Pelletier on 04/21/24. EBL 150 cc, no complications noted Activity: weightbearing as tolerated with posterior hip precautions per ortho Abduction pillow to be worn while sleeping for the next 6 weeks Aspirin 81 mg BID for DVT prophylaxis to begin 04/22 Pain regimen: Tylenol 1 g Q8H PRN fever/mild pain, oxycodone 5-10 mg PO Q4H PRN pain/pre-PT, Dilaudid 0.5-1 mg Q3H PRN moderate-severe pain Awaiting PT/OT evals #T2DM A1c 6.1% Patient reports that he takes Lantus 20u as needed if elevated BSG Will place patient on Lantus 8u BID while inpatient SSI with target BSG range 110-140mg/dL, CF 40, carb ratio 13 #H/o PAF/V. tach Patient denies history of atrial fibrillation, may has reference to PAF and prior cardiology notes S/p pacemaker Not currently on blood thinners; ?Due to h/o life-threatening GI bleed in 2006 Continue amiodarone #HFrEF Last echocardiogram on 04/26/2022 revealed LVEF at 25-30% Daily weights Strict I&O monitoring Continue Entresto, Jardiance, Lasix #CAD Continue aspirin 3xwk for history of heart stent Will utilize Aspirin 81 mg BID for DVT prophylaxis for time being Dispo: continued inpatient stay while recovering from surgery. Await PT/OT evals Admission and Anticipated Discharge Date Admission Date: April 20, 2024 Supervising Physician Co-Signing Physician Notes I independently reviewed the labs, EKG, imaging, problem list, medication list, past medical history. I verified all obrien points and agree with KEO Santillan with the following exceptions and/or additions: Entresto placed on hold based on perioperative blood pressures. Unfortunately health this after he got his nighttime dose. If he is not dizzy and his blood pressure is stable overnight this can be restarted in the morning. Subjective Patient seen and evaluated in PACU following cemented hemiarthroplasty with Dr. Pelletier. He was fairly sedated from anesthesia at that time, but denied any complaints of pain, headache, shortness of breath, chest pain, nausea, lightheadedness. Vitals stable postoperatively. No additional complaints or concerns at this time. Physical Exam Physical Exam: General: No acute distress, nondiaphoretic, well-developed, well-nourished. Fairly sedated following anesthesia. Cardiac: Regular rate and rhythm without murmurs gallops or rubs. Pulm: Clear to auscultation bilaterally without wheezes, rales or rhonchi. No respiratory distress. 98% on 3L NC. Neuro: A&O x3. No focal neurological deficits. Extremities: Deferred LE exam as patient was covered in rory hugger blanket. Results & Data Results & Data Vital Signs (Past 12 Hours) Vital Signs Temp Pulse Pulse Pulse Pulse Resp BP 04/21/24 20:27 58 L 108/67 04/21/24 19:30 97.7 F 60 16 119/69 04/21/24 18:45 98.2 F 62 16 04/21/24 18:25 97.7 F 60 14 04/21/24 18:15 60 14 04/21/24 18:05 60 16 04/21/24 17:55 60 16 04/21/24 17:45 56 L 18 04/21/24 17:35 97.3 F L 60 16 04/21/24 13:49 98.2 F 61 20 110/59 L 04/21/24 13:01 60 04/21/24 13:00 04/21/24 12:39 97.5 F L 68 18 117/70 04/21/24 10:50 60 18 122/67 BP Pulse Ox O2 Del Method O2 Flow Rate 04/21/24 20:27 04/21/24 19:30 98 Nasal Cannula 3 04/21/24 18:45 106/56 L 96 Nasal Cannula 2 04/21/24 18:25 109/53 L 95 Nasal Cannula 2 04/21/24 18:15 105/53 L 95 Nasal Cannula 2 04/21/24 18:05 100/53 L 95 Nasal Cannula 2 04/21/24 17:55 91/62 L 94 Nasal Cannula 2 04/21/24 17:45 111/68 95 Oxymask 4 04/21/24 17:35 141/91 H 95 Oxymask 6 04/21/24 13:49 93 Nasal Cannula 2 04/21/24 13:01 04/21/24 13:00 Nasal Cannula 2 04/21/24 12:39 93 Nasal Cannula 2 04/21/24 10:50 93 Nasal Cannula 2 Laboratory Results Reviewed CBC Reviewed BMP, A1c Reviewed UA PG Care Time/CCT Total # of Minutes Spent Total Time Spent with Patient: Total time spent is greater than 50% in coordination of care (as documented) at patient's floor/unit and/or counseling patient: Coding Level of Care Code 17454 SUB INP/OBS CARE 2/35MIN Diagnoses Right femoral fracture S72.91XA PAF (paroxysmal atrial fibrillation) I48.0 DM type 2 (diabetes mellitus, type 2) E11.9 HFrEF (heart failure with reduced ejection fraction) I50.20
[2024-04-21] MEDS: ceFAZolin 2000MG 2,000 MG/15 ML SYR IV SCH (23:05)
[2024-04-22 06:52] LABS: Basophils # (auto) 0.01 K/uL (0.00-0.20); Basophils % (auto) 0.1 %; Hematocrit (blood only) 39.3 % (42.0-52.0); Hemoglobin 12.6 g/dl (14.0-18.0); Immature Granulocytes # (auto) 0.07 K/uL (0.01-0.20); Immature Granulocytes % (auto) 0.7 %; Lymphocytes % (auto) 7.5 %; Mean Corpuscular Hemoglobin 30.4 pg (25.0-34.0); Mean Corpuscular Hgb Conc 32.1 g/dL (32.0-36.0); Mean Corpuscular Volume 94.9 fL (80.0-100.0); Mean Platelet Volume 10.7 fL (9.4-12.4); Monocytes % (auto) 7.5 %; Neutrophils # (auto) 7.91 K/uL (1.40-6.50); Neutrophils % (auto) 84.2 %; Platelet Count 107 K/uL (130-400); RDW Standard Deviation 52.6 fL (36.4-46.3); Red Blood Count 4.14 M/uL (4.70-6.10); White Blood Count 9.39 K/ul (4.8-10.8)
[2024-04-22 07:51] LABS: Anion Gap 4 (3-11); BUN Creatinine Ratio 26.2 (10-20); Blood Urea Nitrogen 32 mg/dl (6-23); Calcium 8.1 mg/dl (8.6-10.3); Carbon Dioxide 31 mmol/L (21-32); Chloride 101 mmol/L (98-107); Creatinine Clr Calc Pharmacy 68.2 ml/min; Glucose 126 mg/dl (70-99(Fasting)); Sodium 136 mmol/L (136-145)
[2024-04-22] MEDS: dexAMETHasone 4 MG TAB PO SCH (08:28)
[2024-04-22] MEDS: ASPIRIN 81 MG ECTAB PO SCH (08:29)
[2024-04-22] MEDS ORDERED: ASPIRIN 81 MG ECTAB PO SCH (09:00)
--- NOTE | 2024-04-22 09:35 | Orthopedic Progress Note ---
Date of Service April 22, 2024 Assessment & Plan (1) Displaced fracture of right femoral neck: Plan: POD 1 - s/p right hip hemiarthroplasty PT/OT to start today ASA for DVT prophylaxis x 6 weeks; SCD's while inpatient Regular diet Pain control per primary service Ice to right hip PRN Keep Silverlon dressing in place at all times; okay to shower with this in place. Posterior hip precautions WBAT RLE with walker at all times Case management for disposition needs. Abduction pillow when in bed and sitting in chair. All questions answered, patient understands and agrees with the plan. Admission and Anticipated Discharge Date Admission Date: April 20, 2024 Subjective Patient sitting up in bed, states that he's still a little groggy, but pleasant, awake and alert. No pain in right hip or leg. States that he's not able to lift it off the bed, like he can with his left leg. Denies any chest pain, shortness of breath, nausea or vomiting, no lightheadedness or dizziness. Tolerated breakfast this morning, but had trouble swallowing "because it was dry". Physical Exam Musculoskeletal: Exam of right leg: post op dressings clean, dry and intact. Pressure dressing removed, Silverlon dressing in place. Mild blood in window of Silverlon. Mild edema of right thigh and right foot. Full active ROM and normal strength of right ankle, no evidence of foot drop. Trace dorsalis and posterior tib pulses. nontender right calf. SCD in place. Right leg rolled in external rotation when in bed, ABDuction pillow in place. Internall rotated right leg until patella was facing upward, he tolerated log rolling of right hip. Skin intact right hip, no blisters or ecchymosis present. One ecchymotic area at posterior buttock, but small. Unable to independently SLR right leg, but able to do with 1 finger assist. No effusion to right knee. Previous knee incision healed, nontender at right knee. Results & Data Vital Signs (Past 12 Hours) Vital Signs Temp Pulse Pulse Resp BP BP Pulse Ox 04/22/24 07:52 36.6 C 63 20 116/65 93 04/22/24 05:43 65 04/22/24 03:45 36.5 C 70 20 106/60 93 04/21/24 23:11 36.5 C 69 17 118/72 95 04/21/24 21:44 60 O2 Del Method O2 Flow Rate 04/22/24 07:52 Nasal Cannula 2 04/22/24 05:43 04/22/24 03:45 Nasal Cannula 2 04/21/24 23:11 Nasal Cannula 2 04/21/24 21:44 Laboratory Results 04/22/24 04/22/24 04/22/24 Range/Units 08:24 08:14 06:05 WBC 9.39 (4.8-10.8) K/ul RBC 4.14 L (4.70-6.10) M/uL Hgb 12.6 L (14.0-18.0) g/dl Hct 39.3 L (42.0-52.0) % MCV 94.9 (80.0-100.0) fL MCH 30.4 (25.0-34.0) pg MCHC 32.1 (32.0-36.0) g/dL RDW Std Deviation 52.6 H (36.4-46.3) fL RDW Coeff of Pastor 15.0 H (11.5-14.5) % Plt Count 107 L (130-400) K/uL MPV 10.7 (9.4-12.4) fL Immature Gran % (Auto) 0.7 % Neut % (Auto) 84.2 % Lymph % (Auto) 7.5 % Meagher % (Auto) 7.5 % Eos % (Auto) 0.0 % Baso % (Auto) 0.1 % Neut # (Auto) 7.91 H (1.40-6.50) K/uL Lymph # (Auto) 0.70 L (1.20-3.40) K/uL Meagher # (Auto) 0.70 H (0.11-0.59) K/uL Eos # (Auto) 0.00 (0.00-0.50) K/uL Baso # (Auto) 0.01 (0.00-0.20) K/uL Immature Gran # (Auto) 0.07 (0.01-0.20) K/uL Sodium 136 (136-145) mmol/L Potassium 4.7 TNP Chloride 101 (98-107) mmol/L Carbon Dioxide 31 (21-32) mmol/L Anion Gap 4 (3-11) BUN 32 H (6-23) mg/dl Creatinine 1.22 (0.6-1.4) mg/dl Est Cr Clr Drug Dosing 68.2 ml/min eGFR 59.19 BUN/Creatinine Ratio 26.2 H (10-20) Glucose 126 H (70-99(Fasting)) mg/dl POC Glucose 276 H (70-99) mg/dl Calcium 8.1 L (8.6-10.3) mg/dl 04/21/24 04/21/24 Range/Units 20:36 12:12 WBC (4.8-10.8) K/ul RBC (4.70-6.10) M/uL Hgb (14.0-18.0) g/dl Hct (42.0-52.0) % MCV (80.0-100.0) fL MCH (25.0-34.0) pg MCHC (32.0-36.0) g/dL RDW Std Deviation (36.4-46.3) fL RDW Coeff of Pastor (11.5-14.5) % Plt Count (130-400) K/uL MPV (9.4-12.4) fL Immature Gran % (Auto) % Neut % (Auto) % Lymph % (Auto) % Meagher % (Auto) % Eos % (Auto) % Baso % (Auto) % Neut # (Auto) (1.40-6.50) K/uL Lymph # (Auto) (1.20-3.40) K/uL Meagher # (Auto) (0.11-0.59) K/uL Eos # (Auto) (0.00-0.50) K/uL Baso # (Auto) (0.00-0.20) K/uL Immature Gran # (Auto) (0.01-0.20) K/uL Sodium (136-145) mmol/L Potassium Chloride (98-107) mmol/L Carbon Dioxide (21-32) mmol/L Anion Gap (3-11) BUN (6-23) mg/dl Creatinine (0.6-1.4) mg/dl Est Cr Clr Drug Dosing ml/min eGFR BUN/Creatinine Ratio (10-20) Glucose (70-99(Fasting)) mg/dl POC Glucose 120 H 223 H (70-99) mg/dl Calcium (8.6-10.3) mg/dl
--- NOTE | 2024-04-22 12:15 | Hospitalist Progress Note ---
Date of Service April 22, 2024 Assessment & Plan (1) Right femoral fracture: (2) PAF (paroxysmal atrial fibrillation): (3) DM type 2 (diabetes mellitus, type 2): (4) HFrEF (heart failure with reduced ejection fraction): Plan Kobi is a pleasant 83-year-old male with PMH of HFrEF, CAD, biventricular ICD, PAF, T2DM, vertigo, and HTN. He presented on 04/20 after sustaining a ground- level fall onto his right hip; no head strike, no LOC, not on blood thinners. Patient reports that he has had "equilibrium" issues for an ongoing period of time, which may have caused him to fall. While he does endorse some dizziness prior to falling. Hip and pelvic x-ray on arrival revealed an acute fracture at the right femoral neck with proximal migration. #Right femoral neck fracture S/p right cemented hip hemiarthroplasty with Dr. Pelletier on 04/21/24. EBL 150 cc, no complications noted. Mild acute blood loss anemia with hgb drop to 12.6 postoperatively. Stable, no indication for blood transfusion. Monitor CBC in AM Activity: weightbearing as tolerated with posterior hip precautions per ortho. Abduction pillow to be worn while sleeping for the next 6 weeks DVT PPx: Aspirin 81 mg BID x 6 weeks, SCDs while hospitalized Pain regimen: Tylenol 1 g Q8H PRN fever/mild pain, oxycodone 5-10 mg PO Q4H PRN pain/pre-PT, Dilaudid 0.5-1 mg Q3H PRN moderate-severe pain PT/OT recommending rehab at [facility] #T2DM A1c 6.1% Patient reports that he takes Lantus 20u as needed if elevated BSG Will place patient on Lantus 8u BID while inpatient SSI with target BSG range 110-140mg/dL, CF 40, carb ratio 13 #H/o PAF/V. tach Patient denies history of atrial fibrillation, may has reference to PAF and prior cardiology notes S/p pacemaker Not currently on blood thinners; ?Due to h/o life-threatening GI bleed in 2006 Continue amiodarone #HFrEF Last echocardiogram on 04/26/2022 revealed LVEF at 25-30% Daily weights Strict I&O monitoring Continue Jardiance, Lasix Entresto placed on hold due to postoperative hypotension. BPs improved today, can likely resume Entresto tomorrow 04/23 #CAD Continue aspirin 3xwk for history of heart stent Will utilize Aspirin 81 mg BID for DVT prophylaxis for time being Dispo: PT/OT recommending rehab at [facility] Held Entresto Updated and daughter at bedside Admission and Anticipated Discharge Date Admission Date: April 20, 2024 Subjective Patient seen and evaluated at bedside with his and daughter present. He reports feeling very well since surgery. He denies any postoperative pain, denies numbness/tingling radiating down his legs/into groin. He reports he is passing gas since surgery, no bowel movement yet though. He is urinating without difficulty and well tolerating his diet. He worked with PT earlier and states they are recommending rehab at [facility]. Patient denies any lightheadedness/dizziness, chest pain, dyspnea, abdominal pain, nausea, lower extremity pain. Physical Exam Physical Exam: General: No acute distress, nondiaphoretic, well-developed, well-nourished. Cardiac: Regular rate and rhythm without murmurs gallops or rubs. Pulm: Clear to auscultation bilaterally without wheezes, rales or rhonchi. No respiratory distress. 93% on room air. Abdominal: Soft, nontender, distended secondary to body habitus. Bowel sounds present. Neuro: A&O x3. No focal neurological deficits. Extremities: Postoperative dressing in place to right hip, clean, dry, intact. 1+ pitting edema to ankles bilaterally. Normal strength and sensation in lower extremities bilaterally. Well-perfused. Results & Data Results & Data Vital Signs (Past 12 Hours) Vital Signs Temp Pulse Pulse Resp BP Pulse Ox O2 Del Method 04/22/24 07:52 97.9 F 63 20 116/65 93 Nasal Cannula 04/22/24 05:43 65 04/22/24 03:45 97.7 F 70 20 106/60 93 Nasal Cannula O2 Flow Rate 04/22/24 07:52 2 04/22/24 05:43 04/22/24 03:45 2 Laboratory Results Reviewed CBC with differential Reviewed BMP PG Care Time/CCT Total # of Minutes Spent Total Time Spent with Patient: Total time spent is greater than 50% in coordination of care (as documented) at patient's floor/unit and/or counseling patient: Coding Level of Care Code 24200 SUB INP/OBS CARE Diagnoses Right femoral fracture S72.91XA PAF (paroxysmal atrial fibrillation) I48.0 DM type 2 (diabetes mellitus, type 2) E11.9 HFrEF (heart failure with reduced ejection fraction) I50.20
[2024-04-23] MEDS: ACETAMINOPHEN 1,000 MG/100 ML VIAL IV PRN (02:20)
[2024-04-23 07:55] LABS: Hematocrit (blood only) 36.6 % (42.0-52.0); Hemoglobin 12.1 g/dl (14.0-18.0); Mean Corpuscular Hemoglobin 30.8 pg (25.0-34.0); Mean Corpuscular Hgb Conc 33.1 g/dL (32.0-36.0); Mean Corpuscular Volume 93.1 fL (80.0-100.0); Platelet Count 111 K/uL (130-400); RDW Standard Deviation 52.1 fL (36.4-46.3); Red Blood Count 3.93 M/uL (4.70-6.10)
--- NOTE | 2024-04-23 09:41 | Orthopedic Progress Note ---
Date of Service April 23, 2024 Assessment & Plan (1) S/P hip hemiarthroplasty: Plan: The patient and his daughter were educated regarding today's findings. Conservative care measures were discussed. His Silverlon were left in place. He will require placement. The patient was inquiring whether he could just go home with home health. I do not think he has enough support and is not doing well enough for initial transfer back to home. I think he will require rehab either through an acute rehab hospital or [facility] facility for 1 to 2 weeks to develop enough strength. This was also discussed with his daughter present. Continue keeping the wound dry. Continue with aspirin for DVT prophylaxis. Continue with PT and OT while in the hospital. Follow-up in the office in 2 weeks as scheduled for Zipline removal. Call with any other concerns. Admission and Anticipated Discharge Date Admission Date: April 20, 2024 Subjective This 83-year-old male is seen today in his room. He is 2 days status post right hip hemiarthroplasty. His daughter is present today. The patient denies any significant pain in his hip. He states he did get himself out of bed today with little assistance. He has also ambulated from the bed to the bathroom. He had some lightheadedness earlier this morning, but has resolved. No other complaints at this time. He denies any chest pain, shortness of breath, nausea, vomiting, or abdominal pain. He has finished his breakfast. Physical Exam Physical Exam: General: Well-developed, well-nourished, large elderly male, in no acute distress. Sitting in a bedside chair. Oriented. He has some difficulty tends to say. Is noted to have some mild confusion this morning. Skin: Warm and dry with good turgor. No rashes. Postsurgical dressing is in place on the right hip. Ecchymosis is developing. No edema. He has some minor absorption on the Silverlon dressing. Musculoskeletal: The patient has intact motor function to his right toes, ankle, and knee. He requires a two-person assist to rise from his chair. He is able to stand with his walker, but does require numerous cues to avoid leaning backwards. Neurologic: Gross sensation is intact across the right leg by soft touch. Results & Data Vital Signs (Past 12 Hours) Vital Signs Temp Pulse Pulse Resp BP BP Pulse Ox 04/23/24 08:35 36.3 C L 04/23/24 07:43 73 18 104/63 98 04/23/24 07:00 60 04/23/24 03:36 36.9 C 61 18 111/66 92 04/23/24 00:12 36.5 C 62 18 111/64 92 04/22/24 21:53 60 O2 Del Method 04/23/24 08:35 04/23/24 07:43 Room Air 04/23/24 07:00 04/23/24 03:36 Room Air 04/23/24 00:12 Room Air 04/22/24 21:53 Laboratory Results CBC obtained this morning shows a white count of 11.5. H&H 12.1 and 36.6. Platelets 411,000. Glucose this morning is 127.
--- NOTE | 2024-04-23 11:10 | Hospitalist Progress Note ---
Date of Service April 23, 2024 Assessment & Plan (1) Right femoral fracture: (2) HAP (hospital-acquired pneumonia): (3) PAF (paroxysmal atrial fibrillation): (4) DM type 2 (diabetes mellitus, type 2): (5) HFrEF (heart failure with reduced ejection fraction): Plan Kobi is a pleasant 83-year-old male with PMH of HFrEF, CAD, biventricular ICD, PAF, T2DM, vertigo, and HTN. He presented on 04/20 after sustaining a ground- level fall onto his right hip; no head strike, no LOC, not on blood thinners. Patient reports that he has had "equilibrium" issues for an ongoing period of time, which may have caused him to fall. While he does endorse some dizziness prior to falling. Hip and pelvic x-ray on arrival revealed an acute fracture at the right femoral neck with proximal migration. #Right femoral neck fracture S/p right cemented hip hemiarthroplasty with Dr. Pelletier on 04/21/24. EBL 150 cc, no complications noted. Mild acute blood loss anemia with hgb drop to 12.1 postoperatively. Stable, no indication for blood transfusion. Mild leukocytosis of 11.50, likely from newly developing pneumonia (see#2) Activity: weightbearing as tolerated with posterior hip precautions per ortho. Abduction pillow to be worn while sleeping for the next 6 weeks DVT PPx: Aspirin 81 mg BID x 6 weeks, SCDs while hospitalized Pain regimen: Tylenol 1 g Q8H PRN fever/mild pain, oxycodone 5-10 mg PO Q4H PRN pain/pre-PT, Dilaudid 0.5-1 mg Q3H PRN moderate-severe pain PT/OT recommending rehab. Referrals pending #Hospital acquired pneumonia CXR revealed LLL opacity suggestive of pneumonia. Given >48 hours inpatient, will treat as HAP Started Zosyn 4.5 g IV Q8H, Incentive Spirometer Q1HWA, Duonebs PRN Add Mucinex and Sputum Culture if patient starts to have productive cough Suppmental O2 as needed to maintain sats >90% #Diarrhea Copious episode of liquid BM reported by RN this evening Stool studies ordered, pending #HFrEF Last echocardiogram on 04/26/2022 revealed LVEF at 25-30% Continue Jardiance, Lasix Entresto placed on hold due to postoperative hypotension Hypotensive at 88/55 this morning, asymptomatic -- 500 cc bolus NSS x 1. Caution with IV fluids given HFrEF #T2DM A1c 6.1% Patient reports that he takes Lantus 20u as needed if elevated BSG Will place patient on Lantus 8u BID while inpatient SSI with target BSG range 110-140mg/dL, CF 40, carb ratio 13 #H/o PAF/V. tach Patient denies history of atrial fibrillation, may has reference to PAF and prior cardiology notes S/p pacemaker Not currently on blood thinners; ?Due to h/o life-threatening GI bleed in 2006 Continue amiodarone #CAD Continue aspirin 3xwk for history of heart stent Will utilize Aspirin 81 mg BID for DVT prophylaxis for time being Dispo: Waiting placement at rehab, referrals pending. Now with new onset HAP, diarrhea Ordered and interpreted CXR Started Zosyn, IV fluid Ordered stool studies Admission and Anticipated Discharge Date Admission Date: April 20, 2024 Subjective Patient seen and evaluated at bedside. He just finished working with PT/OT. He reports his right hip feels achy, but denies any pain. Continues to pass gas without bowel movement yet. Well-tolerating his diet. Urinating without difficulty. Denies fever, chills, headache, dyspnea, chest pain, abdominal pain, nausea, numbness/tingling in LE. Continue to wait for rehab placement. Notified by RN that patient became hypotensive 88/55. Patient denies lightheadedness, dizziness. Continues to denies any other complaints as well, except noting fatigue from working with PT/OT. Physical Exam Physical Exam: General: No acute distress, nondiaphoretic, well-developed, well-nourished. Cardiac: Regular rate and rhythm without murmurs gallops or rubs. Pulm: LLL with faint crackles. Otherwise clear to auscultation. No respiratory distress. 95% on room air. Abdominal: Soft, nontender, distended secondary to body habitus. Bowel sounds present. Neuro: A&O x3. No focal neurological deficits. Extremities: Postoperative dressing in place to right hip, clean, dry, intact. 1+ pitting edema RLE, 2+ pitting edema LLE (chronic per patient). Normal strength and sensation in lower extremities bilaterally. Well-perfused. Results & Data Results & Data Vital Signs (Past 12 Hours) Vital Signs Temp Pulse Pulse Resp BP BP Pulse Ox 04/23/24 08:35 97.3 F L 04/23/24 07:43 73 18 104/63 98 04/23/24 07:00 60 04/23/24 03:36 98.4 F 61 18 111/66 92 04/23/24 00:12 97.7 F 62 18 111/64 92 O2 Del Method 04/23/24 08:35 04/23/24 07:43 Room Air 04/23/24 07:00 04/23/24 03:36 Room Air 04/23/24 00:12 Room Air Laboratory Results Reviewed CBC Stool studies pending Diagnostic Findings Reviewed telemetry - paced with PVCs in 80s Reviewed CXR PG Care Time/CCT Total # of Minutes Spent Total Time Spent with Patient: Total time spent is greater than 50% in coordination of care (as documented) at patient's floor/unit and/or counseling patient: Coding Level of Care Code 98382 SUB INP/OBS CARE 3/50MIN Diagnoses Right femoral fracture S72.91XA HAP (hospital-acquired pneumonia) J18.9; Y95 PAF (paroxysmal atrial fibrillation) I48.0 DM type 2 (diabetes mellitus, type 2) E11.9 HFrEF (heart failure with reduced ejection fraction) I50.20
[2024-04-23] MEDS: SODIUM CHLORIDE 0.9% 500 ML IV ONE (13:03)
--- NOTE | 2024-04-23 13:26 | XRay Report ---
XR chest 1V portable CLINICAL HISTORY: hypotension, crackles LLL COMPARISON STUDY: 04/08/2022 FINDINGS: Stable pacemaker. Stable cardiomegaly with pulmonary vascular congestion. There is increase d hazy opacity at the left base with obscuration of the left hemidiaphragm. No pneumothorax. IMPRESSION: Increased opacity at the left lung base could represent atelectasis or pneumonia. ACT 112: Negative or not required by law. Electronically signed by: Papi Gunn M.D. 04/23/2024 1:25 PM
[2024-04-23] MEDS: PIPERACILLIN/TAZOBACTAM 4.5 GM/100 ML BAG IV ONE (15:40)
[2024-04-23] MEDS ORDERED: ALBUT/IPRATROP 3MG/0.5MG NEB 3 ML VIAL NEB PRN (18:15)
[2024-04-23 19:50] LABS: Adenovirus F 40/41 PCR Not Detected (NotDetected); Astrovirus PCR Not Detected (NotDetected); Campylobacter PCR Not Detected (NotDetected); Cryptosporidium PCR Not Detected (NotDetected); Cyclospora cayetanensis PCR Not Detected (NotDetected); Entamoeba histolytica PCR Not Detected (NotDetected); Enteroaggregative E.coli(EAEC) Not Detected (NotDetected); Enteropathogenic E.coli (EPEC) Not Detected (NotDetected); Enterotoxigenic E.coli (ETEC) Not Detected (NotDetected); Giardia lamblia PCR Not Detected (NotDetected); Norovirus GI/GII PCR Not Detected (NotDetected); Plesiomonas shigelloides PCR Not Detected (NotDetected); Rotavirus A PCR Not Detected (NotDetected); Salmonella PCR Not Detected (NotDetected); Sapovirus PCR Not Detected (NotDetected); Shiga-like Toxin E.coli (STEC) Not Detected (NotDetected); Shigella/Enteroinvasive E.coli Not Detected (NotDetected); Vibrio cholerae PCR Not Detected (NotDetected); Vibrio species PCR Not Detected (NotDetected); Yersinia enterocolitica PCR Not Detected (NotDetected)
[2024-04-23] MEDS: PIPERACILLIN/TAZOBACTAM 4.5 GM/100 ML BAG IV SCH (20:57)
[2024-04-24 07:02] LABS: Hematocrit (blood only) 37.5 % (42.0-52.0); Hemoglobin 12.4 g/dl (14.0-18.0); Mean Corpuscular Hemoglobin 30.2 pg (25.0-34.0); Mean Corpuscular Hgb Conc 33.1 g/dL (32.0-36.0); Mean Corpuscular Volume 91.5 fL (80.0-100.0); Mean Platelet Volume 10.7 fL (9.4-12.4); Platelet Count 122 K/uL (130-400); RDW Coefficient of Variation 15.2 % (11.5-14.5); RDW Standard Deviation 51.1 fL (36.4-46.3); White Blood Count 9.38 K/ul (4.8-10.8)
[2024-04-24 07:32] LABS: BUN Creatinine Ratio 33.1 (10-20); Calcium 7.9 mg/dl (8.6-10.3); Creatinine Clr Calc Pharmacy 59.9 ml/min; Potassium 4.6 mmol/L (3.5-5.1)
--- NOTE | 2024-04-24 08:31 | Hospitalist Progress Note ---
Date of Service April 24, 2024 Assessment & Plan (1) Right femoral fracture: (2) HAP (hospital-acquired pneumonia): (3) PAF (paroxysmal atrial fibrillation): (4) DM type 2 (diabetes mellitus, type 2): (5) HFrEF (heart failure with reduced ejection fraction): Plan Kobi is a pleasant 83-year-old male with PMH of HFrEF, CAD, biventricular ICD, PAF, T2DM, vertigo, and HTN. He presented on 04/20 after sustaining a ground- level fall onto his right hip; no head strike, no LOC, not on blood thinners. Patient reports that he has had "equilibrium" issues for an ongoing period of time, which may have caused him to fall. While he does endorse some dizziness prior to falling. Hip and pelvic x-ray on arrival revealed an acute fracture at the right femoral neck with proximal migration. #Right femoral neck fracture S/p right cemented hip hemiarthroplasty with Dr. Pelletier on 04/21/24. EBL 150 cc, no complications noted. Mild acute blood loss anemia postoperatively, hgb stable at 12.4 Activity: weightbearing as tolerated with posterior hip precautions per ortho. Abduction pillow to be worn while sleeping for the next 6 weeks DVT PPx: Aspirin 81 mg BID x 6 weeks, SCDs while hospitalized Pain regimen: Tylenol 1 g Q8H PRN fever/mild pain, oxycodone 5-10 mg PO Q4H PRN pain/pre-PT, Dilaudid 0.5-1 mg Q3H PRN moderate-severe pain PT/OT recommending rehab. Referrals pending #Hospital acquired pneumonia CXR revealed LLL opacity suggestive of pneumonia. Given >48 hours inpatient, will treat as HAP. Mild leukocytosis has resolved since starting antibiotics Continue Zosyn 4.5 g IV Q8H, Incentive Spirometer Q1HWA, Duonebs PRN Add Mucinex and Sputum Culture if patient starts to have productive cough Remains stable on room air. Suppmental O2 as needed to maintain sats >90% #HFrEF Last echocardiogram on 04/26/2022 revealed LVEF at 25-30% Continue Jardiance, Lasix Entresto placed on hold due to postoperative hypotension Asymptomatic hypotension 04/23 s/p 500 cc bolus NSS. Improvement in BP, continue to monitor. Caution with IV fluids given HFrEF #Diarrhea Copious episode of liquid BM 04/23 Stool studies / C. diff testing negative #T2DM A1c 6.1% Patient reports that he takes Lantus 20u as needed if elevated BSG Will place patient on Lantus 8u BID while inpatient SSI with target BSG range 110-140mg/dL, CF 40, carb ratio 13 #H/o PAF/V. tach Patient denies history of atrial fibrillation, may has reference to PAF and prior cardiology notes S/p pacemaker Not currently on blood thinners; ?Due to h/o life-threatening GI bleed in 2006 Continue amiodarone #CAD Continue aspirin 3xwk for history of heart stent Will utilize Aspirin 81 mg BID for DVT prophylaxis for time being Dispo: Waiting placement at rehab, referrals pending. Now with new onset HAP, diarrhea Ordered and interpreted CXR Started Zosyn, IV fluid Ordered stool studies Admission and Anticipated Discharge Date Admission Date: April 20, 2024 Physical Exam Physical Exam: General: No acute distress, nondiaphoretic, well-developed, well-nourished. Cardiac: Regular rate and rhythm without murmurs gallops or rubs. Pulm: LLL with faint crackles. Otherwise clear to auscultation. No respiratory distress. 95% on room air. Abdominal: Soft, nontender, distended secondary to body habitus. Bowel sounds present. Neuro: A&O x3. No focal neurological deficits. Extremities: Postoperative dressing in place to right hip, clean, dry, intact. 1+ pitting edema RLE, 2+ pitting edema LLE (chronic per patient). Normal strength and sensation in lower extremities bilaterally. Well-perfused. Results & Data Results & Data Vital Signs (Past 12 Hours) Vital Signs Temp Pulse Pulse Pulse Resp BP BP 04/24/24 07:50 97.3 F L 62 12 114/68 04/24/24 07:35 97.7 F 68 20 103/55 L 04/24/24 05:45 64 04/24/24 04:04 97.9 F 65 20 105/65 04/23/24 23:24 04/23/24 23:02 60 04/23/24 22:59 97.7 F 61 16 109/60 Pulse Ox O2 Del Method 04/24/24 07:50 94 Room Air 04/24/24 07:35 91 Room Air 04/24/24 05:45 04/24/24 04:04 92 Room Air 04/23/24 23:24 Room Air 04/23/24 23:02 04/23/24 22:59 91 Room Air Laboratory Results Reviewed CBC Reviewed BMP Reviewed stool studies PG Care Time/CCT Total # of Minutes Spent Total Time Spent with Patient: Total time spent is greater than 50% in coordination of care (as documented) at patient's floor/unit and/or counseling patient: Coding Diagnoses Right femoral fracture S72.91XA HAP (hospital-acquired pneumonia) J18.9; Y95 PAF (paroxysmal atrial fibrillation) I48.0 DM type 2 (diabetes mellitus, type 2) E11.9 HFrEF (heart failure with reduced ejection fraction) I50.20
--- NOTE | 2024-04-24 10:51 | Orthopedic Progress Note ---
Date of Service April 24, 2024 Assessment & Plan (1) S/P hip hemiarthroplasty: Plan: Total hip precautions reviewed Weightbearing as tolerated with walker assistance PT/OT Abduction pillow use x 6 weeks Ice with easy wrap Pain control with p.o. medication DVT prophylaxis with MARK stockings and aspirin Patient will be discharged to [facility] for rehab Follow-up with [facility] orthopedics as scheduled With questions contact our clinic at [phone] Admission and Anticipated Discharge Date Admission Date: April 20, 2024 Subjective This 83-year-old male is day 3 status post right hip cemented hemiarthroplasty for a femoral neck fracture. Patient states that he is doing fairly well. He states that he is going to [facility] for rehab following discharge. He states that he has been able to participate with physical therapy and Occupational Therapy. He denies chest pain, shortness of breath, fever, chills, sweats, naus ea, vomiting, diarrhea or difficulty voiding. He also has no complaint of numbness or tingling in his right lower extremity. Review of Systems 2 Review of Systems: All systems reviewed & are unremarkable except as noted in Subjective Physical Exam Physical Exam: Right hip: Silverlon dressing is clean dry and intact left in place. Patient is easily able to perform active straight leg raise test and actively dorsi and plantarflex his foot. Patient tolerates light passive hip flexion to 90 degrees and only has some slight pulling discomfort with light passive internal rotation no discomfort with external rotation. Logroll test negative. Patient's quad strength is 3+ out of 5. He is neurovascularly intact in right lower extremity. Results & Data Vital Signs (Past 12 Hours) Vital Signs Temp Pulse Pulse Pulse Resp BP BP 04/24/24 07:50 36.3 C L 62 12 114/68 04/24/24 07:35 36.5 C 68 20 103/55 L 04/24/24 05:45 64 04/24/24 04:04 36.6 C 65 20 105/65 04/23/24 23:24 04/23/24 23:02 60 04/23/24 22:59 36.5 C 61 16 109/60 Pulse Ox O2 Del Method 04/24/24 07:50 94 Room Air 04/24/24 07:35 91 Room Air 04/24/24 05:45 04/24/24 04:04 92 Room Air 04/23/24 23:24 Room Air 04/23/24 23:02 04/23/24 22:59 91 Room Air Diagnostic Findings Laboratory Results WBC 9.38 K/ul (4.8-10.8) 04/24/24 06:23 RBC 4.10 M/uL (4.70-6.10) L 04/24/24 06:23 Hgb 12.4 g/dl (14.0-18.0) L 04/24/24 06:23 Hct 37.5 % (42.0-52.0) L 04/24/24 06:23 MCV 91.5 fL (80.0-100.0) 04/24/24 06:23 MCH 30.2 pg (25.0-34.0) 04/24/24 06:23 MCHC 33.1 g/dL (32.0-36.0) 04/24/24 06:23 RDW Std Deviation 51.1 fL (36.4-46.3) H 04/24/24 06:23 RDW Coeff of Pastor 15.2 % (11.5-14.5) H 04/24/24 06:23 Plt Count 122 K/uL (130-400) L 04/24/24 06:23 MPV 10.7 fL (9.4-12.4) 04/24/24 06:23 Immature Gran % (Auto) 0.7 % 04/22/24 06:05 Neut % (Auto) 84.2 % 04/22/24 06:05 Lymph % (Auto) 7.5 % 04/22/24 06:05 Mcduffie % (Auto) 7.5 % 04/22/24 06:05 Eos % (Auto) 0.0 % 04/22/24 06:05 Baso % (Auto) 0.1 % 04/22/24 06:05 Neut # (Auto) 7.91 K/uL (1.40-6.50) H 04/22/24 06:05 Lymph # (Auto) 0.70 K/uL (1.20-3.40) L 04/22/24 06:05 Mcduffie # (Auto) 0.70 K/uL (0.11-0.59) H 04/22/24 06:05 Eos # (Auto) 0.00 K/uL (0.00-0.50) 04/22/24 06:05 Baso # (Auto) 0.01 K/uL (0.00-0.20) 04/22/24 06:05 Immature Gran # (Auto) 0.07 K/uL (0.01-0.20) 04/22/24 06:05 PT 10.9 Seconds (9.0-12.0) 04/20/24 14:19 INR 1.0 (0.9-1.1) 04/20/24 14:19 APTT 27 Seconds (21-31) 04/20/24 14:19 PTT Ratio 1.0 04/20/24 14:19 Sodium 134 mmol/L (136-145) L 04/24/24 06:23 Potassium 4.6 mmol/L (3.5-5.1) 04/24/24 06:23 Chloride 101 mmol/L (98-107) 04/24/24 06:23 Carbon Dioxide 31 mmol/L (21-32) 04/24/24 06:23 Anion Gap 2 (3-11) L 04/24/24 06:23 BUN 46 mg/dl (6-23) H 04/24/24 06:23 Creatinine 1.39 mg/dl (0.6-1.4) 04/24/24 06:23 Est Cr Clr Drug Dosing 59.9 ml/min 04/24/24 06:23 eGFR 50.62 04/24/24 06:23 BUN/Creatinine Ratio 33.1 (10-20) H 04/24/24 06:23 Glucose 93 mg/dl (70-99(Fasting)) 04/24/24 06:23 POC Glucose 104 mg/dl (70-99) H 04/24/24 07:55 Estimat Average Glucose 128 mg/dl 04/21/24 02:58 Hemoglobin A1c 6.1 % (4.5-5.6) H 04/21/24 02:58 Calcium 7.9 mg/dl (8.6-10.3) L 04/24/24 06:23 Magnesium 2.2 mg/dl (1.7-2.4) 04/20/24 14:19 Total Bilirubin 0.8 mg/dl (0.2-1.0) 04/20/24 14:19 AST 42 U/L (13-39) H 04/20/24 14:19 ALT 34 U/L (7-52) 04/20/24 14:19 Alkaline Phosphatase 110 U/L (34-104) H 04/20/24 14:19 Total Protein 6.9 gm/dl (6.0-8.3) 04/20/24 14:19 Albumin 3.7 gm/dl (3.4-5.0) 04/20/24 14:19 Globulin 3.2 gm/dl (2.5-4.0) 04/20/24 14:19 Albumin/Globulin Ratio 1.2 (0.9-2) 04/20/24 14:19 Urine Color Yellow 04/20/24 Unknown Urine Appearance Clear (Clear) 04/20/24 Unknown Urine pH 5.0 (4.5-7.5) 04/20/24 Unknown Ur Specific [place] 1.015 (1.000-1.030) 04/20/24 Unknown Urine Protein Negative (Negative) 04/20/24 Unknown Urine Glucose (UA) 3+ (Negative) H 04/20/24 Unknown Urine Ketones Negative (Negative) 04/20/24 Unknown Urine Blood Negative (Negative) 04/20/24 Unknown Urine Nitrite Negative (Negative) 04/20/24 Unknown Urine Bilirubin Negative (Negative) 04/20/24 Unknown Urine Urobilinogen Negative (Negative) 04/20/24 Unknown Ur Leukocyte Esterase Negative (Negative) 04/20/24 Unknown Stl C. cayetanensis PCR Not Detected (NotDetected) 04/23/24 16:58 Stool Rotavirus A PCR Not Detected (NotDetected) 04/23/24 16:58 Stl Adenov F 40/41 PCR Not Detected (NotDetected) 04/23/24 16:58 Stool Astrovirus (PCR) Not Detected (NotDetected) 04/23/24 16:58 Stool Campylobacter PCR Not Detected (NotDetected) 04/23/24 16:58 Stl C. diff Tox B Gene Negative Cdiff Gene (Neg) 04/23/24 16:58 Stool Cryptosporidium PCR Not Detected (NotDetected) 04/23/24 16:58 Stl E.coli Shiga Tox PCR Not Detected (NotDetected) 04/23/24 16:58 Stl Enterotoxigenic E PCR Not Detected (NotDetected) 04/23/24 16:58 Stool EPEC (PCR) Not Detected (NotDetected) 04/23/24 16:58 Stool EAEC (PCR) Not Detected (NotDetected) 04/23/24 16:58 Stl E. histolytica PCR Not Detected (NotDetected) 04/23/24 16:58 Stool Giardia Lamblia PCR Not Detected (NotDetected) 04/23/24 16:58 Stool Salmonella PCR Not Detected (NotDetected) 04/23/24 16:58 Stool Sapovirus (PCR) Not Detected (NotDetected) 04/23/24 16:58 Stl P. shigelloides PCR Not Detected (NotDetected) 04/23/24 16:58 Stl Shigella/EIEC PCR Not Detected (NotDetected) 04/23/24 16:58 St Y.enterocolitica PCR Not Detected (NotDetected) 04/23/24 16:58 Stool Vibrio (PCR) Not Detected (NotDetected) 04/23/24 16:58 Stl Vibrio cholerae PCR Not Detected (NotDetected) 04/23/24 16:58 Stl Norovirus GI/GII PCR Not Detected (NotDetected) 04/23/24 16:58 Blood Type A Positive 04/20/24 14:19 Antibody Screen NEGATIVE 04/20/24 14:19 Impressions Hip/Pelvis X-Ray 04/21/24 17:04 INDICATION: Postop evaluation. TECHNIQUE: 3 views total of the right hip/pelvis COMPARISON: Radiograph from the prior day. FINDINGS/IMPRESSION: Right hip hardware appears intact. No acute fracture or dislocation. Postoperative changes in the soft tissues. Electronically signed by Huber Jarrell 04-21-2024 5:54 PM Chest X-Ray 04/23/24 12:45 XR chest 1V portable CLINICAL HISTORY: hypotension, crackles LLL COMPARISON STUDY: 04/08/2022 FINDINGS: Stable pacemaker. Stable cardiomegaly with pulmonary vascular congestion. There is increased hazy opacity at the left base with obscuration of the left hemidiaphragm. No pneumothorax. IMPRESSION: Increased opacity at the left lung base could represent atelectasis or pneumonia. ACT 112: Negative or not required by law. Electronically signed by: Papi Gunn M.D. 04/23/2024 1:25 PM
[2024-04-24 12:16] VITALS: BP 94/58; RESP 13; TEMP 97.5; O2SAT 93
[2024-04-24 13:51] VITALS: PULSE 63
--- NOTE | 2024-04-24 16:34 | Discharge Summary ---
Discharge Summary Date of Service April 24, 2024 Principal Dx & Hospital Course #1 = Principal Diagnosis (1) Right femoral fracture: (2) HAP (hospital-acquired pneumonia): (3) PAF (paroxysmal atrial fibrillation): (4) DM type 2 (diabetes mellitus, type 2): (5) HFrEF (heart failure with reduced ejection fraction): Betsy Peace is a pleasant 83-year-old male with PMH of HFrEF, CAD, biventricular ICD, PAF, T2DM, vertigo, and HTN. He presented on 04/20 after sustaining a ground- level fall onto his right hip; no head strike, no LOC, not on blood thinners. Patient reports that he has had "equilibrium" issues for an ongoing period of time, which may have caused him to fall. While he does endorse some dizziness prior to falling. Hip and pelvic x-ray on arrival revealed an acute fracture at the right femoral neck with proximal migration. #Right femoral neck fracture S/p right cemented hip hemiarthroplasty with Dr. Pelletier on 04/21/24. EBL 150 cc, no complications noted. Mild acute blood loss anemia postoperatively, hgb stable at 12.4 Activity: weightbearing as tolerated with posterior hip precautions per ortho. Abduction pillow to be worn while sleeping for the next 6 weeks DVT PPx: Aspirin 81 mg BID x 6 weeks, SCDs while hospitalized Pain regimen: Tylenol 1 g Q8H PRN mild pain. Did not require any narcotic pain control during his hospitalization PT/OT recommended rehab. Discharged to [facility] 04/24 #Hospital acquired pneumonia vs. Atelectasis CXR revealed LLL opacity suggestive of pneumonia vs atelectasis. Given >48 hours inpatient, will treat as HAP with Zosyn Q8h. Mild leukocytosis resolved after 24 hours of antibiotics Continue with Augmentin BID x 5 days on discharge Remain stable on room air #HFrEF Last echocardiogram on 04/26/2022 revealed LVEF at 25-30% Continue Jardiance, Lasix Entresto placed on hold due to postoperative hypotension Asymptomatic hypotension 04/23 s/p 500 cc bolus NSS. Improvement in BP, continue to monitor. Caution with IV fluids given HFrEF #Diarrhea Copious episode of liquid BM 04/23 Stool studies / C. diff testing negative #T2DM A1c 6.1% Patient reports that he takes Lantus 20u as needed if elevated BSG #H/o PAF/V. tach Patient denies history of atrial fibrillation, may has reference to PAF and prior cardiology notes S/p pacemaker Not currently on blood thinners; ?Due to h/o life-threatening GI bleed in 2006 Telemetry revealed paced rhythm in 60s with PVCs Continue amiodarone #CAD Takes aspirin 3xwk at home for history of heart stent Will utilize Aspirin 81 mg BID for DVT prophylaxis for time being Dispo: Discharged to [facility] 04/24. Recommend PCP follow-up in 1-2 weeks. Notes For Next Care Provider Monitor blood pressure and resume Entresto when appropriate, possibly at lower dose Unclear if LLL pneumonia versus atelectasis, but treated with course of antibiotics for completeness and given prevalence of pneumonia at this time Medication Changes From Visit Held Entresto Aspirin 81 mg BID x 6 weeks for postop DVT PPx Admission HPI Per Admitting Provider Kobi is a pleasant 83-year-old male with PMH of HFrEF, CAD, biventricular ICD, PAF, T2DM, vertigo, and HTN. He presented on 04/20 after sustaining a ground- level fall onto his right hip at approximately 11:15 AM. No head strike. Patient reports that he has had equilibrium issues for an ongoing period of time, which may have caused him to fall. While he does endorse some dizziness prior to falling, he denies LOC. Not on blood thinners. He denies prior history of atrial fibrillation, but does report he takes baby aspirin daily for his history of CAD, heart stent, and pacemaker. He denies prior history of SC or stroke. He does take insulin daily for his T2DM; all short acting, he does not use Lantus. Patient does have a history of recurrent falls, but reports the last 1 was around 2 years ago. He ambulates with a walker and cane at baseline, and reports he was using his cane when he fell today. History of injuries to the right leg include tearing his ACL/MCL while slipping on ice. Patient did take his regular morning medicine today; no recent change in medications. He does endorse 6/10 right hip pain after receiving pain medicine the ED. Did not take pain medicine prior to coming into the ED. He was unable to bear weight on his right leg after the fall. No numbness or tingling in the right leg, but he does report that the pain does radiate up to his lower back. Patient denies smoking, tobacco use, or recent alcohol use. No CPAP at night. He reports that he has not had significant changes in weight recently, and we does watch his salt intake. Patient's vitals are stable at time of admission. ED course: Morphine sulfate 4 mg IV Zofran 4 mg IV ROS: Patient endorses right hip pain. Patient denies fever, night sweats, chest pain, chest palpitations, SOB at rest, ZEPEDA, pleuritic CP, cough, abdominal pain, N/V/D, changes in urinary bowel habits, or numbness or tingling in the right leg. Discharge Exam General: No acute distress, nondiaphoretic, well-developed, well-nourished. Cardiac: Regular rate and rhythm without murmurs gallops or rubs. Pulm: LLL with faint crackles. Otherwise clear to auscultation. No respiratory distress. 95% on room air. Abdominal: Soft, nontender, distended secondary to body habitus. Bowel sounds present. Neuro: A&O x3. No focal neurological deficits. Extremities: Postoperative dressing in place to right hip, clean, dry, intact. 1+ pitting edema RLE, 2+ pitting edema LLE (chronic per patient). Normal strength and sensation in lower extremities bilaterally. Well-perfused. Discharge Plan Discharge Items Patient Disposition: Transfer Inpatient Rehab Fac Reason For Visit: RIGHT FEMUR FX Discharge Diagnosis: Right proximal femur fracture; status post hemiarthroplasty on 04/21/[address] Pelletier Condition on Discharge: Good Activity: Per Instructions section Non-emergency contact: Primary Care Provider and Surgeon Call non-emergency contact if: you have any medication questions, your symptoms worsen, your pain is not controlled, your temperature is above 101, your wound has increased redness and your wound has increased drainage Follow-up/Referrals: Dick Joshi PA-C [[facility]] - 05/06/24 8:30 am Rupesh Villanueva DO [Primary Care Provider] - (Follow-up in 1-2 weeks) Diet: Carb Consistent or DM2 and Heart Healthy Addtl Attending Provider Instructions: Mr. Hu, You were admitted to the hospital after a ground-level fall resulted in a right hip fracture. You had surgery to fix this on 04/21/[address] Pelletier. You tolerated this surgery well without any complications. You have had low blood pressure after surgery, so your Entresto medicine has been held as this can lower your blood pressure further. You were also started on an antibiotic for possible pneumonia. You are being discharged to [facility] for rehab. Upon discharge from the hospital: * Continue taking Aspirin 81 mg twice daily x 6 weeks postoperatively. This is to prevent blood clots from forming. * Take Tylenol 1,000 mg every 8 hours as needed for pain. * Take Augmentin (oral antibiotic) twice daily x 5 days. This is to complete treatment for pneumonia. * Hold your Entresto for now due to low blood pressure. Your doctor at [facility] / PCP can resume this when felt appropriate. * Continue your other home medications as prescribed. * Follow the instructions from your surgical team listed below. * Follow-up with your PCP in 1-2 weeks. * Follow-up with your ortho surgical team as scheduled on 05/06/24 at 8:30 AM. It was a pleasure taking care of you while you were in the hospital! Addtl Institutional Aide Provider Instructions: Orthopedic instructions: -You may weight-bear as tolerated on your right leg with the assistance of a walker at all times. -Posterior hip precautions right leg at all times. -Keep the Silverlon dressing in place. Keep it on until your follow-up appointment on May 06. You may shower with this dressing in place. -When showering do not soak or submerge incision. Okay to let the soap and water run over the Silverlon. -Knee-high MARK stockings on bilateral lower extremities x 3 to 4 weeks after surgery. Keep it on during the day and may remove at night for comfort. -Use abduction pillow when lying in bed for the first 6 weeks. Use abduction pillow or standard pillow between knees when sitting in a chair. -Physical therapy exercises as taught by the therapist in the hospital. You may do gluteal squeezes, quad sets, leg lifts, ankle pumps, knee and ankle range of motion. Hip range of motion with the posterior hip precautions. -Ice to right hip and thigh as needed for pain or swelling. -Elevate right lower extremity on 2-3 pillows to relieve swelling. -Use aspirin 81 mg p.o. twice daily for DVT prophylaxis for 6 weeks after surgery. -Call [phone] with any increased pain, swelling, fevers, chills, drainage from incision, issues with dressing, leg swelling, questions or concerns. -Follow-up with Dick Joshi PA-C ([facility] orthopedics) on May 06, 2024 at 8:30 AM. Pending Studies at Discharge: No Stand-Alone Forms: My [facility] Skilled Items Patient informed of condition?: Yes DNR: No Discharge Level of Care: Acute rehab Communicable Disease: No Discharge Prognosis: Stable Lines: None Urinary Catheter: No Medications and DC Order Prescriptions: New aspirin 81 mg Tablet,Delayed Release (Dr/Ec) 81 mg PO BID Qty: 60 0RF amoxicillin-pot clavulanate 875-125 mg tablet 1 tab PO BID Qty: 10 0RF Continued (DME) lancets [OneTouch UltraSoft Lancets] [facility] See Rx Instructions .ROUTE .MEDSUPPLY Qty: 100 3RF Rx Instructions: use to test three times daily (DME) blood-glucose meter [OneTouch Ultra2 Meter] [facility] See Rx Instructions .ROUTE .MEDSUPPLY Qty: 1 0RF Rx Instructions: As directed (DME) blood sugar diagnostic Strip See Rx Instructions .ROUTE .MEDSUPPLY Qty: 300 3RF Rx Instructions: CHECK BLOOD SUGARS TID (DME) pen needle, diabetic [Easy Comfort Pen Dyer] 33 gauge x 1/4" needle See Rx Instructions .Route Qty: 200 7RF Rx Instructions: BID (DME) blood-glucose meter [OneTouch Ultra2 Meter] [facility] See Rx Instructions .ROUTE .MEDSUPPLY Qty: 1 0RF Rx Instructions: As directed carvedilol 25 mg tablet 37.5 mg PO BID Qty: 270 3RF Rx Instructions: must administer with a meal/food potassium chloride 10 mEq capsule, extended release 10 meq PO QAM Qty: 90 3RF amiodarone 200 mg tablet 200 mg PO BID Qty: 180 3RF Jardiance 10 mg tablet 10 mg PO QAM Qty: 90 3RF rosuvastatin 40 mg Tablet 40 mg PO Q OTHER DAY insulin glargine U-300 conc [Toujeo SoloStar U-300 Insulin] 300 unit/mL (1.5 mL) insulin pen 15 unit SUBCUT UD Rx Instructions: Per patient: He test his levels twice a day. If levels is under 135 he does 0units. If it's under 150 he does 20units. If over 150 he does 40units Held Entresto 49-51 mg tablet 1 tab PO BID Qty: 180 3RF Hold Instructions: Provider's Order - resume when BP appropriate aspirin 81 mg Tablet,Delayed Release (Dr/Ec) 81 mg PO 3XWK Hold Instructions: Provider's Order Rx Instructions: MON, WED, & FRI Discharge Orders: Discharge Order (Routine); Ordered 04/24/24 Ordered By: Cherie Orellana/Other Patient Handouts: Managing Type 2 Diabetes Admission Data Admit Date/Time: 04/20/24 14:32 Attending Provider: Cherie Wilkins Admit Provider: Alcides Espitia Primary Care Provider: Rupesh Villanueva Other [facility]: [facility]ier[facility]; [facility]; [facility] Other Interventions: Discharge Summary Assessment (RN) Last Done: 04/24/24 11:08 Hospital Stay Data Consultations 04/20/24 14:17 Consult Orthopedic Surgery Routine Procedures Performed Operation Date: 04/21/24 09:20 Actual Procedures p Right Cemented Hip Hemiarthroplasty(Right) - Erick Pelletier MD Pending Results Patient Have Any Pending Studies at Discharge: No Discharge Instructions Given to Patient (Per Discharging Provider) Mr. Hu, Anil were admitted to the hospital after a ground-level fall resulted in a right hip fracture. You had surgery to fix this on 04/21/[address] Pelletier. You tolerated this surgery well without any complications. You have had low blood pressure after surgery, so your Entresto medicine has been held as this can lower your blood pressure further. You were also started on an antibiotic for possible pneumonia. You are being discharged to [facility] for rehab. Upon discharge from the hospital: * Continue taking Aspirin 81 mg twice daily x 6 weeks postoperatively. This is to prevent blood clots from forming. * Take Tylenol 1,000 mg every 8 hours as needed for pain. * Take Augmentin (oral antibiotic) twice daily x 5 days. This is to complete treatment for pneumonia. * Hold your Entresto for now due to low blood pressure. Your doctor at [facility] / PCP can resume this when felt appropriate. * Continue your other home medications as prescribed. * Follow the instructions from your surgical team listed below. * Follow-up with your PCP in 1-2 weeks. * Follow-up with your ortho surgical team as scheduled on 05/06/24 at 8:30 AM. It was a pleasure taking care of you while you were in the hospital! Supervising Physician Co-Signing Physician Notes PA Supervision Note: I did not personally see or examine the patient today, but I verified all obrien points of GENE Nolen's assessment and plan with the following exceptions/additions: None Total Time Total Time Spent Total Time Spent (In Minutes): Greater than 30 minutes spent completing this discharge process including direct patient care, medication reconciliation, documentation, review of labs and images, and coordination of care. Coding Level of Care Code 44346 INP/OBS DISCH >30 MIN Diagnoses Right femoral fracture S72.91XA HAP (hospital-acquired pneumonia) J18.9; Y95 PAF (paroxysmal atrial fibrillation) I48.0 DM type 2 (diabetes mellitus, type 2) E11.9 HFrEF (heart failure with reduced ejection fraction) I50.20
== END 2024-04-24 15:11 | DRG 521 ==
LOC: ED 11:59 → SUATTDRO 14:32 → EDINP 14:32 → 2N 16:00
DX: J98.11 Atelectasis; Z68.35 Body mass index [BMI] 35.0-35.9, adult; Z95.810 Presence of automatic (implantable) cardiac defibrillator; I25.10 Atherosclerotic heart disease of native coronary artery without angina pectoris; S72.001A Fracture of unspecified part of neck of right femur, initial encounter for closed fracture; I48.0 Paroxysmal atrial fibrillation; W01.0XXA Fall on same level from slipping, tripping and stumbling without subsequent striking against object, initial encounter; D62 Acute posthemorrhagic anemia; E11.9 Type 2 diabetes mellitus without complications; J18.9 Pneumonia, unspecified organism; Y92.89 Other specified places as the place of occurrence of the external cause; I11.0 Hypertensive heart disease with heart failure; I50.22 Chronic systolic (congestive) heart failure; Z79.82 Long term (current) use of aspirin; E66.9 Obesity, unspecified